=== PATIENT | male | born 1955 | race American Indian/Alaskan Native ===

== ENCOUNTER 2017-10-11 17:52 | Inpatient (IN) | payer OTHER, MEDICAID ==
--- NOTE | 2017-10-11 19:39 | Emergency Department Report ---
ED General Adult HPI - General Chief complaint: Recheck/Abnormal Lab/Rx Stated complaint: ABDNORMAL LABS Time Seen by Provider: 10/11/17 18:37 Source: patient, EMS Mode of arrival: Stretcher Limitations: No Limitations - History of Present Illness Initial comments: The patient presents to emergency department with complaint of abdominal pain. The patient is escorted from the local alf via PD for a further medical evaluation due to abnormal labs at the alf. According medical records that were provided the patient has elevated renal function along with elevated CK. Patient denies any chest pain, headache, nausea or vomiting. -: Gradual Radiation: non-radiation Severity scale (0 -10): 3 Quality: aching Consistency: constant Improves with: none Worsens with: none Associated Symptoms: denies other symptoms - Related Data Allergies Allergy/AdvReac Type Severity Reaction Status Date / Time Penicillins Allergy Unknown Verified 10/11/17 21:22 Sulfa (Sulfonamide Allergy Unknown Verified 10/11/17 21:22 Antibiotics) ED Review of Systems ROS: Stated complaint: ABDNORMAL LABS Other details as noted in HPI Comment: All other systems reviewed and negative Constitutional: denies: chills, fever Eyes: denies: eye pain, eye discharge, vision change ENT: denies: ear pain, throat pain Respiratory: denies: cough, shortness of breath, wheezing Cardiovascular: denies: chest pain, palpitations Endocrine: no symptoms reported Gastrointestinal: denies: abdominal pain, nausea, diarrhea Genitourinary: denies: urgency, dysuria Musculoskeletal: denies: back pain, joint swelling, arthralgia Skin: denies: rash, lesions Neurological: denies: headache, weakness, paresthesias Psychiatric: denies: anxiety, depression Hematological/Lymphatic: denies: easy bleeding, easy bruising ED Past Medical Hx - Social History Smoking Status: Former Smoker Substance Use Type: None ED Physical Exam - General Limitations: No Limitations General appearance: alert, in no apparent distress - Head Head exam: Present: atraumatic, normocephalic - Eye Eye exam: Present: normal appearance, PERRL, EOMI - ENT ENT exam: Present: mucous membranes moist - Neck Neck exam: Present: normal inspection - Respiratory Respiratory exam: Present: normal lung sounds bilaterally. Absent: respiratory distress - Cardiovascular Cardiovascular Exam: Present: regular rate, normal rhythm. Absent: systolic murmur, diastolic murmur, rubs, gallop - GI/Abdominal GI/Abdominal exam: Present: soft, normal bowel sounds - Rectal Rectal exam: Present: deferred - Extremities Exam Extremities exam: Present: normal inspection - Back Exam Back exam: Present: normal inspection - Neurological Exam Neurological exam: Present: alert, oriented X3, CN II-XII intact. Absent: motor sensory deficit - Psychiatric Psychiatric exam: Present: normal affect, normal mood - Skin Skin exam: Present: warm, dry, intact, normal color. Absent: rash ED Course Vital Signs 10/11/17 10/11/17 10/11/17 18:31 19:16 19:19 Temperature 97.8 F 98 F Pulse Rate 108 H 75 Respiratory 16 16 15 Rate Blood Pressure 110/70 Blood Pressure 110/70 [Left] O2 Sat by Pulse 100 98 Oximetry 10/11/17 19:30 Temperature Pulse Rate 112 H Respiratory 33 H Rate Blood Pressure 117/75 Blood Pressure [Left] O2 Sat by Pulse 96 Oximetry ED Medical Decision Making - Lab Data Result diagrams: 10/11/17 19:38 10/11/17 19:38 - Medical Decision Making Discussed results with patient the patient was started on IV fluids 150 mL per hour Critical Care Time: Yes Critical care time in (mins) excluding proc time.: 35 Critical care attestation.: If time is entered above; I have spent that time in minutes in the direct care of this critically ill patient, excluding procedure time. ED Disposition Clinical Impression: Acute renal failure Disposition: OP ADMIT IP TO THIS HOSP Is pt being admited?: Yes Does the pt Need Aspirin: No Condition: Fair Instructions: Impaired Kidney Function (ED) Referrals: PRIMARY CARE, [Primary Care Provider] - 3-5 Days Time of Disposition: 21:55
[2017-10-11 20:19] LABS: Hematocrit 29.6 % (35.5-45.6); Hemoglobin 10.2 gm/dl (11.8-15.2); Mean Corpuscular HGB Conc 34 % (32-34); Mean Corpuscular Hemoglobin 32 pg (28-32); Mean Corpuscular Volume 93 fl (84-94); Red Blood Count 3.18 M/mm3 (3.65-5.03); Red Cell Distribution Width 14.5 % (13.2-15.2)
[2017-10-11 20:30] LABS: Calcium 8.4 mg/dL (8.4-10.2)
[2017-10-11 20:35] LABS: Bilirubin,Urine NEG (Negative); Blood,Urine MOD (Negative); Color,Urine Yellow (Yellow); Mucus,Urine FEW /HPF; Protein,Urine <15 mg/dL mg/dL (Negative); Urobilinogen,Urine < 2.0 mg/dL (<2.0)
--- NOTE | 2017-10-11 20:45 | Cat Scan Report ---
FINAL REPORT PROCEDURE: CT abdomen and pelvis without contrast. TECHNIQUE: Computerized axial tomography of the abdomen and pelvis was performed without intravenous contrast. This study is performed without intravascular contrast material and its sensitivity for abdominal and pelvic pathology, including neoplasms, inflammation, abscess, free fluid, thrombosis, arterial dissection and infarction, is reduced compared with a contrast enhanced study. HISTORY: Abdominal pain. COMPARISON: No prior studies are available for comparison. FINDINGS: The lung bases are clear. There are no pleural effusions. The heart size is normal. The liver, pancreas and spleen are grossly normal. The gallbladder is present. There is no biliary dilatation. The adrenal glands are not enlarged. Both kidneys appear normal in size and configuration. There may be a small right renal cyst. This is incompletely evaluated without intravenous contrast however. The abdominal aorta has a normal caliber. There is no retroperitoneal adenopathy. The unopacified gastrointestinal tract is unremarkable. The appendix is not identified. The bladder, seminal vesicles and prostate are unremarkable. There are small bilateral inguinal canal hernias containing fat. The regional skeleton appears intact. There is severe disc space narrowing at L5-S1. IMPRESSION: Possible small right renal cysts. Small bilateral inguinal canal hernias containing fat. No evidence of acute disease in the abdomen or pelvis.
[2017-10-11 21:09] LABS: Band Neutrophils # (Manual) 2.3 K/mm3; Basophils % (Manual) 0 % (0.0-1.8); Eosinophils % (Manual) 0 % (0.0-4.3); Total Cells Counted 100
[2017-10-11 21:10] LABS: Hypochromasia 1+; Macrocytosis 1+; Poikilocytosis Few; Target Cells Few
[2017-10-11 21:11] LABS: Ovalocytes Few; Platelet Estimate Appears Decreased
[2017-10-11 21:15] LABS: Platelet Count 88 K/mm3 (140-440)
[2017-10-11] MEDS: NACL 0.9% 1000 ML 1,000 ML IV SCH (21:48)
[2017-10-11] MEDS ORDERED: NORCO 10/325 ONE (23:28)
[2017-10-11] MEDS ORDERED: NORCO 10/325 PO ONE (23:32)
--- NOTE | 2017-10-12 00:04 | History and Physical Report ---
History of Present Illness Date of examination: 10/11/17 Date of admission: 10/11/2017 Chief complaint: Chief complaint: Abdominal pain for 1 day duration Abnormal labs from [facility] consistent with decreased kidney function History of present illness: :History of Present Illness: 61-year-old [facility] inmate with no significant past medical history sent from the [facility] for abdominal pain of one-day duration. The patient was also found to have abnormal labs indicating decreased kidney function with increased creatinine. Patient did not have any nausea , vomiting or diarrhea. No fever or chills. No shortness of breath. No recent travel. Abdominal pain is generalized about 4 on a scale of 1-10. Crampy sensation. No GI bleed. No melanotic stools. Patient admits to poor oral intake of fluids. 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 Family history Htn Social History Smoking Status: Former Smoker Substance Use Type: None Review of Systems ROS: Stated complaint: ABDNORMAL LABS Other details as noted in HPI Comment: All other systems reviewed and negative Constitutional: denies: chills, fever Eyes: denies: eye pain, eye discharge, vision change ENT: denies: ear pain, throat pain Respiratory: denies: cough, shortness of breath, wheezing Cardiovascular: denies: chest pain, palpitations Endocrine: no symptoms reported Gastrointestinal: denies: abdominal pain, nausea, diarrhea Genitourinary: denies: urgency, dysuria Musculoskeletal: denies: back pain, joint swelling, arthralgia Skin: denies: rash, lesions Neurological: denies: headache, weakness, paresthesias Psychiatric: denies: anxiety, depression Hematological/Lymphatic: denies: easy bleeding, easy bruising Medications and Allergies Allergies Allergy/AdvReac Type Severity Reaction Status Date / Time Penicillins Allergy Unknown Verified 10/11/17 21:22 Sulfa (Sulfonamide Allergy Unknown Verified 10/11/17 21:22 Antibiotics) Active Meds: Active Medications Sodium Chloride (Nacl 0.9% 1000 Ml) 1,000 mls @ 150 mls/hr IV DIRECT SHAKA Last Admin: 10/11/17 21:48 Dose: 150 mls/hr Exam - Physical Exam Narrative exam: Lying in bed comfortably - Constitutional Vitals: Temp Pulse Resp BP Pulse Ox 98 F 121 H 18 119/70 100 10/11/17 19:16 10/11/17 23:16 10/11/17 23:33 10/11/17 23:16 10/11/17 23:16 General appearance: Present: no acute distress, well-nourished - EENT Eyes: Present: PERRL ENT: hearing intact, clear oral mucosa - Neck Neck: Present: supple, normal ROM - Respiratory Respiratory effort: normal Respiratory: bilateral: CTA - Cardiovascular Heart rate: 80 Rhythm: regular Heart Sounds: Present: S1 & S2. Absent: rub, click - Extremities Extremities: no ischemia, pulses intact, pulses symmetrical, No edema Peripheral Pulses: within normal limits - Abdominal General gastrointestinal: Present: soft, non-tender, non-distended, normal bowel sounds Male genitourinary: Present: normal - Rectal Rectal Exam: deferred - Integumentary Integumentary: Present: clear, warm, dry - Musculoskeletal Musculoskeletal: gait normal, strength equal bilaterally - Psychiatric Psychiatric: appropriate mood/affect, intact judgment & insight - Neurologic Neurologic: CNII-XII intact, moves all extremities - Allied Health Allied health notes reviewed: nursing, case management Results - Labs CBC & Chem 7: 10/11/17 19:38 10/11/17 19:38 Labs: Laboratory Last Values WBC 6.8 K/mm3 (4.5-11.0) 10/11/17 19:38 RBC 3.18 M/mm3 (3.65-5.03) L 10/11/17 19:38 Hgb 10.2 gm/dl (11.8-15.2) L 10/11/17 19:38 Hct 29.6 % (35.5-45.6) L 10/11/17 19:38 MCV 93 fl (84-94) 10/11/17 19:38 MCH 32 pg (28-32) 10/11/17 19:38 MCHC 34 % (32-34) 10/11/17 19:38 RDW 14.5 % (13.2-15.2) 10/11/17 19:38 Plt Count 88 K/mm3 (140-440) L 10/11/17 19:38 Add Manual Diff Complete 10/11/17 19:38 Total Counted 100 10/11/17 19:38 Seg Neuts % (Manual) 57.0 % (40.0-70.0) 10/11/17 19:38 Band Neutrophils % 34.0 % 10/11/17 19:38 Lymphocytes % (Manual) 3.0 % (13.4-35.0) L 10/11/17 19:38 Reactive Lymphs % (Man) 0 % 10/11/17 19:38 Monocytes % (Manual) 6.0 % (0.0-7.3) 10/11/17 19:38 Eosinophils % (Manual) 0 % (0.0-4.3) 10/11/17 19:38 Basophils % (Manual) 0 % (0.0-1.8) 10/11/17 19:38 Metamyelocytes % 0 % 10/11/17 19:38 Myelocytes % 0 % 10/11/17 19:38 Promyelocytes % 0 % 10/11/17 19:38 Blast Cells % 0 % 10/11/17 19:38 Nucleated RBC % Not Reportable 10/11/17 19:38 Seg Neutrophils # Man 3.9 K/mm3 (1.8-7.7) 10/11/17 19:38 Band Neutrophils # 2.3 K/mm3 10/11/17 19:38 Lymphocytes # (Manual) 0.2 K/mm3 (1.2-5.4) L 10/11/17 19:38 Abs React Lymphs (Man) 0.0 K/mm3 10/11/17 19:38 Monocytes # (Manual) 0.4 K/mm3 (0.0-0.8) 10/11/17 19:38 Eosinophils # (Manual) 0.0 K/mm3 (0.0-0.4) 10/11/17 19:38 Basophils # (Manual) 0.0 K/mm3 (0.0-0.1) 10/11/17 19:38 Metamyelocytes # 0.0 K/mm3 10/11/17 19:38 Myelocytes # 0.0 K/mm3 10/11/17 19:38 Promyelocytes # 0.0 K/mm3 10/11/17 19:38 Blast Cells # 0.0 K/mm3 10/11/17 19:38 WBC Morphology Not Reportable 10/11/17 19:38 Hypersegmented Neuts Not Reportable 10/11/17 19:38 Hyposegmented Neuts Not Reportable 10/11/17 19:38 Hypogranular Neuts Not Reportable 10/11/17 19:38 Smudge Cells Not Reportable 10/11/17 19:38 Toxic Granulation Not Reportable 10/11/17 19:38 Toxic Vacuolation Not Reportable 10/11/17 19:38 Dohle Bodies Not Reportable 10/11/17 19:38 Pelger-Huet Anomaly Not Reportable 10/11/17 19:38 Cem Rods Not Reportable 10/11/17 19:38 Platelet Estimate Appears decreased 10/11/17 19:38 Clumped Platelets Not Reportable 10/11/17 19:38 Plt Clumps, EDTA Not Reportable 10/11/17 19:38 Large Platelets Not Reportable 10/11/17 19:38 Giant Platelets Not Reportable 10/11/17 19:38 Platelet Satelliting Not Reportable 10/11/17 19:38 Plt Morphology Comment Not Reportable 10/11/17 19:38 RBC Morphology Not Reportable 10/11/17 19:38 Dimorphic RBCs Not Reportable 10/11/17 19:38 Polychromasia Not Reportable 10/11/17 19:38 Hypochromasia 1+ 10/11/17 19:38 Poikilocytosis Few 10/11/17 19:38 Anisocytosis Not Reportable 10/11/17 19:38 Microcytosis Not Reportable 10/11/17 19:38 Macrocytosis 1+ 10/11/17 19:38 Spherocytes Not Reportable 10/11/17 19:38 Pappenheimer Bodies Not Reportable 10/11/17 19:38 Sickle Cells Not Reportable 10/11/17 19:38 Target Cells Few 10/11/17 19:38 Tear Drop Cells Not Reportable 10/11/17 19:38 Ovalocytes Few 10/11/17 19:38 Helmet Cells Not Reportable 10/11/17 19:38 [place] Bodies Not Reportable 10/11/17 19:38 [place] Rings Not Reportable 10/11/17 19:38 [place] Cells Not Reportable 10/11/17 19:38 Bite Cells Not Reportable 10/11/17 19:38 Crenated Cell Not Reportable 10/11/17 19:38 Elliptocytes Not Reportable 10/11/17 19:38 Acanthocytes (Spur) Not Reportable 10/11/17 19:38 Rouleaux Not Reportable 10/11/17 19:38 Hemoglobin C Crystals Not Reportable 10/11/17 19:38 Schistocytes Not Reportable 10/11/17 19:38 Malaria parasites Not Reportable 10/11/17 19:38 Juan Bodies Not Reportable 10/11/17 19:38 Hem Pathologist Commnt No 10/11/17 19:38 Sodium 129 mmol/L (137-145) L 10/11/17 19:38 Potassium 3.3 mmol/L (3.6-5.0) L 10/11/17 19:38 Chloride 91.4 mmol/L (98-107) L 10/11/17 19:38 Carbon Dioxide 18 mmol/L (22-30) L 10/11/17 19:38 Anion Gap 23 mmol/L 10/11/17 19:38 BUN 93 mg/dL (9-20) H 10/11/17 19:38 Creatinine 3.5 mg/dL (0.8-1.5) H 10/11/17 19:38 Estimated GFR 22 ml/min 10/11/17 19:38 BUN/Creatinine Ratio 27 % 10/11/17 19:38 Glucose 127 mg/dL (75-100) H 10/11/17 19:38 Calcium 8.4 mg/dL (8.4-10.2) 10/11/17 19:38 Phosphorus 4.00 mg/dL (2.5-4.5) 10/11/17 19:38 Magnesium 2.30 mg/dL (1.7-2.3) 10/11/17 19:38 Total Bilirubin 2.30 mg/dL (0.1-1.2) H 10/11/17 19:38 AST 206 units/L (5-40) H 10/11/17 19:38 ALT 84 units/L (7-56) H 10/11/17 19:38 Alkaline Phosphatase 77 units/L (35-129) 10/11/17 19:38 Total Creatine Kinase 1283 units/L (55-170) H 10/11/17 19:38 Total Protein 6.6 g/dL (6.3-8.2) 10/11/17 19:38 Albumin 3.0 g/dL (3.9-5) L 10/11/17 19:38 Albumin/Globulin Ratio 0.8 % 10/11/17 19:38 Urine Color Yellow (Yellow) 10/11/17 Unknown Urine Turbidity Clear (Clear) 10/11/17 Unknown Urine pH 5.0 (5.0-7.0) 10/11/17 Unknown Ur Specific [place] 1.012 (1.003-1.030) 10/11/17 Unknown Urine Protein <15 mg/dl mg/dL (Negative) 10/11/17 Unknown Urine Glucose (UA) Neg mg/dL (Negative) 10/11/17 Unknown Urine Ketones Neg mg/dL (Negative) 10/11/17 Unknown Urine Blood Mod (Negative) 10/11/17 Unknown Urine Nitrite Neg (Negative) 10/11/17 Unknown Urine Bilirubin Neg (Negative) 10/11/17 Unknown Urine Urobilinogen < 2.0 mg/dL (<2.0) 10/11/17 Unknown Ur Leukocyte Esterase Neg (Negative) 10/11/17 Unknown Urine WBC (Auto) 10.0 /HPF (0.0-6.0) H 10/11/17 Unknown Urine RBC (Auto) 15.0 /HPF (0.0-6.0) 10/11/17 Unknown U Epithel Cells (Auto) 1.0 /HPF (0-13.0) 10/11/17 Unknown Urine Mucus Few /HPF 10/11/17 Unknown - Imaging and Cardiology EKG: report reviewed CT scan - abdomen: report reviewed (small renal cysts no acute findings.) Assessment and Plan Advance Directives: Yes (full code) VTE prophylaxis?: Chemical Plan of care discussed with patient/family: Yes - Patient Problems (1) Acute kidney injury Current Visit: Yes Status: Acute Plan to address problem: Probably secondary to poor oral intake. Patient did not have any nausea vomiting or diarrhea. Patient seems to be depressed because of his being in [facility]. 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 Hemolysis LDH ordered (5) Anemia Current Visit: Yes Status: Chronic Qualifiers: Anemia type: unspecified type Qualified Code(s): D64.9 - Anemia, unspecified Plan to address problem: Probably nutritional Iron folic acid and B12 levels ordered (6) DVT prophylaxis Current Visit: Yes Status: Acute Plan to address problem: Lovenox 30 mg subcutaneous daily GI prophylaxis ordered
[2017-10-12] MEDS ORDERED: SODIUM CHLORIDE FLUSH SYRINGE 10 ML IV PRN (00:06)
[2017-10-12] MEDS ORDERED: ZOFRAN IV PRN (00:06)
[2017-10-12] MEDS: NACL 0.9% 1000 ML 1,000 ML IV SCH ×4 (01:22→20:09)
[2017-10-12 07:01] LABS: Hematocrit 28.2 % (35.5-45.6); Hemoglobin 9.9 gm/dl (11.8-15.2); Mean Corpuscular HGB Conc 35 % (32-34); Mean Corpuscular Hemoglobin 33 pg (28-32); Mean Corpuscular Volume 93 fl (84-94); Red Blood Count 3.04 M/mm3 (3.65-5.03); Red Cell Distribution Width 14.5 % (13.2-15.2)
[2017-10-12 07:06] LABS: Platelet Count 92 K/mm3 (140-440)
[2017-10-12 07:16] LABS: Albumin 2.7 g/dL (3.9-5); Calcium 8.5 mg/dL (8.4-10.2)
[2017-10-12 07:25] LABS: Hepatitis A Antibody IgM Non-Reactive (NonReactive); Hepatitis B Core IgM Non-Reactive (NonReactive); Hepatitis B Surface Antigen Non-Reactive (Negative); Hepatitis C Virus Antibody Reactive (NonReactive)
--- NOTE | 2017-10-12 08:20 | Consultation ---
History of Present Illness - Reason for Consult Consult date: 10/12/17 acute renal failure, hyponatremia, metabolic acidosis - History of Present Illness The patient is a 61 YO male with no significant medical problem who is current incarcerated was sent from the shelter for one day h/o abd pain. Patient is a poor historian. Outside labs showed elevated creatinine. Patient denies any N , V, D, dizziness, fever, chills, leg swelling, dysuria or hematuria. Nephrology was consulted for creatinine of 3.5 and abnormal lytes. Medications and Allergies Allergies Allergy/AdvReac Type Severity Reaction Status Date / Time Penicillins Allergy Unknown Verified 10/11/17 21:22 Sulfa (Sulfonamide Allergy Unknown Verified 10/11/17 21:22 Antibiotics) Active Meds: Active Medications Acetaminophen (Tylenol) 650 mg PO Q4H PRN PRN Reason: Pain MILD(1-3)/Fever >100.5/TUCKER Enoxaparin Sodium (Lovenox) 30 mg SUB-Q QDAY SHAKA Sodium Chloride (Nacl 0.9% 1000 Ml) 1,000 mls @ 150 mls/hr IV DIRECT SHAKA Last Admin: 10/12/17 08:16 Dose: 150 mls/hr Sodium Chloride (Nacl 0.9% 1000 Ml) 1,000 mls @ 125 mls/hr IV DIRECT SHAKA Last Admin: 10/12/17 01:22 Dose: 125 mls/hr Morphine Sulfate (Morphine) 2 mg IV Q4H PRN PRN Reason: Pain, Moderate (4-6) Ondansetron HCl (Zofran) 4 mg IV Q8H PRN PRN Reason: Nausea And Vomiting Oxycodone/Acetaminophen (Percocet 5/325) 1 tab PO Q6H PRN PRN Reason: Pain, Moderate (4-6) Sodium Chloride (Sodium Chloride Flush Syringe 10 Ml) 10 ml IV BID SHAKA Sodium Chloride (Sodium Chloride Flush Syringe 10 Ml) 10 ml IV PRN PRN PRN Reason: LINE FLUSH Review of Systems Constitutional: other (decrease PO intake), no weight loss, no weight gain, no fever, no chills Ears, nose, mouth and throat: epistaxis Cardiovascular: no chest pain, no orthopnea, no edema, no lightheadedness, no shortness of breath, no high blood pressure, no leg edema Respiratory: no cough, no shortness of breath Gastrointestinal: no abdominal pain, no nausea, no vomiting, no diarrhea Genitourinary Male: no dysuria, no hematuria Rectal: no bleeding Integumentary: no rash, no wounds, no jaundice Exam - Vital Signs Vital signs: Vital Signs Temp Pulse Resp BP Pulse Ox 97.8 F 108 H 16 110/70 100 10/11/17 18:31 10/11/17 18:31 10/11/17 18:31 10/11/17 18:31 10/11/17 18:31 - General Appearance General appearance: well-developed, well-nourished, appears stated age, other ( no distress) EENT: ATNC, PERRL, mucous membranes dry, hearing intact, vision intact Neck: Present: neck supple, trachea midline Respiratory: Clear to Ascultation Heart: regular, S1S2, no murmurs Gastrointestinal: Present: normoactive bowel sounds. Absent: tenderness Integumentary: no rash, warm and dry Neurologic: no focal deficit, no asterixis Musculoskeletal: Present: other (no edema) Results - Lab Results 10/12/17 06:00 10/13/17 08:05 Most recent lab results Calcium 8.5 mg/dL (8.4-10.2) 10/12/17 06:00 Phosphorus 4.00 mg/dL (2.5-4.5) 10/11/17 19:38 Magnesium 2.30 mg/dL (1.7-2.3) 10/11/17 19:38 - Image Kidney/bladder ultrasound: other Assessment and Plan 1. Acute kidney injury: Vasomotor / hemodynamic DARRICK in the setting of volume depletion. Renal function is improving. Continue IV fluids. Imaging, no hydro. 2. Electrolytes: Monitor. 3. Mild rhabdomyolysis. Continue IV fluids. 4. Hepatitis C with elevated liver enzymes.
[2017-10-12] MEDS: LOVENOX SUB-Q SCH (09:41)
[2017-10-12] MEDS: SODIUM CHLORIDE FLUSH SYRINGE 10 ML IV SCH (09:44)
[2017-10-12 09:45] LABS: % Iron Saturation 34.35 %
[2017-10-12 11:28] LABS: Anisocytosis 1+; Basophils % (Manual) 0 % (0.0-1.8); Eosinophils % (Manual) 0 % (0.0-4.3); Total Cells Counted 100
[2017-10-12 11:29] LABS: Platelet Estimate Consistent w Auto
--- NOTE | 2017-10-12 12:33 | Progress Note ---
Assessment and Plan / Acute kidney injury Probably secondary to poor oral intake. Patient did not have any nausea vomiting or diarrhea. Patient seems to be depressed because of his being in shelter. IV fluids for now Nephrology consulted Acute tubular necrosis is a high possibility /acute encephalopathy - likely from renal failure - will monitor renal function, will obtain CT head / Hypokalemia Supplemented /Hyponatremia SIADH to be ruled out IV fluids were now Serum osmolarity and urine osmolality ordered / Transaminitis Acute hepatitis profile negative Patient has no history of alcohol intake He is in the shelter for last 2 months Total bilirubin is also slightly high at 2.30 /Anemia Probably nutritional Iron folic acid and B12 levels ordered /DVT prophylaxis Lovenox 30 mg subcutaneous daily GI prophylaxis ordered Brief History: The patient is a 61 YO male with no significant medical problem who is current incarcerated was sent from the shelter for one day h/o abd pain and Outside labs showing elevated creatinine. Hospitalist Physical exam: GENERAL: well-developed and well-nourished male lying on bed appeared to be in no discomfort. HEENT: Normocephalic. Atraumatic. No conjunctival congestion or icterus. Patient has moist mucous membranes. NECK: Supple. Trachea midline. CHEST/LUNGS: Clear to auscultated bilaterally, breathing nonlabored. No wheezes crackles or rhonchi. HEART/CARDIOVASCULAR: Regular in rate and rhythm. S1 and S2 positive. ABDOMEN: Abdomen is soft, nontender. Patient has normal bowel sounds. SKIN: There is no rash. Warm and dry. NEURO: No focal motor deficit. It appears somewhat confused, oriented to self only MUSCULOSKELETAL: No joint effusion or tenderness EXTRIMITY: No edema, no cyanosis or clubbing. PSYCH: Cooperative. Subjective Date of service: 10/12/17 Interval history: Patient seen and examined. Medical records and medication list reviewed. No acute event overnight noted by the RN. + Patient denies any chest pain or difficulty breathing. Objective - Constitutional Vitals: Vital Signs - 12hr 10/12/17 10/12/17 10/12/17 00:33 00:50 01:23 Temperature 98.4 F Pulse Rate 111 H 105 H Pulse Rate [ From Monitor] Respiratory 18 27 H 20 Rate Blood Pressure 110/69 108/60 O2 Sat by Pulse 96 93 Oximetry 10/12/17 10/12/17 10/12/17 02:09 02:10 02:30 Temperature Pulse Rate Pulse Rate [ 108 H From Monitor] Respiratory 18 Rate Blood Pressure 110/69 110/69 O2 Sat by Pulse 86 87 98 Oximetry 10/12/17 10/12/17 05:19 07:28 Temperature 98.8 F 100.2 F H Pulse Rate 115 H 119 H Pulse Rate [ From Monitor] Respiratory 18 20 Rate Blood Pressure 116/73 117/75 O2 Sat by Pulse 98 97 Oximetry - Labs CBC & Chem 7: 10/12/17 06:00 10/13/17 08:05 Labs: Abnormal lab results 10/11/17 10/11/17 10/11/17 Range/Units 19:38 19:38 Unknown RBC 3.18 L (3.65-5.03) M/mm3 Hgb 10.2 L (11.8-15.2) gm/dl Hct 29.6 L (35.5-45.6) % MCH (28-32) pg MCHC (32-34) % Plt Count 88 L (140-440) K/mm3 Seg Neuts % (Manual) (40.0-70.0) % Lymphocytes % (Manual) 3.0 L (13.4-35.0) % Lymphocytes # (Manual) 0.2 L (1.2-5.4) K/mm3 Sodium 129 L (137-145) mmol/L Potassium 3.3 L (3.6-5.0) mmol/L Chloride 91.4 L (98-107) mmol/L Carbon Dioxide 18 L (22-30) mmol/L BUN 93 H (9-20) mg/dL Creatinine 3.5 H (0.8-1.5) mg/dL Glucose 127 H (75-100) mg/dL Iron (49-181) ug/dL TIBC (250-450) mcg/dL Transferrin (180-329) mg/dl Total Bilirubin 2.30 H (0.1-1.2) mg/dL AST 206 H (5-40) units/L ALT 84 H (7-56) units/L Total Creatine Kinase 1283 H (55-170) units/L Albumin 3.0 L (3.9-5) g/dL Urine WBC (Auto) 10.0 H (0.0-6.0) /HPF Hepatitis C Antibody (NonReactive) 10/12/17 10/12/17 10/12/17 Range/Units 06:00 06:00 06:00 RBC 3.04 L (3.65-5.03) M/mm3 Hgb 9.9 L (11.8-15.2) gm/dl Hct 28.2 L (35.5-45.6) % MCH 33 H (28-32) pg MCHC 35 H (32-34) % Plt Count 92 L (140-440) K/mm3 Seg Neuts % (Manual) 88.0 H (40.0-70.0) % Lymphocytes % (Manual) 5.0 L (13.4-35.0) % Lymphocytes # (Manual) 0.3 L (1.2-5.4) K/mm3 Sodium 132 L (137-145) mmol/L Potassium (3.6-5.0) mmol/L Chloride 95.3 L (98-107) mmol/L Carbon Dioxide 18 L (22-30) mmol/L BUN 94 H (9-20) mg/dL Creatinine 3.1 H (0.8-1.5) mg/dL Glucose 112 H (75-100) mg/dL Iron 45 L (49-181) ug/dL TIBC 131 L (250-450) mcg/dL Transferrin 102 L (180-329) mg/dl Total Bilirubin 2.30 H (0.1-1.2) mg/dL AST 180 H (5-40) units/L ALT 73 H (7-56) units/L Total Creatine Kinase (55-170) units/L Albumin 2.7 L (3.9-5) g/dL Urine WBC (Auto) (0.0-6.0) /HPF Hepatitis C Antibody (NonReactive) 10/12/17 Range/Units 06:00 RBC (3.65-5.03) M/mm3 Hgb (11.8-15.2) gm/dl Hct (35.5-45.6) % MCH (28-32) pg MCHC (32-34) % Plt Count (140-440) K/mm3 Seg Neuts % (Manual) (40.0-70.0) % Lymphocytes % (Manual) (13.4-35.0) % Lymphocytes # (Manual) (1.2-5.4) K/mm3 Sodium (137-145) mmol/L Potassium (3.6-5.0) mmol/L Chloride (98-107) mmol/L Carbon Dioxide (22-30) mmol/L BUN (9-20) mg/dL Creatinine (0.8-1.5) mg/dL Glucose (75-100) mg/dL Iron (49-181) ug/dL TIBC (250-450) mcg/dL Transferrin (180-329) mg/dl Total Bilirubin (0.1-1.2) mg/dL AST (5-40) units/L ALT (7-56) units/L Total Creatine Kinase (55-170) units/L Albumin (3.9-5) g/dL Urine WBC (Auto) (0.0-6.0) /HPF Hepatitis C Antibody Reactive A (NonReactive)
[2017-10-12 13:27] LABS: Creatinine,Urine 80.2 mg/dL (0.1-20.0)
[2017-10-12] MEDS: TYLENOL PO PRN (20:05)
[2017-10-13] MEDS: NACL 0.9% 1000 ML 1,000 ML IV SCH ×2 (05:58→17:05)
[2017-10-13] MEDS: PERCOCET 5/325 PO PRN (06:00)
[2017-10-13] MEDS: SODIUM CHLORIDE FLUSH SYRINGE 10 ML IV SCH ×3 (06:02→23:21)
[2017-10-13] MEDS: TYLENOL PO PRN ×2 (06:09→17:07)
--- NOTE | 2017-10-13 07:59 | Progress Note ---
Assessment and Plan 1. Acute kidney injury: Vasomotor / hemodynamic DARRICK in the setting of volume depletion. Renal function continue to improve. Continue IV fluids. 2. Electrolytes: Replete K. Monitor. 3. Mild rhabdomyolysis. Continue IV fluids. 4. Hepatitis C with elevated liver enzymes. Subjective Date of service: 10/13/17 Interval history: Patient is feeling better today. Objective - Vital Signs Vital signs: Vital Signs - 12hr 10/13/17 10/13/17 00:32 05:24 Temperature 99.5 F 102.0 F H Pulse Rate 105 H 124 H Respiratory 22 22 Rate Blood Pressure 101/68 100/58 O2 Sat by Pulse 98 93 Oximetry - General Appearance General appearance: well-developed, well-nourished, appears stated age, other ( no distress) EENT: ATNC, PERRL, mucous membranes moist, hearing intact Neck: supple Respiratory: Present: Clear to Ascultation Cardiology: regular, S1S2, no murmurs Gastrointestinal: normoactive bowel sounds, no tenderness Integumentary: no rash, warm and dry Neurologic: no focal deficit, no asterixis Musculoskeletal: other (no edema) Psychiatric: cooperative - Lab 10/12/17 06:00 10/13/17 08:05 Most recent lab results Calcium 8.5 mg/dL (8.4-10.2) 10/12/17 06:00 Phosphorus 4.00 mg/dL (2.5-4.5) 10/11/17 19:38 Magnesium 2.30 mg/dL (1.7-2.3) 10/11/17 19:38 Urine Creatinine 80.2 mg/dL (0.1-20.0) H 10/12/17 13:00 Urine Sodium 10 mmol/L 10/12/17 13:00
[2017-10-13 08:54] LABS: Calcium 8.1 mg/dL (8.4-10.2)
[2017-10-13] MEDS ORDERED: NACL 0.9% 500 ML 500 ML IV ONE (09:29)
[2017-10-13] MEDS ORDERED: VANCOMYCIN PHARMACY TO DOSE IV SCH (10:00)
[2017-10-13] MEDS ORDERED: VANCOMYCIN/NS 1 GM/250 ML 1 GM/250 ML BAG IV SCH (10:00)
[2017-10-13] MEDS ORDERED: K-DUR PO ONE (10:00)
[2017-10-13] MEDS: LOVENOX SUB-Q SCH (10:09)
[2017-10-13] MEDS ORDERED: VANCOMYCIN 1,500 MG in NACL 0.9% 500 ML 500 ML IV ONE (10:15)
--- NOTE | 2017-10-13 12:53 | Progress Note ---
Assessment and Plan / Acute kidney injury Probably secondary to poor oral intake. Patient did not have any nausea vomiting or diarrhea. Patient seems to be depressed because of his being in residential. IV fluids for now Nephrology consulted Acute tubular necrosis is a high possibility /acute encephalopathy with delirium - likely from renal failure, disoriented off and on - will monitor renal function, negative CT head result / SIRS - Initiated sepsis protocol, source unknown - cont abx, follow blood cx / Hypokalemia Supplemented /Hyponatremia improving with iv fluid / Transaminitis Acute hepatitis profile positive for hepatitis C Patient has no history of alcohol intake He is in the residential for last 2 months Total bilirubin was also slightly high at 2.30 on admission /Anemia Probably nutritional Iron folic acid and B12 levels ordered /DVT prophylaxis Lovenox 30 mg subcutaneous daily GI prophylaxis ordered Brief History: The patient is a 61 YO male with no significant medical problem who is current incarcerated was sent from the residential for one day h/o abd pain and Outside labs showing elevated creatinine. Hospitalist Physical exam: GENERAL: well-developed and well-nourished male lying on bed appeared to be in no discomfort. HEENT: Normocephalic. Atraumatic. No conjunctival congestion or icterus. Patient has moist mucous membranes. NECK: Supple. Trachea midline. CHEST/LUNGS: Clear to auscultated bilaterally, breathing nonlabored. No wheezes crackles or rhonchi. HEART/CARDIOVASCULAR: Regular in rate and rhythm. S1 and S2 positive. ABDOMEN: Abdomen is soft, nontender. Patient has normal bowel sounds. SKIN: There is no rash. Warm and dry. NEURO: No focal motor deficit. It appears somewhat confused, oriented to self only MUSCULOSKELETAL: No joint effusion or tenderness EXTRIMITY: No edema, no cyanosis or clubbing. PSYCH: Cooperative. Subjective Date of service: 10/13/17 Interval history: Patient seen and examined. Medical records and medication list reviewed. No acute event overnight noted by the RN. spiking temp, initiated abx, ordered blood cx Patient denies any chest pain. Objective - Constitutional Vitals: Vital Signs - 12hr 10/13/17 10/13/17 05:24 08:00 Temperature 102.0 F H 98.7 F Pulse Rate 124 H 118 H Respiratory 22 20 Rate Blood Pressure 100/58 86/53 O2 Sat by Pulse 93 94 Oximetry - Labs CBC & Chem 7: 10/12/17 06:00 10/14/17 07:14 Labs: Abnormal lab results 10/12/17 10/13/17 Range/Units 13:00 08:05 Sodium 135 L (137-145) mmol/L Carbon Dioxide 18 L (22-30) mmol/L BUN 91 H (9-20) mg/dL Creatinine 2.3 H (0.8-1.5) mg/dL Glucose 122 H (75-100) mg/dL Calcium 8.1 L (8.4-10.2) mg/dL Total Creatine Kinase 1702 H (55-170) units/L Urine Creatinine 80.2 H (0.1-20.0) mg/dL
--- NOTE | 2017-10-13 15:40 | Cat Scan Report ---
FINAL REPORT PROCEDURE: CT HEAD/BRAIN WO CON TECHNIQUE: Computerized tomography of the head was performed without contrast material. HISTORY: confusion COMPARISON: No prior studies are available for comparison. FINDINGS: Brain: Brain density appears normal. No evidence of intracranial hemorrhage. No parenchymal hemorrhage, mass lesions or mass effect are seen. No abnormal extraxial fluid collects or masses are seen. Nonspecific mineralization the basal ganglia are visualized. Ventricles: Ventricles are normal size and are midline. Bone Windows: No evidence of skull fracture. Paranasal sinuses: Clear Mastoid air cells: Clear IMPRESSION: Negative exam.
[2017-10-14] MEDS: NACL 0.9% 1000 ML 1,000 ML IV SCH ×3 (01:08→20:16)
[2017-10-14] MEDS: TYLENOL PO PRN ×2 (05:48→22:49)
[2017-10-14 08:14] LABS: Calcium 8.1 mg/dL (8.4-10.2)
[2017-10-14] MEDS: LOVENOX SUB-Q SCH (10:16)
[2017-10-14] MEDS: SODIUM CHLORIDE FLUSH SYRINGE 10 ML IV SCH ×2 (10:17→22:55)
[2017-10-14] MEDS: VANCOMYCIN 1,250 MG in NACL 0.9% 250ML 250 ML IV SCH (10:19)
--- NOTE | 2017-10-14 15:10 | Progress Note ---
Assessment and Plan / Acute kidney injury Probably secondary to poor oral intake and sepsis IV fluids for now, Cr improving Nephrology consulted Acute tubular necrosis is a high possibility /acute encephalopathy with delirium - likely from renal failure, disoriented off and on - will monitor renal function, negative CT head result - will order MRI. If MRI normal consider doing psych consult / Sepsis with bacteremia - Initiated sepsis protocol, source of bacteremia unknown - cont abx, follow final blood cx report - will add zosyn as spiking temp, ID consult, obtain 2d echo / Hypokalemia Supplemented /Hyponatremia improving with iv fluid / Transaminitis Acute hepatitis profile positive for hepatitis C Patient has no history of alcohol intake He is in the custodial for last 2 months cont to monitor /Anemia Probably anemia of CD, monitor h/h /DVT prophylaxis Lovenox 30 mg subcutaneous daily GI prophylaxis ordered Brief History: The patient is a 61 YO male with no significant medical problem who is current incarcerated was sent from the custodial for one day h/o abd pain and Outside labs showing elevated creatinine. Hospitalist Physical exam: GENERAL: well-developed and well-nourished male lying on bed appeared to be in no discomfort. HEENT: Normocephalic. Atraumatic. No conjunctival congestion or icterus. Patient has moist mucous membranes. NECK: Supple. Trachea midline. CHEST/LUNGS: Clear to auscultated bilaterally, breathing nonlabored. No wheezes crackles or rhonchi. HEART/CARDIOVASCULAR: Regular in rate and rhythm. S1 and S2 positive. ABDOMEN: Abdomen is soft, nontender. Patient has normal bowel sounds. SKIN: There is no rash. Warm and dry. NEURO: No focal motor deficit. It appears somewhat confused, oriented to self only MUSCULOSKELETAL: No joint effusion or tenderness EXTRIMITY: No edema, no cyanosis or clubbing. PSYCH: Cooperative. Subjective Date of service: 10/14/17 Interval history: Patient seen and examined. Medical records and medication list reviewed. No acute event overnight noted by the RN. CONT spiking temp, Patient denies any chest pain. Remained confused Objective - Constitutional Vitals: Vital Signs - 12hr 10/14/17 10/14/17 10/14/17 05:37 07:29 11:59 Temperature 101.3 F H 97.8 F 97.7 F Pulse Rate 58 L 113 H Respiratory 20 24 24 Rate Blood Pressure 99/55 102/64 88/51 O2 Sat by Pulse 95 95 Oximetry - Labs CBC & Chem 7: 10/12/17 06:00 10/14/17 07:14 Labs: Abnormal lab results 10/14/17 Range/Units 07:14 Sodium 136 L (137-145) mmol/L Carbon Dioxide 18 L (22-30) mmol/L BUN 91 H (9-20) mg/dL Creatinine 2.1 H (0.8-1.5) mg/dL Glucose 109 H (75-100) mg/dL Calcium 8.1 L (8.4-10.2) mg/dL Total Creatine Kinase 1518 H (55-170) units/L
[2017-10-14] MEDS: PERCOCET 5/325 PO PRN (18:09)
--- NOTE | 2017-10-14 22:48 | Progress Note ---
Assessment and Plan 1. Acute kidney injury: Vasomotor / hemodynamic DARRICK in the setting of volume depletion. Renal function continue to improve. Continue IV fluids. 2. Electrolytes: Monitor. 3. Mild rhabdomyolysis. Continue IV fluids. 4. Bacteremia. 5. Hepatitis C with elevated liver enzymes. Subjective Date of service: 10/14/17 Interval history: Patient is feeling better today. Objective - Vital Signs Vital signs: Vital Signs - 12hr 10/14/17 10/14/17 10/14/17 11:59 16:25 17:00 Temperature 97.7 F 97.3 F L Pulse Rate 113 H 128 H Respiratory 24 24 Rate Blood Pressure 88/51 96/52 O2 Sat by Pulse 95 85 94 Oximetry 10/14/17 19:56 Temperature 100.5 F H Pulse Rate 132 H Respiratory 22 Rate Blood Pressure 101/56 O2 Sat by Pulse 95 Oximetry - General Appearance General appearance: well-developed, well-nourished, appears stated age, other ( no distress) EENT: ATNC, PERRL, hearing intact, vision intact Neck: supple Respiratory: Present: Clear to Ascultation Cardiology: regular, S1S2, no murmurs Gastrointestinal: normoactive bowel sounds Integumentary: no rash, warm and dry Neurologic: no focal deficit, no asterixis Musculoskeletal: other (no edema) Psychiatric: cooperative - Lab 10/12/17 06:00 10/14/17 07:14 Most recent lab results Calcium 8.1 mg/dL (8.4-10.2) L 10/14/17 07:14 Phosphorus 4.00 mg/dL (2.5-4.5) 10/11/17 19:38 Magnesium 2.30 mg/dL (1.7-2.3) 10/11/17 19:38 Urine Creatinine 80.2 mg/dL (0.1-20.0) H 10/12/17 13:00 Urine Sodium 10 mmol/L 10/12/17 13:00
[2017-10-14] MEDS: ZOSYN/NS 3.375GM/50ML 3.375 GM/50 ML BAG IV SCH (22:50)
[2017-10-15] MEDS: ZOSYN/NS 3.375GM/50ML 3.375 GM/50 ML BAG IV SCH ×2 (06:05→14:39)
[2017-10-15 06:54] LABS: Basophils % (Auto) 0.3 % (0.0-1.8); Eosinophils % (Auto) 0.2 % (0.0-4.3); Hematocrit 22.5 % (35.5-45.6); Hemoglobin 7.8 gm/dl (11.8-15.2); Lymphocytes # (Auto) 0.5 K/mm3 (1.2-5.4); Mean Corpuscular HGB Conc 35 % (32-34); Mean Corpuscular Hemoglobin 32 pg (28-32); Mean Corpuscular Volume 93 fl (84-94); Monocytes # (Auto) 0.4 K/mm3 (0.0-0.8); Monocytes % (Auto) 5.4 % (0.0-7.3); Platelet Count 128 K/mm3 (140-440); Red Blood Count 2.43 M/mm3 (3.65-5.03); Red Cell Distribution Width 14.9 % (13.2-15.2)
[2017-10-15 07:17] LABS: Calcium 8.2 mg/dL (8.4-10.2)
[2017-10-15] MEDS: LOVENOX SUB-Q SCH (09:15)
[2017-10-15] MEDS: TYLENOL PO PRN ×2 (09:16→18:34)
[2017-10-15] MEDS: VANCOMYCIN 1,250 MG in NACL 0.9% 250ML 250 ML IV SCH (09:16)
--- NOTE | 2017-10-15 09:17 | Progress Note ---
Assessment and Plan 1. Acute kidney injury: Vasomotor / hemodynamic DARRICK in the setting of volume depletion. Renal function continue to improve. Continue IV fluids. 2. Electrolytes: Metabolic acidosis. Monitor. 3. Mild rhabdomyolysis. Continue IV fluids. 4. MRSA septicemia: Followed by ID. 5. Hepatitis C with elevated liver enzymes. Subjective Date of service: 10/15/17 Interval history: Patient is feeling ok. Objective - Vital Signs Vital signs: Vital Signs - 12hr 10/15/17 10/15/17 10/15/17 00:22 04:25 07:41 Temperature 97.9 F 101.4 F H 97.4 F L Pulse Rate 119 H 66 121 H Pulse Rate [ From Monitor] Respiratory 24 24 22 Rate Blood Pressure 89/53 102/64 89/57 Blood Pressure [Left] O2 Sat by Pulse 92 67 L 96 Oximetry 10/15/17 10/15/17 08:16 08:46 Temperature Pulse Rate Pulse Rate [ 127 H From Monitor] Respiratory 18 Rate Blood Pressure Blood Pressure 102/60 [Left] O2 Sat by Pulse Oximetry - General Appearance General appearance: well-developed, well-nourished, appears stated age, other ( no distress) EENT: ATNC, PERRL, mucous membranes moist, hearing intact, vision intact Neck: supple Respiratory: Present: Clear to Ascultation Cardiology: regular, S1S2, no murmurs Gastrointestinal: normoactive bowel sounds, no tenderness Integumentary: no rash, warm and dry Neurologic: no focal deficit, no asterixis Musculoskeletal: other (no edema) - Lab 10/15/17 06:17 10/15/17 06:17 Most recent lab results Calcium 8.2 mg/dL (8.4-10.2) L 10/15/17 06:17 Phosphorus 3.20 mg/dL (2.5-4.5) 10/15/17 06:17 Magnesium 2.20 mg/dL (1.7-2.3) 10/15/17 06:17 Urine Creatinine 80.2 mg/dL (0.1-20.0) H 10/12/17 13:00 Urine Sodium 10 mmol/L 10/12/17 13:00
--- NOTE | 2017-10-15 11:13 | Consultation ---
History of Present Illness - Reason for Consult Consult date: 10/15/17 MRSA septicemia Requesting physician: SAMIR ZEPEDA - History of Present Illness 61 y/o inmate from [facility] without medical history; admitted n due to abdominal pain of one-day duration. Abdominal pain is generalized about 4 on a scale of 1-10. Crampy sensation He is also c/o bilateral leg weakness. The patient was also found to have abnormal labs indicating decreased kidney function with increased creatinine. Patient did not have any nausea , vomiting or diarrhea. No fever or chills. No shortness of breath. No recent travel. Denies previous Staph infection. Reports subjective fever. In the ED, temp 97.8, HR 108, R 16, O2 sat 100%, BP 110/70. WBC 6.8. Hg 10.2. Plat 88. Bands 34%. Sodium 129. Creat 3.5. Bili 2.3. AST 206. ALT 206. CK 1283. UA neg. HCV AB positive. CT abd small right renal cyst, small meeta inguinal hernia. CT head neg. CXR neg. Microbiology: Blood cultures: 10/13 MRSA 2 of 4 bottles 10/14 Staph 3 of 4 bottles Urine cultures: Respiratory cultures: Wound cultures: Stool cultures: Other: Current Antimicrobials: Zosyn Vancomycin Previous Antimicrobials: Past History Past Surgical History: No surgical history Social history: no significant social history Family history: no significant family history Medications and Allergies Allergies Allergy/AdvReac Type Severity Reaction Status Date / Time Penicillins Allergy Unknown Verified 10/11/17 21:22 Sulfa (Sulfonamide Allergy Unknown Verified 10/11/17 21:22 Antibiotics) Active Meds: Active Medications Acetaminophen (Tylenol) 650 mg PO Q4H PRN PRN Reason: Pain MILD(1-3)/Fever >100.5/TUCKER Last Admin: 10/15/17 09:16 Dose: 650 mg Enoxaparin Sodium (Lovenox) 40 mg SUB-Q QDAY@1000 SHAKA Last Admin: 10/15/17 09:15 Dose: 40 mg Vancomycin HCl 1,250 mg/ (Sodium Chloride) 262.5 mls @ 166.667 mls/hr IV Q24H SHAKA Last Admin: 10/15/17 09:16 Dose: 166.667 mls/hr Sodium Chloride (Nacl 0.9% 1000 Ml) 1,000 mls @ 125 mls/hr IV DIRECT SHAKA Last Admin: 10/14/17 20:16 Dose: 125 mls/hr Piperacillin Sod/Tazobactam Sod (Zosyn/Ns 3.375gm/50ml) 3.375 gm in 50 mls @ 100 mls/hr IV Q8HR SHAKA; Protocol Last Admin: 10/15/17 06:05 Dose: 100 mls/hr Morphine Sulfate (Morphine) 2 mg IV Q4H PRN PRN Reason: Pain, Moderate (4-6) Ondansetron HCl (Zofran) 4 mg IV Q8H PRN PRN Reason: Nausea And Vomiting Oxycodone/Acetaminophen (Percocet 5/325) 1 tab PO Q6H PRN PRN Reason: Pain, Moderate (4-6) Last Admin: 10/14/17 18:09 Dose: 1 tab Sodium Chloride (Sodium Chloride Flush Syringe 10 Ml) 10 ml IV BID SHAKA Last Admin: 10/14/17 22:55 Dose: 10 ml Sodium Chloride (Sodium Chloride Flush Syringe 10 Ml) 10 ml IV PRN PRN PRN Reason: LINE FLUSH Vancomycin HCl (Vancomycin Pharmacy To Dose) 1 each IV PKCONSULT SHAKA Review of Systems All systems: negative (as per HPI) Physical Examination - Physical Exam Narrative exam: General appearance: Alert in NAD, anxious Eyes: anicteric sclerae, moist conjunctivae; no lid-lag; PERRLA HENT: Atraumatic; oropharynx clear with moist mucous membranes and no mucosal ulcerations/no oral thrush; normal hard and soft palate. Normal external ears. Neck: Trachea midline; supple, no thyromegaly or lymphadenopathy Lungs: CTA, with normal respiratory effort and no intercostal retractions CV: RRR Abdomen: Soft, non-tender; no masses or hepatosplenomegaly Extremities: No peripheral edema or extremity lymphadenopathy Skin: old nodular scar rash on arms/legs Psych: Appropriate affect, alert and oriented to person, place and time. Neuro: alert and oriented x 3. Moving all extermities Lines: No CVL / PICC - Constitutional Vitals: Vital Signs Temp Pulse Resp BP Pulse Ox 97.4 F L 127 H 18 102/60 96 10/15/17 07:41 10/15/17 08:16 10/15/17 08:16 10/15/17 08:46 10/15/17 07:41 Temperature -Last 24 Hours Temperature 97.4 F Temperature 101.4 F Temperature 97.9 F Temperature 100.5 F Temperature 97.3 F Temperature 97.7 F Results - Labs CBC & Chem 7: 10/15/17 06:17 10/15/17 06:17 Labs: Abnormal lab results 10/15/17 10/15/17 Range/Units 06:17 06:17 RBC 2.43 L (3.65-5.03) M/mm3 Hgb 7.8 L (11.8-15.2) gm/dl Hct 22.5 L (35.5-45.6) % MCHC 35 H (32-34) % Plt Count 128 L (140-440) K/mm3 Lymph % (Auto) 7.0 L (13.4-35.0) % Lymph # 0.5 L (1.2-5.4) K/mm3 Seg Neutrophils % 87.1 H (40.0-70.0) % Chloride 108.3 H (98-107) mmol/L Carbon Dioxide 17 L (22-30) mmol/L BUN 86 H (9-20) mg/dL Creatinine 1.9 H (0.8-1.5) mg/dL Glucose 103 H (75-100) mg/dL Calcium 8.2 L (8.4-10.2) mg/dL Assessment and Plan Assessment: 1) Severe sepsis: Present on admission, manifested by fever, tachycardia, bandemia, increased lactate. Etiology most likely MRSA septicemia. 2) MRSA septicemia: unclear source ? skin rash; should r/o endocarditis, vertebral osteomyelitis, epidural abscess -blood cx 10/13 MRSA 2 of 4 bottles -blood cx 10/14 Staph 3 of 4 bottles 3) DARRICK 4) Thrombocytopenia: from sepsis/HCV 5) HCV serology positive 6) Elevated LFTs: from sepsis and HCV 7) Rhabdomyolysis: from sepsis 8) Lower back pain and leg weakness Plan: -repeat blood cultures in 24h -TTE pending -obtain INDRA -obtain lumbar and thoracic MRI w/o contrast -continue vancomycin for now - may change to dapto if blood cx still positive -stop zosyn -check HCV viral load, HIV -check liver US Thank you for your consultation, will follow up with you. Jordana Viramontes MD Infectious Diseases Specialist [facility], [place] [facility] M [phone] O [phone]
--- NOTE | 2017-10-15 11:54 | XRay Report ---
AP CHEST: HISTORY: Shortness of breath AP view of the chest demonstrates a normal mediastinal and cardiac contour with clear lungs and normal bony and soft tissue structures. IMPRESSION: No acute cardiopulmonary process is identified.
[2017-10-15] MEDS: SODIUM CHLORIDE FLUSH SYRINGE 10 ML IV SCH ×2 (14:07→22:19)
[2017-10-15] MEDS: NACL 0.9% 1000 ML 1,000 ML IV SCH (14:07)
--- NOTE | 2017-10-15 17:12 | Progress Note ---
Assessment and Plan Assessment and plan: / Acute kidney injury on IVF improving, likely ATN /acute encephalopathy with delirium - likely from renal failure, disoriented off and on -He may have early onset dementia, unable to clarify his baseline, will ask CM to request his detention med records - will monitor renal function, negative CT head result - will order MRI. 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 History Interval history: The patient has been confused at times, delirious, waxing and waning mental status Continues to have fever No cough, no sputum production Per nursing staff he complains of pain when he moves him and turning on his side and put him on bedpan No vomiting Hospitalist Physical - Physical exam Narrative exam: General.: Appears well, no distress, nontoxic HEENT: Moist mucous membranes, extraocular muscles intact, no lymphadenopathy Neck: supple Cardiac: S1-S2 heard Lungs: clear to auscultation bilaterally Abdomen: soft , nontender, nondistended, bowel sounds positive Extremities: no edema clubbing or cyanosis Skin: old nodular scar rash on arms/legs Neurologic: no gross focal deficits Psych: appropriate behavior, appropriate mood, corporative, judgment intact - Constitutional Vitals: Temp Pulse Resp BP Pulse Ox 97.9 F 98 H 22 102/57 99 10/15/17 16:06 10/15/17 16:06 10/15/17 16:06 10/15/17 16:06 10/15/17 16:06 General appearance: Present: no acute distress, well-nourished Results - Labs CBC & Chem 7: 10/16/17 12:01 10/21/17 08:26 Labs: Laboratory Last Values WBC 7.4 K/mm3 (4.5-11.0) 10/15/17 06:17 RBC 2.43 M/mm3 (3.65-5.03) L 10/15/17 06:17 Hgb 7.8 gm/dl (11.8-15.2) L 10/15/17 06:17 Hct 22.5 % (35.5-45.6) L 10/15/17 06:17 MCV 93 fl (84-94) 10/15/17 06:17 MCH 32 pg (28-32) 10/15/17 06:17 MCHC 35 % (32-34) H 10/15/17 06:17 RDW 14.9 % (13.2-15.2) 10/15/17 06:17 Plt Count 128 K/mm3 (140-440) L 10/15/17 06:17 Lymph % (Auto) 7.0 % (13.4-35.0) L 10/15/17 06:17 [place] % (Auto) 5.4 % (0.0-7.3) 10/15/17 06:17 Eos % (Auto) 0.2 % (0.0-4.3) 10/15/17 06:17 Baso % (Auto) 0.3 % (0.0-1.8) 10/15/17 06:17 Lymph # 0.5 K/mm3 (1.2-5.4) L 10/15/17 06:17 [place] # 0.4 K/mm3 (0.0-0.8) 10/15/17 06:17 Eos # 0.0 K/mm3 (0.0-0.4) 10/15/17 06:17 Baso # 0.0 K/mm3 (0.0-0.1) 10/15/17 06:17 Add Manual Diff Complete 10/12/17 06:00 Total Counted 100 10/12/17 06:00 Seg Neutrophils % 87.1 % (40.0-70.0) H 10/15/17 06:17 Seg Neuts % (Manual) 88.0 % (40.0-70.0) H 10/12/17 06:00 Band Neutrophils % 0 % 10/12/17 06:00 Lymphocytes % (Manual) 5.0 % (13.4-35.0) L 10/12/17 06:00 Reactive Lymphs % (Man) 1.0 % 10/12/17 06:00 Monocytes % (Manual) 5.0 % (0.0-7.3) 10/12/17 06:00 Eosinophils % (Manual) 0 % (0.0-4.3) 10/12/17 06:00 Basophils % (Manual) 0 % (0.0-1.8) 10/12/17 06:00 Metamyelocytes % 1.0 % 10/12/17 06:00 Myelocytes % 0 % 10/12/17 06:00 Promyelocytes % 0 % 10/12/17 06:00 Blast Cells % 0 % 10/12/17 06:00 Nucleated RBC % Not Reportable 10/12/17 06:00 Seg Neutrophils # 6.4 K/mm3 (1.8-7.7) 10/15/17 06:17 Seg Neutrophils # Man 5.0 K/mm3 (1.8-7.7) 10/12/17 06:00 Band Neutrophils # 0.0 K/mm3 10/12/17 06:00 Lymphocytes # (Manual) 0.3 K/mm3 (1.2-5.4) L 10/12/17 06:00 Abs React Lymphs (Man) 0.1 K/mm3 10/12/17 06:00 Monocytes # (Manual) 0.3 K/mm3 (0.0-0.8) 10/12/17 06:00 Eosinophils # (Manual) 0.0 K/mm3 (0.0-0.4) 10/12/17 06:00 Basophils # (Manual) 0.0 K/mm3 (0.0-0.1) 10/12/17 06:00 Metamyelocytes # 0.1 K/mm3 10/12/17 06:00 Myelocytes # 0.0 K/mm3 10/12/17 06:00 Promyelocytes # 0.0 K/mm3 10/12/17 06:00 Blast Cells # 0.0 K/mm3 10/12/17 06:00 WBC Morphology Not Reportable 10/12/17 06:00 Hypersegmented Neuts Not Reportable 10/12/17 06:00 Hyposegmented Neuts Not Reportable 10/12/17 06:00 Hypogranular Neuts Not Reportable 10/12/17 06:00 Smudge Cells Not Reportable 10/12/17 06:00 Toxic Granulation Not Reportable 10/12/17 06:00 Toxic Vacuolation Not Reportable 10/12/17 06:00 Dohle Bodies Not Reportable 10/12/17 06:00 Pelger-Huet Anomaly Not Reportable 10/12/17 06:00 Cem Rods Not Reportable 10/12/17 06:00 Platelet Estimate Consistent w auto 10/12/17 06:00 Clumped Platelets Not Reportable 10/12/17 06:00 Plt Clumps, EDTA Not Reportable 10/12/17 06:00 Large Platelets Not Reportable 10/12/17 06:00 Giant Platelets Not Reportable 10/12/17 06:00 Platelet Satelliting Not Reportable 10/12/17 06:00 Plt Morphology Comment Not Reportable 10/12/17 06:00 RBC Morphology Not Reportable 10/12/17 06:00 Dimorphic RBCs Not Reportable 10/12/17 06:00 Polychromasia Not Reportable 10/12/17 06:00 Hypochromasia Not Reportable 10/12/17 06:00 Poikilocytosis Not Reportable 10/12/17 06:00 Anisocytosis 1+ 10/12/17 06:00 Microcytosis Not Reportable 10/12/17 06:00 Macrocytosis Not Reportable 10/12/17 06:00 Spherocytes Not Reportable 10/12/17 06:00 Pappenheimer Bodies Not Reportable 10/12/17 06:00 Sickle Cells Not Reportable 10/12/17 06:00 Target Cells Not Reportable 10/12/17 06:00 Tear Drop Cells Not Reportable 10/12/17 06:00 Ovalocytes Not Reportable 10/12/17 06:00 Helmet Cells Not Reportable 10/12/17 06:00 [place] Bodies Not Reportable 10/12/17 06:00 [place] Rings Not Reportable 10/12/17 06:00 [place] Cells Not Reportable 10/12/17 06:00 Bite Cells Not Reportable 10/12/17 06:00 Crenated Cell Not Reportable 10/12/17 06:00 Elliptocytes Not Reportable 10/12/17 06:00 Acanthocytes (Spur) Not Reportable 10/12/17 06:00 Rouleaux Not Reportable 10/12/17 06:00 Hemoglobin C Crystals Not Reportable 10/12/17 06:00 Schistocytes Not Reportable 10/12/17 06:00 Malaria parasites Not Reportable 10/12/17 06:00 Juan Bodies Not Reportable 10/12/17 06:00 Hem Pathologist Commnt No 10/12/17 06:00 Sodium 139 mmol/L (137-145) 10/15/17 06:17 Potassium 4.1 mmol/L (3.6-5.0) 10/15/17 06:17 Chloride 108.3 mmol/L (98-107) H 10/15/17 06:17 Carbon Dioxide 17 mmol/L (22-30) L 10/15/17 06:17 Anion Gap 18 mmol/L 10/15/17 06:17 BUN 86 mg/dL (9-20) H 10/15/17 06:17 Creatinine 1.9 mg/dL (0.8-1.5) H 10/15/17 06:17 Estimated GFR 44 ml/min 10/15/17 06:17 BUN/Creatinine Ratio 45 % 10/15/17 06:17 Glucose 103 mg/dL (75-100) H 10/15/17 06:17 Osmolality 305 Mosm/kg 10/12/17 06:00 Lactic Acid 1.60 mmol/L (0.7-2.0) 10/13/17 10:36 Calcium 8.2 mg/dL (8.4-10.2) L 10/15/17 06:17 Phosphorus 3.20 mg/dL (2.5-4.5) 10/15/17 06:17 Magnesium 2.20 mg/dL (1.7-2.3) 10/15/17 06:17 Iron 45 ug/dL (49-181) L 10/12/17 06:00 TIBC 131 mcg/dL (250-450) L 10/12/17 06:00 % Saturation 34.35 % 10/12/17 06:00 Transferrin 102 mg/dl (180-329) L 10/12/17 06:00 Total Bilirubin 2.30 mg/dL (0.1-1.2) H 10/12/17 06:00 AST 180 units/L (5-40) H 10/12/17 06:00 ALT 73 units/L (7-56) H 10/12/17 06:00 Alkaline Phosphatase 72 units/L (35-129) 10/12/17 06:00 Total Creatine Kinase 1518 units/L (55-170) H 10/14/17 07:14 Total Protein 6.3 g/dL (6.3-8.2) 10/12/17 06:00 Albumin 2.7 g/dL (3.9-5) L 10/12/17 06:00 Albumin/Globulin Ratio 0.8 % 10/12/17 06:00 Urine Color Yellow (Yellow) 10/11/17 Unknown Urine Turbidity Clear (Clear) 10/11/17 Unknown Urine pH 5.0 (5.0-7.0) 10/11/17 Unknown Ur Specific [place] 1.012 (1.003-1.030) 10/11/17 Unknown Urine Protein <15 mg/dl mg/dL (Negative) 10/11/17 Unknown Urine Glucose (UA) Neg mg/dL (Negative) 10/11/17 Unknown Urine Ketones Neg mg/dL (Negative) 10/11/17 Unknown Urine Blood Mod (Negative) 10/11/17 Unknown Urine Nitrite Neg (Negative) 10/11/17 Unknown Urine Bilirubin Neg (Negative) 10/11/17 Unknown Urine Urobilinogen < 2.0 mg/dL (<2.0) 10/11/17 Unknown Ur Leukocyte Esterase Neg (Negative) 10/11/17 Unknown Urine WBC (Auto) 10.0 /HPF (0.0-6.0) H 10/11/17 Unknown Urine RBC (Auto) 15.0 /HPF (0.0-6.0) 10/11/17 Unknown U Epithel Cells (Auto) 1.0 /HPF (0-13.0) 10/11/17 Unknown Urine Mucus Few /HPF 10/11/17 Unknown Urine Osmolality 425 Mosm/kg 10/12/17 13:00 Urine Creatinine 80.2 mg/dL (0.1-20.0) H 10/12/17 13:00 Urine Sodium 10 mmol/L 10/12/17 13:00 Hepatitis A IgM Ab Non-reactive (NonReactive) 10/12/17 06:00 Hep Bs Antigen Non-reactive (Negative) 10/12/17 06:00 Hep B Core IgM Ab Non-reactive (NonReactive) 10/12/17 06:00 Hepatitis C Antibody Reactive (NonReactive) A 10/12/17 06:00
[2017-10-15] MEDS ORDERED: XOPENEX IH ONE (18:29)
[2017-10-15] MEDS ORDERED: LASIX 80 MG in NACL 0.9% 50 ML IV STA (18:40)
[2017-10-15] MEDS ORDERED: LASIX ONE (18:42)
[2017-10-15] MEDS ORDERED: LASIX IV ONE (19:00)
--- NOTE | 2017-10-15 20:55 | XRay Report ---
FINAL REPORT EXAM: XR CHEST 1V AP HISTORY: r/o hf TECHNIQUE: AP portable view of the chest PRIORS: None. FINDINGS: Lines, tubes, and devices: N/A Lungs and pleura: Trachea is normal in position. There is a vague ill-defined rounded area of density in the left apex overlying the anterior 1st rib. This measures approximately 3.5 cm. This could represent expansion of the 1st rib, however, underlying pulmonary nodule is not excluded. An apical lordotic view and a lateral view are recommended. There is no evidence for lungs are clear of infiltrate, pleural effusion, vascular congestion, or pneumothorax. Cardiomediastinal silhouette: Cardiac and mediastinal silhouettes are unremarkable. Other: Bony structures are intact. IMPRESSION: Vague ill-defined rounded density in the left apex overlying the anterior left 1st rib. Apical lordotic view and lateral view recommended.
[2017-10-15] MEDS: PERCOCET 5/325 PO PRN (23:40)
--- NOTE | 2017-10-16 07:14 | Progress Note ---
Assessment and Plan 1. Acute kidney injury: Vasomotor / hemodynamic DARRICK in the setting of volume depletion. Renal function continue to improve. Continue IV fluids. 2. Electrolytes: Metabolic acidosis. Monitor. 3. Mild rhabdomyolysis. Continue IV fluids. 4. MRSA septicemia: Followed by ID. 5. Hepatitis C with elevated liver enzymes. Subjective Date of service: 10/16/17 Interval history: Patient was seen and examined at the bedside. Objective - Vital Signs Vital signs: Vital Signs - 12hr 10/15/17 10/15/17 10/15/17 19:55 19:57 20:08 Temperature Pulse Rate 144 H Respiratory 33 H Rate Blood Pressure O2 Sat by Pulse 96 97 Oximetry 10/15/17 10/15/17 20:40 21:28 Temperature 98.3 F Pulse Rate 121 H Respiratory 20 Rate Blood Pressure 103/68 O2 Sat by Pulse 99 100 Oximetry - General Appearance General appearance: well-developed, well-nourished, appears stated age, other ( stuporous) EENT: ATNC, PERRL Neck: supple Respiratory: Present: Clear to Ascultation Cardiology: regular, S1S2, no murmurs Gastrointestinal: normoactive bowel sounds, no tenderness Integumentary: no rash, warm and dry Musculoskeletal: other (no edema) - Lab 10/16/17 12:01 10/16/17 12:01 Most recent lab results Calcium 8.2 mg/dL (8.4-10.2) L 10/15/17 06:17 Phosphorus 3.20 mg/dL (2.5-4.5) 10/15/17 06:17 Magnesium 2.20 mg/dL (1.7-2.3) 10/15/17 06:17 Urine Creatinine 80.2 mg/dL (0.1-20.0) H 10/12/17 13:00 Urine Sodium 10 mmol/L 10/12/17 13:00
--- NOTE | 2017-10-16 08:50 | Progress Note ---
Assessment and Plan Assessment and plan: / Acute kidney injury on IVF improving, likely ATN /acute encephalopathy with delirium - likely from renal failure, disoriented off and on -He may have early onset dementia, unable to clarify his baseline, will ask CM to request his shelter med records - will monitor renal function, negative CT head result - will order MRI. If MRI normal consider doing psych consult / Sepsis with bacteremia, MRSA, gram pos on abx, ID consulted / Hypokalemia Supplemented /Hyponatremia improving with iv fluid / Transaminitis Acute hepatitis profile positive for hepatitis C Patient has no history of alcohol intake He is in the shelter for last 2 months cont to monitor /Anemia Probably anemia of CD, monitor h/h /DVT prophylaxis Lovenox 30 mg subcutaneous daily GI prophylaxis ordered Brief History: The patient is a 61 YO male with no significant medical problem who is current incarcerated was sent from the shelter for one day h/o abd pain and Outside labs showing elevated creatinine. History Interval history: The patient has been confused at times, delirious, waxing and waning mental status Continues to have fever No cough, no sputum production Per nursing staff he complains of pain when he moves him and turning on his side and put him on bedpan No vomiting Hospitalist Physical - Physical exam Narrative exam: General.: Appears well, no distress, nontoxic HEENT: Moist mucous membranes, extraocular muscles intact, no lymphadenopathy Neck: supple Cardiac: S1-S2 heard Lungs: clear to auscultation bilaterally Abdomen: soft , nontender, nondistended, bowel sounds positive Extremities: no edema clubbing or cyanosis Skin: old nodular scar rash on arms/legs Neurologic: no gross focal deficits Psych: appropriate behavior, appropriate mood, corporative, judgment intact - Constitutional Vitals: Temp Pulse Resp BP Pulse Ox 98.3 F 121 H 20 103/68 100 10/15/17 21:28 10/15/17 21:28 10/15/17 21:28 10/15/17 21:28 10/15/17 21:28 General appearance: Present: no acute distress, well-nourished Results - Labs CBC & Chem 7: 10/16/17 12:01 10/21/17 08:26 Labs: Laboratory Last Values WBC 7.4 K/mm3 (4.5-11.0) 10/15/17 06:17 RBC 2.43 M/mm3 (3.65-5.03) L 10/15/17 06:17 Hgb 7.8 gm/dl (11.8-15.2) L 10/15/17 06:17 Hct 22.5 % (35.5-45.6) L 10/15/17 06:17 MCV 93 fl (84-94) 10/15/17 06:17 MCH 32 pg (28-32) 10/15/17 06:17 MCHC 35 % (32-34) H 10/15/17 06:17 RDW 14.9 % (13.2-15.2) 10/15/17 06:17 Plt Count 128 K/mm3 (140-440) L 10/15/17 06:17 Lymph % (Auto) 7.0 % (13.4-35.0) L 10/15/17 06:17 [place] % (Auto) 5.4 % (0.0-7.3) 10/15/17 06:17 Eos % (Auto) 0.2 % (0.0-4.3) 10/15/17 06:17 Baso % (Auto) 0.3 % (0.0-1.8) 10/15/17 06:17 Lymph # 0.5 K/mm3 (1.2-5.4) L 10/15/17 06:17 [place] # 0.4 K/mm3 (0.0-0.8) 10/15/17 06:17 Eos # 0.0 K/mm3 (0.0-0.4) 10/15/17 06:17 Baso # 0.0 K/mm3 (0.0-0.1) 10/15/17 06:17 Add Manual Diff Complete 10/12/17 06:00 Total Counted 100 10/12/17 06:00 Seg Neutrophils % 87.1 % (40.0-70.0) H 10/15/17 06:17 Seg Neuts % (Manual) 88.0 % (40.0-70.0) H 10/12/17 06:00 Band Neutrophils % 0 % 10/12/17 06:00 Lymphocytes % (Manual) 5.0 % (13.4-35.0) L 10/12/17 06:00 Reactive Lymphs % (Man) 1.0 % 10/12/17 06:00 Monocytes % (Manual) 5.0 % (0.0-7.3) 10/12/17 06:00 Eosinophils % (Manual) 0 % (0.0-4.3) 10/12/17 06:00 Basophils % (Manual) 0 % (0.0-1.8) 10/12/17 06:00 Metamyelocytes % 1.0 % 10/12/17 06:00 Myelocytes % 0 % 10/12/17 06:00 Promyelocytes % 0 % 10/12/17 06:00 Blast Cells % 0 % 10/12/17 06:00 Nucleated RBC % Not Reportable 10/12/17 06:00 Seg Neutrophils # 6.4 K/mm3 (1.8-7.7) 10/15/17 06:17 Seg Neutrophils # Man 5.0 K/mm3 (1.8-7.7) 10/12/17 06:00 Band Neutrophils # 0.0 K/mm3 10/12/17 06:00 Lymphocytes # (Manual) 0.3 K/mm3 (1.2-5.4) L 10/12/17 06:00 Abs React Lymphs (Man) 0.1 K/mm3 10/12/17 06:00 Monocytes # (Manual) 0.3 K/mm3 (0.0-0.8) 10/12/17 06:00 Eosinophils # (Manual) 0.0 K/mm3 (0.0-0.4) 10/12/17 06:00 Basophils # (Manual) 0.0 K/mm3 (0.0-0.1) 10/12/17 06:00 Metamyelocytes # 0.1 K/mm3 10/12/17 06:00 Myelocytes # 0.0 K/mm3 10/12/17 06:00 Promyelocytes # 0.0 K/mm3 10/12/17 06:00 Blast Cells # 0.0 K/mm3 10/12/17 06:00 WBC Morphology Not Reportable 10/12/17 06:00 Hypersegmented Neuts Not Reportable 10/12/17 06:00 Hyposegmented Neuts Not Reportable 10/12/17 06:00 Hypogranular Neuts Not Reportable 10/12/17 06:00 Smudge Cells Not Reportable 10/12/17 06:00 Toxic Granulation Not Reportable 10/12/17 06:00 Toxic Vacuolation Not Reportable 10/12/17 06:00 Dohle Bodies Not Reportable 10/12/17 06:00 [place]-Huet Anomaly Not Reportable 10/12/17 06:00 Cem Rods Not Reportable 10/12/17 06:00 Platelet Estimate Consistent w auto 10/12/17 06:00 Clumped Platelets Not Reportable 10/12/17 06:00 Plt Clumps, EDTA Not Reportable 10/12/17 06:00 Large Platelets Not Reportable 10/12/17 06:00 Giant Platelets Not Reportable 10/12/17 06:00 Platelet Satelliting Not Reportable 10/12/17 06:00 Plt Morphology Comment Not Reportable 10/12/17 06:00 RBC Morphology Not Reportable 10/12/17 06:00 Dimorphic RBCs Not Reportable 10/12/17 06:00 Polychromasia Not Reportable 10/12/17 06:00 Hypochromasia Not Reportable 10/12/17 06:00 Poikilocytosis Not Reportable 10/12/17 06:00 Anisocytosis 1+ 10/12/17 06:00 Microcytosis Not Reportable 10/12/17 06:00 Macrocytosis Not Reportable 10/12/17 06:00 Spherocytes Not Reportable 10/12/17 06:00 Pappenheimer Bodies Not Reportable 10/12/17 06:00 Sickle Cells Not Reportable 10/12/17 06:00 Target Cells Not Reportable 10/12/17 06:00 Tear Drop Cells Not Reportable 10/12/17 06:00 Ovalocytes Not Reportable 10/12/17 06:00 Helmet Cells Not Reportable 10/12/17 06:00 [place] Bodies Not Reportable 10/12/17 06:00 [place] Rings Not Reportable 10/12/17 06:00 [place] Cells Not Reportable 10/12/17 06:00 Bite Cells Not Reportable 10/12/17 06:00 Crenated Cell Not Reportable 10/12/17 06:00 Elliptocytes Not Reportable 10/12/17 06:00 Acanthocytes (Spur) Not Reportable 10/12/17 06:00 Rouleaux Not Reportable 10/12/17 06:00 Hemoglobin C Crystals Not Reportable 10/12/17 06:00 Schistocytes Not Reportable 10/12/17 06:00 Malaria parasites Not Reportable 10/12/17 06:00 Juan Bodies Not Reportable 10/12/17 06:00 Hem Pathologist Commnt No 10/12/17 06:00 Sodium 139 mmol/L (137-145) 10/15/17 06:17 Potassium 4.1 mmol/L (3.6-5.0) 10/15/17 06:17 Chloride 108.3 mmol/L (98-107) H 10/15/17 06:17 Carbon Dioxide 17 mmol/L (22-30) L 10/15/17 06:17 Anion Gap 18 mmol/L 10/15/17 06:17 BUN 86 mg/dL (9-20) H 10/15/17 06:17 Creatinine 1.9 mg/dL (0.8-1.5) H 10/15/17 06:17 Estimated GFR 44 ml/min 10/15/17 06:17 BUN/Creatinine Ratio 45 % 10/15/17 06:17 Glucose 103 mg/dL (75-100) H 10/15/17 06:17 Osmolality 305 Mosm/kg 10/12/17 06:00 Lactic Acid 1.60 mmol/L (0.7-2.0) 10/13/17 10:36 Calcium 8.2 mg/dL (8.4-10.2) L 10/15/17 06:17 Phosphorus 3.20 mg/dL (2.5-4.5) 10/15/17 06:17 Magnesium 2.20 mg/dL (1.7-2.3) 10/15/17 06:17 Iron 45 ug/dL (49-181) L 10/12/17 06:00 TIBC 131 mcg/dL (250-450) L 10/12/17 06:00 % Saturation 34.35 % 10/12/17 06:00 Transferrin 102 mg/dl (180-329) L 10/12/17 06:00 Total Bilirubin 2.30 mg/dL (0.1-1.2) H 10/12/17 06:00 AST 180 units/L (5-40) H 10/12/17 06:00 ALT 73 units/L (7-56) H 10/12/17 06:00 Alkaline Phosphatase 72 units/L (35-129) 10/12/17 06:00 Total Creatine Kinase 1518 units/L (55-170) H 10/14/17 07:14 C-Reactive Protein 26.70 mg/dL (0.00-1.30) H 10/15/17 20:53 Total Protein 6.3 g/dL (6.3-8.2) 10/12/17 06:00 Albumin 2.7 g/dL (3.9-5) L 10/12/17 06:00 Albumin/Globulin Ratio 0.8 % 10/12/17 06:00 Urine Color Yellow (Yellow) 10/11/17 Unknown Urine Turbidity Clear (Clear) 10/11/17 Unknown Urine pH 5.0 (5.0-7.0) 10/11/17 Unknown Ur Specific [place] 1.012 (1.003-1.030) 10/11/17 Unknown Urine Protein <15 mg/dl mg/dL (Negative) 10/11/17 Unknown Urine Glucose (UA) Neg mg/dL (Negative) 10/11/17 Unknown Urine Ketones Neg mg/dL (Negative) 10/11/17 Unknown Urine Blood Mod (Negative) 10/11/17 Unknown Urine Nitrite Neg (Negative) 10/11/17 Unknown Urine Bilirubin Neg (Negative) 10/11/17 Unknown Urine Urobilinogen < 2.0 mg/dL (<2.0) 10/11/17 Unknown Ur Leukocyte Esterase Neg (Negative) 10/11/17 Unknown Urine WBC (Auto) 10.0 /HPF (0.0-6.0) H 10/11/17 Unknown Urine RBC (Auto) 15.0 /HPF (0.0-6.0) 10/11/17 Unknown U Epithel Cells (Auto) 1.0 /HPF (0-13.0) 10/11/17 Unknown Urine Mucus Few /HPF 10/11/17 Unknown Urine Osmolality 425 Mosm/kg 10/12/17 13:00 Urine Creatinine 80.2 mg/dL (0.1-20.0) H 10/12/17 13:00 Urine Sodium 10 mmol/L 10/12/17 13:00 Hepatitis A IgM Ab Non-reactive (NonReactive) 10/12/17 06:00 Hep Bs Antigen Non-reactive (Negative) 10/12/17 06:00 Hep B Core IgM Ab Non-reactive (NonReactive) 10/12/17 06:00 Hepatitis C Antibody Reactive (NonReactive) A 10/12/17 06:00
[2017-10-16] MEDS ORDERED: ATIVAN IV ONE (09:00)
[2017-10-16] MEDS: LOVENOX SUB-Q SCH (11:22)
[2017-10-16] MEDS: VANCOMYCIN 1,250 MG in NACL 0.9% 250ML 250 ML IV SCH (11:34)
[2017-10-16] MEDS: SODIUM CHLORIDE FLUSH SYRINGE 10 ML IV SCH ×2 (11:43→23:17)
[2017-10-16 13:06] LABS: Hematocrit 20.8 % (35.5-45.6); Hemoglobin 7.3 gm/dl (11.8-15.2); Mean Corpuscular HGB Conc 35 % (32-34); Mean Corpuscular Hemoglobin 33 pg (28-32); Mean Corpuscular Volume 93 fl (84-94); Platelet Count 129 K/mm3 (140-440); Red Blood Count 2.23 M/mm3 (3.65-5.03); Red Cell Distribution Width 14.7 % (13.2-15.2)
[2017-10-16 13:25] LABS: Albumin 1.9 g/dL (3.9-5); Calcium 8.1 mg/dL (8.4-10.2)
[2017-10-16] MEDS: PERCOCET 5/325 PO PRN ×2 (16:27→23:16)
--- NOTE | 2017-10-16 18:10 | Progress Note ---
Assessment and Plan Assessment: 1) Severe sepsis: still high fever despite vancomycin. Etiology most likely MRSA septicemia. 2) MRSA septicemia: unclear source ? skin rash; should r/o endocarditis, vertebral osteomyelitis, epidural abscess -blood cx 10/13 MRSA 2 of 4 bottles -blood cx 10/14 Staph 3 of 4 bottles -TTE no obvious vegetations 3) DARRICK 4) Thrombocytopenia: from sepsis/HCV 5) HCV serology positive 6) Elevated LFTs: from sepsis and HCV 7) Rhabdomyolysis: from sepsis 8) Lower back pain and leg weakness Plan: -repeat blood cultures today -stop vanco (failing) -start daptomycin -obtain INDRA r/o endocarditis -obtain lumbar and thoracic MRI w/o contrast - failed sedation - will attempt in 48h -check HCV viral load, HIV -check liver US - pending I am rounding on 10/18 Thank you for your consultation, will follow up with you. Jordana Viramontes MD Infectious Diseases Specialist [facility] ([facility] M [phone] O [phone] Subjective Date of service: 10/16/17 Principal diagnosis: MRSA bacteremia Interval history: Remains altered, now sleepy after sedation for MRI. Still fever 102.2 Microbiology: Blood cultures: 10/13 MRSA 2 of 4 bottles 10/14 Staph 3 of 4 bottles Urine cultures: Respiratory cultures: Current Antimicrobials: Vancomycin 10/14 Previous Antimicrobials: Zosyn Objective - Exam Narrative Exam: General appearance: Alert in NAD, anxious Eyes: anicteric sclerae, moist conjunctivae; no lid-lag; PERRLA HENT: Atraumatic; oropharynx clear with moist mucous membranes and no mucosal ulcerations/no oral thrush; normal hard and soft palate. Normal external ears. Neck: Trachea midline; supple, no thyromegaly or lymphadenopathy Lungs: CTA, with normal respiratory effort and no intercostal retractions CV: RRR Abdomen: Soft, non-tender; no masses or hepatosplenomegaly Extremities: No peripheral edema or extremity lymphadenopathy Skin: old nodular scar rash on arms/legs Psych: Appropriate affect, alert and oriented to person, place and time. Neuro: alert and oriented x 3. Moving all extermities Lines: No CVL / PICC - Constitutional Vitals: Vital Signs Temp Pulse Resp BP Pulse Ox 102.2 F H 126 H 20 110/64 93 10/16/17 16:58 10/16/17 16:58 10/16/17 16:58 10/16/17 16:58 10/16/17 16:58 Temperature -Last 24 Hours Temperature 102.2 F Temperature 100.5 F Temperature 97.1 F Temperature 97.9 F Temperature 98.3 F Temperature 102.6 F - Labs CBC & Chem 7: 10/16/17 12:01 10/16/17 12:01 Labs: Abnormal lab results 10/15/17 10/16/17 10/16/17 Range/Units 20:53 12:01 12:01 RBC 2.23 L (3.65-5.03) M/mm3 Hgb 7.3 L (11.8-15.2) gm/dl Hct 20.8 L (35.5-45.6) % MCH 33 H (28-32) pg MCHC 35 H (32-34) % Plt Count 129 L (140-440) K/mm3 Chloride (98-107) mmol/L Carbon Dioxide (22-30) mmol/L BUN (9-20) mg/dL Creatinine (0.8-1.5) mg/dL Glucose (75-100) mg/dL Calcium (8.4-10.2) mg/dL AST (5-40) units/L C-Reactive Protein 26.70 H (0.00-1.30) mg/dL Total Protein (6.3-8.2) g/dL Albumin (3.9-5) g/dL Vancomycin Trough 25.3 H (5.0-20.0) ug/mL 10/16/17 Range/Units 12:01 RBC (3.65-5.03) M/mm3 Hgb (11.8-15.2) gm/dl Hct (35.5-45.6) % MCH (28-32) pg MCHC (32-34) % Plt Count (140-440) K/mm3 Chloride 110.3 H (98-107) mmol/L Carbon Dioxide 17 L (22-30) mmol/L BUN 77 H (9-20) mg/dL Creatinine 1.7 H (0.8-1.5) mg/dL Glucose 105 H (75-100) mg/dL Calcium 8.1 L (8.4-10.2) mg/dL AST 134 H (5-40) units/L C-Reactive Protein (0.00-1.30) mg/dL Total Protein 5.3 L (6.3-8.2) g/dL Albumin 1.9 L (3.9-5) g/dL Vancomycin Trough (5.0-20.0) ug/mL
--- NOTE | 2017-10-17 07:24 | Ultrasound Report ---
ULTRASOUND ABDOMEN COMPLETE: TECHNIQUE: Transabdominal ultrasound with color Doppler interrogation. HISTORY: Evaluate liver for cirrhosis or mass. Kidney cyst/mass. COMPARISON: CT abdomen pelvis without contrast dated 10/01/17. FINDINGS: LIVER: The liver is normal size, contour and echotexture. No findings to suggest cirrhosis. No liver lesion. BILIARY SYSTEM: Within normal limits. PANCREAS: Normal. SPLEEN: Normal. KIDNEYS: Both kidneys are normal size, contour and position. Renal echotexture is slightly increased consistent with nonspecific renal parenchymal disease. No renal cyst, mass or nephrolithiasis is identified on ultrasound. No hydronephrosis. AORTA/IVC: Normal. ASCITES: None. IMPRESSION: Unremarkable exam.
[2017-10-17 08:03] LABS: Calcium 8.4 mg/dL (8.4-10.2)
--- NOTE | 2017-10-17 09:09 | Progress Note ---
Assessment and Plan 1. Acute kidney injury: Vasomotor / hemodynamic DARRICK in the setting of volume depletion. Renal function continue to improve. Continue IV fluids. 2. Electrolytes: Hypernatremia, change IV fluids to 1/2 NS. Metabolic acidosis, improving. Monitor. 3. Mild rhabdomyolysis. Continue IV fluids. 4. MRSA septicemia: Followed by ID. 5. Hepatitis C with elevated liver enzymes. Subjective Date of service: 10/17/17 Principal diagnosis: MRSA bacteremia Interval history: Patient was seen and examined at the bedside. Objective - Vital Signs Vital signs: Vital Signs - 12hr 10/16/17 10/17/17 10/17/17 23:12 03:53 08:05 Temperature 97.5 F L 99.4 F 97.6 F Pulse Rate 122 H 110 H Respiratory 16 16 Rate Blood Pressure 102/65 113/65 O2 Sat by Pulse 100 100 Oximetry 10/17/17 08:09 Temperature Pulse Rate 119 H Respiratory 19 Rate Blood Pressure 109/69 O2 Sat by Pulse 99 Oximetry - General Appearance General appearance: well-developed, appears stated age, other (no distress) EENT: ATNC, PERRL Neck: supple Respiratory: Present: Clear to Ascultation Cardiology: regular, S1S2, no murmurs Gastrointestinal: normoactive bowel sounds, no tenderness Integumentary: no rash Neurologic: other (stuporous) Musculoskeletal: other (trace pedal edema, left leg cuffed to the bed) - Lab 10/16/17 12:01 10/17/17 07:19 Most recent lab results Calcium 8.4 mg/dL (8.4-10.2) 10/17/17 07:19 Phosphorus 3.20 mg/dL (2.5-4.5) 10/15/17 06:17 Magnesium 2.20 mg/dL (1.7-2.3) 10/15/17 06:17 Urine Creatinine 80.2 mg/dL (0.1-20.0) H 10/12/17 13:00 Urine Sodium 10 mmol/L 10/12/17 13:00
[2017-10-17] MEDS: PERCOCET 5/325 PO PRN ×2 (09:53→23:06)
[2017-10-17] MEDS: LOVENOX SUB-Q SCH (09:54)
[2017-10-17] MEDS: SODIUM CHLORIDE FLUSH SYRINGE 10 ML IV SCH ×2 (09:56→22:50)
[2017-10-17] MEDS ORDERED: NACL 0.45% 1000 ML 1,000 ML IV SCH (10:00)
[2017-10-17] MEDS: VANCOMYCIN 1,250 MG in NACL 0.9% 250ML 250 ML IV SCH (10:50)
[2017-10-17] MEDS: D5W 1,000 ML IV SCH (13:14)
[2017-10-17] MEDS: CUBICIN 500 MG in NACL 0.9% 100 ML IV SCH (13:16)
--- NOTE | 2017-10-17 16:16 | Progress Note ---
Assessment and Plan Assessment and plan: / Acute kidney injury on IVF improving, likely ATN /acute encephalopathy with delirium - likely from renal failure, disoriented off and on -He may have early onset dementia, unable to clarify his baseline, will ask CM to request his [place] [facility] med records - will monitor renal function, negative CT head result - will order MRI. 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 History Interval history: The patient has been confused at times, delirious, waxing and waning mental status Continues to have fever No cough, no sputum production Per nursing staff he complains of pain when he moves him and turning on his side and put him on bedpan No vomiting Hospitalist Physical - Physical exam Narrative exam: General.: Appears well, no distress, nontoxic HEENT: Moist mucous membranes, extraocular muscles intact, no lymphadenopathy Neck: supple Cardiac: S1-S2 heard Lungs: clear to auscultation bilaterally Abdomen: soft , nontender, nondistended, bowel sounds positive Extremities: no edema clubbing or cyanosis Skin: old nodular scar rash on arms/legs Neurologic: no gross focal deficits Psych: appropriate behavior, appropriate mood, corporative, judgment intact - Constitutional Vitals: Temp Pulse Resp BP Pulse Ox 99.8 F H 116 H 19 98/59 99 10/17/17 11:58 10/17/17 11:58 10/17/17 11:58 10/17/17 11:58 10/17/17 11:58 General appearance: Present: no acute distress, well-nourished Results - Labs CBC & Chem 7: 10/16/17 12:01 10/21/17 08:26 Labs: Laboratory Last Values WBC 6.3 K/mm3 (4.5-11.0) 10/16/17 12:01 RBC 2.23 M/mm3 (3.65-5.03) L 10/16/17 12:01 Hgb 7.3 gm/dl (11.8-15.2) L 10/16/17 12:01 Hct 20.8 % (35.5-45.6) L 10/16/17 12:01 MCV 93 fl (84-94) 10/16/17 12:01 MCH 33 pg (28-32) H 10/16/17 12:01 MCHC 35 % (32-34) H 10/16/17 12:01 RDW 14.7 % (13.2-15.2) 10/16/17 12:01 Plt Count 129 K/mm3 (140-440) L 10/16/17 12:01 Lymph % (Auto) 7.0 % (13.4-35.0) L 10/15/17 06:17 [place] % (Auto) 5.4 % (0.0-7.3) 10/15/17 06:17 Eos % (Auto) 0.2 % (0.0-4.3) 10/15/17 06:17 Baso % (Auto) 0.3 % (0.0-1.8) 10/15/17 06:17 Lymph # 0.5 K/mm3 (1.2-5.4) L 10/15/17 06:17 [place] # 0.4 K/mm3 (0.0-0.8) 10/15/17 06:17 Eos # 0.0 K/mm3 (0.0-0.4) 10/15/17 06:17 Baso # 0.0 K/mm3 (0.0-0.1) 10/15/17 06:17 Add Manual Diff Complete 10/12/17 06:00 Total Counted 100 10/12/17 06:00 Seg Neutrophils % 87.1 % (40.0-70.0) H 10/15/17 06:17 Seg Neuts % (Manual) 88.0 % (40.0-70.0) H 10/12/17 06:00 Band Neutrophils % 0 % 10/12/17 06:00 Lymphocytes % (Manual) 5.0 % (13.4-35.0) L 10/12/17 06:00 Reactive Lymphs % (Man) 1.0 % 10/12/17 06:00 Monocytes % (Manual) 5.0 % (0.0-7.3) 10/12/17 06:00 Eosinophils % (Manual) 0 % (0.0-4.3) 10/12/17 06:00 Basophils % (Manual) 0 % (0.0-1.8) 10/12/17 06:00 Metamyelocytes % 1.0 % 10/12/17 06:00 Myelocytes % 0 % 10/12/17 06:00 Promyelocytes % 0 % 10/12/17 06:00 Blast Cells % 0 % 10/12/17 06:00 Nucleated RBC % Not Reportable 10/12/17 06:00 Seg Neutrophils # 6.4 K/mm3 (1.8-7.7) 10/15/17 06:17 Seg Neutrophils # Man 5.0 K/mm3 (1.8-7.7) 10/12/17 06:00 Band Neutrophils # 0.0 K/mm3 10/12/17 06:00 Lymphocytes # (Manual) 0.3 K/mm3 (1.2-5.4) L 10/12/17 06:00 Abs React Lymphs (Man) 0.1 K/mm3 10/12/17 06:00 Monocytes # (Manual) 0.3 K/mm3 (0.0-0.8) 10/12/17 06:00 Eosinophils # (Manual) 0.0 K/mm3 (0.0-0.4) 10/12/17 06:00 Basophils # (Manual) 0.0 K/mm3 (0.0-0.1) 10/12/17 06:00 Metamyelocytes # 0.1 K/mm3 10/12/17 06:00 Myelocytes # 0.0 K/mm3 10/12/17 06:00 Promyelocytes # 0.0 K/mm3 10/12/17 06:00 Blast Cells # 0.0 K/mm3 10/12/17 06:00 WBC Morphology Not Reportable 10/12/17 06:00 Hypersegmented Neuts Not Reportable 10/12/17 06:00 Hyposegmented Neuts Not Reportable 10/12/17 06:00 Hypogranular Neuts Not Reportable 10/12/17 06:00 Smudge Cells Not Reportable 10/12/17 06:00 Toxic Granulation Not Reportable 10/12/17 06:00 Toxic Vacuolation Not Reportable 10/12/17 06:00 Dohle Bodies Not Reportable 10/12/17 06:00 Pelger-Huet Anomaly Not Reportable 10/12/17 06:00 Cem Rods Not Reportable 10/12/17 06:00 Platelet Estimate Consistent w auto 10/12/17 06:00 Clumped Platelets Not Reportable 10/12/17 06:00 Plt Clumps, EDTA Not Reportable 10/12/17 06:00 Large Platelets Not Reportable 10/12/17 06:00 Giant Platelets Not Reportable 10/12/17 06:00 Platelet Satelliting Not Reportable 10/12/17 06:00 Plt Morphology Comment Not Reportable 10/12/17 06:00 RBC Morphology Not Reportable 10/12/17 06:00 Dimorphic RBCs Not Reportable 10/12/17 06:00 Polychromasia Not Reportable 10/12/17 06:00 Hypochromasia Not Reportable 10/12/17 06:00 Poikilocytosis Not Reportable 10/12/17 06:00 Anisocytosis 1+ 10/12/17 06:00 Microcytosis Not Reportable 10/12/17 06:00 Macrocytosis Not Reportable 10/12/17 06:00 Spherocytes Not Reportable 10/12/17 06:00 Pappenheimer Bodies Not Reportable 10/12/17 06:00 Sickle Cells Not Reportable 10/12/17 06:00 Target Cells Not Reportable 10/12/17 06:00 Tear Drop Cells Not Reportable 10/12/17 06:00 Ovalocytes Not Reportable 10/12/17 06:00 Helmet Cells Not Reportable 10/12/17 06:00 [place] Bodies Not Reportable 10/12/17 06:00 [place] Rings Not Reportable 10/12/17 06:00 Shaw Cells Not Reportable 10/12/17 06:00 Bite Cells Not Reportable 10/12/17 06:00 Crenated Cell Not Reportable 10/12/17 06:00 Elliptocytes Not Reportable 10/12/17 06:00 Acanthocytes (Spur) Not Reportable 10/12/17 06:00 Rouleaux Not Reportable 10/12/17 06:00 Hemoglobin C Crystals Not Reportable 10/12/17 06:00 Schistocytes Not Reportable 10/12/17 06:00 Malaria parasites Not Reportable 10/12/17 06:00 Juan Bodies Not Reportable 10/12/17 06:00 Hem Pathologist Commnt No 10/12/17 06:00 Sodium 149 mmol/L (137-145) H 10/17/17 07:19 Potassium 4.2 mmol/L (3.6-5.0) 10/17/17 07:19 Chloride 116.4 mmol/L (98-107) H 10/17/17 07:19 Carbon Dioxide 20 mmol/L (22-30) L 10/17/17 07:19 Anion Gap 17 mmol/L 10/17/17 07:19 BUN 67 mg/dL (9-20) H 10/17/17 07:19 Creatinine 1.5 mg/dL (0.8-1.5) 10/17/17 07:19 Estimated GFR 57 ml/min 10/17/17 07:19 BUN/Creatinine Ratio 45 % 10/17/17 07:19 Glucose 111 mg/dL (75-100) H 10/17/17 07:19 POC Glucose 108 (70-105) H 10/15/17 18:49 Osmolality 305 Mosm/kg 10/12/17 06:00 Lactic Acid 1.60 mmol/L (0.7-2.0) 10/13/17 10:36 Calcium 8.4 mg/dL (8.4-10.2) 10/17/17 07:19 Phosphorus 3.20 mg/dL (2.5-4.5) 10/15/17 06:17 Magnesium 2.20 mg/dL (1.7-2.3) 10/15/17 06:17 Iron 45 ug/dL (49-181) L 10/12/17 06:00 TIBC 131 mcg/dL (250-450) L 10/12/17 06:00 % Saturation 34.35 % 10/12/17 06:00 Transferrin 102 mg/dl (180-329) L 10/12/17 06:00 Total Bilirubin 1.10 mg/dL (0.1-1.2) 10/16/17 12:01 AST 134 units/L (5-40) H 10/16/17 12:01 ALT 52 units/L (7-56) 10/16/17 12:01 Alkaline Phosphatase 69 units/L (35-129) 10/16/17 12:01 Total Creatine Kinase 194 units/L (55-170) H 10/17/17 07:19 C-Reactive Protein 26.70 mg/dL (0.00-1.30) H 10/15/17 20:53 Total Protein 5.3 g/dL (6.3-8.2) L 10/16/17 12:01 Albumin 1.9 g/dL (3.9-5) L 10/16/17 12:01 Albumin/Globulin Ratio 0.6 % 10/16/17 12:01 Urine Color Yellow (Yellow) 10/11/17 Unknown Urine Turbidity Clear (Clear) 10/11/17 Unknown Urine pH 5.0 (5.0-7.0) 10/11/17 Unknown Ur Specific [place] 1.012 (1.003-1.030) 10/11/17 Unknown Urine Protein <15 mg/dl mg/dL (Negative) 10/11/17 Unknown Urine Glucose (UA) Neg mg/dL (Negative) 10/11/17 Unknown Urine Ketones Neg mg/dL (Negative) 10/11/17 Unknown Urine Blood Mod (Negative) 10/11/17 Unknown Urine Nitrite Neg (Negative) 10/11/17 Unknown Urine Bilirubin Neg (Negative) 10/11/17 Unknown Urine Urobilinogen < 2.0 mg/dL (<2.0) 10/11/17 Unknown Ur Leukocyte Esterase Neg (Negative) 10/11/17 Unknown Urine WBC (Auto) 10.0 /HPF (0.0-6.0) H 10/11/17 Unknown Urine RBC (Auto) 15.0 /HPF (0.0-6.0) 10/11/17 Unknown U Epithel Cells (Auto) 1.0 /HPF (0-13.0) 10/11/17 Unknown Urine Mucus Few /HPF 10/11/17 Unknown Urine Osmolality 425 Mosm/kg 10/12/17 13:00 Urine Creatinine 80.2 mg/dL (0.1-20.0) H 10/12/17 13:00 Urine Sodium 10 mmol/L 10/12/17 13:00 Vancomycin Trough 25.3 ug/mL (5.0-20.0) H 10/16/17 12:01 Hepatitis A IgM Ab Non-reactive (NonReactive) 10/12/17 06:00 Hep Bs Antigen Non-reactive (Negative) 10/12/17 06:00 Hep B Core IgM Ab Non-reactive (NonReactive) 10/12/17 06:00 Hepatitis C Antibody Reactive (NonReactive) A 10/12/17 06:00 HIV 1&2 Antibody Rapid Non react (Non React) 10/16/17 19:27 HIV P24 Antigen Non react (Non React) 10/16/17 19:27
--- NOTE | 2017-10-18 08:42 | Progress Note ---
Assessment and Plan 1. Acute kidney injury: Vasomotor / hemodynamic DARRICK in the setting of volume depletion. Renal function is better. Likely CKD stage 3. Continue IV fluids. 2. Electrolytes: Hypernatremia, improving. Metabolic acidosis, improving. Monitor. 3. Mild rhabdomyolysis. Continue IV fluids. 4. MRSA septicemia: Followed by ID. 5. Hepatitis C with elevated liver enzymes. Subjective Date of service: 10/18/17 Principal diagnosis: MRSA bacteremia Interval history: Patient was seen and examined at the bedside. Objective - Vital Signs Vital signs: Vital Signs - 12hr 10/18/17 05:00 Temperature 98.1 F Pulse Rate 117 H Respiratory 16 Rate Blood Pressure 101/66 O2 Sat by Pulse 99 Oximetry - General Appearance General appearance: well-developed, appears stated age, other (no distress) EENT: ATNC, PERRL Neck: supple Respiratory: Present: Clear to Ascultation Cardiology: regular, S1S2, no murmurs Gastrointestinal: normoactive bowel sounds, no tenderness Integumentary: no rash Neurologic: other (stuporous, non-verbal, not following any command) Musculoskeletal: other (no edema) - Lab 10/16/17 12:01 10/18/17 05:05 Most recent lab results Calcium 8.0 mg/dL (8.4-10.2) L 10/18/17 05:05 Phosphorus 3.00 mg/dL (2.5-4.5) 10/18/17 05:05 Magnesium 2.20 mg/dL (1.7-2.3) 10/15/17 06:17 Urine Creatinine 80.2 mg/dL (0.1-20.0) H 10/12/17 13:00 Urine Sodium 10 mmol/L 10/12/17 13:00
[2017-10-18] MEDS: LOVENOX SUB-Q SCH (10:13)
[2017-10-18] MEDS: TYLENOL PO PRN (10:15)
[2017-10-18] MEDS: SODIUM CHLORIDE FLUSH SYRINGE 10 ML IV SCH ×2 (10:17→23:30)
--- NOTE | 2017-10-18 12:00 | Progress Note ---
Assessment and Plan Assessment: 1) Severe sepsis: still high fever despite daptomycin. Etiology most likely MRSA septicemia. 2) MRSA septicemia: unclear source ? skin rash; should r/o endocarditis, vertebral osteomyelitis, epidural abscess -blood cx 10/13 MRSA 4 of 4 bottles -blood cx 10/14 Staph 4 of 4 bottles -TTE no obvious vegetations 3) DARRICK - resolved 4) Thrombocytopenia: from sepsis/HCV- better 5) HCV serology positive 6) Elevated LFTs: from sepsis and HCV 7) Rhabdomyolysis: from sepsis 8) Lower back pain and leg weakness Plan: -repeat blood cultures today -continue daptomycin -obtain INDRA r/o endocarditis -obtain CT chest, abd, pelis with contrast to r/o MRSA nidus - psoas/spleen abscess, vertebral osteomyelitis, epidural abscess, lung abscess -could not obtain lumbar and thoracic MRI w/o contrast - failed sedation -f/u HCV viral load, HIV I am rounding tomorrow Thank you for your consultation, will follow up with you. Jordana Viramontes MD Infectious Diseases Specialist [facility], [facility] M [phone] O [phone] Subjective Date of service: 10/18/17 Principal diagnosis: MRSA bacteremia Interval history: Feels better, still fever 102.3 Microbiology: Blood cultures: 10/13 MRSA 4 of 4 bottles 10/14 Staph 4 of 4 bottles Urine cultures: Respiratory cultures: Current Antimicrobials: Dapto 10/17 Previous Antimicrobials: Zosyn Vancomycin 10/14 Objective - Exam Narrative Exam: General appearance: Alert in NAD, Eyes: anicteric sclerae, moist conjunctivae; no lid-lag; PERRLA HENT: Atraumatic; oropharynx clear with moist mucous membranes and no mucosal ulcerations/no oral thrush; normal hard and soft palate. Normal external ears. Neck: Trachea midline; supple, no thyromegaly or lymphadenopathy Lungs: CTA, with normal respiratory effort and no intercostal retractions CV: RRR Abdomen: Soft, non-tender; no masses or hepatosplenomegaly Extremities: No peripheral edema or extremity lymphadenopathy Skin: old nodular scar rash on arms/legs Psych: Appropriate affect, alert and oriented to person, place and time. Neuro: alert and oriented x 3. Moving all extermities Lines: No CVL / PICC - Constitutional Vitals: Vital Signs Temp Pulse Resp BP Pulse Ox 102.3 F H 121 H 19 105/62 99 10/18/17 08:28 10/18/17 08:28 10/18/17 08:28 10/18/17 08:28 10/18/17 08:28 Temperature -Last 24 Hours Temperature 102.3 F Temperature 98.1 F Temperature 99.8 F - Labs CBC & Chem 7: 10/16/17 12:01 10/18/17 05:05 Labs: Abnormal lab results 10/18/17 Range/Units 05:05 Chloride 112.1 H (98-107) mmol/L Carbon Dioxide 19 L (22-30) mmol/L BUN 48 H (9-20) mg/dL Glucose 120 H (75-100) mg/dL Calcium 8.0 L (8.4-10.2) mg/dL
[2017-10-18] MEDS ORDERED: HALDOL IM ONE (13:00)
[2017-10-18] MEDS: CUBICIN 500 MG in NACL 0.9% 100 ML IV SCH (14:21)
--- NOTE | 2017-10-18 15:01 | Progress Note ---
Assessment and Plan Assessment and plan: CT C/A/P 1. No acute intra-abdominal pathology. 2. Small bilateral pleural effusions with associated atelectasis. 3. Fluid collections involving the right gluteus musculature and the left iliopsoas and obturator muscles. Findings may represent abscesses or seromas. Clinical correlation is recommended. 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 History Interval history: The patient has been confused at times, delirious, waxing and waning mental status Continues to have fever No cough, no sputum production Per nursing staff he complains of pain when he moves him and turning on his side and put him on bedpan No vomiting Hospitalist Physical - Physical exam Narrative exam: General.: Appears well, no distress, nontoxic HEENT: Moist mucous membranes, extraocular muscles intact, no lymphadenopathy Neck: supple Cardiac: S1-S2 heard Lungs: clear to auscultation bilaterally Abdomen: soft , nontender, nondistended, bowel sounds positive Extremities: no edema clubbing or cyanosis Skin: old nodular scar rash on arms/legs Neurologic: no gross focal deficits Psych: appropriate behavior, appropriate mood, corporative, judgment intact - Constitutional Vitals: Temp Pulse Resp BP Pulse Ox 101.2 F H 117 H 19 104/64 100 10/18/17 11:14 10/18/17 11:15 10/18/17 11:14 10/18/17 11:14 10/18/17 11:15 General appearance: Present: no acute distress, well-nourished Results - Labs CBC & Chem 7: 10/16/17 12:01 10/21/17 08:26 Labs: Laboratory Last Values WBC 6.3 K/mm3 (4.5-11.0) 10/16/17 12:01 RBC 2.23 M/mm3 (3.65-5.03) L 10/16/17 12:01 Hgb 7.3 gm/dl (11.8-15.2) L 10/16/17 12:01 Hct 20.8 % (35.5-45.6) L 10/16/17 12:01 MCV 93 fl (84-94) 10/16/17 12:01 MCH 33 pg (28-32) H 10/16/17 12:01 MCHC 35 % (32-34) H 10/16/17 12:01 RDW 14.7 % (13.2-15.2) 10/16/17 12:01 Plt Count 129 K/mm3 (140-440) L 10/16/17 12:01 Lymph % (Auto) 7.0 % (13.4-35.0) L 10/15/17 06:17 [place] % (Auto) 5.4 % (0.0-7.3) 10/15/17 06:17 Eos % (Auto) 0.2 % (0.0-4.3) 10/15/17 06:17 Baso % (Auto) 0.3 % (0.0-1.8) 10/15/17 06:17 Lymph # 0.5 K/mm3 (1.2-5.4) L 10/15/17 06:17 [place] # 0.4 K/mm3 (0.0-0.8) 10/15/17 06:17 Eos # 0.0 K/mm3 (0.0-0.4) 10/15/17 06:17 Baso # 0.0 K/mm3 (0.0-0.1) 10/15/17 06:17 Add Manual Diff Complete 10/12/17 06:00 Total Counted 100 10/12/17 06:00 Seg Neutrophils % 87.1 % (40.0-70.0) H 10/15/17 06:17 Seg Neuts % (Manual) 88.0 % (40.0-70.0) H 10/12/17 06:00 Band Neutrophils % 0 % 10/12/17 06:00 Lymphocytes % (Manual) 5.0 % (13.4-35.0) L 10/12/17 06:00 Reactive Lymphs % (Man) 1.0 % 10/12/17 06:00 Monocytes % (Manual) 5.0 % (0.0-7.3) 10/12/17 06:00 Eosinophils % (Manual) 0 % (0.0-4.3) 10/12/17 06:00 Basophils % (Manual) 0 % (0.0-1.8) 10/12/17 06:00 Metamyelocytes % 1.0 % 10/12/17 06:00 Myelocytes % 0 % 10/12/17 06:00 Promyelocytes % 0 % 10/12/17 06:00 Blast Cells % 0 % 10/12/17 06:00 Nucleated RBC % Not Reportable 10/12/17 06:00 Seg Neutrophils # 6.4 K/mm3 (1.8-7.7) 10/15/17 06:17 Seg Neutrophils # Man 5.0 K/mm3 (1.8-7.7) 10/12/17 06:00 Band Neutrophils # 0.0 K/mm3 10/12/17 06:00 Lymphocytes # (Manual) 0.3 K/mm3 (1.2-5.4) L 10/12/17 06:00 Abs React Lymphs (Man) 0.1 K/mm3 10/12/17 06:00 Monocytes # (Manual) 0.3 K/mm3 (0.0-0.8) 10/12/17 06:00 Eosinophils # (Manual) 0.0 K/mm3 (0.0-0.4) 10/12/17 06:00 Basophils # (Manual) 0.0 K/mm3 (0.0-0.1) 10/12/17 06:00 Metamyelocytes # 0.1 K/mm3 10/12/17 06:00 Myelocytes # 0.0 K/mm3 10/12/17 06:00 Promyelocytes # 0.0 K/mm3 10/12/17 06:00 Blast Cells # 0.0 K/mm3 10/12/17 06:00 WBC Morphology Not Reportable 10/12/17 06:00 Hypersegmented Neuts Not Reportable 10/12/17 06:00 Hyposegmented Neuts Not Reportable 10/12/17 06:00 Hypogranular Neuts Not Reportable 10/12/17 06:00 Smudge Cells Not Reportable 10/12/17 06:00 Toxic Granulation Not Reportable 10/12/17 06:00 Toxic Vacuolation Not Reportable 10/12/17 06:00 Dohle Bodies Not Reportable 10/12/17 06:00 Pelger-Huet Anomaly Not Reportable 10/12/17 06:00 Cem Rods Not Reportable 10/12/17 06:00 Platelet Estimate Consistent w auto 10/12/17 06:00 Clumped Platelets Not Reportable 10/12/17 06:00 Plt Clumps, EDTA Not Reportable 10/12/17 06:00 Large Platelets Not Reportable 10/12/17 06:00 Giant Platelets Not Reportable 10/12/17 06:00 Platelet Satelliting Not Reportable 10/12/17 06:00 Plt Morphology Comment Not Reportable 10/12/17 06:00 RBC Morphology Not Reportable 10/12/17 06:00 Dimorphic RBCs Not Reportable 10/12/17 06:00 Polychromasia Not Reportable 10/12/17 06:00 Hypochromasia Not Reportable 10/12/17 06:00 Poikilocytosis Not Reportable 10/12/17 06:00 Anisocytosis 1+ 10/12/17 06:00 Microcytosis Not Reportable 10/12/17 06:00 Macrocytosis Not Reportable 10/12/17 06:00 Spherocytes Not Reportable 10/12/17 06:00 Pappenheimer Bodies Not Reportable 10/12/17 06:00 Sickle Cells Not Reportable 10/12/17 06:00 Target Cells Not Reportable 10/12/17 06:00 Tear Drop Cells Not Reportable 10/12/17 06:00 Ovalocytes Not Reportable 10/12/17 06:00 Helmet Cells Not Reportable 10/12/17 06:00 [place] Bodies Not Reportable 10/12/17 06:00 [place] Rings Not Reportable 10/12/17 06:00 Shaw Cells Not Reportable 10/12/17 06:00 Bite Cells Not Reportable 10/12/17 06:00 Crenated Cell Not Reportable 10/12/17 06:00 Elliptocytes Not Reportable 10/12/17 06:00 Acanthocytes (Spur) Not Reportable 10/12/17 06:00 Rouleaux Not Reportable 10/12/17 06:00 Hemoglobin C Crystals Not Reportable 10/12/17 06:00 Schistocytes Not Reportable 10/12/17 06:00 Malaria parasites Not Reportable 10/12/17 06:00 Juan Bodies Not Reportable 10/12/17 06:00 Hem Pathologist Commnt No 10/12/17 06:00 Sodium 145 mmol/L (137-145) 10/18/17 05:05 Potassium 4.2 mmol/L (3.6-5.0) 10/18/17 05:05 Chloride 112.1 mmol/L (98-107) H 10/18/17 05:05 Carbon Dioxide 19 mmol/L (22-30) L 10/18/17 05:05 Anion Gap 18 mmol/L 10/18/17 05:05 BUN 48 mg/dL (9-20) H 10/18/17 05:05 Creatinine 1.5 mg/dL (0.8-1.5) 10/18/17 05:05 Estimated GFR 57 ml/min 10/18/17 05:05 BUN/Creatinine Ratio 32 % 10/18/17 05:05 Glucose 120 mg/dL (75-100) H 10/18/17 05:05 POC Glucose 108 (70-105) H 10/15/17 18:49 Osmolality 305 Mosm/kg 10/12/17 06:00 Lactic Acid 1.60 mmol/L (0.7-2.0) 10/13/17 10:36 Calcium 8.0 mg/dL (8.4-10.2) L 10/18/17 05:05 Phosphorus 3.00 mg/dL (2.5-4.5) 10/18/17 05:05 Magnesium 2.20 mg/dL (1.7-2.3) 10/15/17 06:17 Iron 45 ug/dL (49-181) L 10/12/17 06:00 TIBC 131 mcg/dL (250-450) L 10/12/17 06:00 % Saturation 34.35 % 10/12/17 06:00 Transferrin 102 mg/dl (180-329) L 10/12/17 06:00 Total Bilirubin 1.10 mg/dL (0.1-1.2) 10/16/17 12:01 AST 134 units/L (5-40) H 10/16/17 12:01 ALT 52 units/L (7-56) 10/16/17 12:01 Alkaline Phosphatase 69 units/L (35-129) 10/16/17 12:01 Total Creatine Kinase 194 units/L (55-170) H 10/17/17 07:19 C-Reactive Protein 26.70 mg/dL (0.00-1.30) H 10/15/17 20:53 Total Protein 5.3 g/dL (6.3-8.2) L 10/16/17 12:01 Albumin 1.9 g/dL (3.9-5) L 10/16/17 12:01 Albumin/Globulin Ratio 0.6 % 10/16/17 12:01 Urine Color Yellow (Yellow) 10/11/17 Unknown Urine Turbidity Clear (Clear) 10/11/17 Unknown Urine pH 5.0 (5.0-7.0) 10/11/17 Unknown Ur Specific [place] 1.012 (1.003-1.030) 10/11/17 Unknown Urine Protein <15 mg/dl mg/dL (Negative) 10/11/17 Unknown Urine Glucose (UA) Neg mg/dL (Negative) 10/11/17 Unknown Urine Ketones Neg mg/dL (Negative) 10/11/17 Unknown Urine Blood Mod (Negative) 10/11/17 Unknown Urine Nitrite Neg (Negative) 10/11/17 Unknown Urine Bilirubin Neg (Negative) 10/11/17 Unknown Urine Urobilinogen < 2.0 mg/dL (<2.0) 10/11/17 Unknown Ur Leukocyte Esterase Neg (Negative) 10/11/17 Unknown Urine WBC (Auto) 10.0 /HPF (0.0-6.0) H 10/11/17 Unknown Urine RBC (Auto) 15.0 /HPF (0.0-6.0) 10/11/17 Unknown U Epithel Cells (Auto) 1.0 /HPF (0-13.0) 10/11/17 Unknown Urine Mucus Few /HPF 10/11/17 Unknown Urine Osmolality 425 Mosm/kg 10/12/17 13:00 Urine Creatinine 80.2 mg/dL (0.1-20.0) H 10/12/17 13:00 Urine Sodium 10 mmol/L 10/12/17 13:00 Vancomycin Trough 25.3 ug/mL (5.0-20.0) H 10/16/17 12:01 Hepatitis A IgM Ab Non-reactive (NonReactive) 10/12/17 06:00 Hep Bs Antigen Non-reactive (Negative) 10/12/17 06:00 Hep B Core IgM Ab Non-reactive (NonReactive) 10/12/17 06:00 Hepatitis C Antibody Reactive (NonReactive) A 10/12/17 06:00 HIV 1&2 Antibody Rapid Non react (Non React) 10/16/17 19:27 HIV P24 Antigen Non react (Non React) 10/16/17 19:27
--- NOTE | 2017-10-18 16:41 | Cat Scan Report ---
FINAL REPORT EXAM: CT ABDOMEN PELVIS W CON HISTORY: Severe MRSA septicemia unclear source COMPARISON: CT of the abdomen and pelvis performed on 10/11/2017 TECHNIQUE: Multiple contiguous axial images were obtained from the lung bases to the pubic symphysis after administration of IV contrast. Reformatted sagittal and coronal images were available for review. FINDINGS: Lung bases: Small bilateral pleural effusions with associated atelectasis. Visualized heart and mediastinum: Normal. Liver: Normal. Spleen: Normal. Pancreas: Normal. Gallbladder and Biliary Tree: No calcified gallstones. No biliary ductal dilatation. Adrenal glands: Normal. Kidneys: 1.7 centimeter simple appearing cyst in the interpolar region of the right kidney. 1.4 centimeters simple appearing cyst in the interpolar region of the left kidney. No hydronephrosis. Bladder: Mild bladder wall thickening. Pelvic organs: Normal prostate gland and seminal vesicles. Bowel: No focal wall thickening. No evidence of obstruction. Large amount of stool within the colon. Peritoneum: No significant mesenteric adenopathy. No free air or free fluid. Vasculature: Abdominal aorta is normal in caliber without evidence of aneurysm. Scattered atherosclerotic calcifications. Normal appearance of the portal venous system and the inferior vena cava. Bones and soft tissues: No suspicious osseous lesions. No acute fracture or dislocation. Small bilateral fat containing inguinal hernias. There is an irregular fluid collection involving the right gluteus musculature, that is somewhat difficult to measure but is approximately 7.5 x 2.5 centimeters (transverse by AP dimensions (series 4, image 73)). There is also an irregular fluid collection involving the left iliopsoas muscle near its insertion at the lesser trochanter, and extending into the obturator muscles. This fluid collection measures approximately 6 centimeters in greatest AP dimension and 3.5 centimeters in greatest transverse dimension (series 4, image 101). IMPRESSION: 1. No acute intra-abdominal pathology. 2. Small bilateral pleural effusions with associated atelectasis. 3. Fluid collections involving the right gluteus musculature and the left iliopsoas and obturator muscles. Findings may represent abscesses or seromas. Clinical correlation is recommended.
--- NOTE | 2017-10-18 17:22 | Cat Scan Report ---
FINAL REPORT EXAM: CT CHEST ABDOMEN PELVIS w CON HISTORY: Severe MRSA septicemia unclear source TECHNIQUE: CT of Chest, Abdomen, and Pelvis with IV contrast. Coronal sagittal reconstructed imaging provided. PRIORS: None currently available. FINDINGS: CHEST: Pleural based soft tissue density in the right upper lobe series 2:49 measures 17.8 x 17.2 mm. 6.4 and 5.1 mm solid nodules right upper lobe series 2:51. Smooth interseptal thickening with ground-glass opacities in both lungs. Focal patchy consolidation in the left upper lobe series 2: 35-41. Soft tissue lesion with central cavity in the pleura left upper lung series 2:48 measures 7.7 mm. Nearby pulmonary nodule measuring 3.5 mm also on image 48. Patchy infiltrate in the left lower lung on series 2:52. Small bilateral pleural effusions are partially loculated. Notable area of loculation in the left upper lobe on series 2:27 measuring 3.5 mm. Effusions are heterogeneously dense and may represent inflammatory exudate or empyema. The adjacent areas of subsegmental atelectasis noted. Main pulmonary arteries are unremarkable. No aortic aneurysm. No dissection. Major branch arteries are unremarkable. Moderate cardiomegaly. No pericardial effusion. Coronary artery disease. Mildly prominent subcentimeter mediastinal and bilateral hilar lymph nodes are nonspecific. Possibly reactive. Similar findings in both axillary regions. Images of the esophagus are unremarkable. Images of the thyroid gland are unremarkable. Mild soft tissue anasarca noted. ABDOMEN: Liver, distended stomach, spleen, pancreas, and adrenals are unremarkable. Kidneys: Cortical enhancement noted. Ill-defined appearance to the cortex and medullary regions identified. No perinephric stranding. No hydronephrosis. Gallbladder is contracted. There is no abdominal aortic aneurysm. No dissection. Mild atherosclerotic disease noted. IVC is unremarkable. There is no periaortic or retroperitoneal adenopathy or mass. [id number] stool. Moderate stool in the rectum and right colon no wall thickening or inflammatory changes. Terminal ileum is unremarkable. Appendix is normal. The appendix is not identified. There are no pericecal inflammatory changes. Small bowel loops are unremarkable. No obstructive pattern. Mild mesenteric stranding identified. Trace fluid noted within the colic gutters. No free air identified. No pneumatosis. [id number] swelling and stranding noted within the soft tissues. PELVIS: Bladder is unremarkable. There is no pelvic mass or adenopathy. Inguinal regions are unremarkable. Areas of decreased attenuation within the musculature around the right and left hips may represent areas of intramuscular edema or inflammation. A distinct rim enhancement not identified. Similar area of decreased attenuation noted within the right gluteal muscles. Bones: No suspicious osseous lesions on this limited examination of the skeleton. Metastatic disease better evaluated with bone scan. Degenerative changes are in the spine. Chronic fracture deformity and nonunion of the right greater trochanteric region identified. Severe osteoarthritis in both hips. IMPRESSION: Diffuse mild to moderate anasarca. Areas of low attenuation the musculature around both hips and in the right gluteal muscles may represent inflammation and infectious myositis. There is concern for developing intramuscular abscesses versus edema. Loculated bilateral pleural effusions which appear slightly complex. There is concern for possible empyema. Cardiomegaly and smooth interseptal thickening with interspersed areas of ground-glass opacity suggests pulmonary vascular congestion with edema. Scattered ill-defined solid opacities in both lungs may represent pulmonary nodules but there is suspicion that these may represent septic emboli. Pleural based lesion in the left upper lobe may be developing a cavitation. Reactive lymph nodes in the axilla, hilum, and mediastinum. Indistinct cortical medullary enhancement of the kidneys may be related to developing renal failure. Please correlate clinically. Constipation. Probable bilateral renal cysts.
[2017-10-18] MEDS: XOPENEX IH PRN (21:29)
[2017-10-18] MEDS: MORPHINE IV PRN (23:30)
[2017-10-19] MEDS: D5W 1,000 ML IV SCH ×3 (01:09→20:21)
[2017-10-19] MEDS: PERCOCET 5/325 PO PRN (03:35)
--- NOTE | 2017-10-19 07:10 | Progress Note ---
Assessment and Plan 1. Acute kidney injury: Vasomotor / hemodynamic DARRICK in the setting of volume depletion. Renal function is better. Continue IV fluids. 2. Electrolytes: Hypernatremia, improving. Metabolic acidosis, improving. Monitor. 3. Mild rhabdomyolysis. Improved. 4. MRSA septicemia: Followed by ID. 5. Hepatitis C with elevated liver enzymes. Subjective Date of service: 10/19/17 Principal diagnosis: MRSA bacteremia Interval history: Patient was seen and examined at the bedside. Objective - Vital Signs Vital signs: Vital Signs - 12hr 10/18/17 10/18/17 10/18/17 21:15 21:30 21:37 Temperature Pulse Rate Pulse Rate [ 120 H 121 H Anterior Bilateral Throughout] Respiratory Rate Respiratory 20 22 Rate [Anterior Bilateral Throughout] Blood Pressure O2 Sat by Pulse 100 Oximetry 10/18/17 10/18/17 10/19/17 23:09 23:30 00:00 Temperature 99.5 F Pulse Rate 121 H Pulse Rate [ Anterior Bilateral Throughout] Respiratory 22 20 20 Rate Respiratory Rate [Anterior Bilateral Throughout] Blood Pressure 107/66 O2 Sat by Pulse 100 Oximetry 10/19/17 10/19/17 03:35 04:00 Temperature Pulse Rate Pulse Rate [ Anterior Bilateral Throughout] Respiratory 14 24 Rate Respiratory Rate [Anterior Bilateral Throughout] Blood Pressure O2 Sat by Pulse 100 Oximetry - General Appearance General appearance: well-developed, appears stated age, other (no distress) EENT: ATNC, PERRL, hearing intact Neck: supple Respiratory: Present: Clear to Ascultation Cardiology: regular, S1S2, no murmurs Gastrointestinal: normoactive bowel sounds, no tenderness, obese Integumentary: no rash Neurologic: confused, disoriented, other (not following any command) Musculoskeletal: other (trace pedal edema noted) - Lab 10/16/17 12:01 10/19/17 07:11 Most recent lab results Calcium 8.0 mg/dL (8.4-10.2) L 10/18/17 05:05 Phosphorus 3.00 mg/dL (2.5-4.5) 10/18/17 05:05 Magnesium 2.20 mg/dL (1.7-2.3) 10/15/17 06:17 Urine Creatinine 80.2 mg/dL (0.1-20.0) H 10/12/17 13:00 Urine Sodium 10 mmol/L 10/12/17 13:00
[2017-10-19 08:19] LABS: Alanine Aminotransferase 73 units/L (7-56); Albumin 1.8 g/dL (3.9-5); BUN/Creatinine Ratio 29; Blood Urea Nitrogen 32 mg/dL (9-20); Calcium 7.7 mg/dL (8.4-10.2); Hemolysis Index 8
[2017-10-19] MEDS: LOVENOX SUB-Q SCH (10:02)
[2017-10-19] MEDS: MORPHINE IV PRN (10:03)
[2017-10-19] MEDS: SODIUM CHLORIDE FLUSH SYRINGE 10 ML IV SCH ×2 (10:03→21:55)
[2017-10-19] MEDS: CUBICIN 500 MG in NACL 0.9% 100 ML IV SCH (10:07)
--- NOTE | 2017-10-19 12:53 | Progress Note ---
Assessment and Plan Assessment and plan: CT C/A/P 1. No acute intra-abdominal pathology. 2. Small bilateral pleural effusions with associated atelectasis. 3. Fluid collections involving the right gluteus musculature and the left iliopsoas and obturator muscles. Findings may represent abscesses or seromas. Clinical correlation is recommended. / Acute kidney injury on IVF improving, likely ATN /acute encephalopathy with delirium likely due to sepsis, improving / Sepsis with bacteremia, MRSA, gram pos on abx, ID consulted, IR to drain abscesses, for INDRA Appears to be staph aureas / Hypokalemia Supplemented /Hyponatremia improving with iv fluid / Transaminitis Acute hepatitis profile positive for hepatitis C Patient has no history of alcohol intake He is in the long-term for last 2 months cont to monitor /Anemia Probably anemia of CD, monitor h/h /DVT prophylaxis Lovenox 30 mg subcutaneous daily GI prophylaxis ordered Brief History: The patient is a 61 YO male with no significant medical problem who is current incarcerated was sent from the long-term for one day h/o abd pain and Outside labs showing elevated creatinine. History Interval history: The patient has been confused at times, delirious, waxing and waning mental status Continues to have fever No cough, no sputum production Per nursing staff he complains of pain when he moves him and turning on his side and put him on bedpan No vomiting Hospitalist Physical - Physical exam Narrative exam: General.: Appears well, no distress, nontoxic HEENT: Moist mucous membranes, extraocular muscles intact, no lymphadenopathy Neck: supple Cardiac: S1-S2 heard Lungs: clear to auscultation bilaterally Abdomen: soft , nontender, nondistended, bowel sounds positive Extremities: no edema clubbing or cyanosis Skin: old nodular scar rash on arms/legs Neurologic: no gross focal deficits Psych: appropriate behavior, appropriate mood, corporative, judgment intact - Constitutional Vitals: Temp Pulse Resp BP Pulse Ox 98.9 F 105 H 22 104/70 99 10/19/17 07:55 10/19/17 07:55 10/19/17 07:55 10/19/17 07:55 10/19/17 09:56 General appearance: Present: no acute distress, well-nourished Results - Labs CBC & Chem 7: 10/16/17 12:01 10/21/17 08:26 Labs: Laboratory Last Values WBC 6.3 K/mm3 (4.5-11.0) 10/16/17 12:01 RBC 2.23 M/mm3 (3.65-5.03) L 10/16/17 12:01 Hgb 7.3 gm/dl (11.8-15.2) L 10/16/17 12:01 Hct 20.8 % (35.5-45.6) L 10/16/17 12:01 MCV 93 fl (84-94) 10/16/17 12:01 MCH 33 pg (28-32) H 10/16/17 12:01 MCHC 35 % (32-34) H 10/16/17 12:01 RDW 14.7 % (13.2-15.2) 10/16/17 12:01 Plt Count 129 K/mm3 (140-440) L 10/16/17 12:01 Lymph % (Auto) 7.0 % (13.4-35.0) L 10/15/17 06:17 [place] % (Auto) 5.4 % (0.0-7.3) 10/15/17 06:17 Eos % (Auto) 0.2 % (0.0-4.3) 10/15/17 06:17 Baso % (Auto) 0.3 % (0.0-1.8) 10/15/17 06:17 Lymph # 0.5 K/mm3 (1.2-5.4) L 10/15/17 06:17 [place] # 0.4 K/mm3 (0.0-0.8) 10/15/17 06:17 Eos # 0.0 K/mm3 (0.0-0.4) 10/15/17 06:17 Baso # 0.0 K/mm3 (0.0-0.1) 10/15/17 06:17 Add Manual Diff Complete 10/12/17 06:00 Total Counted 100 10/12/17 06:00 Seg Neutrophils % 87.1 % (40.0-70.0) H 10/15/17 06:17 Seg Neuts % (Manual) 88.0 % (40.0-70.0) H 10/12/17 06:00 Band Neutrophils % 0 % 10/12/17 06:00 Lymphocytes % (Manual) 5.0 % (13.4-35.0) L 10/12/17 06:00 Reactive Lymphs % (Man) 1.0 % 10/12/17 06:00 Monocytes % (Manual) 5.0 % (0.0-7.3) 10/12/17 06:00 Eosinophils % (Manual) 0 % (0.0-4.3) 10/12/17 06:00 Basophils % (Manual) 0 % (0.0-1.8) 10/12/17 06:00 Metamyelocytes % 1.0 % 10/12/17 06:00 Myelocytes % 0 % 10/12/17 06:00 Promyelocytes % 0 % 10/12/17 06:00 Blast Cells % 0 % 10/12/17 06:00 Nucleated RBC % Not Reportable 10/12/17 06:00 Seg Neutrophils # 6.4 K/mm3 (1.8-7.7) 10/15/17 06:17 Seg Neutrophils # Man 5.0 K/mm3 (1.8-7.7) 10/12/17 06:00 Band Neutrophils # 0.0 K/mm3 10/12/17 06:00 Lymphocytes # (Manual) 0.3 K/mm3 (1.2-5.4) L 10/12/17 06:00 Abs React Lymphs (Man) 0.1 K/mm3 10/12/17 06:00 Monocytes # (Manual) 0.3 K/mm3 (0.0-0.8) 10/12/17 06:00 Eosinophils # (Manual) 0.0 K/mm3 (0.0-0.4) 10/12/17 06:00 Basophils # (Manual) 0.0 K/mm3 (0.0-0.1) 10/12/17 06:00 Metamyelocytes # 0.1 K/mm3 10/12/17 06:00 Myelocytes # 0.0 K/mm3 10/12/17 06:00 Promyelocytes # 0.0 K/mm3 10/12/17 06:00 Blast Cells # 0.0 K/mm3 10/12/17 06:00 WBC Morphology Not Reportable 10/12/17 06:00 Hypersegmented Neuts Not Reportable 10/12/17 06:00 Hyposegmented Neuts Not Reportable 10/12/17 06:00 Hypogranular Neuts Not Reportable 10/12/17 06:00 Smudge Cells Not Reportable 10/12/17 06:00 Toxic Granulation Not Reportable 10/12/17 06:00 Toxic Vacuolation Not Reportable 10/12/17 06:00 Dohle Bodies Not Reportable 10/12/17 06:00 Pelger-Huet Anomaly Not Reportable 10/12/17 06:00 Cem Rods Not Reportable 10/12/17 06:00 Platelet Estimate Consistent w auto 10/12/17 06:00 Clumped Platelets Not Reportable 10/12/17 06:00 Plt Clumps, EDTA Not Reportable 10/12/17 06:00 Large Platelets Not Reportable 10/12/17 06:00 Giant Platelets Not Reportable 10/12/17 06:00 Platelet Satelliting Not Reportable 10/12/17 06:00 Plt Morphology Comment Not Reportable 10/12/17 06:00 RBC Morphology Not Reportable 10/12/17 06:00 Dimorphic RBCs Not Reportable 10/12/17 06:00 Polychromasia Not Reportable 10/12/17 06:00 Hypochromasia Not Reportable 10/12/17 06:00 Poikilocytosis Not Reportable 10/12/17 06:00 Anisocytosis 1+ 10/12/17 06:00 Microcytosis Not Reportable 10/12/17 06:00 Macrocytosis Not Reportable 10/12/17 06:00 Spherocytes Not Reportable 10/12/17 06:00 Pappenheimer Bodies Not Reportable 10/12/17 06:00 Sickle Cells Not Reportable 10/12/17 06:00 Target Cells Not Reportable 10/12/17 06:00 Tear Drop Cells Not Reportable 10/12/17 06:00 Ovalocytes Not Reportable 10/12/17 06:00 Helmet Cells Not Reportable 10/12/17 06:00 [place] Bodies Not Reportable 10/12/17 06:00 [place] Rings Not Reportable 10/12/17 06:00 [place] Cells Not Reportable 10/12/17 06:00 Bite Cells Not Reportable 10/12/17 06:00 Crenated Cell Not Reportable 10/12/17 06:00 Elliptocytes Not Reportable 10/12/17 06:00 Acanthocytes (Spur) Not Reportable 10/12/17 06:00 Rouleaux Not Reportable 10/12/17 06:00 Hemoglobin C Crystals Not Reportable 10/12/17 06:00 Schistocytes Not Reportable 10/12/17 06:00 Malaria parasites Not Reportable 10/12/17 06:00 Juan Bodies Not Reportable 10/12/17 06:00 Hem Pathologist Commnt No 10/12/17 06:00 Sodium 140 mmol/L (137-145) 10/19/17 07:11 Potassium 4.1 mmol/L (3.6-5.0) 10/19/17 07:11 Chloride 106.2 mmol/L (98-107) 10/19/17 07:11 Carbon Dioxide 20 mmol/L (22-30) L 10/19/17 07:11 Anion Gap 18 mmol/L 10/19/17 07:11 BUN 32 mg/dL (9-20) H 10/19/17 07:11 Creatinine 1.1 mg/dL (0.8-1.5) 10/19/17 07:11 Estimated GFR > 60 ml/min 10/19/17 07:11 BUN/Creatinine Ratio 29 % 10/19/17 07:11 Glucose 118 mg/dL (75-100) H 10/19/17 07:11 POC Glucose 108 (70-105) H 10/15/17 18:49 Osmolality 305 Mosm/kg 10/12/17 06:00 Lactic Acid 1.60 mmol/L (0.7-2.0) 10/13/17 10:36 Calcium 7.7 mg/dL (8.4-10.2) L 10/19/17 07:11 Phosphorus 3.00 mg/dL (2.5-4.5) 10/18/17 05:05 Magnesium 2.20 mg/dL (1.7-2.3) 10/15/17 06:17 Iron 45 ug/dL (49-181) L 10/12/17 06:00 TIBC 131 mcg/dL (250-450) L 10/12/17 06:00 % Saturation 34.35 % 10/12/17 06:00 Transferrin 102 mg/dl (180-329) L 10/12/17 06:00 Total Bilirubin 1.00 mg/dL (0.1-1.2) 10/19/17 07:11 AST 129 units/L (5-40) H 10/19/17 07:11 ALT 73 units/L (7-56) H 10/19/17 07:11 Alkaline Phosphatase 128 units/L (35-129) 10/19/17 07:11 Total Creatine Kinase 154 units/L (55-170) 10/19/17 07:11 C-Reactive Protein 26.70 mg/dL (0.00-1.30) H 10/15/17 20:53 Total Protein 5.6 g/dL (6.3-8.2) L 10/19/17 07:11 Albumin 1.8 g/dL (3.9-5) L 10/19/17 07:11 Albumin/Globulin Ratio 0.5 % 10/19/17 07:11 Urine Color Yellow (Yellow) 10/11/17 Unknown Urine Turbidity Clear (Clear) 10/11/17 Unknown Urine pH 5.0 (5.0-7.0) 10/11/17 Unknown Ur Specific [place] 1.012 (1.003-1.030) 10/11/17 Unknown Urine Protein <15 mg/dl mg/dL (Negative) 10/11/17 Unknown Urine Glucose (UA) Neg mg/dL (Negative) 10/11/17 Unknown Urine Ketones Neg mg/dL (Negative) 10/11/17 Unknown Urine Blood Mod (Negative) 10/11/17 Unknown Urine Nitrite Neg (Negative) 10/11/17 Unknown Urine Bilirubin Neg (Negative) 10/11/17 Unknown Urine Urobilinogen < 2.0 mg/dL (<2.0) 10/11/17 Unknown Ur Leukocyte Esterase Neg (Negative) 10/11/17 Unknown Urine WBC (Auto) 10.0 /HPF (0.0-6.0) H 10/11/17 Unknown Urine RBC (Auto) 15.0 /HPF (0.0-6.0) 10/11/17 Unknown U Epithel Cells (Auto) 1.0 /HPF (0-13.0) 10/11/17 Unknown Urine Mucus Few /HPF 10/11/17 Unknown Urine Osmolality 425 Mosm/kg 10/12/17 13:00 Urine Creatinine 80.2 mg/dL (0.1-20.0) H 10/12/17 13:00 Urine Sodium 10 mmol/L 10/12/17 13:00 Vancomycin Trough 25.3 ug/mL (5.0-20.0) H 10/16/17 12:01 Hepatitis A IgM Ab Non-reactive (NonReactive) 10/12/17 06:00 Hep Bs Antigen Non-reactive (Negative) 10/12/17 06:00 Hep B Core IgM Ab Non-reactive (NonReactive) 10/12/17 06:00 Hepatitis C Antibody Reactive (NonReactive) A 10/12/17 06:00 HIV 1&2 Antibody Rapid Non react (Non React) 10/16/17 19:27 HIV P24 Antigen Non react (Non React) 10/16/17 19:27
--- NOTE | 2017-10-19 18:16 | Progress Note ---
Assessment and Plan Assessment: 1) Severe sepsis: fever trending down. Etiology most likely MRSA septicemia. 2) MRSA ? MSSA ?septicemia: unclear source ? skin rash; should r/o endocarditis , vertebral osteomyelitis, epidural abscess -blood cx 10/13 MRSA? MSSA ? 4 of 4 bottles -blood cx 10/14 Staph 4 of 4 bottles -TTE no obvious vegetations -CT showed right gluteal collection vs myositis 7.5x2.5.cm, left ilepsoas abscess 6x3.5 cm, loculated bilateral small pleural effusions with ill defined solid opacities ? nodules vs. ?emboli with reactive axillary, hilar and mediastinal LNs. 3) DARRICK - resolved 4) Thrombocytopenia: from sepsis/HCV- better 5) HCV serology positive 6) Elevated LFTs: from sepsis and HCV 7) Rhabdomyolysis: from sepsis 8) Lower back pain and leg weakness Plan: -IR consult to consider drainage right gluteal collection vs myositis 7.5x2.5.cm , left ilepsoas abscess 6x3.5 cm -Pulmonary consult to comment on loculated bilateral small pleural effusions with ill defined solid opacities ? nodules vs. ?emboli with reactive axillary, hilar and mediastinal LNs seen on CT -repeat blood cultures today - ordered place -ask micro lab for clarification of isolate ?MRSA vs MSSA or both -continue daptomycin -obtain INDRA r/o endocarditis - pending -f/u HCV viral load, HIV Discussed with Dr Glaser Thank you for your consultation, will follow up with you. Jordana Viramontes MD Infectious Diseases Specialist [facility] ([facility] M [phone] O [phone] Subjective Date of service: 10/19/17 Principal diagnosis: MRSA bacteremia Interval history: Feels ok still fever 99.9 but trending down, c/o left thigh pain and right hip pain Microbiology: Blood cultures: 10/13 MRSA ? 4 of 4 bottles (now reported as MSSA) 10/14 Staph 4 of 4 bottles Urine cultures: Respiratory cultures: Current Antimicrobials: Dapto 10/17 Previous Antimicrobials: Zosyn Vancomycin 10/14 Objective - Exam Narrative Exam: General appearance: Alert in NAD, Eyes: anicteric sclerae, moist conjunctivae; no lid-lag; PERRLA HENT: Atraumatic; oropharynx clear Neck: Trachea midline; supple, no thyromegaly or lymphadenopathy Lungs: CTA, with normal respiratory effort and no intercostal retractions CV: RRR Abdomen: Soft, non-tender; no masses or hepatosplenomegaly Extremities: right hip/gluteal tenderness and edema, left thigh tenderness Skin: old nodular scar rash on arms/legs Psych: Appropriate affect, alert and oriented to person, place and time. Neuro: alert and oriented x 3. Moving all extermities Lines: No CVL / PICC - Constitutional Vitals: Vital Signs Temp Pulse Resp BP Pulse Ox 99.9 F H 116 H 22 129/79 99 10/19/17 11:44 10/19/17 11:44 10/19/17 11:44 10/19/17 11:44 10/19/17 11:44 Temperature -Last 24 Hours Temperature 99.9 F Temperature 98.9 F Temperature 98.0 F Temperature 99.5 F - Labs CBC & Chem 7: 10/16/17 12:01 10/19/17 07:11 Labs: Abnormal lab results 10/19/17 Range/Units 07:11 Carbon Dioxide 20 L (22-30) mmol/L BUN 32 H (9-20) mg/dL Glucose 118 H (75-100) mg/dL Calcium 7.7 L (8.4-10.2) mg/dL AST 129 H (5-40) units/L ALT 73 H (7-56) units/L Total Protein 5.6 L (6.3-8.2) g/dL Albumin 1.8 L (3.9-5) g/dL
[2017-10-19] MEDS: TYLENOL PO PRN (20:51)
[2017-10-20] MEDS: XOPENEX IH PRN (05:06)
[2017-10-20] MEDS: PERCOCET 5/325 PO PRN ×2 (06:37→21:38)
--- NOTE | 2017-10-20 07:52 | Progress Note ---
Assessment and Plan Assessment and plan: CT C/A/P 1. No acute intra-abdominal pathology. 2. Small bilateral pleural effusions with associated atelectasis. 3. Fluid collections involving the right gluteus musculature and the left iliopsoas and obturator muscles. Findings may represent abscesses or seromas. Clinical correlation is recommended. 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 History Interval history: The patient has been confused at times, delirious, waxing and waning mental status Continues to have fever No cough, no sputum production Per nursing staff he complains of pain when he moves him and turning on his side and put him on bedpan No vomiting Hospitalist Physical - Physical exam Narrative exam: General.: Appears well, no distress, nontoxic HEENT: Moist mucous membranes, extraocular muscles intact, no lymphadenopathy Neck: supple Cardiac: S1-S2 heard Lungs: clear to auscultation bilaterally Abdomen: soft , nontender, nondistended, bowel sounds positive Extremities: no edema clubbing or cyanosis Skin: old nodular scar rash on arms/legs Neurologic: no gross focal deficits Psych: appropriate behavior, appropriate mood, corporative, judgment intact - Constitutional Vitals: Temp Pulse Resp BP Pulse Ox 98.9 F 115 H 24 122/83 100 10/20/17 03:16 10/20/17 05:13 10/20/17 05:13 10/20/17 03:16 10/20/17 03:16 General appearance: Present: no acute distress, well-nourished Results - Labs CBC & Chem 7: 10/16/17 12:01 10/21/17 08:26 Labs: Laboratory Last Values WBC 6.3 K/mm3 (4.5-11.0) 10/16/17 12:01 RBC 2.23 M/mm3 (3.65-5.03) L 10/16/17 12:01 Hgb 7.3 gm/dl (11.8-15.2) L 10/16/17 12:01 Hct 20.8 % (35.5-45.6) L 10/16/17 12:01 MCV 93 fl (84-94) 10/16/17 12:01 MCH 33 pg (28-32) H 10/16/17 12:01 MCHC 35 % (32-34) H 10/16/17 12:01 RDW 14.7 % (13.2-15.2) 10/16/17 12:01 Plt Count 129 K/mm3 (140-440) L 10/16/17 12:01 Lymph % (Auto) 7.0 % (13.4-35.0) L 10/15/17 06:17 [place] % (Auto) 5.4 % (0.0-7.3) 10/15/17 06:17 Eos % (Auto) 0.2 % (0.0-4.3) 10/15/17 06:17 Baso % (Auto) 0.3 % (0.0-1.8) 10/15/17 06:17 Lymph # 0.5 K/mm3 (1.2-5.4) L 10/15/17 06:17 [place] # 0.4 K/mm3 (0.0-0.8) 10/15/17 06:17 Eos # 0.0 K/mm3 (0.0-0.4) 10/15/17 06:17 Baso # 0.0 K/mm3 (0.0-0.1) 10/15/17 06:17 Add Manual Diff Complete 10/12/17 06:00 Total Counted 100 10/12/17 06:00 Seg Neutrophils % 87.1 % (40.0-70.0) H 10/15/17 06:17 Seg Neuts % (Manual) 88.0 % (40.0-70.0) H 10/12/17 06:00 Band Neutrophils % 0 % 10/12/17 06:00 Lymphocytes % (Manual) 5.0 % (13.4-35.0) L 10/12/17 06:00 Reactive Lymphs % (Man) 1.0 % 10/12/17 06:00 Monocytes % (Manual) 5.0 % (0.0-7.3) 10/12/17 06:00 Eosinophils % (Manual) 0 % (0.0-4.3) 10/12/17 06:00 Basophils % (Manual) 0 % (0.0-1.8) 10/12/17 06:00 Metamyelocytes % 1.0 % 10/12/17 06:00 Myelocytes % 0 % 10/12/17 06:00 Promyelocytes % 0 % 10/12/17 06:00 Blast Cells % 0 % 10/12/17 06:00 Nucleated RBC % Not Reportable 10/12/17 06:00 Seg Neutrophils # 6.4 K/mm3 (1.8-7.7) 10/15/17 06:17 Seg Neutrophils # Man 5.0 K/mm3 (1.8-7.7) 10/12/17 06:00 Band Neutrophils # 0.0 K/mm3 10/12/17 06:00 Lymphocytes # (Manual) 0.3 K/mm3 (1.2-5.4) L 10/12/17 06:00 Abs React Lymphs (Man) 0.1 K/mm3 10/12/17 06:00 Monocytes # (Manual) 0.3 K/mm3 (0.0-0.8) 10/12/17 06:00 Eosinophils # (Manual) 0.0 K/mm3 (0.0-0.4) 10/12/17 06:00 Basophils # (Manual) 0.0 K/mm3 (0.0-0.1) 10/12/17 06:00 Metamyelocytes # 0.1 K/mm3 10/12/17 06:00 Myelocytes # 0.0 K/mm3 10/12/17 06:00 Promyelocytes # 0.0 K/mm3 10/12/17 06:00 Blast Cells # 0.0 K/mm3 10/12/17 06:00 WBC Morphology Not Reportable 10/12/17 06:00 Hypersegmented Neuts Not Reportable 10/12/17 06:00 Hyposegmented Neuts Not Reportable 10/12/17 06:00 Hypogranular Neuts Not Reportable 10/12/17 06:00 Smudge Cells Not Reportable 10/12/17 06:00 Toxic Granulation Not Reportable 10/12/17 06:00 Toxic Vacuolation Not Reportable 10/12/17 06:00 Dohle Bodies Not Reportable 10/12/17 06:00 Pelger-Huet Anomaly Not Reportable 10/12/17 06:00 Cem Rods Not Reportable 10/12/17 06:00 Platelet Estimate Consistent w auto 10/12/17 06:00 Clumped Platelets Not Reportable 10/12/17 06:00 Plt Clumps, EDTA Not Reportable 10/12/17 06:00 Large Platelets Not Reportable 10/12/17 06:00 Giant Platelets Not Reportable 10/12/17 06:00 Platelet Satelliting Not Reportable 10/12/17 06:00 Plt Morphology Comment Not Reportable 10/12/17 06:00 RBC Morphology Not Reportable 10/12/17 06:00 Dimorphic RBCs Not Reportable 10/12/17 06:00 Polychromasia Not Reportable 10/12/17 06:00 Hypochromasia Not Reportable 10/12/17 06:00 Poikilocytosis Not Reportable 10/12/17 06:00 Anisocytosis 1+ 10/12/17 06:00 Microcytosis Not Reportable 10/12/17 06:00 Macrocytosis Not Reportable 10/12/17 06:00 Spherocytes Not Reportable 10/12/17 06:00 Pappenheimer Bodies Not Reportable 10/12/17 06:00 Sickle Cells Not Reportable 10/12/17 06:00 Target Cells Not Reportable 10/12/17 06:00 Tear Drop Cells Not Reportable 10/12/17 06:00 Ovalocytes Not Reportable 10/12/17 06:00 Helmet Cells Not Reportable 10/12/17 06:00 [place] Bodies Not Reportable 10/12/17 06:00 [place] Rings Not Reportable 10/12/17 06:00 [place] Cells Not Reportable 10/12/17 06:00 Bite Cells Not Reportable 10/12/17 06:00 Crenated Cell Not Reportable 10/12/17 06:00 Elliptocytes Not Reportable 10/12/17 06:00 Acanthocytes (Spur) Not Reportable 10/12/17 06:00 Rouleaux Not Reportable 10/12/17 06:00 Hemoglobin C Crystals Not Reportable 10/12/17 06:00 Schistocytes Not Reportable 10/12/17 06:00 Malaria parasites Not Reportable 10/12/17 06:00 Juan Bodies Not Reportable 10/12/17 06:00 Hem Pathologist Commnt No 10/12/17 06:00 Sodium 140 mmol/L (137-145) 10/19/17 07:11 Potassium 4.1 mmol/L (3.6-5.0) 10/19/17 07:11 Chloride 106.2 mmol/L (98-107) 10/19/17 07:11 Carbon Dioxide 20 mmol/L (22-30) L 10/19/17 07:11 Anion Gap 18 mmol/L 10/19/17 07:11 BUN 32 mg/dL (9-20) H 10/19/17 07:11 Creatinine 1.1 mg/dL (0.8-1.5) 10/19/17 07:11 Estimated GFR > 60 ml/min 10/19/17 07:11 BUN/Creatinine Ratio 29 % 10/19/17 07:11 Glucose 118 mg/dL (75-100) H 10/19/17 07:11 POC Glucose 108 (70-105) H 10/15/17 18:49 Osmolality 305 Mosm/kg 10/12/17 06:00 Lactic Acid 1.60 mmol/L (0.7-2.0) 10/13/17 10:36 Calcium 7.7 mg/dL (8.4-10.2) L 10/19/17 07:11 Phosphorus 3.00 mg/dL (2.5-4.5) 10/18/17 05:05 Magnesium 2.20 mg/dL (1.7-2.3) 10/15/17 06:17 Iron 45 ug/dL (49-181) L 10/12/17 06:00 TIBC 131 mcg/dL (250-450) L 10/12/17 06:00 % Saturation 34.35 % 10/12/17 06:00 Transferrin 102 mg/dl (180-329) L 10/12/17 06:00 Total Bilirubin 1.00 mg/dL (0.1-1.2) 10/19/17 07:11 AST 129 units/L (5-40) H 10/19/17 07:11 ALT 73 units/L (7-56) H 10/19/17 07:11 Alkaline Phosphatase 128 units/L (35-129) 10/19/17 07:11 Total Creatine Kinase 154 units/L (55-170) 10/19/17 07:11 C-Reactive Protein 26.70 mg/dL (0.00-1.30) H 10/15/17 20:53 Total Protein 5.6 g/dL (6.3-8.2) L 10/19/17 07:11 Albumin 1.8 g/dL (3.9-5) L 10/19/17 07:11 Albumin/Globulin Ratio 0.5 % 10/19/17 07:11 Urine Color Yellow (Yellow) 10/11/17 Unknown Urine Turbidity Clear (Clear) 10/11/17 Unknown Urine pH 5.0 (5.0-7.0) 10/11/17 Unknown Ur Specific [place] 1.012 (1.003-1.030) 10/11/17 Unknown Urine Protein <15 mg/dl mg/dL (Negative) 10/11/17 Unknown Urine Glucose (UA) Neg mg/dL (Negative) 10/11/17 Unknown Urine Ketones Neg mg/dL (Negative) 10/11/17 Unknown Urine Blood Mod (Negative) 10/11/17 Unknown Urine Nitrite Neg (Negative) 10/11/17 Unknown Urine Bilirubin Neg (Negative) 10/11/17 Unknown Urine Urobilinogen < 2.0 mg/dL (<2.0) 10/11/17 Unknown Ur Leukocyte Esterase Neg (Negative) 10/11/17 Unknown Urine WBC (Auto) 10.0 /HPF (0.0-6.0) H 10/11/17 Unknown Urine RBC (Auto) 15.0 /HPF (0.0-6.0) 10/11/17 Unknown U Epithel Cells (Auto) 1.0 /HPF (0-13.0) 10/11/17 Unknown Urine Mucus Few /HPF 10/11/17 Unknown Urine Osmolality 425 Mosm/kg 10/12/17 13:00 Urine Creatinine 80.2 mg/dL (0.1-20.0) H 10/12/17 13:00 Urine Sodium 10 mmol/L 10/12/17 13:00 Vancomycin Trough 25.3 ug/mL (5.0-20.0) H 10/16/17 12:01 Hepatitis A IgM Ab Non-reactive (NonReactive) 10/12/17 06:00 Hep Bs Antigen Non-reactive (Negative) 10/12/17 06:00 Hep B Core IgM Ab Non-reactive (NonReactive) 10/12/17 06:00 Hepatitis C Antibody Reactive (NonReactive) A 10/12/17 06:00 HIV 1&2 Antibody Rapid Non react (Non React) 10/16/17 19:27 HIV P24 Antigen Non react (Non React) 10/16/17 19:27
[2017-10-20] MEDS ORDERED: HALDOL IM ONE (08:00)
--- NOTE | 2017-10-20 08:20 | Progress Note ---
Assessment and Plan 1. Acute kidney injury: Vasomotor / hemodynamic DARRICK in the setting of volume depletion. Renal function is better. 2. Electrolytes: Hypernatremia, improved. Metabolic acidosis, improving. Monitor. 3. Mild rhabdomyolysis. Improved. 4. MRSA septicemia: Followed by ID. 5. Hepatitis C with elevated liver enzymes. Subjective Date of service: 10/20/17 Principal diagnosis: MRSA bacteremia Interval history: Patient was seen and examined at the bedside. Objective - Vital Signs Vital signs: Vital Signs - 12hr 10/19/17 10/19/17 10/19/17 21:40 22:00 23:34 Temperature 99.2 F Pulse Rate 109 H Pulse Rate [ Anterior Bilateral Throughout] Pulse Rate [ 111 H From Monitor] Respiratory 32 H 36 H Rate Respiratory Rate [Anterior Bilateral Throughout] Blood Pressure 97/64 O2 Sat by Pulse 98 100 97 Oximetry 10/20/17 10/20/17 10/20/17 03:16 05:02 05:13 Temperature 98.9 F Pulse Rate 111 H Pulse Rate [ 110 H 115 H Anterior Bilateral Throughout] Pulse Rate [ From Monitor] Respiratory 32 H Rate Respiratory 32 H 24 Rate [Anterior Bilateral Throughout] Blood Pressure 122/83 O2 Sat by Pulse 100 Oximetry - General Appearance General appearance: well-developed, appears stated age, other (no distress) EENT: ATNC, PERRL Neck: supple Respiratory: Present: Clear to Ascultation Cardiology: regular, S1S2, no murmurs Gastrointestinal: normoactive bowel sounds, no tenderness Integumentary: no rash Neurologic: no focal deficit, no asterixis Musculoskeletal: other (trace pedal edema) - Lab 10/16/17 12:01 10/20/17 07:50 Most recent lab results Calcium 7.7 mg/dL (8.4-10.2) L 10/19/17 07:11 Phosphorus 3.00 mg/dL (2.5-4.5) 10/18/17 05:05 Magnesium 2.20 mg/dL (1.7-2.3) 10/15/17 06:17 Urine Creatinine 80.2 mg/dL (0.1-20.0) H 10/12/17 13:00 Urine Sodium 10 mmol/L 10/12/17 13:00
[2017-10-20 08:36] LABS: BUN/Creatinine Ratio 29; Blood Urea Nitrogen 26 mg/dL (9-20); Hemolysis Index 41
[2017-10-20] MEDS: CUBICIN 500 MG in NACL 0.9% 100 ML IV SCH (12:07)
[2017-10-20] MEDS: LOVENOX SUB-Q SCH (12:07)
[2017-10-20] MEDS: SODIUM CHLORIDE FLUSH SYRINGE 10 ML IV SCH ×2 (12:08→21:23)
[2017-10-20] MEDS: D5W 1,000 ML IV SCH (12:09)
[2017-10-20] MEDS: MORPHINE IV PRN (13:19)
[2017-10-21] MEDS: XOPENEX IH PRN (01:03)
[2017-10-21] MEDS ORDERED: VERSED IV ONE ×2 (08:49→13:47)
[2017-10-21] MEDS ORDERED: SUBLIMAZE IV ONE (08:49)
[2017-10-21] MEDS: MORPHINE IV PRN (09:10)
[2017-10-21 09:12] LABS: BUN/Creatinine Ratio 29; Blood Urea Nitrogen 23 mg/dL (9-20); Calcium 8.2 mg/dL (8.4-10.2); Hemolysis Index 4
--- NOTE | 2017-10-21 11:02 | Progress Note ---
Assessment and Plan 1. Acute kidney injury: Vasomotor / hemodynamic DARRICK in the setting of volume depletion. Renal function has improved and stable. 2. Electrolytes: Hypernatremia, improved. Metabolic acidosis, improved. 3. Mild rhabdomyolysis. Improved. 4. MRSA septicemia: Followed by ID. 5. Hepatitis C with elevated liver enzymes. Will sign off. Subjective Date of service: 10/21/17 Principal diagnosis: MRSA bacteremia Interval history: Patient was seen and examined at the bedside. Objective - Vital Signs Vital signs: Vital Signs - 12hr 10/20/17 10/21/17 10/21/17 23:32 01:03 01:13 Temperature 100.4 F H Pulse Rate 125 H Pulse Rate [ 104 H 106 H Anterior Bilateral Throughout] Respiratory 36 H Rate Respiratory 18 18 Rate [Anterior Bilateral Throughout] Blood Pressure 105/59 O2 Sat by Pulse 95 Oximetry 10/21/17 10/21/17 03:06 08:29 Temperature 98.3 F 99.4 F Pulse Rate 111 H 111 H Pulse Rate [ Anterior Bilateral Throughout] Respiratory 24 20 Rate Respiratory Rate [Anterior Bilateral Throughout] Blood Pressure 111/65 118/68 O2 Sat by Pulse 98 98 Oximetry - General Appearance General appearance: well-developed, appears stated age, other (no distress) EENT: ATNC, PERRL Neck: supple Respiratory: Present: Clear to Ascultation Cardiology: regular, S1S2, no murmurs Gastrointestinal: normoactive bowel sounds, no tenderness Integumentary: no rash, warm and dry Neurologic: no focal deficit, no asterixis Musculoskeletal: other (no edema) Psychiatric: cooperative - Lab 10/16/17 12:01 10/21/17 08:26 Most recent lab results Calcium 8.2 mg/dL (8.4-10.2) L 10/21/17 08:26 Phosphorus 3.00 mg/dL (2.5-4.5) 10/18/17 05:05 Magnesium 2.20 mg/dL (1.7-2.3) 10/15/17 06:17 Urine Creatinine 80.2 mg/dL (0.1-20.0) H 10/12/17 13:00 Urine Sodium 10 mmol/L 10/12/17 13:00
[2017-10-21] MEDS: LOVENOX SUB-Q SCH (11:47)
[2017-10-21] MEDS: CUBICIN 500 MG in NACL 0.9% 100 ML IV SCH (12:34)
[2017-10-21] MEDS: SODIUM CHLORIDE FLUSH SYRINGE 10 ML IV SCH ×2 (12:34→22:21)
[2017-10-21] MEDS: D5W 1,000 ML IV SCH (12:36)
--- NOTE | 2017-10-21 13:11 | Progress Note ---
Assessment and Plan Assessment and plan: CT C/A/P 1. No acute intra-abdominal pathology. 2. Small bilateral pleural effusions with associated atelectasis. 3. Fluid collections involving the right gluteus musculature and the left iliopsoas and obturator muscles. Findings may represent abscesses or seromas. Clinical correlation is recommended. 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 History Interval history: The patient has been confused at times, delirious, waxing and waning mental status Continues to have fever No cough, no sputum production Per nursing staff he complains of pain when he moves him and turning on his side and put him on bedpan No vomiting Hospitalist Physical - Physical exam Narrative exam: General.: Appears well, no distress, nontoxic HEENT: Moist mucous membranes, extraocular muscles intact, no lymphadenopathy Neck: supple Cardiac: S1-S2 heard Lungs: clear to auscultation bilaterally Abdomen: soft , nontender, nondistended, bowel sounds positive Extremities: no edema clubbing or cyanosis Skin: old nodular scar rash on arms/legs Neurologic: no gross focal deficits Psych: appropriate behavior, appropriate mood, corporative, judgment intact - Constitutional Vitals: Temp Pulse Resp BP Pulse Ox 99.4 F 111 H 20 118/68 98 10/21/17 08:29 10/21/17 08:29 10/21/17 08:29 10/21/17 08:29 10/21/17 08:29 General appearance: Present: no acute distress, well-nourished Results - Labs CBC & Chem 7: 10/16/17 12:01 10/21/17 08:26 Labs: Laboratory Last Values WBC 6.3 K/mm3 (4.5-11.0) 10/16/17 12:01 RBC 2.23 M/mm3 (3.65-5.03) L 10/16/17 12:01 Hgb 7.3 gm/dl (11.8-15.2) L 10/16/17 12:01 Hct 20.8 % (35.5-45.6) L 10/16/17 12:01 MCV 93 fl (84-94) 10/16/17 12:01 MCH 33 pg (28-32) H 10/16/17 12:01 MCHC 35 % (32-34) H 10/16/17 12:01 RDW 14.7 % (13.2-15.2) 10/16/17 12:01 Plt Count 129 K/mm3 (140-440) L 10/16/17 12:01 Lymph % (Auto) 7.0 % (13.4-35.0) L 10/15/17 06:17 [place] % (Auto) 5.4 % (0.0-7.3) 10/15/17 06:17 Eos % (Auto) 0.2 % (0.0-4.3) 10/15/17 06:17 Baso % (Auto) 0.3 % (0.0-1.8) 10/15/17 06:17 Lymph # 0.5 K/mm3 (1.2-5.4) L 10/15/17 06:17 [place] # 0.4 K/mm3 (0.0-0.8) 10/15/17 06:17 Eos # 0.0 K/mm3 (0.0-0.4) 10/15/17 06:17 Baso # 0.0 K/mm3 (0.0-0.1) 10/15/17 06:17 Add Manual Diff Complete 10/12/17 06:00 Total Counted 100 10/12/17 06:00 Seg Neutrophils % 87.1 % (40.0-70.0) H 10/15/17 06:17 Seg Neuts % (Manual) 88.0 % (40.0-70.0) H 10/12/17 06:00 Band Neutrophils % 0 % 10/12/17 06:00 Lymphocytes % (Manual) 5.0 % (13.4-35.0) L 10/12/17 06:00 Reactive Lymphs % (Man) 1.0 % 10/12/17 06:00 Monocytes % (Manual) 5.0 % (0.0-7.3) 10/12/17 06:00 Eosinophils % (Manual) 0 % (0.0-4.3) 10/12/17 06:00 Basophils % (Manual) 0 % (0.0-1.8) 10/12/17 06:00 Metamyelocytes % 1.0 % 10/12/17 06:00 Myelocytes % 0 % 10/12/17 06:00 Promyelocytes % 0 % 10/12/17 06:00 Blast Cells % 0 % 10/12/17 06:00 Nucleated RBC % Not Reportable 10/12/17 06:00 Seg Neutrophils # 6.4 K/mm3 (1.8-7.7) 10/15/17 06:17 Seg Neutrophils # Man 5.0 K/mm3 (1.8-7.7) 10/12/17 06:00 Band Neutrophils # 0.0 K/mm3 10/12/17 06:00 Lymphocytes # (Manual) 0.3 K/mm3 (1.2-5.4) L 10/12/17 06:00 Abs React Lymphs (Man) 0.1 K/mm3 10/12/17 06:00 Monocytes # (Manual) 0.3 K/mm3 (0.0-0.8) 10/12/17 06:00 Eosinophils # (Manual) 0.0 K/mm3 (0.0-0.4) 10/12/17 06:00 Basophils # (Manual) 0.0 K/mm3 (0.0-0.1) 10/12/17 06:00 Metamyelocytes # 0.1 K/mm3 10/12/17 06:00 Myelocytes # 0.0 K/mm3 10/12/17 06:00 Promyelocytes # 0.0 K/mm3 10/12/17 06:00 Blast Cells # 0.0 K/mm3 10/12/17 06:00 WBC Morphology Not Reportable 10/12/17 06:00 Hypersegmented Neuts Not Reportable 10/12/17 06:00 Hyposegmented Neuts Not Reportable 10/12/17 06:00 Hypogranular Neuts Not Reportable 10/12/17 06:00 Smudge Cells Not Reportable 10/12/17 06:00 Toxic Granulation Not Reportable 10/12/17 06:00 Toxic Vacuolation Not Reportable 10/12/17 06:00 Dohle Bodies Not Reportable 10/12/17 06:00 Pelger-Huet Anomaly Not Reportable 10/12/17 06:00 Cem Rods Not Reportable 10/12/17 06:00 Platelet Estimate Consistent w auto 10/12/17 06:00 Clumped Platelets Not Reportable 10/12/17 06:00 Plt Clumps, EDTA Not Reportable 10/12/17 06:00 Large Platelets Not Reportable 10/12/17 06:00 Giant Platelets Not Reportable 10/12/17 06:00 Platelet Satelliting Not Reportable 10/12/17 06:00 Plt Morphology Comment Not Reportable 10/12/17 06:00 RBC Morphology Not Reportable 10/12/17 06:00 Dimorphic RBCs Not Reportable 10/12/17 06:00 Polychromasia Not Reportable 10/12/17 06:00 Hypochromasia Not Reportable 10/12/17 06:00 Poikilocytosis Not Reportable 10/12/17 06:00 Anisocytosis 1+ 10/12/17 06:00 Microcytosis Not Reportable 10/12/17 06:00 Macrocytosis Not Reportable 10/12/17 06:00 Spherocytes Not Reportable 10/12/17 06:00 Pappenheimer Bodies Not Reportable 10/12/17 06:00 Sickle Cells Not Reportable 10/12/17 06:00 Target Cells Not Reportable 10/12/17 06:00 Tear Drop Cells Not Reportable 10/12/17 06:00 Ovalocytes Not Reportable 10/12/17 06:00 Helmet Cells Not Reportable 10/12/17 06:00 [place] Bodies Not Reportable 10/12/17 06:00 [place] Rings Not Reportable 10/12/17 06:00 [place] Cells Not Reportable 10/12/17 06:00 Bite Cells Not Reportable 10/12/17 06:00 Crenated Cell Not Reportable 10/12/17 06:00 Elliptocytes Not Reportable 10/12/17 06:00 Acanthocytes (Spur) Not Reportable 10/12/17 06:00 Rouleaux Not Reportable 10/12/17 06:00 Hemoglobin C Crystals Not Reportable 10/12/17 06:00 Schistocytes Not Reportable 10/12/17 06:00 Malaria parasites Not Reportable 10/12/17 06:00 Juan Bodies Not Reportable 10/12/17 06:00 Hem Pathologist Commnt No 10/12/17 06:00 Sodium 137 mmol/L (137-145) 10/21/17 08:26 Potassium 4.4 mmol/L (3.6-5.0) 10/21/17 08:26 Chloride 102.8 mmol/L (98-107) 10/21/17 08:26 Carbon Dioxide 22 mmol/L (22-30) 10/21/17 08:26 Anion Gap 17 mmol/L 10/21/17 08:26 BUN 23 mg/dL (9-20) H 10/21/17 08:26 Creatinine 0.8 mg/dL (0.8-1.5) 10/21/17 08:26 Estimated GFR > 60 ml/min 10/21/17 08:26 BUN/Creatinine Ratio 29 % 10/21/17 08:26 Glucose 96 mg/dL (75-100) 10/21/17 08:26 POC Glucose 108 (70-105) H 10/15/17 18:49 Osmolality 305 Mosm/kg 10/12/17 06:00 Lactic Acid 1.60 mmol/L (0.7-2.0) 10/13/17 10:36 Calcium 8.2 mg/dL (8.4-10.2) L 10/21/17 08:26 Phosphorus 3.00 mg/dL (2.5-4.5) 10/18/17 05:05 Magnesium 2.20 mg/dL (1.7-2.3) 10/15/17 06:17 Iron 45 ug/dL (49-181) L 10/12/17 06:00 TIBC 131 mcg/dL (250-450) L 10/12/17 06:00 % Saturation 34.35 % 10/12/17 06:00 Transferrin 102 mg/dl (180-329) L 10/12/17 06:00 Total Bilirubin 1.00 mg/dL (0.1-1.2) 10/19/17 07:11 AST 129 units/L (5-40) H 10/19/17 07:11 ALT 73 units/L (7-56) H 10/19/17 07:11 Alkaline Phosphatase 128 units/L (35-129) 10/19/17 07:11 Total Creatine Kinase 154 units/L (55-170) 10/19/17 07:11 C-Reactive Protein 26.70 mg/dL (0.00-1.30) H 10/15/17 20:53 Total Protein 5.6 g/dL (6.3-8.2) L 10/19/17 07:11 Albumin 1.8 g/dL (3.9-5) L 10/19/17 07:11 Albumin/Globulin Ratio 0.5 % 10/19/17 07:11 Urine Color Yellow (Yellow) 10/11/17 Unknown Urine Turbidity Clear (Clear) 10/11/17 Unknown Urine pH 5.0 (5.0-7.0) 10/11/17 Unknown Ur Specific [place] 1.012 (1.003-1.030) 10/11/17 Unknown Urine Protein <15 mg/dl mg/dL (Negative) 10/11/17 Unknown Urine Glucose (UA) Neg mg/dL (Negative) 10/11/17 Unknown Urine Ketones Neg mg/dL (Negative) 10/11/17 Unknown Urine Blood Mod (Negative) 10/11/17 Unknown Urine Nitrite Neg (Negative) 10/11/17 Unknown Urine Bilirubin Neg (Negative) 10/11/17 Unknown Urine Urobilinogen < 2.0 mg/dL (<2.0) 10/11/17 Unknown Ur Leukocyte Esterase Neg (Negative) 10/11/17 Unknown Urine WBC (Auto) 10.0 /HPF (0.0-6.0) H 10/11/17 Unknown Urine RBC (Auto) 15.0 /HPF (0.0-6.0) 10/11/17 Unknown U Epithel Cells (Auto) 1.0 /HPF (0-13.0) 10/11/17 Unknown Urine Mucus Few /HPF 10/11/17 Unknown Urine Osmolality 425 Mosm/kg 10/12/17 13:00 Urine Creatinine 80.2 mg/dL (0.1-20.0) H 10/12/17 13:00 Urine Sodium 10 mmol/L 10/12/17 13:00 Vancomycin Trough 25.3 ug/mL (5.0-20.0) H 10/16/17 12:01 Hepatitis A IgM Ab Non-reactive (NonReactive) 10/12/17 06:00 Hep Bs Antigen Non-reactive (Negative) 10/12/17 06:00 Hep B Core IgM Ab Non-reactive (NonReactive) 10/12/17 06:00 Hepatitis C Antibody Reactive (NonReactive) A 10/12/17 06:00 HIV 1&2 Antibody Rapid Non react (Non React) 10/16/17 19:27 HIV P24 Antigen Non react (Non React) 10/16/17 19:27
[2017-10-21] MEDS ORDERED: SUBLIMAZE ONE (13:48)
--- NOTE | 2017-10-21 17:05 | Cat Scan Report ---
Exam: CT-guided aspiration of fluid collection in the right hip Clinical indication: Fluid collection in the right hip extending into the musculature Date: 10/21/2017 Procedure: Of an explanation of the benefits alternatives; written informed consent was obtained. Patient was brought to the CT suite and placed in supine position on the gantry. Initial plastics sheet finishing press operator images of the abdomen were performed an appropriate access site was chosen along the lateral aspect of the patient's right hip. The patient's skin overlying the access site was prepped and draped in the usual sterile fashion. 1% lidocaine was used for anesthesia. Using intermittent CT guidance, a 10 cm 18-gauge trocar needle was advanced into the fluid collection. A total of 40 mL's of serous hemo-purulent fluid was aspirated. Post aspiration images demonstrated only trace residual fluid collection. The needle was removed and hemostasis achieved at the skin surface using manual compression. A sterile dressing was applied. The samples were sent for laboratory analysis. The patient tolerated the procedure well. There were no immediate post procedure complications. Conscious sedation was performed under the guidance radiologic nursing. Continuous cardiopulmonary monitoring was utilized. IMPRESSION: 1) CT guided aspiration of fluid collection that extends from the right hip and gluteal musculature with a total of 40 mL's of fluid aspirated. Samples were sent for laboratory analysis.
--- NOTE | 2017-10-21 18:48 | Progress Note ---
Assessment and Plan Assessment: 1) Severe sepsis: fever trending down but stil 100.2. Etiology most likely MRSA septicemia. 2) MRSA ? MSSA ?septicemia: unclear source ? skin rash; should r/o endocarditis , vertebral osteomyelitis, epidural abscess -blood cx 10/13 MRSA? MSSA ? 4 of 4 bottles -blood cx 10/14 Staph 4 of 4 bottles -TTE no obvious vegetations -CT showed right gluteal collection vs myositis 7.5x2.5.cm, left ilepsoas abscess 6x3.5 cm, loculated bilateral small pleural effusions with ill defined solid opacities ? nodules vs. ?emboli with reactive axillary, hilar and mediastinal LNs. -S/P right hip aspiration yieling 40cc fluid on 10/21 3) DARRICK - resolved 4) Thrombocytopenia: from sepsis/HCV- better 5) HCV serology positive 6) Elevated LFTs: from sepsis and HCV 7) Rhabdomyolysis: from sepsis 8) Lower back pain and leg weakness Plan: -f/u aspiration cultures -Pulmonary consult to comment on loculated bilateral small pleural effusions with ill defined solid opacities ? nodules vs. ?emboli with reactive axillary, hilar and mediastinal LNs seen on CT - pending -obtain INDRA r/o endocarditis - pending -repeat blood cultures today - ordered place -ask micro lab for clarification of isolate ?MRSA vs MSSA or both -continue daptomycin -f/u HCV viral load, HIV Thank you for your consultation, will follow up with you. Jordana Viramontes MD Infectious Diseases Specialist [facility] M [phone] O [phone] Subjective Date of service: 10/21/17 Principal diagnosis: MRSA bacteremia Interval history: Still fever 100.2 c/o left thigh pain and right hip pain Microbiology: Blood cultures: 10/13 MRSA ? 4 of 4 bottles (now reported as MSSA) 10/14 Staph 4 of 4 bottles 10/19 Staph 2 of 4 Urine cultures: Respiratory cultures: Current Antimicrobials: Dapto 10/17 Previous Antimicrobials: Zosyn Vancomycin 10/14 Objective - Exam Narrative Exam: General appearance: Alert in NAD, Eyes: anicteric sclerae, moist conjunctivae; no lid-lag; PERRLA HENT: Atraumatic; oropharynx clear Neck: Trachea midline; supple, no thyromegaly or lymphadenopathy Lungs: CTA, with normal respiratory effort and no intercostal retractions CV: RRR Abdomen: Soft, non-tender; no masses or hepatosplenomegaly Extremities: right hip/gluteal tenderness and edema, left thigh tenderness Skin: old nodular scar rash on arms/legs Psych: Appropriate affect, alert and oriented to person, place and time. Neuro: alert and oriented x 3. Moving all extermities Lines: No CVL / PICC - Constitutional Vitals: Vital Signs Temp Pulse Resp BP Pulse Ox 100.2 F H 112 H 20 119/76 97 10/21/17 17:32 10/21/17 17:32 10/21/17 17:32 10/21/17 17:32 10/21/17 17:32 Temperature -Last 24 Hours Temperature 100.2 F Temperature 98.0 F Temperature 97.8 F Temperature 98.1 F Temperature 99.4 F Temperature 98.3 F Temperature 100.4 F Temperature 98.9 F - Labs CBC & Chem 7: 10/16/17 12:01 10/21/17 08:26 Labs: Abnormal lab results 10/21/17 Range/Units 08:26 BUN 23 H (9-20) mg/dL Calcium 8.2 L (8.4-10.2) mg/dL
[2017-10-21] MEDS: TYLENOL PO PRN (19:11)
--- NOTE | 2017-10-22 08:35 | Progress Note ---
Assessment and Plan Assessment and plan: CT C/A/P 1. No acute intra-abdominal pathology. 2. Small bilateral pleural effusions with associated atelectasis. 3. Fluid collections involving the right gluteus musculature and the left iliopsoas and obturator muscles. Findings may represent abscesses or seromas. Clinical correlation is recommended. / Acute kidney injury on IVF improving, likely ATN /acute encephalopathy with delirium likely due to sepsis, improving / Sepsis with bacteremia, MSSA, gram pos on abx, ID consulted, IR to drain abscesses, for INDRA error with micro lab, nor MRSA but MSSA / Hypokalemia Supplemented /Hyponatremia improving with iv fluid / Transaminitis Acute hepatitis profile positive for hepatitis C Patient has no history of alcohol intake He is in the intermediate for last 2 months cont to monitor /Anemia Probably anemia of CD, monitor h/h /DVT prophylaxis Lovenox 30 mg subcutaneous daily GI prophylaxis ordered Brief History: The patient is a 61 YO male with no significant medical problem who is current incarcerated was sent from the intermediate for one day h/o abd pain and Outside labs showing elevated creatinine. History Interval history: The patient has been confused at times, delirious, waxing and waning mental status Continues to have fever No cough, no sputum production Per nursing staff he complains of pain when he moves him and turning on his side and put him on bedpan No vomiting Hospitalist Physical - Physical exam Narrative exam: General.: Appears well, no distress, nontoxic HEENT: Moist mucous membranes, extraocular muscles intact, no lymphadenopathy Neck: supple Cardiac: S1-S2 heard Lungs: clear to auscultation bilaterally Abdomen: soft , nontender, nondistended, bowel sounds positive Extremities: no edema clubbing or cyanosis Skin: old nodular scar rash on arms/legs Neurologic: no gross focal deficits Psych: appropriate behavior, appropriate mood, corporative, judgment intact - Constitutional Vitals: Temp Pulse Resp BP Pulse Ox 99.4 F 116 H 36 H 122/77 100 10/22/17 03:26 10/22/17 03:26 10/22/17 03:26 10/22/17 03:26 10/22/17 03:26 General appearance: Present: no acute distress, well-nourished Results - Labs CBC & Chem 7: 10/16/17 12:01 06/25/18 08:26 Labs: Laboratory Last Values WBC 6.3 K/mm3 (4.5-11.0) 10/16/17 12:01 RBC 2.23 M/mm3 (3.65-5.03) L 10/16/17 12:01 Hgb 7.3 gm/dl (11.8-15.2) L 10/16/17 12:01 Hct 20.8 % (35.5-45.6) L 10/16/17 12:01 MCV 93 fl (84-94) 10/16/17 12:01 MCH 33 pg (28-32) H 10/16/17 12:01 MCHC 35 % (32-34) H 10/16/17 12:01 RDW 14.7 % (13.2-15.2) 10/16/17 12:01 Plt Count 129 K/mm3 (140-440) L 10/16/17 12:01 Lymph % (Auto) 7.0 % (13.4-35.0) L 10/15/17 06:17 Mason % (Auto) 5.4 % (0.0-7.3) 10/15/17 06:17 Eos % (Auto) 0.2 % (0.0-4.3) 10/15/17 06:17 Baso % (Auto) 0.3 % (0.0-1.8) 10/15/17 06:17 Lymph # 0.5 K/mm3 (1.2-5.4) L 10/15/17 06:17 Mason # 0.4 K/mm3 (0.0-0.8) 10/15/17 06:17 Eos # 0.0 K/mm3 (0.0-0.4) 10/15/17 06:17 Baso # 0.0 K/mm3 (0.0-0.1) 10/15/17 06:17 Add Manual Diff Complete 10/12/17 06:00 Total Counted 100 10/12/17 06:00 Seg Neutrophils % 87.1 % (40.0-70.0) H 10/15/17 06:17 Seg Neuts % (Manual) 88.0 % (40.0-70.0) H 10/12/17 06:00 Band Neutrophils % 0 % 10/12/17 06:00 Lymphocytes % (Manual) 5.0 % (13.4-35.0) L 10/12/17 06:00 Reactive Lymphs % (Man) 1.0 % 10/12/17 06:00 Monocytes % (Manual) 5.0 % (0.0-7.3) 10/12/17 06:00 Eosinophils % (Manual) 0 % (0.0-4.3) 10/12/17 06:00 Basophils % (Manual) 0 % (0.0-1.8) 10/12/17 06:00 Metamyelocytes % 1.0 % 10/12/17 06:00 Myelocytes % 0 % 10/12/17 06:00 Promyelocytes % 0 % 10/12/17 06:00 Blast Cells % 0 % 10/12/17 06:00 Nucleated RBC % Not Reportable 10/12/17 06:00 Seg Neutrophils # 6.4 K/mm3 (1.8-7.7) 10/15/17 06:17 Seg Neutrophils # Man 5.0 K/mm3 (1.8-7.7) 10/12/17 06:00 Band Neutrophils # 0.0 K/mm3 10/12/17 06:00 Lymphocytes # (Manual) 0.3 K/mm3 (1.2-5.4) L 10/12/17 06:00 Abs React Lymphs (Man) 0.1 K/mm3 10/12/17 06:00 Monocytes # (Manual) 0.3 K/mm3 (0.0-0.8) 10/12/17 06:00 Eosinophils # (Manual) 0.0 K/mm3 (0.0-0.4) 10/12/17 06:00 Basophils # (Manual) 0.0 K/mm3 (0.0-0.1) 10/12/17 06:00 Metamyelocytes # 0.1 K/mm3 10/12/17 06:00 Myelocytes # 0.0 K/mm3 10/12/17 06:00 Promyelocytes # 0.0 K/mm3 10/12/17 06:00 Blast Cells # 0.0 K/mm3 10/12/17 06:00 WBC Morphology Not Reportable 10/12/17 06:00 Hypersegmented Neuts Not Reportable 10/12/17 06:00 Hyposegmented Neuts Not Reportable 10/12/17 06:00 Hypogranular Neuts Not Reportable 10/12/17 06:00 Smudge Cells Not Reportable 10/12/17 06:00 Toxic Granulation Not Reportable 10/12/17 06:00 Toxic Vacuolation Not Reportable 10/12/17 06:00 Dohle Bodies Not Reportable 10/12/17 06:00 Pelger-Huet Anomaly Not Reportable 10/12/17 06:00 Cem Rods Not Reportable 10/12/17 06:00 Platelet Estimate Consistent w auto 10/12/17 06:00 Clumped Platelets Not Reportable 10/12/17 06:00 Plt Clumps, EDTA Not Reportable 10/12/17 06:00 Large Platelets Not Reportable 10/12/17 06:00 Giant Platelets Not Reportable 10/12/17 06:00 Platelet Satelliting Not Reportable 10/12/17 06:00 Plt Morphology Comment Not Reportable 10/12/17 06:00 RBC Morphology Not Reportable 10/12/17 06:00 Dimorphic RBCs Not Reportable 10/12/17 06:00 Polychromasia Not Reportable 10/12/17 06:00 Hypochromasia Not Reportable 10/12/17 06:00 Poikilocytosis Not Reportable 10/12/17 06:00 Anisocytosis 1+ 10/12/17 06:00 Microcytosis Not Reportable 10/12/17 06:00 Macrocytosis Not Reportable 10/12/17 06:00 Spherocytes Not Reportable 10/12/17 06:00 Pappenheimer Bodies Not Reportable 10/12/17 06:00 Sickle Cells Not Reportable 10/12/17 06:00 Target Cells Not Reportable 10/12/17 06:00 Tear Drop Cells Not Reportable 10/12/17 06:00 Ovalocytes Not Reportable 10/12/17 06:00 Helmet Cells Not Reportable 10/12/17 06:00 [place] Bodies Not Reportable 10/12/17 06:00 [place] Rings Not Reportable 10/12/17 06:00 [place] Cells Not Reportable 10/12/17 06:00 Bite Cells Not Reportable 10/12/17 06:00 Crenated Cell Not Reportable 10/12/17 06:00 Elliptocytes Not Reportable 10/12/17 06:00 Acanthocytes (Spur) Not Reportable 10/12/17 06:00 Rouleaux Not Reportable 10/12/17 06:00 Hemoglobin C Crystals Not Reportable 10/12/17 06:00 Schistocytes Not Reportable 10/12/17 06:00 Malaria parasites Not Reportable 10/12/17 06:00 Juan Bodies Not Reportable 10/12/17 06:00 Hem Pathologist Commnt No 10/12/17 06:00 Sodium 137 mmol/L (137-145) 10/21/17 08:26 Potassium 4.4 mmol/L (3.6-5.0) 10/21/17 08:26 Chloride 102.8 mmol/L (98-107) 10/21/17 08:26 Carbon Dioxide 22 mmol/L (22-30) 10/21/17 08:26 Anion Gap 17 mmol/L 10/21/17 08:26 BUN 23 mg/dL (9-20) H 10/21/17 08:26 Creatinine 0.8 mg/dL (0.8-1.5) 10/21/17 08:26 Estimated GFR > 60 ml/min 10/21/17 08:26 BUN/Creatinine Ratio 29 % 10/21/17 08:26 Glucose 96 mg/dL (75-100) 10/21/17 08:26 POC Glucose 108 (70-105) H 10/15/17 18:49 Osmolality 305 Mosm/kg 10/12/17 06:00 Lactic Acid 1.60 mmol/L (0.7-2.0) 10/13/17 10:36 Calcium 8.2 mg/dL (8.4-10.2) L 10/21/17 08:26 Phosphorus 3.00 mg/dL (2.5-4.5) 10/18/17 05:05 Magnesium 2.20 mg/dL (1.7-2.3) 10/15/17 06:17 Iron 45 ug/dL (49-181) L 10/12/17 06:00 TIBC 131 mcg/dL (250-450) L 10/12/17 06:00 % Saturation 34.35 % 10/12/17 06:00 Transferrin 102 mg/dl (180-329) L 10/12/17 06:00 Total Bilirubin 1.00 mg/dL (0.1-1.2) 10/19/17 07:11 AST 129 units/L (5-40) H 10/19/17 07:11 ALT 73 units/L (7-56) H 10/19/17 07:11 Alkaline Phosphatase 128 units/L (35-129) 10/19/17 07:11 Total Creatine Kinase 154 units/L (55-170) 10/19/17 07:11 C-Reactive Protein 26.70 mg/dL (0.00-1.30) H 10/15/17 20:53 Total Protein 5.6 g/dL (6.3-8.2) L 10/19/17 07:11 Albumin 1.8 g/dL (3.9-5) L 10/19/17 07:11 Albumin/Globulin Ratio 0.5 % 10/19/17 07:11 Urine Color Yellow (Yellow) 10/11/17 Unknown Urine Turbidity Clear (Clear) 10/11/17 Unknown Urine pH 5.0 (5.0-7.0) 10/11/17 Unknown Ur Specific [place] 1.012 (1.003-1.030) 10/11/17 Unknown Urine Protein <15 mg/dl mg/dL (Negative) 10/11/17 Unknown Urine Glucose (UA) Neg mg/dL (Negative) 10/11/17 Unknown Urine Ketones Neg mg/dL (Negative) 10/11/17 Unknown Urine Blood Mod (Negative) 10/11/17 Unknown Urine Nitrite Neg (Negative) 10/11/17 Unknown Urine Bilirubin Neg (Negative) 10/11/17 Unknown Urine Urobilinogen < 2.0 mg/dL (<2.0) 10/11/17 Unknown Ur Leukocyte Esterase Neg (Negative) 10/11/17 Unknown Urine WBC (Auto) 10.0 /HPF (0.0-6.0) H 10/11/17 Unknown Urine RBC (Auto) 15.0 /HPF (0.0-6.0) 10/11/17 Unknown U Epithel Cells (Auto) 1.0 /HPF (0-13.0) 10/11/17 Unknown Urine Mucus Few /HPF 10/11/17 Unknown Urine Osmolality 425 Mosm/kg 10/12/17 13:00 Urine Creatinine 80.2 mg/dL (0.1-20.0) H 10/12/17 13:00 Urine Sodium 10 mmol/L 10/12/17 13:00 Vancomycin Trough 25.3 ug/mL (5.0-20.0) H 10/16/17 12:01 Hepatitis A IgM Ab Non-reactive (NonReactive) 10/12/17 06:00 Hep Bs Antigen Non-reactive (Negative) 10/12/17 06:00 Hep B Core IgM Ab Non-reactive (NonReactive) 10/12/17 06:00 Hepatitis C Antibody Reactive (NonReactive) A 10/12/17 06:00 HIV 1&2 Antibody Rapid Non react (Non React) 10/16/17 19:27 HIV P24 Antigen Non react (Non React) 10/16/17 19:27
[2017-10-22] MEDS: SODIUM CHLORIDE FLUSH SYRINGE 10 ML IV SCH ×2 (10:15→21:11)
[2017-10-22] MEDS: LOVENOX SUB-Q SCH (11:31)
[2017-10-22] MEDS: CUBICIN 500 MG in NACL 0.9% 100 ML IV SCH (11:36)
--- NOTE | 2017-10-22 14:49 | Progress Note ---
Assessment and Plan Assessment: 1) Severe sepsis: fever trending down. Etiology most likely MSSA septicemia. 2) MSSA septicemia: unclear source ? skin rash; should r/o endocarditis, vertebral osteomyelitis, epidural abscess -blood cx 10/13 MSSA 4 of 4 bottles -blood cx 10/14 Staph 4 of 4 bottles -TTE no obvious vegetations -CT showed right gluteal collection vs myositis 7.5x2.5.cm, left ilepsoas abscess 6x3.5 cm, loculated bilateral small pleural effusions with ill defined solid opacities ? nodules vs. ?emboli with reactive axillary, hilar and mediastinal LNs. -S/P right hip aspiration yieling 40cc fluid on 10/21 3) DARRICK - resolved 4) Thrombocytopenia: from sepsis/HCV- better 5) HCV serology positive 6) Elevated LFTs: from sepsis and HCV 7) Rhabdomyolysis: from sepsis 8) Lower back pain and leg weakness 9) Pen allergy Plan: -f/u aspiration cultures -WBC tagged scan to r/o epidural abscess/vertebral osteomyelitis -Pulmonary consult to comment on loculated bilateral small pleural effusions with ill defined solid opacities ? nodules vs. ?emboli with reactive axillary, hilar and mediastinal LNs seen on CT - pending -obtain INDRA r/o endocarditis - pending -f/u repeat blood cultures -continue daptomycin in view of penicillin allergy cannot do ancef, will ask details about reaction -f/u HCV viral load -STOP CONTACT no MRSA isolated Thank you for your consultation, will follow up with you. Jordana Viramontes MD Infectious Diseases Specialist [facility] ([facility] M [phone] O [phone] Subjective Date of service: 10/22/17 Principal diagnosis: MRSA bacteremia Interval history: feels ok no fever Microbiology: Blood cultures: 10/13 MSSA 4 of 4 bottles (initially reported as MRSA by error) 10/14 MSSA 4 of 4 bottles 10/19 Staph 2 of 4 10/21 ngtd Urine cultures: Respiratory cultures: Current Antimicrobials: Dapto 10/17 Previous Antimicrobials: Zosyn Vancomycin 10/14 Objective - Exam Narrative Exam: General appearance: Alert in NAD, Eyes: anicteric sclerae, moist conjunctivae; no lid-lag; PERRLA HENT: Atraumatic; oropharynx clear Neck: Trachea midline; supple, no thyromegaly or lymphadenopathy Lungs: CTA, with normal respiratory effort and no intercostal retractions CV: RRR Abdomen: Soft, non-tender; no masses or hepatosplenomegaly Extremities: right hip/gluteal tenderness and edema, left thigh tenderness Skin: old nodular scar rash on arms/legs Psych: Appropriate affect, alert and oriented to person, place and time. Neuro: alert and oriented x 3. Moving all extermities Lines: No CVL / PICC - Constitutional Vitals: Vital Signs Temp Pulse Resp BP Pulse Ox 98.9 F 111 H 20 117/75 98 10/22/17 08:31 10/22/17 08:31 10/22/17 08:31 10/22/17 08:31 10/22/17 10:00 Temperature -Last 24 Hours Temperature 98.9 F Temperature 99.4 F Temperature 99.4 F Temperature 99.0 F Temperature 100.2 F Temperature 98.0 F - Labs CBC & Chem 7: 10/16/17 12:01 10/21/17 08:26
[2017-10-22] MEDS: PERCOCET 5/325 PO PRN (21:10)
[2017-10-23] MEDS ORDERED: VANCOMYCIN 1,500 MG in NACL 0.9% 500 ML 500 ML IV ONE (02:00)
[2017-10-23] MEDS ORDERED: VANCOMYCIN/NS 1 GM/250 ML 1 GM/250 ML BAG IV SCH (02:00)
[2017-10-23] MEDS ORDERED: VANCOMYCIN PHARMACY TO DOSE IV SCH (02:00)
[2017-10-23] MEDS: D5W 1,000 ML IV SCH ×2 (03:54→17:21)
[2017-10-23] MEDS ORDERED: SUBLIMAZE IV ONE (09:11)
[2017-10-23] MEDS ORDERED: VERSED IV ONE (09:11)
[2017-10-23] MEDS: SODIUM CHLORIDE FLUSH SYRINGE 10 ML IV SCH (10:00)
[2017-10-23] MEDS ORDERED: HURRICAINE ONE 20% TOPICAL SPRAY MM NR (10:00)
--- NOTE | 2017-10-23 10:02 | Progress Note ---
Assessment and Plan Assessment: 1) Severe sepsis: fever trending down. Etiology most likely MSSA septicemia. 2) Persistent MSSA septicemia: unclear source ? skin rash; should r/o endocarditis, vertebral osteomyelitis, epidural abscess -blood cx 10/13 MSSA 4 of 4 bottles -blood cx 10/14 Staph 4 of 4 bottles -blood cx 10/19 Staph 2 of 4 -blood cx 10/21 GPC 1 of 4 -TTE no obvious vegetations -CT showed right gluteal collection vs myositis 7.5x2.5.cm, left ilepsoas abscess 6x3.5 cm, loculated bilateral small pleural effusions with ill defined solid opacities ? nodules vs. ?emboli with reactive axillary, hilar and mediastinal LNs. -S/P right hip aspiration yieling 40cc fluid on 10/21 3) DARRICK - resolved 4) Thrombocytopenia: from sepsis/HCV- better 5) HCV serology positive 6) Elevated LFTs: from sepsis and HCV 7) Rhabdomyolysis: from sepsis 8) Lower back pain and leg weakness 9) Pen allergy - hives Plan: -f/u aspiration cultures -repeat blood cx today -WBC tagged scan to r/o epidural abscess/vertebral osteomyelitis - pending -Pulmonary consult - pending -obtain INDRA r/o endocarditis - pending -continue daptomycin in view of penicillin allergy cannot do ancef, will ask details about reaction -f/u HCV viral load -STOP CONTACT no MRSA isolated I am rounding on 10/25 Thank you for your consultation, will follow up with you. Jordana Viramontes MD Infectious Diseases Specialist [facility] M [phone] O [phone] Subjective Date of service: 10/23/17 Principal diagnosis: MRSA bacteremia Interval history: feels ok still c/o meeta hip R>L pain. Tmax 100.9 Microbiology: Blood cultures: 10/13 MSSA 4 of 4 bottles (initially reported as MRSA by error) 10/14 MSSA 4 of 4 bottles 10/19 Staph 2 of 4 10/21 GPC 1 of 4 Right hip cx: Gram stain no organism seen Urine cultures: Respiratory cultures: Current Antimicrobials: Dapto 10/17 Previous Antimicrobials: Zosyn Vancomycin 10/14 Objective - Exam Narrative Exam: General appearance: Alert in NAD, Eyes: anicteric sclerae, moist conjunctivae; no lid-lag; PERRLA HENT: Atraumatic; oropharynx clear Neck: Trachea midline; supple, no thyromegaly or lymphadenopathy Lungs: CTA, with normal respiratory effort and no intercostal retractions CV: RRR Abdomen: Soft, non-tender; no masses or hepatosplenomegaly Extremities: right hip/gluteal tenderness and edema, left thigh tenderness Skin: old nodular scar rash on arms/legs Psych: Appropriate affect, alert and oriented to person, place and time. Neuro: alert and oriented x 3. Moving all extermities Lines: No CVL / PICC - Constitutional Vitals: Vital Signs Temp Pulse Resp BP Pulse Ox 99.3 F 105 H 22 118/74 100 10/23/17 07:47 10/23/17 07:47 10/23/17 07:47 10/23/17 07:47 10/23/17 08:46 Temperature -Last 24 Hours Temperature 99.3 F Temperature 98.6 F Temperature 98.9 F Temperature 100.1 F Temperature 100.0 F - Labs CBC & Chem 7: 10/16/17 12:01 10/21/17 08:26
--- NOTE | 2017-10-23 12:10 | Consultation ---
History of Present Illness Consult date: 10/23/17 Consult reason: other (bacteremia) History of present illness: Cardiology consulted for INDRA in the setting of persistent bacteremia. Past History Past Surgical History: No surgical history Social history: no significant social history Family history: no significant family history Medications and Allergies Allergies Allergy/AdvReac Type Severity Reaction Status Date / Time Penicillins Allergy Unknown Verified 10/11/17 21:22 Sulfa (Sulfonamide Allergy Unknown Verified 10/11/17 21:22 Antibiotics) Home Medications Medication Instructions Recorded Confirmed Last Taken Type Lipitor 20 mg PO DAILY 10/15/17 10/15/17 10/11/17 08:00 History Mobic 15 mg PO DAILY 10/15/17 10/15/17 10/11/17 08:00 History Active Meds: Active Medications Acetaminophen (Tylenol) 650 mg PO Q4H PRN PRN Reason: Pain MILD(1-3)/Fever >100.5/TUCKER Last Admin: 10/21/17 19:11 Dose: 650 mg Benzocaine (Hurricaine One 20% Topical [place]) 3 spray MM PREOP NR Stop: 10/24/17 09:59 Last Admin: 10/23/17 10:52 Dose: 3 spray Enoxaparin Sodium (Lovenox) 40 mg SUB-Q QDAY@1000 SHAKA Last Admin: 10/22/17 11:31 Dose: 40 mg Daptomycin 500 mg/ Sodium (Chloride) 100 mls @ 200 mls/hr IV Q24HR SHAKA Last Admin: 10/22/17 11:36 Dose: 200 mls/hr Dextrose (D5w) 1,000 mls @ 125 mls/hr IV DIRECT SHAKA Last Admin: 10/23/17 03:54 Dose: 125 mls/hr Levalbuterol HCl (Xopenex) 0.63 mg IH Q8HRT PRN PRN Reason: Shortness Of Breath Last Admin: 10/21/17 01:03 Dose: 0.63 mg Morphine Sulfate (Morphine) 2 mg IV Q4H PRN PRN Reason: Pain, Moderate (4-6) Last Admin: 10/21/17 09:10 Dose: 2 mg Ondansetron HCl (Zofran) 4 mg IV Q8H PRN PRN Reason: Nausea And Vomiting Oxycodone/Acetaminophen (Percocet 5/325) 1 tab PO Q6H PRN PRN Reason: Pain, Moderate (4-6) Last Admin: 10/22/17 21:10 Dose: 1 tab Sodium Chloride (Sodium Chloride Flush Syringe 10 Ml) 10 ml IV BID SHAKA Last Admin: 10/22/17 21:11 Dose: 10 ml Sodium Chloride (Sodium Chloride Flush Syringe 10 Ml) 10 ml IV PRN PRN PRN Reason: LINE FLUSH Last Admin: 10/23/17 03:55 Dose: 10 ml Review of Systems All systems: negative Physical Examination Vital Signs Temp Pulse Resp BP Pulse Ox 97.8 F 108 H 16 110/70 100 10/11/17 18:31 10/11/17 18:31 10/11/17 18:31 10/11/17 18:31 10/11/17 18:31 General appearance: no acute distress HEENT: Positive: PERRL Neck: Positive: neck supple Cardiac: Positive: Reg Rate and Rhythm Lungs: Positive: Normal Exam Abdomen: Positive: Soft Results 10/16/17 12:01 10/21/17 08:26 - EKG Interpretation EKG: sinus rhythm Assessment and Plan MSSA bacteremia INDRA today is pertinent for normal LVEF; there is a mobile echogenic density in the main pulmonary artery suspicious for either a clot in transit or vegetation. CT showed right gluteal collection vs myositis 7.5x2.5.cm, left ilepsoas abscess 6x3.5 cm, loculated bilateral small pleural effusions with ill defined solid opacities ? nodules vs. ?emboli with reactive axillary, hilar and mediastinal LNs. -S/P right hip aspiration yieling 40cc fluid on 10/21 Thrombocytopenia from sepsis/HCV Anemia thought to be secondary to chronic disease Plan: Start IV heparin for possible clot in transit noted in the main pulmonary artery on INDRA Continue antibiotic therapy per ID recommendation Order LE venous doppler
--- NOTE | 2017-10-23 12:53 | Progress Note ---
Assessment and Plan Assessment and plan: CT C/A/P 1. No acute intra-abdominal pathology. 2. Small bilateral pleural effusions with associated atelectasis. 3. Fluid collections involving the right gluteus musculature and the left iliopsoas and obturator muscles. Findings may represent abscesses or seromas. Clinical correlation is recommended. 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 History Interval history: The patient has been confused at times, delirious, waxing and waning mental status Continues to have fever No cough, no sputum production Per nursing staff he complains of pain when he moves him and turning on his side and put him on bedpan No vomiting Hospitalist Physical - Physical exam Narrative exam: General.: Appears well, no distress, nontoxic HEENT: Moist mucous membranes, extraocular muscles intact, no lymphadenopathy Neck: supple Cardiac: S1-S2 heard Lungs: clear to auscultation bilaterally Abdomen: soft , nontender, nondistended, bowel sounds positive Extremities: no edema clubbing or cyanosis Skin: old nodular scar rash on arms/legs Neurologic: no gross focal deficits Psych: appropriate behavior, appropriate mood, corporative, judgment intact - Constitutional Vitals: Temp Pulse Resp BP Pulse Ox 98.5 F 98 H 19 115/73 100 10/23/17 10:52 10/23/17 11:48 10/23/17 11:48 10/23/17 11:48 10/23/17 11:48 General appearance: Present: no acute distress Results - Labs CBC & Chem 7: 10/23/17 13:01 10/21/17 08:26 Labs: Laboratory Last Values WBC 6.3 K/mm3 (4.5-11.0) 10/16/17 12:01 RBC 2.23 M/mm3 (3.65-5.03) L 10/16/17 12:01 Hgb 7.3 gm/dl (11.8-15.2) L 10/16/17 12:01 Hct 20.8 % (35.5-45.6) L 10/16/17 12:01 MCV 93 fl (84-94) 10/16/17 12:01 MCH 33 pg (28-32) H 10/16/17 12:01 MCHC 35 % (32-34) H 10/16/17 12:01 RDW 14.7 % (13.2-15.2) 10/16/17 12:01 Plt Count 129 K/mm3 (140-440) L 10/16/17 12:01 Lymph % (Auto) 7.0 % (13.4-35.0) L 10/15/17 06:17 [place] % (Auto) 5.4 % (0.0-7.3) 10/15/17 06:17 Eos % (Auto) 0.2 % (0.0-4.3) 10/15/17 06:17 Baso % (Auto) 0.3 % (0.0-1.8) 10/15/17 06:17 Lymph # 0.5 K/mm3 (1.2-5.4) L 10/15/17 06:17 [place] # 0.4 K/mm3 (0.0-0.8) 10/15/17 06:17 Eos # 0.0 K/mm3 (0.0-0.4) 10/15/17 06:17 Baso # 0.0 K/mm3 (0.0-0.1) 10/15/17 06:17 Add Manual Diff Complete 10/12/17 06:00 Total Counted 100 10/12/17 06:00 Seg Neutrophils % 87.1 % (40.0-70.0) H 10/15/17 06:17 Seg Neuts % (Manual) 88.0 % (40.0-70.0) H 10/12/17 06:00 Band Neutrophils % 0 % 10/12/17 06:00 Lymphocytes % (Manual) 5.0 % (13.4-35.0) L 10/12/17 06:00 Reactive Lymphs % (Man) 1.0 % 10/12/17 06:00 Monocytes % (Manual) 5.0 % (0.0-7.3) 10/12/17 06:00 Eosinophils % (Manual) 0 % (0.0-4.3) 10/12/17 06:00 Basophils % (Manual) 0 % (0.0-1.8) 10/12/17 06:00 Metamyelocytes % 1.0 % 10/12/17 06:00 Myelocytes % 0 % 10/12/17 06:00 Promyelocytes % 0 % 10/12/17 06:00 Blast Cells % 0 % 10/12/17 06:00 Nucleated RBC % Not Reportable 10/12/17 06:00 Seg Neutrophils # 6.4 K/mm3 (1.8-7.7) 10/15/17 06:17 Seg Neutrophils # Man 5.0 K/mm3 (1.8-7.7) 10/12/17 06:00 Band Neutrophils # 0.0 K/mm3 10/12/17 06:00 Lymphocytes # (Manual) 0.3 K/mm3 (1.2-5.4) L 10/12/17 06:00 Abs React Lymphs (Man) 0.1 K/mm3 10/12/17 06:00 Monocytes # (Manual) 0.3 K/mm3 (0.0-0.8) 10/12/17 06:00 Eosinophils # (Manual) 0.0 K/mm3 (0.0-0.4) 10/12/17 06:00 Basophils # (Manual) 0.0 K/mm3 (0.0-0.1) 10/12/17 06:00 Metamyelocytes # 0.1 K/mm3 10/12/17 06:00 Myelocytes # 0.0 K/mm3 10/12/17 06:00 Promyelocytes # 0.0 K/mm3 10/12/17 06:00 Blast Cells # 0.0 K/mm3 10/12/17 06:00 WBC Morphology Not Reportable 10/12/17 06:00 Hypersegmented Neuts Not Reportable 10/12/17 06:00 Hyposegmented Neuts Not Reportable 10/12/17 06:00 Hypogranular Neuts Not Reportable 10/12/17 06:00 Smudge Cells Not Reportable 10/12/17 06:00 Toxic Granulation Not Reportable 10/12/17 06:00 Toxic Vacuolation Not Reportable 10/12/17 06:00 Dohle Bodies Not Reportable 10/12/17 06:00 Pelger-Huet Anomaly Not Reportable 10/12/17 06:00 Cem Rods Not Reportable 10/12/17 06:00 Platelet Estimate Consistent w auto 10/12/17 06:00 Clumped Platelets Not Reportable 10/12/17 06:00 Plt Clumps, EDTA Not Reportable 10/12/17 06:00 Large Platelets Not Reportable 10/12/17 06:00 Giant Platelets Not Reportable 10/12/17 06:00 Platelet Satelliting Not Reportable 10/12/17 06:00 Plt Morphology Comment Not Reportable 10/12/17 06:00 RBC Morphology Not Reportable 10/12/17 06:00 Dimorphic RBCs Not Reportable 10/12/17 06:00 Polychromasia Not Reportable 10/12/17 06:00 Hypochromasia Not Reportable 10/12/17 06:00 Poikilocytosis Not Reportable 10/12/17 06:00 Anisocytosis 1+ 10/12/17 06:00 Microcytosis Not Reportable 10/12/17 06:00 Macrocytosis Not Reportable 10/12/17 06:00 Spherocytes Not Reportable 10/12/17 06:00 Pappenheimer Bodies Not Reportable 10/12/17 06:00 Sickle Cells Not Reportable 10/12/17 06:00 Target Cells Not Reportable 10/12/17 06:00 Tear Drop Cells Not Reportable 10/12/17 06:00 Ovalocytes Not Reportable 10/12/17 06:00 Helmet Cells Not Reportable 10/12/17 06:00 [place] Bodies Not Reportable 10/12/17 06:00 [place] Rings Not Reportable 10/12/17 06:00 [place] Cells Not Reportable 10/12/17 06:00 Bite Cells Not Reportable 10/12/17 06:00 Crenated Cell Not Reportable 10/12/17 06:00 Elliptocytes Not Reportable 10/12/17 06:00 Acanthocytes (Spur) Not Reportable 10/12/17 06:00 Rouleaux Not Reportable 10/12/17 06:00 Hemoglobin C Crystals Not Reportable 10/12/17 06:00 Schistocytes Not Reportable 10/12/17 06:00 Malaria parasites Not Reportable 10/12/17 06:00 [place] Bodies Not Reportable 10/12/17 06:00 Hem Pathologist Commnt No 10/12/17 06:00 Sodium 137 mmol/L (137-145) 10/21/17 08:26 Potassium 4.4 mmol/L (3.6-5.0) 10/21/17 08:26 Chloride 102.8 mmol/L (98-107) 10/21/17 08:26 Carbon Dioxide 22 mmol/L (22-30) 10/21/17 08:26 Anion Gap 17 mmol/L 10/21/17 08:26 BUN 23 mg/dL (9-20) H 10/21/17 08:26 Creatinine 0.8 mg/dL (0.8-1.5) 10/21/17 08:26 Estimated GFR > 60 ml/min 10/21/17 08:26 BUN/Creatinine Ratio 29 % 10/21/17 08:26 Glucose 96 mg/dL (75-100) 10/21/17 08:26 POC Glucose 108 (70-105) H 10/15/17 18:49 Osmolality 305 Mosm/kg 10/12/17 06:00 Lactic Acid 1.60 mmol/L (0.7-2.0) 10/13/17 10:36 Calcium 8.2 mg/dL (8.4-10.2) L 10/21/17 08:26 Phosphorus 3.00 mg/dL (2.5-4.5) 10/18/17 05:05 Magnesium 2.20 mg/dL (1.7-2.3) 10/15/17 06:17 Iron 45 ug/dL (49-181) L 10/12/17 06:00 TIBC 131 mcg/dL (250-450) L 10/12/17 06:00 % Saturation 34.35 % 10/12/17 06:00 Transferrin 102 mg/dl (180-329) L 10/12/17 06:00 Total Bilirubin 1.00 mg/dL (0.1-1.2) 10/19/17 07:11 AST 129 units/L (5-40) H 10/19/17 07:11 ALT 73 units/L (7-56) H 10/19/17 07:11 Alkaline Phosphatase 128 units/L (35-129) 10/19/17 07:11 Total Creatine Kinase 154 units/L (55-170) 10/19/17 07:11 C-Reactive Protein 26.70 mg/dL (0.00-1.30) H 10/15/17 20:53 Total Protein 5.6 g/dL (6.3-8.2) L 10/19/17 07:11 Albumin 1.8 g/dL (3.9-5) L 10/19/17 07:11 Albumin/Globulin Ratio 0.5 % 10/19/17 07:11 Urine Color Yellow (Yellow) 10/11/17 Unknown Urine Turbidity Clear (Clear) 10/11/17 Unknown Urine pH 5.0 (5.0-7.0) 10/11/17 Unknown Ur Specific [place] 1.012 (1.003-1.030) 10/11/17 Unknown Urine Protein <15 mg/dl mg/dL (Negative) 10/11/17 Unknown Urine Glucose (UA) Neg mg/dL (Negative) 10/11/17 Unknown Urine Ketones Neg mg/dL (Negative) 10/11/17 Unknown Urine Blood Mod (Negative) 10/11/17 Unknown Urine Nitrite Neg (Negative) 10/11/17 Unknown Urine Bilirubin Neg (Negative) 10/11/17 Unknown Urine Urobilinogen < 2.0 mg/dL (<2.0) 10/11/17 Unknown Ur Leukocyte Esterase Neg (Negative) 10/11/17 Unknown Urine WBC (Auto) 10.0 /HPF (0.0-6.0) H 10/11/17 Unknown Urine RBC (Auto) 15.0 /HPF (0.0-6.0) 10/11/17 Unknown U Epithel Cells (Auto) 1.0 /HPF (0-13.0) 10/11/17 Unknown Urine Mucus Few /HPF 10/11/17 Unknown Urine Osmolality 425 Mosm/kg 10/12/17 13:00 Urine Creatinine 80.2 mg/dL (0.1-20.0) H 10/12/17 13:00 Urine Sodium 10 mmol/L 10/12/17 13:00 Vancomycin Trough 25.3 ug/mL (5.0-20.0) H 10/16/17 12:01 Hepatitis A IgM Ab Non-reactive (NonReactive) 10/12/17 06:00 Hep Bs Antigen Non-reactive (Negative) 10/12/17 06:00 Hep B Core IgM Ab Non-reactive (NonReactive) 10/12/17 06:00 Hepatitis C Antibody Reactive (NonReactive) A 10/12/17 06:00 HIV 1&2 Antibody Rapid Non react (Non React) 10/16/17 19:27 HIV P24 Antigen Non react (Non React) 10/16/17 19:27
[2017-10-23 13:33] LABS: Hemoglobin 5.5 gm/dl (11.8-15.2)
[2017-10-23 13:34] LABS: Hematocrit 15.8 % (35.5-45.6)
[2017-10-23] MEDS ORDERED: NACL 0.9% 500 ML 500 ML IV SCH (13:39)
[2017-10-23 13:41] LABS: INR 1.16 (0.87-1.13)
[2017-10-23 13:42] LABS: Partial Thromboplastin Time 36.9 Sec. (24.2-36.6)
[2017-10-23] MEDS ORDERED: NACL 0.9% 1000 ML 1,000 ML ONE (15:45)
[2017-10-23] MEDS ORDERED: VANCOMYCIN 1,250 MG in NACL 0.9% 250ML 250 ML IV SCH (16:00)
[2017-10-23] MEDS: CUBICIN 500 MG in NACL 0.9% 100 ML IV SCH (17:07)
[2017-10-23 18:32] LABS: Mean Corpuscular HGB Conc 34 % (32-34); Mean Corpuscular Hemoglobin 32 pg (28-32); Mean Corpuscular Volume 92 fl (84-94); Platelet Count 487 K/mm3 (140-440); Red Blood Count 1.88 M/mm3 (3.65-5.03); Red Cell Distribution Width 14.7 % (13.2-15.2)
[2017-10-23 18:38] LABS: Hematocrit 17.3 % (35.5-45.6); Hemoglobin 5.9 gm/dl (11.8-15.2)
[2017-10-23 18:48] LABS: BUN/Creatinine Ratio 17; Blood Urea Nitrogen 12 mg/dL (9-20); Calcium 8.5 mg/dL (8.4-10.2); Hemolysis Index 1
[2017-10-23] MEDS: HEPARIN/ 0.45% NACL-25,000 UNIT/500 ML 25,000 UNIT/500 ML BAG IV SCH (18:50)
[2017-10-24] MEDS ORDERED: NACL 0.9% 500 ML 500 ML IV SCH (00:30)
--- NOTE | 2017-10-24 10:54 | Event Note ---
Date: 10/24/17 Dr. Medina scheduled the patient for another drainage of the left intramuscular collections today. The patient's H&H is low, he is being transfused blood, and he is tachycardic. Due to anemia on a heparin drip, procedure will be cancelled. Can reassess for intramuscular collection drainage over the next few days.
[2017-10-24] MEDS: CUBICIN 500 MG in NACL 0.9% 100 ML IV SCH (11:51)
[2017-10-24] MEDS: SODIUM CHLORIDE FLUSH SYRINGE 10 ML IV SCH ×3 (11:51→22:12)
[2017-10-24] MEDS: HEPARIN/ 0.45% NACL-25,000 UNIT/500 ML 25,000 UNIT/500 ML BAG IV SCH (11:52)
[2017-10-24 12:55] LABS: Basophils # (Auto) 0.1 K/mm3 (0.0-0.1); Basophils % (Auto) 0.7 % (0.0-1.8); Eosinophils % (Auto) 0.3 % (0.0-4.3); Hematocrit 22.1 % (35.5-45.6); Hemoglobin 7.6 gm/dl (11.8-15.2); Lymphocytes % (Auto) 9.8 % (13.4-35.0); Mean Corpuscular HGB Conc 34 % (32-34); Mean Corpuscular Hemoglobin 32 pg (28-32); Mean Corpuscular Volume 92 fl (84-94); Monocytes # (Auto) 1.5 K/mm3 (0.0-0.8); Monocytes % (Auto) 14.5 % (0.0-7.3); Platelet Count 406 K/mm3 (140-440); Red Blood Count 2.41 M/mm3 (3.65-5.03); Red Cell Distribution Width 14.5 % (13.2-15.2)
[2017-10-24 13:13] LABS: BUN/Creatinine Ratio 16; Blood Urea Nitrogen 11 mg/dL (9-20); Calcium 8.6 mg/dL (8.4-10.2); Hemolysis Index 2
[2017-10-24 13:25] LABS: INR 1.16 (0.87-1.13)
[2017-10-24 13:26] LABS: Partial Thromboplastin Time 43.4 Sec. (24.2-36.6)
--- NOTE | 2017-10-24 14:11 | Progress Note ---
Assessment and Plan MSSA bacteremia INDRA pertinent for normal LVEF; there is a mobile echogenic density in the main pulmonary artery suspicious for either a clot in transit or vegetation. Thrombocytopenia Severe Anemia Subjective Date of service: 10/24/17 Principal diagnosis: MRSA bacteremia Interval history: No cardiac complaints. Received blood transfusion for severe anemia. Objective Vital Signs Temp Pulse Resp BP Pulse Ox 10/24/17 11:39 99.0 F 106 H 20 134/84 98 10/24/17 08:44 99.4 F 109 H 20 133/80 10/24/17 07:20 98.6 F 112 H 18 140/80 100 10/24/17 06:50 98.8 F 109 H 18 125/80 100 10/24/17 06:20 98.8 F 108 H 18 128/76 97 10/24/17 06:05 999.0 F H 109 H 18 134/74 99 10/24/17 04:17 99 10/24/17 04:01 98.9 F 109 H 18 120/84 100 10/24/17 03:59 98.6 F 115 H 20 135/84 100 10/24/17 03:58 98.6 F 116 H 18 134/83 99 10/24/17 03:28 98.4 F 117 H 20 133/84 100 10/24/17 02:58 98.9 F 113 H 18 126/82 100 10/24/17 02:28 99.8 F H 116 H 18 127/80 100 10/24/17 01:58 98.9 F 112 H 18 122/72 100 10/24/17 01:28 98.9 F 113 H 18 126/74 100 10/24/17 01:13 98.7 F 116 H 20 122/78 100 10/24/17 00:33 99.0 F 115 H 18 111/73 100 10/23/17 20:10 99.7 F H 113 H 22 114/80 99 10/23/17 16:30 100.2 F H 92 H 24 124/78 98 10/23/17 16:23 98.7 F 105 H 22 121/79 100 - Physical Examination General: No Apparent Distress HEENT: Positive: PERRL Cardiac: Positive: Tachycardia - Labs and Meds Coagulation 10/24/17 Range/Units 12:03 PT 15.4 H (12.2-14.9) Sec. INR 1.16 H (0.87-1.13) APTT 43.4 H (24.2-36.6) Sec. CBC 18 10/24/17 Range/Units 17:56 12:03 WBC 10.1 10.1 (4.5-11.0) K/mm3 RBC 1.88 L 2.41 L (3.65-5.03) M/mm3 Hgb 5.9 L* 7.6 L (11.8-15.2) gm/dl Hct 17.3 L* 22.1 L (35.5-45.6) % Plt Count 487 H 406 (140-440) K/mm3 Lymph # 1.0 L (1.2-5.4) K/mm3 [place] # 1.5 H (0.0-0.8) K/mm3 Eos # 0.0 (0.0-0.4) K/mm3 Baso # 0.1 (0.0-0.1) K/mm3 Comprehensive Metabolic Panel 10/23/17 10/24/17 Range/Units 17:56 12:03 Sodium 134 L 135 L (137-145) mmol/L Potassium 4.2 3.9 (3.6-5.0) mmol/L Chloride 102.1 100.0 (98-107) mmol/L Carbon Dioxide 22 21 L (22-30) mmol/L BUN 12 11 (9-20) mg/dL Creatinine 0.7 L 0.7 L (0.8-1.5) mg/dL Glucose 105 H 101 H (75-100) mg/dL Calcium 8.5 8.6 (8.4-10.2) mg/dL
[2017-10-24] MEDS: D5W 1,000 ML IV SCH (14:26)
--- NOTE | 2017-10-24 14:41 | XRay Report ---
BILATERAL KNEES, 2 VIEWS History: Pain and swelling, fever. Findings: Normal bone mineralization. Mild osteoarthritic changes are identified in both knees, left greater than right. No evidence for fracture or bone lesion. A large joint effusion in the left knee extension the suprapatellar bursa. No right knee effusion. Impression: Mild osteoarthritis. Large left knee effusion.
--- NOTE | 2017-10-24 15:46 | Progress Note ---
Assessment and Plan Assessment and plan: CT C/A/P 1. No acute intra-abdominal pathology. 2. Small bilateral pleural effusions with associated atelectasis. 3. Fluid collections involving the right gluteus musculature and the left iliopsoas and obturator muscles. Findings may represent abscesses or seromas. Clinical correlation is recommended. VL venous duplex; no evidence of DVT INDRA' INDRA pertinent for normal LVEF; there is a mobile echogenic density in the main pulmonary artery suspicious for either a clot in transit or vegetation. 10/21, CT-guided aspiration of fluid collection that extends from right hip and gluteal musculature with a total of 40 mL of fluid aspirated and sent to the lab NM WBC scan 10/23; Abnormal radiotracer accumulation in both gluteal regions and left knee. Severe anemia and thrombocytopenia likely due to prolonged sepsis; transfuse 2 units prbc, no evidence of GIB / Acute kidney injury on IVF improving, likely ATN /acute encephalopathy with delirium likely due to sepsis, improving / Sepsis with persistent bacteremia, MSSA, gram pos on abx, ID input appreciated error with micro lab, not MRSA but MSSA -for IR drainage of abscesses after Hg is improved -evidence of Endocarditis; unable to anticoagulate due to severe anemia(may be large vegetation vs mobile thrombus) / Hypokalemia Supplemented /Hyponatremia improving with iv fluid / Transaminitis Acute hepatitis profile positive for hepatitis C Patient has no history of alcohol intake He is in the nursing home since april 2017 cont to monitor /DVT prophylaxis Lovenox 30 mg subcutaneous daily GI prophylaxis ordered Brief History: The patient is a 61 YO male with no significant medical problem who is current incarcerated was sent from the nursing home for one day h/o abd pain and Outside labs showing elevated creatinine. History Interval history: The patient has been confused at times, delirious, waxing and waning mental status Continues to have fever No cough, no sputum production Per nursing staff he complains of pain when he moves him and turning on his side and put him on bedpan No vomiting Hospitalist Physical - Physical exam Narrative exam: General.: Appears well, no distress, nontoxic HEENT: Moist mucous membranes, extraocular muscles intact, no lymphadenopathy Neck: supple Cardiac: S1-S2 heard Lungs: clear to auscultation bilaterally Abdomen: soft , nontender, nondistended, bowel sounds positive Extremities: no edema clubbing or cyanosis Skin: old nodular scar rash on arms/legs Neurologic: no gross focal deficits Psych: appropriate behavior, appropriate mood, corporative, judgment intact - Constitutional Vitals: Temp Pulse Resp BP Pulse Ox 99.0 F 106 H 20 134/84 98 10/24/17 11:39 10/24/17 11:39 10/24/17 11:39 10/24/17 11:39 10/24/17 11:39 General appearance: Present: no acute distress Results - Labs CBC & Chem 7: 10/28/17 07:13 10/28/17 07:13 Labs: Laboratory Last Values WBC 10.1 K/mm3 (4.5-11.0) 10/24/17 12:03 RBC 2.41 M/mm3 (3.65-5.03) L 10/24/17 12:03 Hgb 7.6 gm/dl (11.8-15.2) L 10/24/17 12:03 Hct 22.1 % (35.5-45.6) L 10/24/17 12:03 MCV 92 fl (84-94) 10/24/17 12:03 MCH 32 pg (28-32) 10/24/17 12:03 MCHC 34 % (32-34) 10/24/17 12:03 RDW 14.5 % (13.2-15.2) 10/24/17 12:03 Plt Count 406 K/mm3 (140-440) 10/24/17 12:03 Lymph % (Auto) 9.8 % (13.4-35.0) L 10/24/17 12:03 [place] % (Auto) 14.5 % (0.0-7.3) H 10/24/17 12:03 Eos % (Auto) 0.3 % (0.0-4.3) 10/24/17 12:03 Baso % (Auto) 0.7 % (0.0-1.8) 10/24/17 12:03 Lymph # 1.0 K/mm3 (1.2-5.4) L 10/24/17 12:03 [place] # 1.5 K/mm3 (0.0-0.8) H 10/24/17 12:03 Eos # 0.0 K/mm3 (0.0-0.4) 10/24/17 12:03 Baso # 0.1 K/mm3 (0.0-0.1) 10/24/17 12:03 Add Manual Diff Complete 10/12/17 06:00 Total Counted 100 10/12/17 06:00 Seg Neutrophils % 74.7 % (40.0-70.0) H 10/24/17 12:03 Seg Neuts % (Manual) 88.0 % (40.0-70.0) H 10/12/17 06:00 Band Neutrophils % 0 % 10/12/17 06:00 Lymphocytes % (Manual) 5.0 % (13.4-35.0) L 10/12/17 06:00 Reactive Lymphs % (Man) 1.0 % 10/12/17 06:00 Monocytes % (Manual) 5.0 % (0.0-7.3) 10/12/17 06:00 Eosinophils % (Manual) 0 % (0.0-4.3) 10/12/17 06:00 Basophils % (Manual) 0 % (0.0-1.8) 10/12/17 06:00 Metamyelocytes % 1.0 % 10/12/17 06:00 Myelocytes % 0 % 10/12/17 06:00 Promyelocytes % 0 % 10/12/17 06:00 Blast Cells % 0 % 10/12/17 06:00 Nucleated RBC % Not Reportable 10/12/17 06:00 Seg Neutrophils # 7.6 K/mm3 (1.8-7.7) 10/24/17 12:03 Seg Neutrophils # Man 5.0 K/mm3 (1.8-7.7) 10/12/17 06:00 Band Neutrophils # 0.0 K/mm3 10/12/17 06:00 Lymphocytes # (Manual) 0.3 K/mm3 (1.2-5.4) L 10/12/17 06:00 Abs React Lymphs (Man) 0.1 K/mm3 10/12/17 06:00 Monocytes # (Manual) 0.3 K/mm3 (0.0-0.8) 10/12/17 06:00 Eosinophils # (Manual) 0.0 K/mm3 (0.0-0.4) 10/12/17 06:00 Basophils # (Manual) 0.0 K/mm3 (0.0-0.1) 10/12/17 06:00 Metamyelocytes # 0.1 K/mm3 10/12/17 06:00 Myelocytes # 0.0 K/mm3 10/12/17 06:00 Promyelocytes # 0.0 K/mm3 10/12/17 06:00 Blast Cells # 0.0 K/mm3 10/12/17 06:00 WBC Morphology Not Reportable 10/12/17 06:00 Hypersegmented Neuts Not Reportable 10/12/17 06:00 Hyposegmented Neuts Not Reportable 10/12/17 06:00 Hypogranular Neuts Not Reportable 10/12/17 06:00 Smudge Cells Not Reportable 10/12/17 06:00 Toxic Granulation Not Reportable 10/12/17 06:00 Toxic Vacuolation Not Reportable 10/12/17 06:00 Dohle Bodies Not Reportable 10/12/17 06:00 Pelger-Huet Anomaly Not Reportable 10/12/17 06:00 Cem Rods Not Reportable 10/12/17 06:00 Platelet Estimate Consistent w auto 10/12/17 06:00 Clumped Platelets Not Reportable 10/12/17 06:00 Plt Clumps, EDTA Not Reportable 10/12/17 06:00 Large Platelets Not Reportable 10/12/17 06:00 Giant Platelets Not Reportable 10/12/17 06:00 Platelet Satelliting Not Reportable 10/12/17 06:00 Plt Morphology Comment Not Reportable 10/12/17 06:00 RBC Morphology Not Reportable 10/12/17 06:00 Dimorphic RBCs Not Reportable 10/12/17 06:00 Polychromasia Not Reportable 10/12/17 06:00 Hypochromasia Not Reportable 10/12/17 06:00 Poikilocytosis Not Reportable 10/12/17 06:00 Anisocytosis 1+ 10/12/17 06:00 Microcytosis Not Reportable 10/12/17 06:00 Macrocytosis Not Reportable 10/12/17 06:00 Spherocytes Not Reportable 10/12/17 06:00 Pappenheimer Bodies Not Reportable 10/12/17 06:00 Sickle Cells Not Reportable 10/12/17 06:00 Target Cells Not Reportable 10/12/17 06:00 Tear Drop Cells Not Reportable 10/12/17 06:00 Ovalocytes Not Reportable 10/12/17 06:00 Helmet Cells Not Reportable 10/12/17 06:00 [place] Bodies Not Reportable 10/12/17 06:00 [place] Rings Not Reportable 10/12/17 06:00 [place] Cells Not Reportable 10/12/17 06:00 Bite Cells Not Reportable 10/12/17 06:00 Crenated Cell Not Reportable 10/12/17 06:00 Elliptocytes Not Reportable 10/12/17 06:00 Acanthocytes (Spur) Not Reportable 10/12/17 06:00 Rouleaux Not Reportable 10/12/17 06:00 Hemoglobin C Crystals Not Reportable 10/12/17 06:00 Schistocytes Not Reportable 10/12/17 06:00 Malaria parasites Not Reportable 10/12/17 06:00 Juan Bodies Not Reportable 10/12/17 06:00 Hem Pathologist Commnt No 10/12/17 06:00 PT 15.4 Sec. (12.2-14.9) H 10/24/17 12:03 INR 1.16 (0.87-1.13) H 10/24/17 12:03 APTT 43.4 Sec. (24.2-36.6) H 10/24/17 12:03 Heparin Anti-Xa Level < 0.10 U.I./ml (0.3-0.7) L 10/24/17 12:03 Sodium 135 mmol/L (137-145) L 10/24/17 12:03 Potassium 3.9 mmol/L (3.6-5.0) 10/24/17 12:03 Chloride 100.0 mmol/L (98-107) 10/24/17 12:03 Carbon Dioxide 21 mmol/L (22-30) L 10/24/17 12:03 Anion Gap 18 mmol/L 10/24/17 12:03 BUN 11 mg/dL (9-20) 10/24/17 12:03 Creatinine 0.7 mg/dL (0.8-1.5) L 10/24/17 12:03 Estimated GFR > 60 ml/min 10/24/17 12:03 BUN/Creatinine Ratio 16 % 10/24/17 12:03 Glucose 101 mg/dL (75-100) H 10/24/17 12:03 POC Glucose 108 (70-105) H 10/15/17 18:49 Osmolality 305 Mosm/kg 10/12/17 06:00 Lactic Acid 1.60 mmol/L (0.7-2.0) 10/13/17 10:36 Calcium 8.6 mg/dL (8.4-10.2) 10/24/17 12:03 Phosphorus 4.10 mg/dL (2.5-4.5) 10/24/17 12:03 Magnesium 1.60 mg/dL (1.7-2.3) L 10/24/17 12:03 Iron 45 ug/dL (49-181) L 10/12/17 06:00 TIBC 131 mcg/dL (250-450) L 10/12/17 06:00 % Saturation 34.35 % 10/12/17 06:00 Transferrin 102 mg/dl (180-329) L 10/12/17 06:00 Total Bilirubin 1.00 mg/dL (0.1-1.2) 10/19/17 07:11 AST 129 units/L (5-40) H 10/19/17 07:11 ALT 73 units/L (7-56) H 10/19/17 07:11 Alkaline Phosphatase 128 units/L (35-129) 10/19/17 07:11 Total Creatine Kinase 154 units/L (55-170) 10/19/17 07:11 C-Reactive Protein 26.70 mg/dL (0.00-1.30) H 10/15/17 20:53 Total Protein 5.6 g/dL (6.3-8.2) L 10/19/17 07:11 Albumin 1.8 g/dL (3.9-5) L 10/19/17 07:11 Albumin/Globulin Ratio 0.5 % 10/19/17 07:11 Urine Color Yellow (Yellow) 10/11/17 Unknown Urine Turbidity Clear (Clear) 10/11/17 Unknown Urine pH 5.0 (5.0-7.0) 10/11/17 Unknown Ur Specific [place] 1.012 (1.003-1.030) 10/11/17 Unknown Urine Protein <15 mg/dl mg/dL (Negative) 10/11/17 Unknown Urine Glucose (UA) Neg mg/dL (Negative) 10/11/17 Unknown Urine Ketones Neg mg/dL (Negative) 10/11/17 Unknown Urine Blood Mod (Negative) 10/11/17 Unknown Urine Nitrite Neg (Negative) 10/11/17 Unknown Urine Bilirubin Neg (Negative) 10/11/17 Unknown Urine Urobilinogen < 2.0 mg/dL (<2.0) 10/11/17 Unknown Ur Leukocyte Esterase Neg (Negative) 10/11/17 Unknown Urine WBC (Auto) 10.0 /HPF (0.0-6.0) H 10/11/17 Unknown Urine RBC (Auto) 15.0 /HPF (0.0-6.0) 10/11/17 Unknown U Epithel Cells (Auto) 1.0 /HPF (0-13.0) 10/11/17 Unknown Urine Mucus Few /HPF 10/11/17 Unknown Urine Osmolality 425 Mosm/kg 10/12/17 13:00 Urine Creatinine 80.2 mg/dL (0.1-20.0) H 10/12/17 13:00 Urine Sodium 10 mmol/L 10/12/17 13:00 Vancomycin Trough 25.3 ug/mL (5.0-20.0) H 10/16/17 12:01 Hepatitis A IgM Ab Non-reactive (NonReactive) 10/12/17 06:00 Hep Bs Antigen Non-reactive (Negative) 10/12/17 06:00 Hep B Core IgM Ab Non-reactive (NonReactive) 10/12/17 06:00 Hepatitis C Antibody Reactive (NonReactive) A 10/12/17 06:00 HIV 1&2 Antibody Rapid Non react (Non React) 10/16/17 19:27 HIV P24 Antigen Non react (Non React) 10/16/17 19:27 Blood Type O POSITIVE 10/23/17 18:00 Antibody Screen Negative 10/23/17 18:00 Crossmatch See Detail 10/23/17 18:00
--- NOTE | 2017-10-24 15:48 | Nuclear Medicine Report ---
NUCLEAR MEDICINE LEUKOCYTE SCAN History: Persistent staph septicemia, fever of unknown origin. Findings: 4 and 24 hour whole-body imaging was performed following injection of 0.538 mCi of indium 111 labeled white blood cells. The images demonstrate abnormal accumulation of the radiotracer in both gluteal regions and left knee. Correlation with recent CT abdomen and pelvis demonstrates multiple soft tissue abscesses at the pelvic region and a large left knee effusion. No other areas of abnormal radiotracer uptake is demonstrated. There is no obvious abnormal uptake overlying the spine to suggest epidural abscess or vertebral osteomyelitis. Impression: Abnormal radiotracer accumulation in both gluteal regions and left knee.
[2017-10-24] MEDS ORDERED: MAGNESIUM SULFATE 2GM/50ML 2 GM/50 ML BAG IV ONE (17:00)
[2017-10-25] MEDS: D5W 1,000 ML IV SCH (01:03)
[2017-10-25] MEDS ORDERED: VERSED IV ONE (08:24)
[2017-10-25] MEDS ORDERED: SUBLIMAZE IV ONE (08:24)
[2017-10-25 08:42] LABS: Hematocrit 20.8 % (35.5-45.6); Hemoglobin 7.1 gm/dl (11.8-15.2); Mean Corpuscular HGB Conc 34 % (32-34); Mean Corpuscular Hemoglobin 32 pg (28-32); Mean Corpuscular Volume 92 fl (84-94); Platelet Count 382 K/mm3 (140-440); Red Blood Count 2.26 M/mm3 (3.65-5.03); Red Cell Distribution Width 14.5 % (13.2-15.2)
[2017-10-25 09:02] LABS: BUN/Creatinine Ratio 16; Blood Urea Nitrogen 11 mg/dL (9-20); Calcium 8.8 mg/dL (8.4-10.2); Hemolysis Index 0
--- NOTE | 2017-10-25 10:06 | Post Operative Note ---
Date of procedure: 10/25/17 Pre-op diagnosis: Left pelvic musculature abscess and left knee effusion Post-op diagnosis: same Procedure: CT guided 5 Fr drain placement in the left obturator, pectineus, and rectus femoris with removal of 40 mL of purulent material US guided left knee drainage with removal of 80 mL of purulent material Anesthesia: local (w/ conscious sedation) Surgeon: JOANNA BURNETT Estimated blood loss: minimal Specimen disposition: to lab Condition: stable Disposition: floor
--- NOTE | 2017-10-25 10:17 | Event Note ---
Date: 10/25/17 Drain removed from left pelvic musculature after procedure.
[2017-10-25 10:53] LABS: Platelet Estimate Consistent w Auto; RBC Morphology Normal; Total Cells Counted 100
--- NOTE | 2017-10-25 11:25 | Progress Note ---
Assessment and Plan MSSA bacteremia INDRA pertinent for normal LVEF; there is a mobile echogenic density in the main pulmonary artery suspicious for either a clot in transit or vegetation. Thrombocytopenia Severe Anemia s/p transfusion of PRBCs patient is considered not a candidate for anticoagulation therapy at this time. IV heparin discontinued. Conservative cardiac management. Subjective Date of service: 10/25/17 Principal diagnosis: MRSA bacteremia Interval history: Patient is resting in bed comfortably. No cardiac events reported. Objective Vital Signs Temp Pulse Pulse Pulse Pulse Resp Resp 10/25/17 10:02 103 H 10/25/17 09:48 103 H 23 10/25/17 09:46 104 H 16 10/25/17 09:42 102 H 23 10/25/17 09:36 103 H 24 10/25/17 09:31 101 H 16 10/25/17 09:27 102 H 15 10/25/17 09:22 102 H 28 H 10/25/17 08:55 101 H 26 H 10/25/17 05:00 10/24/17 22:00 18 L 10/24/17 11:39 99.0 F 106 H 20 Resp Resp BP BP BP Pulse Ox Pulse Ox 10/25/17 10:02 18 130/76 10/25/17 09:48 132/84 99 10/25/17 09:46 146/83 99 10/25/17 09:42 128/81 99 10/25/17 09:36 135/82 98 10/25/17 09:31 131/82 98 10/25/17 09:27 116/77 98 10/25/17 09:22 124/80 97 10/25/17 08:55 117/70 98 10/25/17 05:00 18 10/24/17 22:00 10/24/17 11:39 134/84 98 Pulse Ox 10/25/17 10:02 99 10/25/17 09:48 10/25/17 09:46 10/25/17 09:42 10/25/17 09:36 10/25/17 09:31 10/25/17 09:27 10/25/17 09:22 10/25/17 08:55 10/25/17 05:00 10/24/17 22:00 10/24/17 11:39 - Physical Examination General: No Apparent Distress HEENT: Positive: PERRL Cardiac: Positive: Reg Rate and Rhythm - Labs and Meds Coagulation 10/24/17 Range/Units 12:03 PT 15.4 H (12.2-14.9) Sec. INR 1.16 H (0.87-1.13) APTT 43.4 H (24.2-36.6) Sec. CBC 10/24/17 10/25/17 Range/Units 12:03 07:56 WBC 10.1 10.2 (4.5-11.0) K/mm3 RBC 2.41 L 2.26 L (3.65-5.03) M/mm3 Hgb 7.6 L 7.1 L (11.8-15.2) gm/dl Hct 22.1 L 20.8 L (35.5-45.6) % Plt Count 406 382 (140-440) K/mm3 Lymph # 1.0 L (1.2-5.4) K/mm3 [place] # 1.5 H (0.0-0.8) K/mm3 Eos # 0.0 (0.0-0.4) K/mm3 Baso # 0.1 (0.0-0.1) K/mm3 Comprehensive Metabolic Panel 10/24/17 10/25/17 Range/Units 12:03 07:56 Sodium 135 L 135 L (137-145) mmol/L Potassium 3.9 3.7 (3.6-5.0) mmol/L Chloride 100.0 101.0 (98-107) mmol/L Carbon Dioxide 21 L 22 (22-30) mmol/L BUN 11 11 (9-20) mg/dL Creatinine 0.7 L 0.7 L (0.8-1.5) mg/dL Glucose 101 H 106 H (75-100) mg/dL Calcium 8.6 8.8 (8.4-10.2) mg/dL
[2017-10-25] MEDS: CUBICIN 500 MG in NACL 0.9% 100 ML IV SCH (11:27)
[2017-10-25] MEDS: SODIUM CHLORIDE FLUSH SYRINGE 10 ML IV SCH ×2 (11:36→22:45)
[2017-10-25 11:54] LABS: Total Cells Counted 100 /mm3
--- NOTE | 2017-10-25 12:27 | Progress Note ---
Assessment and Plan Assessment: 1) Severe sepsis: fever trending down. Etiology most likely MSSA septicemia. 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 skin rash -blood cx 10/13 MSSA 4 of 4 bottles -blood cx 10/14 MSSA 4 of 4 bottles -blood cx 10/19 MSSA 2 of 4 -blood cx 10/21 MSSA 1 of 4 -TTE no obvious vegetations -INDRA mobile echogenic density in the main pulmonary artery suspicious for either a clot in transit or vegetation. -CT showed right gluteal collection vs myositis 7.5x2.5.cm, left ilepsoas abscess 6x3.5 cm, loculated bilateral small pleural effusions with ill defined solid opacities ? nodules vs. ?emboli with reactive axillary, hilar and mediastinal LNs. -S/P right hip aspiration yieling 40cc fluid on 10/21 cx +MSSA -WBC scan showed left large knee effusion and multiple soft tissue abscesses pelvic areas -S/P left obturator pectineous and rectus femoris drainage 40 cc purulence -S/P left knee aspiration 80cc purulence 3) DARRICK - resolved 4) Thrombocytopenia: from sepsis/HCV- resolved 5) HCV serology positive 6) Elevated LFTs: from sepsis and HCV 7) Rhabdomyolysis: from sepsis 8) Lower back pain and leg weakness 9) Pen allergy - hives 10) Severe anemia after Heprin gtt Plan: -urgent ortho consult for OR wash out left knee septic arthritis and right hip septic arthritis both with purulence and cx + MSSA -repeat blood cx today -continue daptomycin in view of penicillin allergy cannot do ancef -will require 6-8 weeks IV daptomycin I am rounding on 10/28 Guarded prognosis Discussed with Dr Glaser Thank you for your consultation, will follow up with you. Jordana Viramontes MD Infectious Diseases Specialist [facility] ([facility] M [phone] O [phone] Subjective Date of service: 10/25/17 Principal diagnosis: MRSA bacteremia Interval history: feels ok still c/o meeta hip R>L pain. Tmax 100.9 Microbiology: Blood cultures: 10/13 MSSA 4 of 4 bottles (initially reported as MRSA by error) 10/14 MSSA 4 of 4 bottles 10/19 Staph 2 of 4 10/21 GPC 1 of 4 Right hip cx: Gram stain no organism seen Urine cultures: Respiratory cultures: Current Antimicrobials: Dapto 10/17 Previous Antimicrobials: Zosyn Vancomycin 10/14 Objective - Constitutional Vitals: Vital Signs Temp Pulse Resp BP Pulse Ox 98.5 F 96 H 20 115/74 100 10/25/17 11:09 10/25/17 11:09 10/25/17 11:09 10/25/17 11:08 10/25/17 11:09 Temperature -Last 24 Hours Temperature 98.5 F Temperature 98.5 F Temperature 99.0 F Temperature 97.5 F - Labs CBC & Chem 7: 10/25/17 07:56 10/25/17 07:56 Labs: Abnormal lab results 10/24/17 10/24/17 10/24/17 Range/Units 12:03 12:03 12:03 RBC 2.41 L (3.65-5.03) M/mm3 Hgb 7.6 L (11.8-15.2) gm/dl Hct 22.1 L (35.5-45.6) % Lymph % (Auto) 9.8 L (13.4-35.0) % [place] % (Auto) 14.5 H (0.0-7.3) % Lymph # 1.0 L (1.2-5.4) K/mm3 [place] # 1.5 H (0.0-0.8) K/mm3 Seg Neutrophils % 74.7 H (40.0-70.0) % Seg Neuts % (Manual) (40.0-70.0) % Lymphocytes % (Manual) (13.4-35.0) % Monocytes % (Manual) (0.0-7.3) % Lymphocytes # (Manual) (1.2-5.4) K/mm3 Monocytes # (Manual) (0.0-0.8) K/mm3 PT 15.4 H (12.2-14.9) Sec. INR 1.16 H (0.87-1.13) APTT 43.4 H (24.2-36.6) Sec. Heparin Anti-Xa Level (0.3-0.7) U.I./ml Sodium 135 L (137-145) mmol/L Carbon Dioxide 21 L (22-30) mmol/L Creatinine 0.7 L (0.8-1.5) mg/dL Glucose 101 H (75-100) mg/dL Magnesium 1.60 L (1.7-2.3) mg/dL 10/24/17 10/25/17 10/25/17 Range/Units 12:03 07:56 07:56 RBC 2.26 L (3.65-5.03) M/mm3 Hgb 7.1 L (11.8-15.2) gm/dl Hct 20.8 L (35.5-45.6) % Lymph % (Auto) (13.4-35.0) % [place] % (Auto) (0.0-7.3) % Lymph # (1.2-5.4) K/mm3 [place] # (0.0-0.8) K/mm3 Seg Neutrophils % (40.0-70.0) % Seg Neuts % (Manual) 72.0 H (40.0-70.0) % Lymphocytes % (Manual) 10.0 L (13.4-35.0) % Monocytes % (Manual) 16.0 H (0.0-7.3) % Lymphocytes # (Manual) 1.0 L (1.2-5.4) K/mm3 Monocytes # (Manual) 1.6 H (0.0-0.8) K/mm3 PT (12.2-14.9) Sec. INR (0.87-1.13) APTT (24.2-36.6) Sec. Heparin Anti-Xa Level < 0.10 L (0.3-0.7) U.I./ml Sodium 135 L (137-145) mmol/L Carbon Dioxide (22-30) mmol/L Creatinine 0.7 L (0.8-1.5) mg/dL Glucose 106 H (75-100) mg/dL Magnesium (1.7-2.3) mg/dL
--- NOTE | 2017-10-25 14:54 | Consultation ---
History of Present Illness - HPI Consult date: 10/25/17 Consult reason: other History of present illness: 61 y/o male admitted for abdominal pain 2 wks, over the course of hospital stay developed fever/sepsis currently on IVAB's...interventional radiologist did CT guided aspiration of right rectus femoralis fluid collection [abscess] earlier today along with aspiration left knee...C/S pending... Past History Past Surgical History: No surgical history Social history: no significant social history Family history: no significant family history Medications and Allergies Allergies Allergy/AdvReac Type Severity Reaction Status Date / Time Penicillins Allergy Unknown Verified 10/11/17 21:22 Sulfa (Sulfonamide Allergy Unknown Verified 10/11/17 21:22 Antibiotics) Home Medications Medication Instructions Recorded Confirmed Last Taken Type Lipitor 20 mg PO DAILY 10/15/17 10/15/17 10/11/17 08:00 History Mobic 15 mg PO DAILY 10/15/17 10/15/17 10/11/17 08:00 History Active Meds: Active Medications Acetaminophen (Tylenol) 650 mg PO Q4H PRN PRN Reason: Pain MILD(1-3)/Fever >100.5/TUCKER Last Admin: 10/21/17 19:11 Dose: 650 mg Daptomycin 500 mg/ Sodium (Chloride) 100 mls @ 200 mls/hr IV Q24HR SHAKA Last Admin: 10/25/17 11:27 Dose: 200 mls/hr Dextrose (D5w) 1,000 mls @ 125 mls/hr IV DIRECT SHAKA Last Admin: 10/25/17 01:03 Dose: 125 mls/hr Levalbuterol HCl (Xopenex) 0.63 mg IH Q8HRT PRN PRN Reason: Shortness Of Breath Last Admin: 10/21/17 01:03 Dose: 0.63 mg Morphine Sulfate (Morphine) 2 mg IV Q4H PRN PRN Reason: Pain, Moderate (4-6) Last Admin: 10/21/17 09:10 Dose: 2 mg Ondansetron HCl (Zofran) 4 mg IV Q8H PRN PRN Reason: Nausea And Vomiting Oxycodone/Acetaminophen (Percocet 5/325) 1 tab PO Q6H PRN PRN Reason: Pain, Moderate (4-6) Last Admin: 10/22/17 21:10 Dose: 1 tab Sodium Chloride (Sodium Chloride Flush Syringe 10 Ml) 10 ml IV BID SHAKA Last Admin: 10/25/17 11:36 Dose: 10 ml Sodium Chloride (Sodium Chloride Flush Syringe 10 Ml) 10 ml IV PRN PRN PRN Reason: LINE FLUSH Last Admin: 10/23/17 03:55 Dose: 10 ml Physical Examination - Physical exam Narrative exam: right hip - passive ROM decreased, no redness/erythema note Left knee - mild effusion present post aspiration, no tenderness on passive ROM CT scan - reviewed by me and show obvious fluid collection w/n hip joint, moderate size fluid collection at rectus femoralis muscle... plain xrays left knee read as mild to moderate DJD...
--- NOTE | 2017-10-25 16:42 | Progress Note ---
Assessment and Plan Assessment and plan: CT C/A/P 1. No acute intra-abdominal pathology. 2. Small bilateral pleural effusions with associated atelectasis. 3. Fluid collections involving the right gluteus musculature and the left iliopsoas and obturator muscles. Findings may represent abscesses or seromas. Clinical correlation is recommended. VL venous duplex; no evidence of DVT INDRA' INDRA pertinent for normal LVEF; there is a mobile echogenic density in the main pulmonary artery suspicious for either a clot in transit or vegetation. 10/21, CT-guided aspiration of fluid collection that extends from right hip and gluteal musculature with a total of 40 mL of fluid aspirated and sent to the lab NM WBC scan 10/23; Abnormal radiotracer accumulation in both gluteal regions and left knee. 10/25 CT guided 5 Fr drain placement in the left obturator, pectineus, and rectus femoris with removal of 40 mL of purulent material US guided left knee drainage with removal of 80 mL of purulent material 10/25; ; Pelvic xr; Severe bilateral hip osteoarthritis. Severe anemia and thrombocytopenia likely due to prolonged sepsis; transfuse 2 units prbc, no evidence of GIB / Acute kidney injury on IVF improving, likely ATN /acute encephalopathy with delirium likely due to sepsis, improving / Sepsis with persistent bacteremia, MSSA, gram pos with abscess of R gluteus, left iliopsoas, septic emboli in lungs, Left knee abscess on abx, ID input appreciated error with micro lab, not MRSA but MSSA -Sp IR drainage of abscesses, Ortho eval for joint wash out -evidence of Endocarditis; unable to anticoagulate due to severe anemia(may be large vegetation vs mobile thrombus) -will need iv abx for 6-8 weeks / Hypokalemia Supplemented /Hyponatremia improving with iv fluid / Transaminitis Acute hepatitis profile positive for hepatitis C Patient has no history of alcohol intake He is in the correction since april 2017 cont to monitor /DVT prophylaxis Lovenox 30 mg subcutaneous daily GI prophylaxis ordered Brief History: The patient is a 61 YO male with no significant medical problem who is current incarcerated was sent from the correction for one day h/o abd pain and Outside labs showing elevated creatinine. History Interval history: The patient has been confused at times, delirious, waxing and waning mental status Continues to have fever No cough, no sputum production Per nursing staff he complains of pain when he moves him and turning on his side and put him on bedpan No vomiting Hospitalist Physical - Physical exam Narrative exam: General.: Appears well, no distress, nontoxic HEENT: Moist mucous membranes, extraocular muscles intact, no lymphadenopathy Neck: supple Cardiac: S1-S2 heard Lungs: clear to auscultation bilaterally Abdomen: soft , nontender, nondistended, bowel sounds positive Extremities: no edema clubbing or cyanosis Skin: old nodular scar rash on arms/legs Neurologic: no gross focal deficits Psych: appropriate behavior, appropriate mood, corporative, judgment intact - Constitutional Vitals: Temp Pulse Resp BP Pulse Ox 98.5 F 96 H 20 115/74 100 10/25/17 11:09 10/25/17 11:09 10/25/17 11:09 10/25/17 11:08 10/25/17 11:09 General appearance: Present: no acute distress Results - Labs CBC & Chem 7: 10/28/17 07:13 10/28/17 07:13 Labs: Laboratory Last Values WBC 10.2 K/mm3 (4.5-11.0) 10/25/17 07:56 RBC 2.26 M/mm3 (3.65-5.03) L 10/25/17 07:56 Hgb 7.1 gm/dl (11.8-15.2) L 10/25/17 07:56 Hct 20.8 % (35.5-45.6) L 10/25/17 07:56 MCV 92 fl (84-94) 10/25/17 07:56 MCH 32 pg (28-32) 10/25/17 07:56 MCHC 34 % (32-34) 10/25/17 07:56 RDW 14.5 % (13.2-15.2) 10/25/17 07:56 Plt Count 382 K/mm3 (140-440) 10/25/17 07:56 Lymph % (Auto) 9.8 % (13.4-35.0) L 10/24/17 12:03 [place] % (Auto) Tax Examining Technician 10/25/17 07:56 Eos % (Auto) 0.3 % (0.0-4.3) 10/24/17 12:03 Baso % (Auto) 0.7 % (0.0-1.8) 10/24/17 12:03 Lymph # 1.0 K/mm3 (1.2-5.4) L 10/24/17 12:03 [place] # 1.5 K/mm3 (0.0-0.8) H 10/24/17 12:03 Eos # 0.0 K/mm3 (0.0-0.4) 10/24/17 12:03 Baso # 0.1 K/mm3 (0.0-0.1) 10/24/17 12:03 Add Manual Diff Complete 10/25/17 07:56 Total Counted 100 10/25/17 07:56 Seg Neutrophils % 74.7 % (40.0-70.0) H 10/24/17 12:03 Seg Neuts % (Manual) 72.0 % (40.0-70.0) H 10/25/17 07:56 Band Neutrophils % 0 % 10/25/17 07:56 Lymphocytes % (Manual) 10.0 % (13.4-35.0) L 10/25/17 07:56 Reactive Lymphs % (Man) 0 % 10/25/17 07:56 Monocytes % (Manual) 16.0 % (0.0-7.3) H 10/25/17 07:56 Eosinophils % (Manual) 1.0 % (0.0-4.3) 10/25/17 07:56 Basophils % (Manual) 1.0 % (0.0-1.8) 10/25/17 07:56 Metamyelocytes % 0 % 10/25/17 07:56 Myelocytes % 0 % 10/25/17 07:56 Promyelocytes % 0 % 10/25/17 07:56 Blast Cells % 0 % 10/25/17 07:56 Nucleated RBC % Not Reportable 10/25/17 07:56 Seg Neutrophils # 7.6 K/mm3 (1.8-7.7) 10/24/17 12:03 Seg Neutrophils # Man 7.3 K/mm3 (1.8-7.7) 10/25/17 07:56 Band Neutrophils # 0.0 K/mm3 10/25/17 07:56 Lymphocytes # (Manual) 1.0 K/mm3 (1.2-5.4) L 10/25/17 07:56 Abs React Lymphs (Man) 0.0 K/mm3 10/25/17 07:56 Monocytes # (Manual) 1.6 K/mm3 (0.0-0.8) H 10/25/17 07:56 Eosinophils # (Manual) 0.1 K/mm3 (0.0-0.4) 10/25/17 07:56 Basophils # (Manual) 0.1 K/mm3 (0.0-0.1) 10/25/17 07:56 Metamyelocytes # 0.0 K/mm3 10/25/17 07:56 Myelocytes # 0.0 K/mm3 10/25/17 07:56 Promyelocytes # 0.0 K/mm3 10/25/17 07:56 Blast Cells # 0.0 K/mm3 10/25/17 07:56 WBC Morphology Not Reportable 10/25/17 07:56 Hypersegmented Neuts Not Reportable 10/25/17 07:56 Hyposegmented Neuts Not Reportable 10/25/17 07:56 Hypogranular Neuts Not Reportable 10/25/17 07:56 Smudge Cells Not Reportable 10/25/17 07:56 Toxic Granulation Not Reportable 10/25/17 07:56 Toxic Vacuolation Not Reportable 10/25/17 07:56 Dohle Bodies Not Reportable 10/25/17 07:56 Pelger-Huet Anomaly Not Reportable 10/25/17 07:56 Cem Rods Not Reportable 10/25/17 07:56 Platelet Estimate Consistent w auto 10/25/17 07:56 Clumped Platelets Not Reportable 10/25/17 07:56 Plt Clumps, EDTA Not Reportable 10/25/17 07:56 Large Platelets Not Reportable 10/25/17 07:56 Giant Platelets Not Reportable 10/25/17 07:56 Platelet Satelliting Not Reportable 10/25/17 07:56 Plt Morphology Comment Not Reportable 10/25/17 07:56 RBC Morphology Normal 10/25/17 07:56 Dimorphic RBCs Not Reportable 10/25/17 07:56 Polychromasia Not Reportable 10/25/17 07:56 Hypochromasia Not Reportable 10/25/17 07:56 Poikilocytosis Not Reportable 10/25/17 07:56 Anisocytosis Not Reportable 10/25/17 07:56 Microcytosis Not Reportable 10/25/17 07:56 Macrocytosis Not Reportable 10/25/17 07:56 Spherocytes Not Reportable 10/25/17 07:56 Pappenheimer Bodies Not Reportable 10/25/17 07:56 Sickle Cells Not Reportable 10/25/17 07:56 Target Cells Not Reportable 10/25/17 07:56 Tear Drop Cells Not Reportable 10/25/17 07:56 Ovalocytes Not Reportable 10/25/17 07:56 Helmet Cells Not Reportable 10/25/17 07:56 Gil-Bono Bodies Not Reportable 10/25/17 07:56 [place] Rings Not Reportable 10/25/17 07:56 Shaw Cells Not Reportable 10/25/17 07:56 Bite Cells Not Reportable 10/25/17 07:56 Crenated Cell Not Reportable 10/25/17 07:56 Elliptocytes Not Reportable 10/25/17 07:56 Acanthocytes (Spur) Not Reportable 10/25/17 07:56 Rouleaux Not Reportable 10/25/17 07:56 Hemoglobin C Crystals Not Reportable 10/25/17 07:56 Schistocytes Not Reportable 10/25/17 07:56 Malaria parasites Not Reportable 10/25/17 07:56 Juan Bodies Not Reportable 10/25/17 07:56 Hem Pathologist Commnt No 10/25/17 07:56 PT 15.4 Sec. (12.2-14.9) H 10/24/17 12:03 INR 1.16 (0.87-1.13) H 10/24/17 12:03 APTT 43.4 Sec. (24.2-36.6) H 10/24/17 12:03 Heparin Anti-Xa Level < 0.10 U.I./ml (0.3-0.7) L 10/24/17 12:03 Sodium 135 mmol/L (137-145) L 10/25/17 07:56 Potassium 3.7 mmol/L (3.6-5.0) 10/25/17 07:56 Chloride 101.0 mmol/L (98-107) 10/25/17 07:56 Carbon Dioxide 22 mmol/L (22-30) 10/25/17 07:56 Anion Gap 16 mmol/L 10/25/17 07:56 BUN 11 mg/dL (9-20) 10/25/17 07:56 Creatinine 0.7 mg/dL (0.8-1.5) L 10/25/17 07:56 Estimated GFR > 60 ml/min 10/25/17 07:56 BUN/Creatinine Ratio 16 % 10/25/17 07:56 Glucose 106 mg/dL (75-100) H 10/25/17 07:56 POC Glucose 108 (70-105) H 10/15/17 18:49 Osmolality 305 Mosm/kg 10/12/17 06:00 Lactic Acid 1.60 mmol/L (0.7-2.0) 10/13/17 10:36 Calcium 8.8 mg/dL (8.4-10.2) 10/25/17 07:56 Phosphorus 4.10 mg/dL (2.5-4.5) 10/24/17 12:03 Magnesium 1.60 mg/dL (1.7-2.3) L 10/24/17 12:03 Iron 45 ug/dL (49-181) L 10/12/17 06:00 TIBC 131 mcg/dL (250-450) L 10/12/17 06:00 % Saturation 34.35 % 10/12/17 06:00 Transferrin 102 mg/dl (180-329) L 10/12/17 06:00 Total Bilirubin 1.00 mg/dL (0.1-1.2) 10/19/17 07:11 AST 129 units/L (5-40) H 10/19/17 07:11 ALT 73 units/L (7-56) H 10/19/17 07:11 Alkaline Phosphatase 128 units/L (35-129) 10/19/17 07:11 Total Creatine Kinase 154 units/L (55-170) 10/19/17 07:11 C-Reactive Protein 26.70 mg/dL (0.00-1.30) H 10/15/17 20:53 Total Protein 5.6 g/dL (6.3-8.2) L 10/19/17 07:11 Albumin 1.8 g/dL (3.9-5) L 10/19/17 07:11 Albumin/Globulin Ratio 0.5 % 10/19/17 07:11 Urine Color Yellow (Yellow) 10/11/17 Unknown Urine Turbidity Clear (Clear) 10/11/17 Unknown Urine pH 5.0 (5.0-7.0) 10/11/17 Unknown Ur Specific [place] 1.012 (1.003-1.030) 10/11/17 Unknown Urine Protein <15 mg/dl mg/dL (Negative) 10/11/17 Unknown Urine Glucose (UA) Neg mg/dL (Negative) 10/11/17 Unknown Urine Ketones Neg mg/dL (Negative) 10/11/17 Unknown Urine Blood Mod (Negative) 10/11/17 Unknown Urine Nitrite Neg (Negative) 10/11/17 Unknown Urine Bilirubin Neg (Negative) 10/11/17 Unknown Urine Urobilinogen < 2.0 mg/dL (<2.0) 10/11/17 Unknown Ur Leukocyte Esterase Neg (Negative) 10/11/17 Unknown Urine WBC (Auto) 10.0 /HPF (0.0-6.0) H 10/11/17 Unknown Urine RBC (Auto) 15.0 /HPF (0.0-6.0) 10/11/17 Unknown U Epithel Cells (Auto) 1.0 /HPF (0-13.0) 10/11/17 Unknown Urine Mucus Few /HPF 10/11/17 Unknown Urine Osmolality 425 Mosm/kg 10/12/17 13:00 Urine Creatinine 80.2 mg/dL (0.1-20.0) H 10/12/17 13:00 Urine Sodium 10 mmol/L 10/12/17 13:00 Fluid Type Synovial 10/25/17 09:45 Fluid Color [place] 10/25/17 09:45 Fluid Appearance Turbid 10/25/17 09:45 Fluid WBC 77183 /mm3 10/25/17 09:45 Fluid RBC 3300 /mm3 10/25/17 09:45 Fluid Seg Neutrophils 90.0 % 10/25/17 09:45 Fluid Lymphocytes 4.0 % 10/25/17 09:45 Fluid Reactive Lymphs Not Reportable 10/25/17 09:45 Fluid Monocytes 5.0 % 10/25/17 09:45 Fluid Eosinophils 1.0 % 10/25/17 09:45 Fluid Basophils Not Reportable 10/25/17 09:45 Fluid Comment N 10/25/17 09:45 Vancomycin Trough 25.3 ug/mL (5.0-20.0) H 10/16/17 12:01 Hepatitis A IgM Ab Non-reactive (NonReactive) 10/12/17 06:00 Hep Bs Antigen Non-reactive (Negative) 10/12/17 06:00 Hep B Core IgM Ab Non-reactive (NonReactive) 10/12/17 06:00 Hepatitis C Antibody Reactive (NonReactive) A 10/12/17 06:00 HIV 1&2 Antibody Rapid Non react (Non React) 10/16/17 19:27 HIV P24 Antigen Non react (Non React) 10/16/17 19:27 Blood Type O POSITIVE 10/23/17 18:00 Antibody Screen Negative 10/23/17 18:00 Crossmatch See Detail 10/23/17 18:00
--- NOTE | 2017-10-25 20:11 | XRay Report ---
FINAL REPORT PROCEDURE: Pelvis. TECHNIQUE: AP view. HISTORY: Right hip pain. COMPARISON: No prior studies are available for comparison. FINDINGS: The pelvis appears intact without fracture on this single projection. Portions of the sacrum and left ilium are obscured by contrast material within the gastrointestinal tract. There is severe osteoarthritis involving both hip joints. There are large osteophytes or exostoses near the greater trochanter of the right femur. The soft tissues are unremarkable. IMPRESSION: Severe bilateral hip osteoarthritis.
[2017-10-26] MEDS: D5W 1,000 ML IV SCH (04:26)
[2017-10-26] MEDS: CUBICIN 500 MG in NACL 0.9% 100 ML IV SCH (10:00)
[2017-10-26] MEDS: SODIUM CHLORIDE FLUSH SYRINGE 10 ML IV SCH ×2 (10:25→22:44)
--- NOTE | 2017-10-26 10:26 | Progress Note ---
Assessment and Plan MSSA Sepsis INDRA pertinent for normal LVEF; there is a mobile echogenic density in the main pulmonary artery suspicious PV endocarditis but cannot exclude thrombus. Thrombocytopenia Septic arthritis involving right hip and left knee. Recommendations: Continue current therapy including antibiotics per ID Subjective Date of service: 10/26/17 Principal diagnosis: MRSA bacteremia Interval history: No cardiac complaints Objective Vital Signs Temp Pulse Resp Resp BP Pulse Ox 10/26/17 04:53 99.8 F H 122 H 20 125/73 99 10/26/17 00:15 99.8 F H 126 H 24 112/73 99 10/25/17 20:58 100 10/25/17 20:50 99.8 F H 116 H 18 120/78 100 10/25/17 17:43 99.6 F 104 H 22 115/73 100 10/25/17 17:00 18 10/25/17 11:09 98.5 F 96 H 20 100 10/25/17 11:08 98.5 F 96 H 20 115/74 100 - Physical Examination General: No Apparent Distress HEENT: Positive: PERRL Neck: Positive: neck supple Cardiac: Positive: Reg Rate and Rhythm Lungs: Positive: clear to auscultation Abdomen: Positive: Soft, Active Bowel Sounds
[2017-10-26 11:26] LABS: Basophils # (Auto) 0.1 K/mm3 (0.0-0.1); Basophils % (Auto) 0.7 % (0.0-1.8); Eosinophils # (Auto) 0.1 K/mm3 (0.0-0.4); Eosinophils % (Auto) 0.7 % (0.0-4.3); Hematocrit 20.9 % (35.5-45.6); Hemoglobin 7.1 gm/dl (11.8-15.2); Lymphocytes % (Auto) 8.3 % (13.4-35.0); Mean Corpuscular HGB Conc 34 % (32-34); Mean Corpuscular Hemoglobin 31 pg (28-32); Mean Corpuscular Volume 91 fl (84-94); Monocytes # (Auto) 1.7 K/mm3 (0.0-0.8); Monocytes % (Auto) 14.9 % (0.0-7.3); Platelet Count 342 K/mm3 (140-440); Red Cell Distribution Width 14.4 % (13.2-15.2)
[2017-10-26 11:40] LABS: BUN/Creatinine Ratio 18; Blood Urea Nitrogen 11 mg/dL (9-20); Calcium 8.9 mg/dL (8.4-10.2); Hemolysis Index 4
--- NOTE | 2017-10-26 12:42 | Progress Note ---
Assessment and Plan Assessment and plan: CT C/A/P 1. No acute intra-abdominal pathology. 2. Small bilateral pleural effusions with associated atelectasis. 3. Fluid collections involving the right gluteus musculature and the left iliopsoas and obturator muscles. Findings may represent abscesses or seromas. Clinical correlation is recommended. VL venous duplex; no evidence of DVT INDRA' INDRA pertinent for normal LVEF; there is a mobile echogenic density in the main pulmonary artery suspicious for either a clot in transit or vegetation. 10/21, CT-guided aspiration of fluid collection that extends from right hip and gluteal musculature with a total of 40 mL of fluid aspirated and sent to the lab NM WBC scan 10/23; Abnormal radiotracer accumulation in both gluteal regions and left knee. 10/25 CT guided 5 Fr drain placement in the left obturator, pectineus, and rectus femoris with removal of 40 mL of purulent material US guided left knee drainage with removal of 80 mL of purulent material 10/25; ; Pelvic xr; Severe bilateral hip osteoarthritis. Severe anemia and thrombocytopenia likely due to prolonged sepsis; transfuse 2 units prbc, no evidence of GIB / Acute kidney injury on IVF improving, likely ATN /acute encephalopathy with delirium likely due to sepsis, improving / Sepsis with persistent bacteremia, MSSA, gram pos with abscess of R gluteus, left iliopsoas, septic emboli in lungs, Left knee abscess on abx, ID input appreciated error with micro lab, not MRSA but MSSA -Sp IR drainage of abscesses, Ortho eval for joint wash out -evidence of Endocarditis; unable to anticoagulate due to severe anemia(may be large vegetation vs mobile thrombus) -will need iv abx for 6-8 weeks / Hypokalemia Supplemented /Hyponatremia improving with iv fluid / Transaminitis Acute hepatitis profile positive for hepatitis C Patient has no history of alcohol intake He is in the detention since april 2017 cont to monitor /DVT prophylaxis Lovenox 30 mg subcutaneous daily GI prophylaxis ordered Brief History: The patient is a 61 YO male with no significant medical problem who is current incarcerated was sent from the detention for one day h/o abd pain and Outside labs showing elevated creatinine. History Interval history: The patient has been confused at times, delirious, waxing and waning mental status Continues to have fever No cough, no sputum production Per nursing staff he complains of pain when he moves him and turning on his side and put him on bedpan No vomiting Hospitalist Physical - Physical exam Narrative exam: General.: Appears well, no distress, nontoxic HEENT: Moist mucous membranes, extraocular muscles intact, no lymphadenopathy Neck: supple Cardiac: S1-S2 heard Lungs: clear to auscultation bilaterally Abdomen: soft , nontender, nondistended, bowel sounds positive Extremities: no edema clubbing or cyanosis Skin: old nodular scar rash on arms/legs Neurologic: no gross focal deficits Psych: appropriate behavior, appropriate mood, corporative, judgment intact - Constitutional Vitals: Temp Pulse Resp BP Pulse Ox 98.2 F 110 H 20 101/60 100 10/26/17 11:56 10/26/17 11:56 10/26/17 11:56 10/26/17 11:56 10/26/17 11:56 General appearance: Present: no acute distress Results - Labs CBC & Chem 7: 10/28/17 07:13 10/28/17 07:13 Labs: Laboratory Last Values WBC 11.5 K/mm3 (4.5-11.0) H 10/26/17 11:03 RBC 2.30 M/mm3 (3.65-5.03) L 10/26/17 11:03 Hgb 7.1 gm/dl (11.8-15.2) L 10/26/17 11:03 Hct 20.9 % (35.5-45.6) L 10/26/17 11:03 MCV 91 fl (84-94) 10/26/17 11:03 MCH 31 pg (28-32) 10/26/17 11:03 MCHC 34 % (32-34) 10/26/17 11:03 RDW 14.4 % (13.2-15.2) 10/26/17 11:03 Plt Count 342 K/mm3 (140-440) 10/26/17 11:03 Lymph % (Auto) 8.3 % (13.4-35.0) L 10/26/17 11:03 [place] % (Auto) 14.9 % (0.0-7.3) H 10/26/17 11:03 Eos % (Auto) 0.7 % (0.0-4.3) 10/26/17 11:03 Baso % (Auto) 0.7 % (0.0-1.8) 10/26/17 11:03 Lymph # 1.0 K/mm3 (1.2-5.4) L 10/26/17 11:03 [place] # 1.7 K/mm3 (0.0-0.8) H 10/26/17 11:03 Eos # 0.1 K/mm3 (0.0-0.4) 10/26/17 11:03 Baso # 0.1 K/mm3 (0.0-0.1) 10/26/17 11:03 Add Manual Diff Complete 10/25/17 07:56 Total Counted 100 10/25/17 07:56 Seg Neutrophils % 75.4 % (40.0-70.0) H 10/26/17 11:03 Seg Neuts % (Manual) 72.0 % (40.0-70.0) H 10/25/17 07:56 Band Neutrophils % 0 % 10/25/17 07:56 Lymphocytes % (Manual) 10.0 % (13.4-35.0) L 10/25/17 07:56 Reactive Lymphs % (Man) 0 % 10/25/17 07:56 Monocytes % (Manual) 16.0 % (0.0-7.3) H 10/25/17 07:56 Eosinophils % (Manual) 1.0 % (0.0-4.3) 10/25/17 07:56 Basophils % (Manual) 1.0 % (0.0-1.8) 10/25/17 07:56 Metamyelocytes % 0 % 10/25/17 07:56 Myelocytes % 0 % 10/25/17 07:56 Promyelocytes % 0 % 10/25/17 07:56 Blast Cells % 0 % 10/25/17 07:56 Nucleated RBC % Not Reportable 10/25/17 07:56 Seg Neutrophils # 8.6 K/mm3 (1.8-7.7) H 10/26/17 11:03 Seg Neutrophils # Man 7.3 K/mm3 (1.8-7.7) 10/25/17 07:56 Band Neutrophils # 0.0 K/mm3 10/25/17 07:56 Lymphocytes # (Manual) 1.0 K/mm3 (1.2-5.4) L 10/25/17 07:56 Abs React Lymphs (Man) 0.0 K/mm3 10/25/17 07:56 Monocytes # (Manual) 1.6 K/mm3 (0.0-0.8) H 10/25/17 07:56 Eosinophils # (Manual) 0.1 K/mm3 (0.0-0.4) 10/25/17 07:56 Basophils # (Manual) 0.1 K/mm3 (0.0-0.1) 10/25/17 07:56 Metamyelocytes # 0.0 K/mm3 10/25/17 07:56 Myelocytes # 0.0 K/mm3 10/25/17 07:56 Promyelocytes # 0.0 K/mm3 10/25/17 07:56 Blast Cells # 0.0 K/mm3 10/25/17 07:56 WBC Morphology Not Reportable 10/25/17 07:56 Hypersegmented Neuts Not Reportable 10/25/17 07:56 Hyposegmented Neuts Not Reportable 10/25/17 07:56 Hypogranular Neuts Not Reportable 10/25/17 07:56 Smudge Cells Not Reportable 10/25/17 07:56 Toxic Granulation Not Reportable 10/25/17 07:56 Toxic Vacuolation Not Reportable 10/25/17 07:56 Dohle Bodies Not Reportable 10/25/17 07:56 Pelger-Huet Anomaly Not Reportable 10/25/17 07:56 Cem Rods Not Reportable 10/25/17 07:56 Platelet Estimate Consistent w auto 10/25/17 07:56 Clumped Platelets Not Reportable 10/25/17 07:56 Plt Clumps, EDTA Not Reportable 10/25/17 07:56 Large Platelets Not Reportable 10/25/17 07:56 Giant Platelets Not Reportable 10/25/17 07:56 Platelet Satelliting Not Reportable 10/25/17 07:56 Plt Morphology Comment Not Reportable 10/25/17 07:56 RBC Morphology Normal 10/25/17 07:56 Dimorphic RBCs Not Reportable 10/25/17 07:56 Polychromasia Not Reportable 10/25/17 07:56 Hypochromasia Not Reportable 10/25/17 07:56 Poikilocytosis Not Reportable 10/25/17 07:56 Anisocytosis Not Reportable 10/25/17 07:56 Microcytosis Not Reportable 10/25/17 07:56 Macrocytosis Not Reportable 10/25/17 07:56 Spherocytes Not Reportable 10/25/17 07:56 Pappenheimer Bodies Not Reportable 10/25/17 07:56 Sickle Cells Not Reportable 10/25/17 07:56 Target Cells Not Reportable 10/25/17 07:56 Tear Drop Cells Not Reportable 10/25/17 07:56 Ovalocytes Not Reportable 10/25/17 07:56 Helmet Cells Not Reportable 10/25/17 07:56 Gil-[place]y Eye Bodies Not Reportable 10/25/17 07:56 [place] Rings Not Reportable 10/25/17 07:56 Shaw Cells Not Reportable 10/25/17 07:56 Bite Cells Not Reportable 10/25/17 07:56 Crenated Cell Not Reportable 10/25/17 07:56 Elliptocytes Not Reportable 10/25/17 07:56 Acanthocytes (Spur) Not Reportable 10/25/17 07:56 Rouleaux Not Reportable 10/25/17 07:56 Hemoglobin C Crystals Not Reportable 10/25/17 07:56 Schistocytes Not Reportable 10/25/17 07:56 Malaria parasites Not Reportable 10/25/17 07:56 Juan Bodies Not Reportable 10/25/17 07:56 Hem Pathologist Commnt No 10/25/17 07:56 PT 15.4 Sec. (12.2-14.9) H 10/24/17 12:03 INR 1.16 (0.87-1.13) H 10/24/17 12:03 APTT 43.4 Sec. (24.2-36.6) H 10/24/17 12:03 Heparin Anti-Xa Level < 0.10 U.I./ml (0.3-0.7) L 10/24/17 12:03 Sodium 135 mmol/L (137-145) L 10/26/17 11:03 Potassium 4.0 mmol/L (3.6-5.0) 10/26/17 11:03 Chloride 101.4 mmol/L (98-107) 10/26/17 11:03 Carbon Dioxide 21 mmol/L (22-30) L 10/26/17 11:03 Anion Gap 17 mmol/L 10/26/17 11:03 BUN 11 mg/dL (9-20) 10/26/17 11:03 Creatinine 0.6 mg/dL (0.8-1.5) L 10/26/17 11:03 Estimated GFR > 60 ml/min 10/26/17 11:03 BUN/Creatinine Ratio 18 % 10/26/17 11:03 Glucose 135 mg/dL (75-100) H 10/26/17 11:03 POC Glucose 157 (70-105) H 10/26/17 08:59 Osmolality 305 Mosm/kg 10/12/17 06:00 Lactic Acid 1.60 mmol/L (0.7-2.0) 10/13/17 10:36 Calcium 8.9 mg/dL (8.4-10.2) 10/26/17 11:03 Phosphorus 4.10 mg/dL (2.5-4.5) 10/24/17 12:03 Magnesium 1.60 mg/dL (1.7-2.3) L 10/24/17 12:03 Iron 45 ug/dL (49-181) L 10/12/17 06:00 TIBC 131 mcg/dL (250-450) L 10/12/17 06:00 % Saturation 34.35 % 10/12/17 06:00 Transferrin 102 mg/dl (180-329) L 10/12/17 06:00 Total Bilirubin 1.00 mg/dL (0.1-1.2) 10/19/17 07:11 AST 129 units/L (5-40) H 10/19/17 07:11 ALT 73 units/L (7-56) H 10/19/17 07:11 Alkaline Phosphatase 128 units/L (35-129) 10/19/17 07:11 Total Creatine Kinase 154 units/L (55-170) 10/19/17 07:11 C-Reactive Protein 26.70 mg/dL (0.00-1.30) H 10/15/17 20:53 Total Protein 5.6 g/dL (6.3-8.2) L 10/19/17 07:11 Albumin 1.8 g/dL (3.9-5) L 10/19/17 07:11 Albumin/Globulin Ratio 0.5 % 10/19/17 07:11 Urine Color Yellow (Yellow) 10/11/17 Unknown Urine Turbidity Clear (Clear) 10/11/17 Unknown Urine pH 5.0 (5.0-7.0) 10/11/17 Unknown Ur Specific [place] 1.012 (1.003-1.030) 10/11/17 Unknown Urine Protein <15 mg/dl mg/dL (Negative) 10/11/17 Unknown Urine Glucose (UA) Neg mg/dL (Negative) 10/11/17 Unknown Urine Ketones Neg mg/dL (Negative) 10/11/17 Unknown Urine Blood Mod (Negative) 10/11/17 Unknown Urine Nitrite Neg (Negative) 10/11/17 Unknown Urine Bilirubin Neg (Negative) 10/11/17 Unknown Urine Urobilinogen < 2.0 mg/dL (<2.0) 10/11/17 Unknown Ur Leukocyte Esterase Neg (Negative) 10/11/17 Unknown Urine WBC (Auto) 10.0 /HPF (0.0-6.0) H 10/11/17 Unknown Urine RBC (Auto) 15.0 /HPF (0.0-6.0) 10/11/17 Unknown U Epithel Cells (Auto) 1.0 /HPF (0-13.0) 10/11/17 Unknown Urine Mucus Few /HPF 10/11/17 Unknown Urine Osmolality 425 Mosm/kg 10/12/17 13:00 Urine Creatinine 80.2 mg/dL (0.1-20.0) H 10/12/17 13:00 Urine Sodium 10 mmol/L 10/12/17 13:00 Fluid Type Synovial 10/25/17 09:45 Fluid Color Yamila 10/25/17 09:45 Fluid Appearance Turbid 10/25/17 09:45 Fluid WBC 51073 /mm3 10/25/17 09:45 Fluid RBC 3300 /mm3 10/25/17 09:45 Fluid Seg Neutrophils 90.0 % 10/25/17 09:45 Fluid Lymphocytes 4.0 % 10/25/17 09:45 Fluid Reactive Lymphs Not Reportable 10/25/17 09:45 Fluid Monocytes 5.0 % 10/25/17 09:45 Fluid Eosinophils 1.0 % 10/25/17 09:45 Fluid Basophils Not Reportable 10/25/17 09:45 Fluid Comment N 10/25/17 09:45 Vancomycin Trough 25.3 ug/mL (5.0-20.0) H 10/16/17 12:01 Hepatitis A IgM Ab Non-reactive (NonReactive) 10/12/17 06:00 Hep Bs Antigen Non-reactive (Negative) 10/12/17 06:00 Hep B Core IgM Ab Non-reactive (NonReactive) 10/12/17 06:00 Hepatitis C Antibody Reactive (NonReactive) A 10/12/17 06:00 HIV 1&2 Antibody Rapid Non react (Non React) 10/16/17 19:27 HIV P24 Antigen Non react (Non React) 10/16/17 19:27 Blood Type O POSITIVE 10/23/17 18:00 Antibody Screen Negative 10/23/17 18:00 Crossmatch See Detail 10/23/17 18:00
[2017-10-27] MEDS: D5W 1,000 ML IV SCH (00:58)
[2017-10-27] MEDS: PERCOCET 5/325 PO PRN ×2 (05:09→18:30)
[2017-10-27 06:06] LABS: Hematocrit 21.6 % (35.5-45.6); Hemoglobin 7.6 gm/dl (11.8-15.2); Mean Corpuscular HGB Conc 35 % (32-34); Mean Corpuscular Hemoglobin 32 pg (28-32); Mean Corpuscular Volume 92 fl (84-94); Platelet Count 364 K/mm3 (140-440); Red Blood Count 2.36 M/mm3 (3.65-5.03); Red Cell Distribution Width 14.7 % (13.2-15.2)
[2017-10-27 06:18] LABS: BUN/Creatinine Ratio 18; Blood Urea Nitrogen 11 mg/dL (9-20); Calcium 9.1 mg/dL (8.4-10.2); Hemolysis Index 0
[2017-10-27 06:31] LABS: Basophils # (Auto) 0.1 K/mm3 (0.0-0.1); Basophils % (Auto) 0.9 % (0.0-1.8); Eosinophils # (Auto) 0.1 K/mm3 (0.0-0.4); Eosinophils % (Auto) 1.2 % (0.0-4.3); Lymphocytes # (Auto) 1.5 K/mm3 (1.2-5.4); Lymphocytes % (Auto) 13.2 % (13.4-35.0); Monocytes # (Auto) 1.8 K/mm3 (0.0-0.8); Monocytes % (Auto) 15.9 % (0.0-7.3)
--- NOTE | 2017-10-27 09:57 | Progress Note ---
Assessment and Plan Assessment and plan: CT C/A/P 1. No acute intra-abdominal pathology. 2. Small bilateral pleural effusions with associated atelectasis. 3. Fluid collections involving the right gluteus musculature and the left iliopsoas and obturator muscles. Findings may represent abscesses or seromas. Clinical correlation is recommended. VL venous duplex; no evidence of DVT INDRA' INDRA pertinent for normal LVEF; there is a mobile echogenic density in the main pulmonary artery suspicious for either a clot in transit or vegetation. 10/21, CT-guided aspiration of fluid collection that extends from right hip and gluteal musculature with a total of 40 mL of fluid aspirated and sent to the lab NM WBC scan 10/23; Abnormal radiotracer accumulation in both gluteal regions and left knee. 10/25 CT guided 5 Fr drain placement in the left obturator, pectineus, and rectus femoris with removal of 40 mL of purulent material US guided left knee drainage with removal of 80 mL of purulent material 10/25; ; Pelvic xr; Severe bilateral hip osteoarthritis. Severe anemia and thrombocytopenia likely due to prolonged sepsis; transfuse 2 units prbc, no evidence of GIB / Acute kidney injury on IVF improving, likely ATN /acute encephalopathy with delirium likely due to sepsis, improving / Sepsis with persistent bacteremia, MSSA, gram pos with abscess of R gluteus, left iliopsoas, septic emboli in lungs, Left knee abscess on abx, ID input appreciated error with micro lab, not MRSA but MSSA -Sp IR drainage of abscesses, Ortho eval for joint wash out -evidence of Endocarditis; unable to anticoagulate due to severe anemia(may be large vegetation vs mobile thrombus) -will need iv abx for 6-8 weeks / Hypokalemia Supplemented /Hyponatremia improving with iv fluid / Transaminitis Acute hepatitis profile positive for hepatitis C Patient has no history of alcohol intake He is in the halfway since april 2017 cont to monitor /DVT prophylaxis Lovenox 30 mg subcutaneous daily GI prophylaxis ordered Brief History: The patient is a 61 YO male with no significant medical problem who is current incarcerated was sent from the halfway for one day h/o abd pain and Outside labs showing elevated creatinine. History Interval history: The patient has been confused at times, delirious, waxing and waning mental status Continues to have fever No cough, no sputum production Per nursing staff he complains of pain when he moves him and turning on his side and put him on bedpan No vomiting Hospitalist Physical - Physical exam Narrative exam: General.: Appears well, no distress, nontoxic HEENT: Moist mucous membranes, extraocular muscles intact, no lymphadenopathy Neck: supple Cardiac: S1-S2 heard Lungs: clear to auscultation bilaterally Abdomen: soft , nontender, nondistended, bowel sounds positive Extremities: no edema clubbing or cyanosis Skin: old nodular scar rash on arms/legs Neurologic: no gross focal deficits Psych: appropriate behavior, appropriate mood, corporative, judgment intact Hospitalist Physical - Constitutional Vitals: Temp Pulse Resp BP Pulse Ox 98.5 F 112 H 18 109/74 99 10/26/17 19:38 10/26/17 19:38 10/26/17 19:38 10/26/17 19:38 10/26/17 22:00 General appearance: Present: no acute distress Results - Labs CBC & Chem 7: 11/04/17 06:48 11/04/17 06:48 Labs: Laboratory Last Values WBC 10.8 K/mm3 (4.5-11.0) 10/27/17 05:21 RBC 2.36 M/mm3 (3.65-5.03) L 10/27/17 05:21 Hgb 7.6 gm/dl (11.8-15.2) L 10/27/17 05:21 Hct 21.6 % (35.5-45.6) L 10/27/17 05:21 MCV 92 fl (84-94) 10/27/17 05:21 MCH 32 pg (28-32) 10/27/17 05:21 MCHC 35 % (32-34) H 10/27/17 05:21 RDW 14.7 % (13.2-15.2) 10/27/17 05:21 Plt Count 364 K/mm3 (140-440) 10/27/17 05:21 Lymph % (Auto) 13.2 % (13.4-35.0) L 10/27/17 05:21 [place] % (Auto) 15.9 % (0.0-7.3) H 10/27/17 05:21 Eos % (Auto) 1.2 % (0.0-4.3) 10/27/17 05:21 Baso % (Auto) 0.9 % (0.0-1.8) 10/27/17 05:21 Lymph # 1.5 K/mm3 (1.2-5.4) 10/27/17 05:21 [place] # 1.8 K/mm3 (0.0-0.8) H 10/27/17 05:21 Eos # 0.1 K/mm3 (0.0-0.4) 10/27/17 05:21 Baso # 0.1 K/mm3 (0.0-0.1) 10/27/17 05:21 Add Manual Diff Complete 10/25/17 07:56 Total Counted 100 10/25/17 07:56 Seg Neutrophils % 68.8 % (40.0-70.0) 10/27/17 05:21 Seg Neuts % (Manual) 72.0 % (40.0-70.0) H 10/25/17 07:56 Band Neutrophils % 0 % 10/25/17 07:56 Lymphocytes % (Manual) 10.0 % (13.4-35.0) L 10/25/17 07:56 Reactive Lymphs % (Man) 0 % 10/25/17 07:56 Monocytes % (Manual) 16.0 % (0.0-7.3) H 10/25/17 07:56 Eosinophils % (Manual) 1.0 % (0.0-4.3) 10/25/17 07:56 Basophils % (Manual) 1.0 % (0.0-1.8) 10/25/17 07:56 Metamyelocytes % 0 % 10/25/17 07:56 Myelocytes % 0 % 10/25/17 07:56 Promyelocytes % 0 % 10/25/17 07:56 Blast Cells % 0 % 10/25/17 07:56 Nucleated RBC % Not Reportable 10/25/17 07:56 Seg Neutrophils # 7.8 K/mm3 (1.8-7.7) H 10/27/17 05:21 Seg Neutrophils # Man 7.3 K/mm3 (1.8-7.7) 10/25/17 07:56 Band Neutrophils # 0.0 K/mm3 10/25/17 07:56 Lymphocytes # (Manual) 1.0 K/mm3 (1.2-5.4) L 10/25/17 07:56 Abs React Lymphs (Man) 0.0 K/mm3 10/25/17 07:56 Monocytes # (Manual) 1.6 K/mm3 (0.0-0.8) H 10/25/17 07:56 Eosinophils # (Manual) 0.1 K/mm3 (0.0-0.4) 10/25/17 07:56 Basophils # (Manual) 0.1 K/mm3 (0.0-0.1) 10/25/17 07:56 Metamyelocytes # 0.0 K/mm3 10/25/17 07:56 Myelocytes # 0.0 K/mm3 10/25/17 07:56 Promyelocytes # 0.0 K/mm3 10/25/17 07:56 Blast Cells # 0.0 K/mm3 10/25/17 07:56 WBC Morphology Not Reportable 10/25/17 07:56 Hypersegmented Neuts Not Reportable 10/25/17 07:56 Hyposegmented Neuts Not Reportable 10/25/17 07:56 Hypogranular Neuts Not Reportable 10/25/17 07:56 Smudge Cells Not Reportable 10/25/17 07:56 Toxic Granulation Not Reportable 10/25/17 07:56 Toxic Vacuolation Not Reportable 10/25/17 07:56 Dohle Bodies Not Reportable 10/25/17 07:56 Pelger-Huet Anomaly Not Reportable 10/25/17 07:56 Cem Rods Not Reportable 10/25/17 07:56 Platelet Estimate Consistent w auto 10/25/17 07:56 Clumped Platelets Not Reportable 10/25/17 07:56 Plt Clumps, EDTA Not Reportable 10/25/17 07:56 Large Platelets Not Reportable 10/25/17 07:56 Giant Platelets Not Reportable 10/25/17 07:56 Platelet Satelliting Not Reportable 10/25/17 07:56 Plt Morphology Comment Not Reportable 10/25/17 07:56 RBC Morphology Normal 10/25/17 07:56 Dimorphic RBCs Not Reportable 10/25/17 07:56 Polychromasia Not Reportable 10/25/17 07:56 Hypochromasia Not Reportable 10/25/17 07:56 Poikilocytosis Not Reportable 10/25/17 07:56 Anisocytosis Not Reportable 10/25/17 07:56 Microcytosis Not Reportable 10/25/17 07:56 Macrocytosis Not Reportable 10/25/17 07:56 Spherocytes Not Reportable 10/25/17 07:56 Pappenheimer Bodies Not Reportable 10/25/17 07:56 Sickle Cells Not Reportable 10/25/17 07:56 Target Cells Not Reportable 10/25/17 07:56 Tear Drop Cells Not Reportable 10/25/17 07:56 Ovalocytes Not Reportable 10/25/17 07:56 Helmet Cells Not Reportable 10/25/17 07:56 Gil-[place] Bodies Not Reportable 10/25/17 07:56 [place] Rings Not Reportable 10/25/17 07:56 Shaw Cells Not Reportable 10/25/17 07:56 Bite Cells Not Reportable 10/25/17 07:56 Crenated Cell Not Reportable 10/25/17 07:56 Elliptocytes Not Reportable 10/25/17 07:56 Acanthocytes (Spur) Not Reportable 10/25/17 07:56 Rouleaux Not Reportable 10/25/17 07:56 Hemoglobin C Crystals Not Reportable 10/25/17 07:56 Schistocytes Not Reportable 10/25/17 07:56 Malaria parasites Not Reportable 10/25/17 07:56 Juan Bodies Not Reportable 10/25/17 07:56 Hem Pathologist Commnt No 10/25/17 07:56 PT 15.4 Sec. (12.2-14.9) H 10/24/17 12:03 INR 1.16 (0.87-1.13) H 10/24/17 12:03 APTT 43.4 Sec. (24.2-36.6) H 10/24/17 12:03 Heparin Anti-Xa Level < 0.10 U.I./ml (0.3-0.7) L 10/24/17 12:03 Sodium 132 mmol/L (137-145) L 10/27/17 05:21 Potassium 4.1 mmol/L (3.6-5.0) 10/27/17 05:21 Chloride 97.9 mmol/L (98-107) L 10/27/17 05:21 Carbon Dioxide 23 mmol/L (22-30) 10/27/17 05:21 Anion Gap 15 mmol/L 10/27/17 05:21 BUN 11 mg/dL (9-20) 10/27/17 05:21 Creatinine 0.6 mg/dL (0.8-1.5) L 10/27/17 05:21 Estimated GFR > 60 ml/min 10/27/17 05:21 BUN/Creatinine Ratio 18 % 10/27/17 05:21 Glucose 117 mg/dL (75-100) H 10/27/17 05:21 POC Glucose 157 (70-105) H 10/26/17 08:59 Osmolality 305 Mosm/kg 10/12/17 06:00 Lactic Acid 1.60 mmol/L (0.7-2.0) 10/13/17 10:36 Calcium 9.1 mg/dL (8.4-10.2) 10/27/17 05:21 Phosphorus 4.10 mg/dL (2.5-4.5) 10/24/17 12:03 Magnesium 1.60 mg/dL (1.7-2.3) L 10/24/17 12:03 Iron 45 ug/dL (49-181) L 10/12/17 06:00 TIBC 131 mcg/dL (250-450) L 10/12/17 06:00 % Saturation 34.35 % 10/12/17 06:00 Transferrin 102 mg/dl (180-329) L 10/12/17 06:00 Total Bilirubin 1.00 mg/dL (0.1-1.2) 10/19/17 07:11 AST 129 units/L (5-40) H 10/19/17 07:11 ALT 73 units/L (7-56) H 10/19/17 07:11 Alkaline Phosphatase 128 units/L (35-129) 10/19/17 07:11 Total Creatine Kinase 154 units/L (55-170) 10/19/17 07:11 C-Reactive Protein 26.70 mg/dL (0.00-1.30) H 10/15/17 20:53 Total Protein 5.6 g/dL (6.3-8.2) L 10/19/17 07:11 Albumin 1.8 g/dL (3.9-5) L 10/19/17 07:11 Albumin/Globulin Ratio 0.5 % 10/19/17 07:11 Urine Color Yellow (Yellow) 10/11/17 Unknown Urine Turbidity Clear (Clear) 10/11/17 Unknown Urine pH 5.0 (5.0-7.0) 10/11/17 Unknown Ur Specific [place] 1.012 (1.003-1.030) 10/11/17 Unknown Urine Protein <15 mg/dl mg/dL (Negative) 10/11/17 Unknown Urine Glucose (UA) Neg mg/dL (Negative) 10/11/17 Unknown Urine Ketones Neg mg/dL (Negative) 10/11/17 Unknown Urine Blood Mod (Negative) 10/11/17 Unknown Urine Nitrite Neg (Negative) 10/11/17 Unknown Urine Bilirubin Neg (Negative) 10/11/17 Unknown Urine Urobilinogen < 2.0 mg/dL (<2.0) 10/11/17 Unknown Ur Leukocyte Esterase Neg (Negative) 10/11/17 Unknown Urine WBC (Auto) 10.0 /HPF (0.0-6.0) H 10/11/17 Unknown Urine RBC (Auto) 15.0 /HPF (0.0-6.0) 10/11/17 Unknown U Epithel Cells (Auto) 1.0 /HPF (0-13.0) 10/11/17 Unknown Urine Mucus Few /HPF 10/11/17 Unknown Urine Osmolality 425 Mosm/kg 10/12/17 13:00 Urine Creatinine 80.2 mg/dL (0.1-20.0) H 10/12/17 13:00 Urine Sodium 10 mmol/L 10/12/17 13:00 Fluid Type Synovial 10/25/17 09:45 Fluid Color [place] 10/25/17 09:45 Fluid Appearance Turbid 10/25/17 09:45 Fluid WBC 47010 /mm3 10/25/17 09:45 Fluid RBC 3300 /mm3 10/25/17 09:45 Fluid Seg Neutrophils 90.0 % 10/25/17 09:45 Fluid Lymphocytes 4.0 % 10/25/17 09:45 Fluid Reactive Lymphs Not Reportable 10/25/17 09:45 Fluid Monocytes 5.0 % 10/25/17 09:45 Fluid Eosinophils 1.0 % 10/25/17 09:45 Fluid Basophils Not Reportable 10/25/17 09:45 Fluid Comment N 10/25/17 09:45 Vancomycin Trough 25.3 ug/mL (5.0-20.0) H 10/16/17 12:01 Hepatitis A IgM Ab Non-reactive (NonReactive) 10/12/17 06:00 Hep Bs Antigen Non-reactive (Negative) 10/12/17 06:00 Hep B Core IgM Ab Non-reactive (NonReactive) 10/12/17 06:00 Hepatitis C Antibody Reactive (NonReactive) A 10/12/17 06:00 HIV 1&2 Antibody Rapid Non react (Non React) 10/16/17 19:27 HIV P24 Antigen Non react (Non React) 10/16/17 19:27 Blood Type O POSITIVE 10/23/17 18:00 Antibody Screen Negative 10/23/17 18:00 Crossmatch See Detail 10/23/17 18:00
[2017-10-27] MEDS: CUBICIN 500 MG in NACL 0.9% 100 ML IV SCH (10:00)
[2017-10-27] MEDS: SODIUM CHLORIDE FLUSH SYRINGE 10 ML IV SCH ×2 (10:52→21:43)
--- NOTE | 2017-10-27 12:30 | Cat Scan Report ---
FINAL REPORT EXAM: CT ANGIO CHEST HISTORY: suspected PE, low hg, low plts, tachycardia TECHNIQUE: CTA of the chest was performed after the administration of intravenous contrast. Reconstructions were included in the coronal and sagittal planes. Rotating MIPS were included. PRIORS: CT of the chest, abdomen and pelvis from 10/18/2017. FINDINGS: Pulmonary arteries and thoracic aorta: The study is adequate for diagnostic purposes. No central or segmental pulmonary embolism. The thoracic aorta is normal in caliber. Lungs and airways: Unchanged partially loculated bilateral pleural effusions. The airways are patent. No bronchiectasis. Patchy bilateral nodular opacities are again seen within lungs. Nodules demonstrate decreased surrounding ground-glass opacities. The nodules overall appear decreased in size. For example the nodule in the anterior aspect of the left upper lobe on series 3, image 114 measures 6 millimeters, previously 9 millimeters. A nodule in the anterolateral aspect of the right upper lobe measures 1.7 centimeters, previously 2.2 centimeters on series 3, image 112. The other scattered nodular opacities appear decreased in size are well. No new nodules are seen. Again some of the lesions demonstrate central cavitation. Mediastinum, heart, pericardium: No mediastinal lymphadenopathy. No cardiac chamber enlargement. No pericardial effusion. Thoracic inlet, chest wall, axilla: No chest wall masses. The visualized portions of the thyroid gland demonstrate no focal lesion. No axillary lymphadenopathy. Upper abdomen: Probable simple bilateral renal cysts are seen. Bones: Degenerative changes are seen in the spine. IMPRESSION: 1. No central or segmental pulmonary embolism. 2. Unchanged partially loculated bilateral pleural effusions. 3. Multiple bilateral pulmonary nodules are again seen which appear mildly decreased in size and with decreased surrounding ground-glass opacities. Again, these nodules may represent atypical pneumonia versus septic emboli however a neoplastic process such as metastatic disease is not completely excluded. Recommend close interval follow-up chest CT in 3-6 months to ensure continued decrease in size or resolution.
--- NOTE | 2017-10-27 12:36 | Event Note ---
Date: 10/27/17 Cardiology Service I was unable to see patient today as he has been off the unit both times I attempted to see him. Gian Curran
[2017-10-28] MEDS: PERCOCET 5/325 PO PRN ×4 (03:07→23:25)
[2017-10-28] MEDS: D5W 1,000 ML IV SCH ×2 (03:08→20:56)
[2017-10-28 07:37] LABS: Basophils # (Auto) 0.1 K/mm3 (0.0-0.1); Basophils % (Auto) 0.9 % (0.0-1.8); Eosinophils # (Auto) 0.2 K/mm3 (0.0-0.4); Eosinophils % (Auto) 1.5 % (0.0-4.3); Hematocrit 22.3 % (35.5-45.6); Hemoglobin 7.4 gm/dl (11.8-15.2); Lymphocytes # (Auto) 1.2 K/mm3 (1.2-5.4); Lymphocytes % (Auto) 11.3 % (13.4-35.0); Mean Corpuscular HGB Conc 33 % (32-34); Mean Corpuscular Hemoglobin 30 pg (28-32); Mean Corpuscular Volume 92 fl (84-94); Monocytes # (Auto) 1.6 K/mm3 (0.0-0.8); Monocytes % (Auto) 14.8 % (0.0-7.3); Platelet Count 340 K/mm3 (140-440); Red Blood Count 2.42 M/mm3 (3.65-5.03); Red Cell Distribution Width 14.5 % (13.2-15.2)
[2017-10-28 07:52] LABS: BUN/Creatinine Ratio 16; Blood Urea Nitrogen 11 mg/dL (9-20); Hemolysis Index 0
--- NOTE | 2017-10-28 10:02 | Progress Note ---
Assessment and Plan MSSA bacteremia INDRA pertinent for normal LVEF; there is a mobile echogenic density in the main pulmonary artery suspicious for either a clot in transit or vegetation. Thrombocytopenia Severe Anemia s/p transfusion of PRBCs IV heparin discontinued. Patient is considered not a candidate for anticoagulation therapy at this time. Conservative cardiac management. Subjective Date of service: 10/28/17 Principal diagnosis: MRSA bacteremia Interval history: Patient is resting in bed comfortably. No cardiac events reported. Objective Vital Signs Temp Pulse Resp BP Pulse Ox 10/28/17 09:26 96 10/28/17 06:25 98.9 F 104 H 18 102/63 96 10/27/17 23:13 99.1 F 105 H 18 106/66 99 10/27/17 22:00 98 10/27/17 17:11 99.4 F 107 H 20 125/71 100 10/27/17 12:19 98.4 F 110 H 20 102/71 98 - Physical Examination General: No Apparent Distress HEENT: Positive: PERRL Cardiac: Positive: Reg Rate and Rhythm - Labs and Meds CBC 10/28/17 Range/Units 07:13 WBC 11.0 (4.5-11.0) K/mm3 RBC 2.42 L (3.65-5.03) M/mm3 Hgb 7.4 L (11.8-15.2) gm/dl Hct 22.3 L (35.5-45.6) % Plt Count 340 (140-440) K/mm3 Lymph # 1.2 (1.2-5.4) K/mm3 [place] # 1.6 H (0.0-0.8) K/mm3 Eos # 0.2 (0.0-0.4) K/mm3 Baso # 0.1 (0.0-0.1) K/mm3 Comprehensive Metabolic Panel 10/28/17 Range/Units 07:13 Sodium 135 L (137-145) mmol/L Potassium 4.4 (3.6-5.0) mmol/L Chloride 97.6 L (98-107) mmol/L Carbon Dioxide 25 (22-30) mmol/L BUN 11 (9-20) mg/dL Creatinine 0.7 L (0.8-1.5) mg/dL Glucose 107 H (75-100) mg/dL Calcium 10.0 (8.4-10.2) mg/dL
[2017-10-28] MEDS: CUBICIN 500 MG in NACL 0.9% 100 ML IV SCH (10:15)
--- NOTE | 2017-10-28 10:34 | Progress Note ---
Assessment and Plan Assessment and plan: CT C/A/P 1. No acute intra-abdominal pathology. 2. Small bilateral pleural effusions with associated atelectasis. 3. Fluid collections involving the right gluteus musculature and the left iliopsoas and obturator muscles. Findings may represent abscesses or seromas. Clinical correlation is recommended. VL venous duplex; no evidence of DVT INDRA' INDRA pertinent for normal LVEF; there is a mobile echogenic density in the main pulmonary artery suspicious for either a clot in transit or vegetation. 10/21, CT-guided aspiration of fluid collection that extends from right hip and gluteal musculature with a total of 40 mL of fluid aspirated and sent to the lab NM WBC scan 10/23; Abnormal radiotracer accumulation in both gluteal regions and left knee. 10/25 CT guided 5 Fr drain placement in the left obturator, pectineus, and rectus femoris with removal of 40 mL of purulent material US guided left knee drainage with removal of 80 mL of purulent material 10/25; ; Pelvic xr; Severe bilateral hip osteoarthritis. 10/27; CTA chest; no PE Severe anemia and thrombocytopenia likely due to prolonged sepsis; transfused 2 units prbc, no evidence of GIB improving, transfuse another 2 units prior to ortho procedure / Acute kidney injury on IVF improving, likely ATN /acute metabolic encephalopathy with delirium likely due to sepsis, improving / Sepsis with persistent bacteremia, MSSA, gram pos with abscess of R gluteus, left iliopsoas, septic emboli in lungs, Left knee abscess on abx, ID input appreciated error with micro lab, not MRSA but MSSA -Sp IR drainage of abscesses, Ortho eval for joint wash out -evidence of Endocarditis; unable to anticoagulate due to severe anemia(may be large vegetation vs mobile thrombus) -will need iv abx for 6-8 weeks -Per ID; continue daptomycin in view of penicillin allergy cannot do ancef -upon discharge will do daptomycin 500 mg IV q day total 8 weeks until 12/19/17. Order sent to correctional counselor/case manager / Hypokalemia Supplemented /Hyponatremia improving with iv fluid / Transaminitis Acute hepatitis profile positive for hepatitis C Patient has no history of alcohol intake [facility] in [facility] 2017 cont to monitor Ataxia; debility; continue PT /DVT prophylaxis Lovenox 30 mg subcutaneous daily GI prophylaxis ordered Brief History: The patient is a 61 YO male with no significant medical problem who is current incarcerated was [facility] for one day h/o abd pain and Outside labs showing elevated creatinine. History Interval history: no more episodes of confusion fever has now resolved No cough, no sputum production continues to have left knee pain, bilat hip pain and buttock pain No vomiting Hospitalist Physical - Physical exam Narrative exam: General.: Appears well, no distress, nontoxic HEENT: Moist mucous membranes, extraocular muscles intact, no lymphadenopathy Neck: supple Cardiac: S1-S2 heard Lungs: clear to auscultation bilaterally Abdomen: soft , nontender, nondistended, bowel sounds positive Extremities: no edema clubbing or cyanosis Skin: old nodular scar rash on arms/legs Neurologic: no gross focal deficits Psych: appropriate behavior, appropriate mood, corporative, judgment intact - Constitutional Vitals: Temp Pulse Resp BP Pulse Ox 98.9 F 104 H 18 102/63 96 10/28/17 06:25 10/28/17 06:25 10/28/17 06:25 10/28/17 06:25 10/28/17 09:26 General appearance: Present: no acute distress Results - Labs CBC & Chem 7: 10/28/17 07:13 10/28/17 07:13 Labs: Laboratory Last Values WBC 11.0 K/mm3 (4.5-11.0) 10/28/17 07:13 RBC 2.42 M/mm3 (3.65-5.03) L 10/28/17 07:13 Hgb 7.4 gm/dl (11.8-15.2) L 10/28/17 07:13 Hct 22.3 % (35.5-45.6) L 10/28/17 07:13 MCV 92 fl (84-94) 10/28/17 07:13 MCH 30 pg (28-32) 10/28/17 07:13 MCHC 33 % (32-34) 10/28/17 07:13 RDW 14.5 % (13.2-15.2) 10/28/17 07:13 Plt Count 340 K/mm3 (140-440) 10/28/17 07:13 Lymph % (Auto) 11.3 % (13.4-35.0) L 10/28/17 07:13 [place] % (Auto) 14.8 % (0.0-7.3) H 10/28/17 07:13 Eos % (Auto) 1.5 % (0.0-4.3) 10/28/17 07:13 Baso % (Auto) 0.9 % (0.0-1.8) 10/28/17 07:13 Lymph # 1.2 K/mm3 (1.2-5.4) 10/28/17 07:13 [place] # 1.6 K/mm3 (0.0-0.8) H 10/28/17 07:13 Eos # 0.2 K/mm3 (0.0-0.4) 10/28/17 07:13 Baso # 0.1 K/mm3 (0.0-0.1) 10/28/17 07:13 Add Manual Diff Complete 10/25/17 07:56 Total Counted 100 10/25/17 07:56 Seg Neutrophils % 71.5 % (40.0-70.0) H 10/28/17 07:13 Seg Neuts % (Manual) 72.0 % (40.0-70.0) H 10/25/17 07:56 Band Neutrophils % 0 % 10/25/17 07:56 Lymphocytes % (Manual) 10.0 % (13.4-35.0) L 10/25/17 07:56 Reactive Lymphs % (Man) 0 % 10/25/17 07:56 Monocytes % (Manual) 16.0 % (0.0-7.3) H 10/25/17 07:56 Eosinophils % (Manual) 1.0 % (0.0-4.3) 10/25/17 07:56 Basophils % (Manual) 1.0 % (0.0-1.8) 10/25/17 07:56 Metamyelocytes % 0 % 10/25/17 07:56 Myelocytes % 0 % 10/25/17 07:56 Promyelocytes % 0 % 10/25/17 07:56 Blast Cells % 0 % 10/25/17 07:56 Nucleated RBC % Not Reportable 10/25/17 07:56 Seg Neutrophils # 7.9 K/mm3 (1.8-7.7) H 10/28/17 07:13 Seg Neutrophils # Man 7.3 K/mm3 (1.8-7.7) 10/25/17 07:56 Band Neutrophils # 0.0 K/mm3 10/25/17 07:56 Lymphocytes # (Manual) 1.0 K/mm3 (1.2-5.4) L 10/25/17 07:56 Abs React Lymphs (Man) 0.0 K/mm3 10/25/17 07:56 Monocytes # (Manual) 1.6 K/mm3 (0.0-0.8) H 10/25/17 07:56 Eosinophils # (Manual) 0.1 K/mm3 (0.0-0.4) 10/25/17 07:56 Basophils # (Manual) 0.1 K/mm3 (0.0-0.1) 10/25/17 07:56 Metamyelocytes # 0.0 K/mm3 10/25/17 07:56 Myelocytes # 0.0 K/mm3 10/25/17 07:56 Promyelocytes # 0.0 K/mm3 10/25/17 07:56 Blast Cells # 0.0 K/mm3 10/25/17 07:56 WBC Morphology Not Reportable 10/25/17 07:56 Hypersegmented Neuts Not Reportable 10/25/17 07:56 Hyposegmented Neuts Not Reportable 10/25/17 07:56 Hypogranular Neuts Not Reportable 10/25/17 07:56 Smudge Cells Not Reportable 10/25/17 07:56 Toxic Granulation Not Reportable 10/25/17 07:56 Toxic Vacuolation Not Reportable 10/25/17 07:56 Dohle Bodies Not Reportable 10/25/17 07:56 Pelger-Huet Anomaly Not Reportable 10/25/17 07:56 Cem Rods Not Reportable 10/25/17 07:56 Platelet Estimate Consistent w auto 10/25/17 07:56 Clumped Platelets Not Reportable 10/25/17 07:56 Plt Clumps, EDTA Not Reportable 10/25/17 07:56 Large Platelets Not Reportable 10/25/17 07:56 Giant Platelets Not Reportable 10/25/17 07:56 Platelet Satelliting Not Reportable 10/25/17 07:56 Plt Morphology Comment Not Reportable 10/25/17 07:56 RBC Morphology Normal 10/25/17 07:56 Dimorphic RBCs Not Reportable 10/25/17 07:56 Polychromasia Not Reportable 10/25/17 07:56 Hypochromasia Not Reportable 10/25/17 07:56 Poikilocytosis Not Reportable 10/25/17 07:56 Anisocytosis Not Reportable 10/25/17 07:56 Microcytosis Not Reportable 10/25/17 07:56 Macrocytosis Not Reportable 10/25/17 07:56 Spherocytes Not Reportable 10/25/17 07:56 Pappenheimer Bodies Not Reportable 10/25/17 07:56 Sickle Cells Not Reportable 10/25/17 07:56 Target Cells Not Reportable 10/25/17 07:56 Tear Drop Cells Not Reportable 10/25/17 07:56 Ovalocytes Not Reportable 10/25/17 07:56 Helmet Cells Not Reportable 10/25/17 07:56 [place] Bodies Not Reportable 10/25/17 07:56 Bruin Rings Not Reportable 10/25/17 07:56 [place] Cells Not Reportable 10/25/17 07:56 Bite Cells Not Reportable 10/25/17 07:56 Crenated Cell Not Reportable 10/25/17 07:56 Elliptocytes Not Reportable 10/25/17 07:56 Acanthocytes (Spur) Not Reportable 10/25/17 07:56 Rouleaux Not Reportable 10/25/17 07:56 Hemoglobin C Crystals Not Reportable 10/25/17 07:56 Schistocytes Not Reportable 10/25/17 07:56 Malaria parasites Not Reportable 10/25/17 07:56 Juan Bodies Not Reportable 10/25/17 07:56 Hem Pathologist Commnt No 10/25/17 07:56 PT 15.4 Sec. (12.2-14.9) H 10/24/17 12:03 INR 1.16 (0.87-1.13) H 10/24/17 12:03 APTT 43.4 Sec. (24.2-36.6) H 10/24/17 12:03 Heparin Anti-Xa Level < 0.10 U.I./ml (0.3-0.7) L 10/24/17 12:03 Sodium 135 mmol/L (137-145) L 10/28/17 07:13 Potassium 4.4 mmol/L (3.6-5.0) 10/28/17 07:13 Chloride 97.6 mmol/L (98-107) L 10/28/17 07:13 Carbon Dioxide 25 mmol/L (22-30) 10/28/17 07:13 Anion Gap 17 mmol/L 10/28/17 07:13 BUN 11 mg/dL (9-20) 10/28/17 07:13 Creatinine 0.7 mg/dL (0.8-1.5) L 10/28/17 07:13 Estimated GFR > 60 ml/min 10/28/17 07:13 BUN/Creatinine Ratio 16 % 10/28/17 07:13 Glucose 107 mg/dL (75-100) H 10/28/17 07:13 POC Glucose 157 (70-105) H 10/26/17 08:59 Osmolality 305 Mosm/kg 10/12/17 06:00 Lactic Acid 1.60 mmol/L (0.7-2.0) 10/13/17 10:36 Calcium 10.0 mg/dL (8.4-10.2) 10/28/17 07:13 Phosphorus 4.10 mg/dL (2.5-4.5) 10/24/17 12:03 Magnesium 1.60 mg/dL (1.7-2.3) L 10/24/17 12:03 Iron 45 ug/dL (49-181) L 10/12/17 06:00 TIBC 131 mcg/dL (250-450) L 10/12/17 06:00 % Saturation 34.35 % 10/12/17 06:00 Transferrin 102 mg/dl (180-329) L 10/12/17 06:00 Total Bilirubin 1.00 mg/dL (0.1-1.2) 10/19/17 07:11 AST 129 units/L (5-40) H 10/19/17 07:11 ALT 73 units/L (7-56) H 10/19/17 07:11 Alkaline Phosphatase 128 units/L (35-129) 10/19/17 07:11 Total Creatine Kinase 385 units/L (55-170) H 10/28/17 07:13 C-Reactive Protein 26.70 mg/dL (0.00-1.30) H 10/15/17 20:53 Total Protein 5.6 g/dL (6.3-8.2) L 10/19/17 07:11 Albumin 1.8 g/dL (3.9-5) L 10/19/17 07:11 Albumin/Globulin Ratio 0.5 % 10/19/17 07:11 Urine Color Yellow (Yellow) 10/11/17 Unknown Urine Turbidity Clear (Clear) 10/11/17 Unknown Urine pH 5.0 (5.0-7.0) 10/11/17 Unknown Ur Specific [place] 1.012 (1.003-1.030) 10/11/17 Unknown Urine Protein <15 mg/dl mg/dL (Negative) 10/11/17 Unknown Urine Glucose (UA) Neg mg/dL (Negative) 10/11/17 Unknown Urine Ketones Neg mg/dL (Negative) 10/11/17 Unknown Urine Blood Mod (Negative) 10/11/17 Unknown Urine Nitrite Neg (Negative) 10/11/17 Unknown Urine Bilirubin Neg (Negative) 10/11/17 Unknown Urine Urobilinogen < 2.0 mg/dL (<2.0) 10/11/17 Unknown Ur Leukocyte Esterase Neg (Negative) 10/11/17 Unknown Urine WBC (Auto) 10.0 /HPF (0.0-6.0) H 10/11/17 Unknown Urine RBC (Auto) 15.0 /HPF (0.0-6.0) 10/11/17 Unknown U Epithel Cells (Auto) 1.0 /HPF (0-13.0) 10/11/17 Unknown Urine Mucus Few /HPF 10/11/17 Unknown Urine Osmolality 425 Mosm/kg 10/12/17 13:00 Urine Creatinine 80.2 mg/dL (0.1-20.0) H 10/12/17 13:00 Urine Sodium 10 mmol/L 10/12/17 13:00 Fluid Type Synovial 10/25/17 09:45 Fluid Color [place] 10/25/17 09:45 Fluid Appearance Turbid 10/25/17 09:45 Fluid WBC 59615 /mm3 10/25/17 09:45 Fluid RBC 3300 /mm3 10/25/17 09:45 Fluid Seg Neutrophils 90.0 % 10/25/17 09:45 Fluid Lymphocytes 4.0 % 10/25/17 09:45 Fluid Reactive Lymphs Not Reportable 10/25/17 09:45 Fluid Monocytes 5.0 % 10/25/17 09:45 Fluid Eosinophils 1.0 % 10/25/17 09:45 Fluid Basophils Not Reportable 10/25/17 09:45 Fluid Comment N 10/25/17 09:45 Vancomycin Trough 25.3 ug/mL (5.0-20.0) H 10/16/17 12:01 Hepatitis A IgM Ab Non-reactive (NonReactive) 10/12/17 06:00 Hep Bs Antigen Non-reactive (Negative) 10/12/17 06:00 Hep B Core IgM Ab Non-reactive (NonReactive) 10/12/17 06:00 Hepatitis C Antibody Reactive (NonReactive) A 10/12/17 06:00 HIV 1&2 Antibody Rapid Non react (Non React) 10/16/17 19:27 HIV P24 Antigen Non react (Non React) 10/16/17 19:27 Blood Type O POSITIVE 10/23/17 18:00 Antibody Screen Negative 10/23/17 18:00 Crossmatch See Detail 10/23/17 18:00
--- NOTE | 2017-10-28 14:11 | Progress Note ---
Assessment and Plan Assessment - septic joint anemia Plan - Irrigation and debridement left knee and right thigh/hip joint will require transfusion prior to surgery for low bld count.... Subjective Date of service: 10/28/17 Principal diagnosis: MRSA bacteremia Interval history: Discussed treatment options with the patient, advised to undergo I & D left knee and possibly right thigh tomorrow... Objective Vital signs: Vital Signs - 12hr 10/28/17 10/28/17 10/28/17 06:25 09:26 11:30 Temperature 98.9 F 99.7 F H Pulse Rate 104 H 112 H Respiratory 18 20 Rate Blood Pressure 102/63 108/69 O2 Sat by Pulse 96 96 96 Oximetry - Labs CBC & BMP: 10/28/17 07:13 10/28/17 07:13 Labs: Abnormal lab results 10/28/17 10/28/17 Range/Units 07:13 07:13 RBC 2.42 L (3.65-5.03) M/mm3 Hgb 7.4 L (11.8-15.2) gm/dl Hct 22.3 L (35.5-45.6) % Lymph % (Auto) 11.3 L (13.4-35.0) % [place] % (Auto) 14.8 H (0.0-7.3) % [place] # 1.6 H (0.0-0.8) K/mm3 Seg Neutrophils % 71.5 H (40.0-70.0) % Seg Neutrophils # 7.9 H (1.8-7.7) K/mm3 Sodium 135 L (137-145) mmol/L Chloride 97.6 L (98-107) mmol/L Creatinine 0.7 L (0.8-1.5) mg/dL Glucose 107 H (75-100) mg/dL Total Creatine Kinase 385 H (55-170) units/L
[2017-10-28] MEDS: SODIUM CHLORIDE FLUSH SYRINGE 10 ML IV SCH ×2 (14:23→22:00)
--- NOTE | 2017-10-28 15:35 | Progress Note ---
Assessment and Plan Assessment: 1) Severe sepsis: resolved. Etiology most likely MSSA septicemia. 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 skin rash -blood cx 10/13 MSSA 4 of 4 bottles -blood cx 10/14 MSSA 4 of 4 bottles -blood cx 10/19 MSSA 2 of 4 -blood cx 10/21 MSSA 1 of 4 -blood cx 10/25 negative -TTE no obvious vegetations -INDRA mobile echogenic density in the main pulmonary artery suspicious for either a clot in transit or vegetation. -CT showed right gluteal collection vs myositis 7.5x2.5.cm, left ilepsoas abscess 6x3.5 cm, loculated bilateral small pleural effusions with ill defined solid opacities ? nodules vs. ?emboli with reactive axillary, hilar and mediastinal LNs. -S/P right hip aspiration yieling 40cc fluid on 10/21 cx +MSSA -WBC scan showed left large knee effusion and multiple soft tissue abscesses pelvic areas -S/P left obturator pectineous and rectus femoris drainage 40 cc purulence -S/P left knee aspiration 80cc purulence 3) DARRICK - resolved 4) Thrombocytopenia: from sepsis/HCV- resolved 5) HCV serology positive 6) Elevated LFTs: from sepsis and HCV 7) Rhabdomyolysis: from sepsis 8) Lower back pain and leg weakness 9) Pen allergy - hives 10) Severe anemia after Heprin gtt Plan: -appreciate Dr Herrera's input-to the OR tomorrow for joints wash out after anemia is corrected -f/u repeat blood cx -continue daptomycin in view of penicillin allergy cannot do ancef -upon discharge will do daptomycin 500 mg IV q day total 8 weeks until 12/19/17. Order sent to case assistant Discussed with Dr Herrera Thank you for your consultation, will follow up with you. Jordana Viramontes MD Infectious Diseases Specialist [facility] ([facility] M [phone] O [phone] Subjective Date of service: 10/28/17 Principal diagnosis: MRSA bacteremia Interval history: feels better, more alert, talking, tmax 99 Microbiology: Blood cultures: 10/13 MSSA 4 of 4 bottles (initially reported as MRSA by error) 10/14 MSSA 4 of 4 bottles 10/19 MSSA 2 of 4 10/21 MSSA 1 of 4 10/25 negative Right hip cx: Gram stain no organism seen Urine cultures: Respiratory cultures: Current Antimicrobials: Dapto 10/17 Previous Antimicrobials: Zosyn Vancomycin 10/14 Objective - Exam Narrative Exam: General appearance: Alert in NAD, Eyes: anicteric sclerae, moist conjunctivae; no lid-lag; PERRLA HENT: Atraumatic; oropharynx clear Neck: Trachea midline; supple, no thyromegaly or lymphadenopathy Lungs: CTA, with normal respiratory effort and no intercostal retractions CV: RRR Abdomen: Soft, non-tender; no masses or hepatosplenomegaly Extremities: right hip/gluteal tenderness and edema, left thigh tenderness, left knee tenderness Skin: old nodular scar rash on arms/legs Psych: Appropriate affect, alert and oriented to person, place and time. Neuro: alert and oriented x 3. Moving all extermities Lines: No CVL / PICC - Constitutional Vitals: Vital Signs Temp Pulse Resp BP Pulse Ox 99.7 F H 112 H 20 108/69 96 10/28/17 11:30 10/28/17 11:30 10/28/17 11:30 10/28/17 11:30 10/28/17 11:30 Temperature -Last 24 Hours Temperature 99.7 F Temperature 98.9 F Temperature 99.1 F Temperature 99.4 F - Labs CBC & Chem 7: 10/28/17 07:13 10/28/17 07:13 Labs: Abnormal lab results 10/28/17 10/28/17 Range/Units 07:13 07:13 RBC 2.42 L (3.65-5.03) M/mm3 Hgb 7.4 L (11.8-15.2) gm/dl Hct 22.3 L (35.5-45.6) % Lymph % (Auto) 11.3 L (13.4-35.0) % [place] % (Auto) 14.8 H (0.0-7.3) % [place] # 1.6 H (0.0-0.8) K/mm3 Seg Neutrophils % 71.5 H (40.0-70.0) % Seg Neutrophils # 7.9 H (1.8-7.7) K/mm3 Sodium 135 L (137-145) mmol/L Chloride 97.6 L (98-107) mmol/L Creatinine 0.7 L (0.8-1.5) mg/dL Glucose 107 H (75-100) mg/dL Total Creatine Kinase 385 H (55-170) units/L
[2017-10-28] MEDS ORDERED: NACL 0.9% 500 ML 500 ML IV NR (16:37)
[2017-10-29] MEDS: TYLENOL PO PRN (00:37)
[2017-10-29] MEDS ORDERED: NACL 0.9% 500 ML 500 ML ONE (04:27)
[2017-10-29 09:14] LABS: Basophils # (Auto) 0.1 K/mm3 (0.0-0.1); Basophils % (Auto) 1.2 % (0.0-1.8); Eosinophils # (Auto) 0.1 K/mm3 (0.0-0.4); Eosinophils % (Auto) 0.5 % (0.0-4.3); Hematocrit 28.2 % (35.5-45.6); Hemoglobin 9.4 gm/dl (11.8-15.2); Lymphocytes % (Auto) 8.2 % (13.4-35.0); Mean Corpuscular HGB Conc 34 % (32-34); Mean Corpuscular Hemoglobin 31 pg (28-32); Mean Corpuscular Volume 91 fl (84-94); Monocytes # (Auto) 1.8 K/mm3 (0.0-0.8); Monocytes % (Auto) 14.5 % (0.0-7.3); Platelet Count 327 K/mm3 (140-440); Red Cell Distribution Width 15.9 % (13.2-15.2)
--- NOTE | 2017-10-29 09:26 | Progress Note ---
Assessment and Plan MSSA septicemia INDRA pertinent for normal LVEF; there is a mobile echogenic density in the main pulmonary artery suspicious for either a clot in transit or vegetation. Septic joint Thrombocytopenia Severe Anemia s/p transfusion of PRBCs IV heparin discontinued. Patient is considered not a candidate for anticoagulation therapy at this time. Conservative cardiac management. Subjective Date of service: 10/29/17 Principal diagnosis: MRSA bacteremia Interval history: Patient is resting in bed comfortably. He has no complaints. Awaits planned irrigation and debridement left knee and right thigh/hip joint. Objective Vital Signs Temp Pulse Resp BP BP Pulse Ox 10/29/17 07:22 98.9 F 104 H 18 109/72 96 10/29/17 06:52 98.7 F 106 H 18 113/71 97 10/29/17 06:22 98.9 F 103 H 18 102/70 95 10/29/17 05:52 99.3 F 101 H 18 108/75 99 10/29/17 05:22 99.2 F 106 H 18 102/67 100 10/29/17 04:52 99.0 F 104 H 18 104/71 98 10/29/17 04:44 98.0 F 104 H 18 106/70 98 10/29/17 04:43 99.2 F 101 H 18 111/69 97 10/29/17 04:37 99.2 F 100 H 18 111/69 92 10/29/17 04:31 99.3 F 103 H 18 104/66 96 10/29/17 04:12 98.7 F 106 H 18 104/70 95 10/29/17 03:28 99.5 F 104 H 18 106/70 97 10/29/17 02:32 99.7 F H 106 H 18 105/72 96 10/29/17 01:42 100.1 F H 111 H 18 106/66 97 10/29/17 00:02 100.8 F H 120 H 18 112/68 95 10/28/17 23:17 99.4 F 123 H 18 115/80 97 10/28/17 22:58 99.0 F 126 H 18 120/80 98 10/28/17 22:19 98.8 F 122 H 18 114/82 98 10/28/17 21:55 99.6 F 121 H 18 119/84 98 10/28/17 21:37 98.3 F 117 H 18 108/77 98 10/28/17 21:29 115 H 97 10/28/17 21:26 99.7 F H 119 H 18 104/69 98 10/28/17 21:22 99.7 F H 117 H 18 107/73 98 10/28/17 21:19 99.1 F 117 H 18 104/73 98 10/28/17 21:06 117 H 99 10/28/17 20:53 99.7 F H 118 H 18 116/72 100 10/28/17 20:05 98.1 F 118 H 18 102/68 98 10/28/17 18:23 98.7 F 121 H 20 99/62 97 10/28/17 11:30 99.7 F H 112 H 20 108/69 96 10/28/17 09:26 96 - Physical Examination General: No Apparent Distress HEENT: Positive: PERRL Cardiac: Positive: Tachycardia - Labs and Meds CBC 10/29/17 Range/Units 08:28 WBC 12.2 H (4.5-11.0) K/mm3 RBC 3.10 L (3.65-5.03) M/mm3 Hgb 9.4 L (11.8-15.2) gm/dl Hct 28.2 L (35.5-45.6) % Plt Count 327 (140-440) K/mm3 Lymph # 1.0 L (1.2-5.4) K/mm3 [place] # 1.8 H (0.0-0.8) K/mm3 Eos # 0.1 (0.0-0.4) K/mm3 Baso # 0.1 (0.0-0.1) K/mm3
[2017-10-29 09:32] LABS: BUN/Creatinine Ratio 16; Blood Urea Nitrogen 11 mg/dL (9-20); Calcium 10.6 mg/dL (8.4-10.2); Hemolysis Index 3
--- NOTE | 2017-10-29 10:03 | Vascular Lab Report ---
LOWER EXTREMITY VENOUS DUPLEX: REASON FOR EXAM: Deep venous thrombosis. COMMENTS ON THE RIGHT: All veins visualized are freely compressible without evidence of internal echogenicity. Flow is spontaneous and phasic throughout. COMMENTS ON THE LEFT: All veins visualized are freely compressible without evidence of internal echogenicity. Flow is spontaneous and phasic throughout. IMPRESSION: No evidence of acute or chronic deep venous thrombosis in either lower extremity.
--- NOTE | 2017-10-29 10:29 | Progress Note ---
Assessment and Plan Assessment: 1) Severe sepsis: resolved. Etiology most likely MSSA septicemia. 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 skin boils -blood cx 10/13 MSSA 4 of 4 bottles -blood cx 10/14 MSSA 4 of 4 bottles -blood cx 10/19 MSSA 2 of 4 -blood cx 10/21 MSSA 1 of 4 -blood cx 10/25 negative -TTE no obvious vegetations -INDRA mobile echogenic density in the main pulmonary artery suspicious for either a clot in transit or vegetation. -CT showed right gluteal collection vs myositis 7.5x2.5.cm, left ilepsoas abscess 6x3.5 cm, loculated bilateral small pleural effusions with ill defined solid opacities ? nodules vs. ?emboli with reactive axillary, hilar and mediastinal LNs. -S/P right hip aspiration yieling 40cc fluid on 10/21 cx +MSSA -WBC scan showed left large knee effusion and multiple soft tissue abscesses pelvic areas -S/P left obturator pectineous and rectus femoris drainage 40 cc purulence -S/P left knee aspiration 80cc purulence 3) DARRICK - resolved 4) Thrombocytopenia: from sepsis/HCV- resolved 5) HCV serology positive 6) Elevated LFTs: from sepsis and HCV 7) Rhabdomyolysis: from sepsis 8) Lower back pain and leg weakness 9) Pen allergy - hives 10) Severe anemia after Heparin gtt Plan: -to the OR tomorrow for joints wash out -f/u repeat blood cx -continue daptomycin in view of penicillin allergy cannot do ancef -upon discharge will do daptomycin 500 mg IV q day total 8 weeks until 12/19/17. Order sent to case folder Discussed with pt Thank you for your consultation, will follow up with you. Jordana Viramontes MD Infectious Diseases Specialist [facility] M [phone] O [phone] Subjective Date of service: 10/29/17 Principal diagnosis: MRSA bacteremia Interval history: feels better, more alert, talking, tmax 99.2, c/o left knee pain Microbiology: Blood cultures: 10/13 MSSA 4 of 4 bottles (initially reported as MRSA by error) 10/14 MSSA 4 of 4 bottles 10/19 MSSA 2 of 4 10/21 MSSA 1 of 4 6/29 negative Right hip cx: 10/21 MSSA Left knee cx : 10/25 MSSA Urine cultures: Respiratory cultures: Current Antimicrobials: Dapto 10/17 Previous Antimicrobials: Zosyn Vancomycin 10/14 Objective - Exam Narrative Exam: General appearance: Alert in NAD, Eyes: anicteric sclerae, moist conjunctivae; no lid-lag; PERRLA HENT: Atraumatic; oropharynx clear Neck: Trachea midline; supple, no thyromegaly or lymphadenopathy Lungs: CTA, with normal respiratory effort and no intercostal retractions CV: RRR Abdomen: Soft, non-tender; no masses or hepatosplenomegaly Extremities: right hip/gluteal tenderness and edema, left thigh tenderness, left knee tenderness Skin: old nodular scar rash on arms/legs Psych: Appropriate affect, alert and oriented to person, place and time. Neuro: alert and oriented x 3. Moving all extermities Lines: No CVL / PICC - Constitutional Vitals: Vital Signs Temp Pulse Resp BP Pulse Ox 98.9 F 104 H 18 109/72 96 10/29/17 07:22 10/29/17 07:22 10/29/17 07:22 10/29/17 07:22 10/29/17 07:22 Temperature -Last 24 Hours Temperature 98.9 F Temperature 98.7 F Temperature 98.9 F Temperature 99.3 F Temperature 99.2 F Temperature 99.0 F Temperature 98.0 F Temperature 98.0 F Temperature 99.2 F Temperature 99.2 F Temperature 99.3 F Temperature 98.7 F Temperature 99.5 F Temperature 99.7 F Temperature 100.1 F Temperature 100.8 F Temperature 99.4 F Temperature 99.0 F Temperature 98.8 F Temperature 99.6 F Temperature 98.3 F Temperature 99.7 F Temperature 99.7 F Temperature 99.1 F Temperature 99.7 F Temperature 98.1 F Temperature 98.7 F Temperature 99.7 F - Labs CBC & Chem 7: 10/29/17 08:28 10/29/17 08:28 Labs: Abnormal lab results 10/28/17 10/29/17 10/29/17 Range/Units 19:03 08:28 08:28 WBC 12.2 H (4.5-11.0) K/mm3 RBC 3.10 L (3.65-5.03) M/mm3 Hgb 9.4 L (11.8-15.2) gm/dl Hct 28.2 L (35.5-45.6) % RDW 15.9 H (13.2-15.2) % Lymph % (Auto) 8.2 L (13.4-35.0) % [place] % (Auto) 14.5 H (0.0-7.3) % Lymph # 1.0 L (1.2-5.4) K/mm3 [place] # 1.8 H (0.0-0.8) K/mm3 Seg Neutrophils % 75.6 H (40.0-70.0) % Seg Neutrophils # 9.3 H (1.8-7.7) K/mm3 Sodium 134 L (137-145) mmol/L Chloride 97.2 L (98-107) mmol/L Creatinine 0.7 L (0.8-1.5) mg/dL Glucose 109 H (75-100) mg/dL Calcium 10.6 H (8.4-10.2) mg/dL Crossmatch See Detail
[2017-10-29] MEDS: CUBICIN 500 MG in NACL 0.9% 100 ML IV SCH (10:40)
[2017-10-29] MEDS: SODIUM CHLORIDE FLUSH SYRINGE 10 ML IV SCH (10:41)
[2017-10-29] MEDS: MORPHINE IV PRN (14:29)
[2017-10-29] MEDS: D5W 1,000 ML IV SCH (14:49)
--- NOTE | 2017-10-29 18:29 | Progress Note ---
Assessment and Plan Assessment and plan: CT C/A/P 1. No acute intra-abdominal pathology. 2. Small bilateral pleural effusions with associated atelectasis. 3. Fluid collections involving the right gluteus musculature and the left iliopsoas and obturator muscles. Findings may represent abscesses or seromas. Clinical correlation is recommended. VL venous duplex; no evidence of DVT INDRA' INDRA pertinent for normal LVEF; there is a mobile echogenic density in the main pulmonary artery suspicious for either a clot in transit or vegetation. 10/21, CT-guided aspiration of fluid collection that extends from right hip and gluteal musculature with a total of 40 mL of fluid aspirated and sent to the lab NM WBC scan 10/23; Abnormal radiotracer accumulation in both gluteal regions and left knee. 10/25 CT guided 5 Fr drain placement in the left obturator, pectineus, and rectus femoris with removal of 40 mL of purulent material US guided left knee drainage with removal of 80 mL of purulent material 10/25; ; Pelvic xr; Severe bilateral hip osteoarthritis. 10/27; CTA chest; no PE Severe anemia and thrombocytopenia likely due to prolonged sepsis; transfused 4 units prbc, no evidence of GIB improving / Acute kidney injury on IVF improving, likely ATN /acute metabolic encephalopathy with delirium likely due to sepsis, improving / Sepsis with persistent bacteremia, MSSA, gram pos with abscess of R gluteus, left iliopsoas, septic emboli in lungs, Left knee abscess on abx, ID input appreciated error with micro lab, not MRSA but MSSA -Sp IR drainage of abscesses, Ortho eval for joint wash out -evidence of Endocarditis; unable to anticoagulate due to severe anemia(may be large vegetation vs mobile thrombus) -will need iv abx for 6-8 weeks -Per ID; continue daptomycin in view of penicillin allergy cannot do ancef -upon discharge will do daptomycin 500 mg IV q day total 8 weeks until 12/19/17. Order sent to family independence case manager / Hypokalemia Supplemented /Hyponatremia improving with iv fluid / Transaminitis Acute hepatitis profile positive for hepatitis C Patient has no history of alcohol intake He is in the long-term since april 2017 cont to monitor Ataxia; debility; continue PT /DVT prophylaxis Lovenox 30 mg subcutaneous daily GI prophylaxis ordered Brief History: The patient is a 61 YO male with no significant medical problem who is current incarcerated was sent from the long-term for one day h/o abd pain and Outside labs showing elevated creatinine. History Interval history: no more episodes of confusion fever has now resolved No cough, no sputum production continues to have left knee pain, bilat hip pain and buttock pain No vomiting Hospitalist Physical - Physical exam Narrative exam: General.: Appears well, no distress, nontoxic HEENT: Moist mucous membranes, extraocular muscles intact, no lymphadenopathy Neck: supple Cardiac: S1-S2 heard Lungs: clear to auscultation bilaterally Abdomen: soft , nontender, nondistended, bowel sounds positive Extremities: no edema clubbing or cyanosis Skin: old nodular scar rash on arms/legs Neurologic: no gross focal deficits Psych: appropriate behavior, appropriate mood, corporative, judgment intact - Constitutional Vitals: Temp Pulse Resp BP Pulse Ox 99.7 F H 105 H 22 110/76 97 10/29/17 16:46 10/29/17 16:46 10/29/17 16:46 10/29/17 16:46 10/29/17 16:46 General appearance: Present: no acute distress Results - Labs CBC & Chem 7: 10/29/17 08:28 10/29/17 08:28 Labs: Laboratory Last Values WBC 12.2 K/mm3 (4.5-11.0) H 10/29/17 08:28 RBC 3.10 M/mm3 (3.65-5.03) L 10/29/17 08:28 Hgb 9.4 gm/dl (11.8-15.2) L 10/29/17 08:28 Hct 28.2 % (35.5-45.6) L 10/29/17 08:28 MCV 91 fl (84-94) 10/29/17 08:28 MCH 31 pg (28-32) 10/29/17 08:28 MCHC 34 % (32-34) 10/29/17 08:28 RDW 15.9 % (13.2-15.2) H 10/29/17 08:28 Plt Count 327 K/mm3 (140-440) 10/29/17 08:28 Lymph % (Auto) 8.2 % (13.4-35.0) L 10/29/17 08:28 [place] % (Auto) 14.5 % (0.0-7.3) H 10/29/17 08:28 Eos % (Auto) 0.5 % (0.0-4.3) 10/29/17 08:28 Baso % (Auto) 1.2 % (0.0-1.8) 10/29/17 08:28 Lymph # 1.0 K/mm3 (1.2-5.4) L 10/29/17 08:28 [place] # 1.8 K/mm3 (0.0-0.8) H 10/29/17 08:28 Eos # 0.1 K/mm3 (0.0-0.4) 10/29/17 08:28 Baso # 0.1 K/mm3 (0.0-0.1) 10/29/17 08:28 Add Manual Diff Complete 10/25/17 07:56 Total Counted 100 10/25/17 07:56 Seg Neutrophils % 75.6 % (40.0-70.0) H 10/29/17 08:28 Seg Neuts % (Manual) 72.0 % (40.0-70.0) H 10/25/17 07:56 Band Neutrophils % 0 % 10/25/17 07:56 Lymphocytes % (Manual) 10.0 % (13.4-35.0) L 10/25/17 07:56 Reactive Lymphs % (Man) 0 % 10/25/17 07:56 Monocytes % (Manual) 16.0 % (0.0-7.3) H 10/25/17 07:56 Eosinophils % (Manual) 1.0 % (0.0-4.3) 10/25/17 07:56 Basophils % (Manual) 1.0 % (0.0-1.8) 10/25/17 07:56 Metamyelocytes % 0 % 10/25/17 07:56 Myelocytes % 0 % 10/25/17 07:56 Promyelocytes % 0 % 10/25/17 07:56 Blast Cells % 0 % 10/25/17 07:56 Nucleated RBC % Not Reportable 10/25/17 07:56 Seg Neutrophils # 9.3 K/mm3 (1.8-7.7) H 10/29/17 08:28 Seg Neutrophils # Man 7.3 K/mm3 (1.8-7.7) 10/25/17 07:56 Band Neutrophils # 0.0 K/mm3 10/25/17 07:56 Lymphocytes # (Manual) 1.0 K/mm3 (1.2-5.4) L 10/25/17 07:56 Abs React Lymphs (Man) 0.0 K/mm3 10/25/17 07:56 Monocytes # (Manual) 1.6 K/mm3 (0.0-0.8) H 10/25/17 07:56 Eosinophils # (Manual) 0.1 K/mm3 (0.0-0.4) 10/25/17 07:56 Basophils # (Manual) 0.1 K/mm3 (0.0-0.1) 10/25/17 07:56 Metamyelocytes # 0.0 K/mm3 10/25/17 07:56 Myelocytes # 0.0 K/mm3 10/25/17 07:56 Promyelocytes # 0.0 K/mm3 10/25/17 07:56 Blast Cells # 0.0 K/mm3 10/25/17 07:56 WBC Morphology Not Reportable 10/25/17 07:56 Hypersegmented Neuts Not Reportable 10/25/17 07:56 Hyposegmented Neuts Not Reportable 10/25/17 07:56 Hypogranular Neuts Not Reportable 10/25/17 07:56 Smudge Cells Not Reportable 10/25/17 07:56 Toxic Granulation Not Reportable 10/25/17 07:56 Toxic Vacuolation Not Reportable 10/25/17 07:56 Dohle Bodies Not Reportable 10/25/17 07:56 Pelger-Huet Anomaly Not Reportable 10/25/17 07:56 Cem Rods Not Reportable 10/25/17 07:56 Platelet Estimate Consistent w auto 10/25/17 07:56 Clumped Platelets Not Reportable 10/25/17 07:56 Plt Clumps, EDTA Not Reportable 10/25/17 07:56 Large Platelets Not Reportable 10/25/17 07:56 Giant Platelets Not Reportable 10/25/17 07:56 Platelet Satelliting Not Reportable 10/25/17 07:56 Plt Morphology Comment Not Reportable 10/25/17 07:56 RBC Morphology Normal 10/25/17 07:56 Dimorphic RBCs Not Reportable 10/25/17 07:56 Polychromasia Not Reportable 10/25/17 07:56 Hypochromasia Not Reportable 10/25/17 07:56 Poikilocytosis Not Reportable 10/25/17 07:56 Anisocytosis Not Reportable 10/25/17 07:56 Microcytosis Not Reportable 10/25/17 07:56 Macrocytosis Not Reportable 10/25/17 07:56 Spherocytes Not Reportable 10/25/17 07:56 Pappenheimer Bodies Not Reportable 10/25/17 07:56 Sickle Cells Not Reportable 10/25/17 07:56 Target Cells Not Reportable 10/25/17 07:56 Tear Drop Cells Not Reportable 10/25/17 07:56 Ovalocytes Not Reportable 10/25/17 07:56 Helmet Cells Not Reportable 10/25/17 07:56 [place] Bodies Not Reportable 10/25/17 07:56 [place] Rings Not Reportable 10/25/17 07:56 [place] Cells Not Reportable 10/25/17 07:56 Bite Cells Not Reportable 10/25/17 07:56 Crenated Cell Not Reportable 10/25/17 07:56 Elliptocytes Not Reportable 10/25/17 07:56 Acanthocytes (Spur) Not Reportable 10/25/17 07:56 Rouleaux Not Reportable 10/25/17 07:56 Hemoglobin C Crystals Not Reportable 10/25/17 07:56 Schistocytes Not Reportable 10/25/17 07:56 Malaria parasites Not Reportable 10/25/17 07:56 Juan Bodies Not Reportable 10/25/17 07:56 Hem Pathologist Commnt No 10/25/17 07:56 PT 15.4 Sec. (12.2-14.9) H 10/24/17 12:03 INR 1.16 (0.87-1.13) H 10/24/17 12:03 APTT 43.4 Sec. (24.2-36.6) H 10/24/17 12:03 Heparin Anti-Xa Level < 0.10 U.I./ml (0.3-0.7) L 10/24/17 12:03 Sodium 134 mmol/L (137-145) L 10/29/17 08:28 Potassium 4.4 mmol/L (3.6-5.0) 10/29/17 08:28 Chloride 97.2 mmol/L (98-107) L 10/29/17 08:28 Carbon Dioxide 25 mmol/L (22-30) 10/29/17 08:28 Anion Gap 16 mmol/L 10/29/17 08:28 BUN 11 mg/dL (9-20) 10/29/17 08:28 Creatinine 0.7 mg/dL (0.8-1.5) L 10/29/17 08:28 Estimated GFR > 60 ml/min 10/29/17 08:28 BUN/Creatinine Ratio 16 % 10/29/17 08:28 Glucose 109 mg/dL (75-100) H 10/29/17 08:28 POC Glucose 157 (70-105) H 10/26/17 08:59 Osmolality 305 Mosm/kg 10/12/17 06:00 Lactic Acid 1.60 mmol/L (0.7-2.0) 10/13/17 10:36 Calcium 10.6 mg/dL (8.4-10.2) H 10/29/17 08:28 Phosphorus 4.10 mg/dL (2.5-4.5) 10/24/17 12:03 Magnesium 1.60 mg/dL (1.7-2.3) L 10/24/17 12:03 Iron 45 ug/dL (49-181) L 10/12/17 06:00 TIBC 131 mcg/dL (250-450) L 10/12/17 06:00 % Saturation 34.35 % 10/12/17 06:00 Transferrin 102 mg/dl (180-329) L 10/12/17 06:00 Total Bilirubin 1.00 mg/dL (0.1-1.2) 10/19/17 07:11 AST 129 units/L (5-40) H 10/19/17 07:11 ALT 73 units/L (7-56) H 10/19/17 07:11 Alkaline Phosphatase 128 units/L (35-129) 10/19/17 07:11 Total Creatine Kinase 385 units/L (55-170) H 10/28/17 07:13 C-Reactive Protein 26.70 mg/dL (0.00-1.30) H 10/15/17 20:53 Total Protein 5.6 g/dL (6.3-8.2) L 10/19/17 07:11 Albumin 1.8 g/dL (3.9-5) L 10/19/17 07:11 Albumin/Globulin Ratio 0.5 % 10/19/17 07:11 Urine Color Yellow (Yellow) 10/11/17 Unknown Urine Turbidity Clear (Clear) 10/11/17 Unknown Urine pH 5.0 (5.0-7.0) 10/11/17 Unknown Ur Specific [place] 1.012 (1.003-1.030) 10/11/17 Unknown Urine Protein <15 mg/dl mg/dL (Negative) 10/11/17 Unknown Urine Glucose (UA) Neg mg/dL (Negative) 10/11/17 Unknown Urine Ketones Neg mg/dL (Negative) 10/11/17 Unknown Urine Blood Mod (Negative) 10/11/17 Unknown Urine Nitrite Neg (Negative) 10/11/17 Unknown Urine Bilirubin Neg (Negative) 10/11/17 Unknown Urine Urobilinogen < 2.0 mg/dL (<2.0) 10/11/17 Unknown Ur Leukocyte Esterase Neg (Negative) 10/11/17 Unknown Urine WBC (Auto) 10.0 /HPF (0.0-6.0) H 10/11/17 Unknown Urine RBC (Auto) 15.0 /HPF (0.0-6.0) 10/11/17 Unknown U Epithel Cells (Auto) 1.0 /HPF (0-13.0) 10/11/17 Unknown Urine Mucus Few /HPF 10/11/17 Unknown Urine Osmolality 425 Mosm/kg 10/12/17 13:00 Urine Creatinine 80.2 mg/dL (0.1-20.0) H 10/12/17 13:00 Urine Sodium 10 mmol/L 10/12/17 13:00 Fluid Type Synovial 10/25/17 09:45 Fluid Color [place] 10/25/17 09:45 Fluid Appearance Turbid 10/25/17 09:45 Fluid WBC 10932 /mm3 10/25/17 09:45 Fluid RBC 3300 /mm3 10/25/17 09:45 Fluid Seg Neutrophils 90.0 % 10/25/17 09:45 Fluid Lymphocytes 4.0 % 10/25/17 09:45 Fluid Reactive Lymphs Not Reportable 10/25/17 09:45 Fluid Monocytes 5.0 % 10/25/17 09:45 Fluid Eosinophils 1.0 % 10/25/17 09:45 Fluid Basophils Not Reportable 10/25/17 09:45 Fluid Comment N 10/25/17 09:45 Vancomycin Trough 25.3 ug/mL (5.0-20.0) H 10/16/17 12:01 Hepatitis A IgM Ab Non-reactive (NonReactive) 10/12/17 06:00 Hep Bs Antigen Non-reactive (Negative) 10/12/17 06:00 Hep B Core IgM Ab Non-reactive (NonReactive) 10/12/17 06:00 Hepatitis C Antibody Reactive (NonReactive) A 10/12/17 06:00 HIV 1&2 Antibody Rapid Non react (Non React) 10/16/17 19:27 HIV P24 Antigen Non react (Non React) 10/16/17 19:27 Blood Type O POSITIVE 10/28/17 19:03 Antibody Screen Negative 10/28/17 19:03 Crossmatch See Detail 10/28/17 19:03
[2017-10-29] MEDS ORDERED: XYLOCAINE MPF 2% ONE (20:52)
[2017-10-29] MEDS ORDERED: DIPRIVAN 10 MG/ML IV ONE (20:52)
[2017-10-29] MEDS ORDERED: DILAUDID ONE (20:52)
--- NOTE | 2017-10-29 20:53 | Anesthesia Day of Surgery ---
Anesthesia Day of Surgery - Day of Surgery Patient Examined: Yes Patient H&P Reviewed: Yes Patient is NPO: Yes
--- NOTE | 2017-10-29 20:53 | Anesthesia Consultation ---
Anesthesia Consult and Med Hx Date of service: 10/29/17 - Airway Anesthetic Teeth Evaluation: Poor (multiple missing teeth) ROM Head & Neck: Adequate Mental/Hyoid Distance: Adequate Mallampati Class: Class II Intubation Access Assessment: Probably Good - Pre-Operative Health Status ASA Pre-Surgery Classification: ASA3 Proposed Anesthetic Plan: General - Pulmonary Hx Smoking: Yes (smoked for 30 years, quit 6 months ago) Hx Asthma: No COPD: No Hx Pneumonia: No - Endocrine Hx Renal Disease: Yes (s/p acute kidney injury) Hx End Stage Renal Disease: No Hx Cirrhosis: No Hx Liver Disease: Yes (Hepatitis C) - Additional Comments Anesthesia Medical History Comments: s/p severe sepsis, resolved. Left knee effusion
[2017-10-29] MEDS ORDERED: NACL 0.9% 1000 ML 1,000 ML ONE (21:03)
[2017-10-29] MEDS ORDERED: DILAUDID IV PRN (21:05)
--- NOTE | 2017-10-29 22:12 | Procedure Note ---
Date of procedure: 10/29/17 Pre-op diagnosis: septic arthritis left knee Post-op diagnosis: same Procedure: Incision and drainage left knee Procedure The patient was brought to the OR placed on table in supine position following induction with Mac anesthesia the patient's left lower extremity was examined patient was noted to have a flexion deformity at the left hip with limited internal rotation there was no palpable mass or fluctuance over the anterior hip as well as no redness or erythema, next the left knee was examined. The patient was noted to have 1-2+ effusion again no overlying redness or erythema noted following examination the patient's left lower extremity was then prepped and draped in the usual sterile manner. A stab wound was made along the left lateral patella pouch this is taken down with the return of thick purulent material noted was detected along with serosanguineous fluid a second stab wound was made along the medial parapatellar region this was followed by copious irrigation with normal saline solution approximately 2 liter of fluid was irrigated thru the entire knee joint until no remaining purulent material was aspirated at this point the knee or stab wounds were closed using 3-0 nylon routine physical dressings were applied. Cultures were taken at the beginning of the procedure and was sent to pathology. There were no complications he was sent to postanesthesia recovery in stable condition Anesthesia: GETA Surgeon: KANDICE MCGOWAN Estimated blood loss: minimal Pathology: list (fluid was sent to pathology for culture sensitivity) Specimen disposition: to lab Condition: stable Disposition: PACU
[2017-10-30] MEDS: SODIUM CHLORIDE FLUSH SYRINGE 10 ML IV SCH ×3 (05:01→21:58)
[2017-10-30 07:33] LABS: Hematocrit 27.8 % (35.5-45.6); Hemoglobin 9.2 gm/dl (11.8-15.2); Mean Corpuscular Volume 91 fl (84-94); Red Blood Count 3.06 M/mm3 (3.65-5.03)
[2017-10-30 07:34] LABS: Eosinophils % (Auto) 0.3 % (0.0-4.3); Lymphocytes % (Auto) 7.4 % (13.4-35.0); Mean Corpuscular HGB Conc 33 % (32-34); Mean Corpuscular Hemoglobin 30 pg (28-32); Mean Platelet Volume 6.9 fl (6-12); Monocytes # (Auto) 1.8 K/mm3 (0.0-0.8); Monocytes % (Auto) 12.7 % (0.0-7.3); Platelet Count 335 K/mm3 (140-440); Red Cell Distribution Width 15.3 % (13.2-15.2)
[2017-10-30 07:43] LABS: BUN/Creatinine Ratio 19; Blood Urea Nitrogen 13 mg/dL (9-20); Calcium 10.8 mg/dL (8.4-10.2); Hemolysis Index 56
--- NOTE | 2017-10-30 10:16 | Progress Note ---
Assessment and Plan Assessment: 1) Severe sepsis: resolved. Etiology most likely MSSA septicemia. 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 skin boils -blood cx 10/13 MSSA 4 of 4 bottles -blood cx 10/14 MSSA 4 of 4 bottles -blood cx 10/19 MSSA 2 of 4 -blood cx 10/21 MSSA 1 of 4 -blood cx 10/25 negative -TTE no obvious vegetations -INDRA mobile echogenic density in the main pulmonary artery suspicious for either a clot in transit or vegetation. -CT showed right gluteal collection vs myositis 7.5x2.5.cm, left ilepsoas abscess 6x3.5 cm, loculated bilateral small pleural effusions with ill defined solid opacities ? nodules vs. ?emboli with reactive axillary, hilar and mediastinal LNs. -S/P right hip aspiration yieling 40cc fluid on 10/21 cx +MSSA -WBC scan showed left large knee effusion and multiple soft tissue abscesses pelvic areas -S/P left obturator pectineous and rectus femoris drainage 40 cc purulence -S/P left knee aspiration 80cc purulence 3) DARRICK - resolved 4) Thrombocytopenia: from sepsis/HCV- resolved 5) HCV serology positive 6) Elevated LFTs: from sepsis and HCV 7) Rhabdomyolysis: from sepsis 8) Lower back pain and leg weakness 9) Pen allergy - hives 10) Severe anemia after Heparin gtt 11) Left knee septic arthritis s/p OR wash out 10/29 Plan: -f/u OR knee cx -continue daptomycin in view of penicillin allergy cannot do ancef -upon discharge will do daptomycin 500 mg IV q day total 8 weeks until 12/19/17. Order sent to bottle caser I am signing off Thank you for your consultation, will follow up with you. Jordana Viramontes MD Infectious Diseases Specialist [facility] M [phone] O [phone] Subjective Date of service: 10/30/17 Principal diagnosis: MRSA bacteremia Interval history: feels better, went to the OR yesterday for knee washout, no fever Microbiology: Blood cultures: 10/13 MSSA 4 of 4 bottles (initially reported as MRSA by error) 10/14 MSSA 4 of 4 bottles 10/19 MSSA 2 of 4 10/21 MSSA 1 of 4 10/25 negative Right hip cx: 10/21 MSSA Left knee cx : 10/25 MSSA Urine cultures: Respiratory cultures: Current Antimicrobials: Dapto 10/17 Previous Antimicrobials: Zosyn Vancomycin 10/14 Objective - Exam Narrative Exam: General appearance: Alert in NAD, Eyes: anicteric sclerae, moist conjunctivae; no lid-lag; PERRLA HENT: Atraumatic; oropharynx clear Neck: Trachea midline; supple, no thyromegaly or lymphadenopathy Lungs: CTA, with normal respiratory effort and no intercostal retractions CV: RRR Abdomen: Soft, non-tender; no masses or hepatosplenomegaly Extremities: right hip/gluteal tenderness and edema, left thigh tenderness, left knee w surgical dressings Skin: old nodular scar rash on arms/legs Psych: Appropriate affect, alert and oriented to person, place and time. Neuro: alert and oriented x 3. Moving all extermities Lines: No CVL / PICC - Constitutional Vitals: Vital Signs Temp Pulse Resp BP Pulse Ox 98.0 F 110 H 16 101/67 95 10/30/17 05:56 10/30/17 05:56 10/30/17 05:56 10/30/17 05:56 10/30/17 05:56 Temperature -Last 24 Hours Temperature 98.0 F Temperature 99.4 F Temperature 98.5 F Temperature 98.0 F Temperature 99.7 F Temperature 99.5 F - Labs CBC & Chem 7: 10/30/17 06:57 10/30/17 06:57 Labs: Abnormal lab results 10/30/17 10/30/17 Range/Units 06:57 06:57 WBC 14.0 H (4.5-11.0) K/mm3 RBC 3.06 L (3.65-5.03) M/mm3 Hgb 9.2 L (11.8-15.2) gm/dl Hct 27.8 L (35.5-45.6) % RDW 15.3 H (13.2-15.2) % Lymph % (Auto) 7.4 L (13.4-35.0) % [place] % (Auto) 12.7 H (0.0-7.3) % Lymph # 1.0 L (1.2-5.4) K/mm3 [place] # 1.8 H (0.0-0.8) K/mm3 Seg Neutrophils % 78.6 H (40.0-70.0) % Seg Neutrophils # 11.0 H (1.8-7.7) K/mm3 Sodium 134 L (137-145) mmol/L Creatinine 0.7 L (0.8-1.5) mg/dL Glucose 105 H (75-100) mg/dL Calcium 10.8 H (8.4-10.2) mg/dL
--- NOTE | 2017-10-30 10:36 | Progress Note ---
Assessment and Plan - Patient Problems (1) Endocarditis Current Visit: Yes Status: Acute Plan to address problem: Continue intravenous antibiotic therapy for right heart endocarditis. Subjective Date of service: 10/30/17 Principal diagnosis: MRSA bacteremia Interval history: No cardiac complaints, patient is comfortable in no acute distress. Objective Vital Signs Temp Pulse Resp BP Pulse Ox 10/30/17 05:56 98.0 F 110 H 16 101/67 95 10/29/17 23:27 99.4 F 124 H 16 123/78 99 10/29/17 23:00 98.5 F 129 H 18 117/85 100 10/29/17 22:45 127 H 16 114/72 99 10/29/17 22:30 126 H 13 123/86 98 10/29/17 22:15 125 H 19 117/72 98 10/29/17 22:10 121 H 15 116/72 96 10/29/17 22:05 124 H 19 120/80 96 10/29/17 22:00 98.0 F 125 H 17 137/83 95 10/29/17 16:46 99.7 F H 105 H 22 110/76 97 10/29/17 11:29 99.5 F 107 H 24 112/74 95 - Physical Examination General: No Apparent Distress HEENT: Positive: PERRL Neck: Positive: neck supple Cardiac: Positive: Reg Rate and Rhythm Lungs: Positive: Decreased Breath Sounds Neuro: Positive: Grossly Intact Abdomen: Positive: Soft, Active Bowel Sounds Skin: Positive: Clear Extremities: Absent: edema - Labs and Meds CBC 10/30/17 Range/Units 06:57 WBC 14.0 H (4.5-11.0) K/mm3 RBC 3.06 L (3.65-5.03) M/mm3 Hgb 9.2 L (11.8-15.2) gm/dl Hct 27.8 L (35.5-45.6) % Plt Count 335 (140-440) K/mm3 Lymph # 1.0 L (1.2-5.4) K/mm3 [place] # 1.8 H (0.0-0.8) K/mm3 Eos # 0.0 (0.0-0.4) K/mm3 Baso # 0.0 (0.0-0.1) K/mm3 Comprehensive Metabolic Panel 10/30/17 Range/Units 06:57 Sodium 134 L (137-145) mmol/L Potassium 4.9 (3.6-5.0) mmol/L Chloride 98.2 (98-107) mmol/L Carbon Dioxide 22 (22-30) mmol/L BUN 13 (9-20) mg/dL Creatinine 0.7 L (0.8-1.5) mg/dL Glucose 105 H (75-100) mg/dL Calcium 10.8 H (8.4-10.2) mg/dL - Imaging and Cardiology EKG: report reviewed
[2017-10-30] MEDS: CUBICIN 500 MG in NACL 0.9% 100 ML IV SCH (11:13)
--- NOTE | 2017-10-30 16:35 | Progress Note ---
Assessment and Plan Assessment and plan: CT C/A/P 1. No acute intra-abdominal pathology. 2. Small bilateral pleural effusions with associated atelectasis. 3. Fluid collections involving the right gluteus musculature and the left iliopsoas and obturator muscles. Findings may represent abscesses or seromas. Clinical correlation is recommended. VL venous duplex; no evidence of DVT INDRA' INDRA pertinent for normal LVEF; there is a mobile echogenic density in the main pulmonary artery suspicious for either a clot in transit or vegetation. 10/21, CT-guided aspiration of fluid collection that extends from right hip and gluteal musculature with a total of 40 mL of fluid aspirated and sent to the lab NM WBC scan 10/23; Abnormal radiotracer accumulation in both gluteal regions and left knee. 10/25 CT guided 5 Fr drain placement in the left obturator, pectineus, and rectus femoris with removal of 40 mL of purulent material US guided left knee drainage with removal of 80 mL of purulent material 10/25; ; Pelvic xr; Severe bilateral hip osteoarthritis. 10/27; CTA chest; no PE Severe anemia and thrombocytopenia likely due to prolonged sepsis; transfused 4 units prbc, no evidence of GIB improving / Acute kidney injury on IVF improving, likely ATN /acute metabolic encephalopathy with delirium likely due to sepsis, improving / Sepsis with persistent bacteremia, MSSA, gram pos with abscess of R gluteus, left iliopsoas, septic emboli in lungs, Left knee abscess on abx, ID input appreciated error with micro lab, not MRSA but MSSA -Sp IR drainage of abscesses, 10/29 Incision and drainage left knee was done -evidence of Endocarditis; unable to anticoagulate due to severe anemia(may be large vegetation vs mobile thrombus) -will need iv abx for 6-8 weeks -Per ID; continue daptomycin in view of penicillin allergy cannot do ancef -upon discharge will do daptomycin 500 mg IV q day total 8 weeks until 12/19/17. Order sent to [facility] / Hypokalemia Supplemented /Hyponatremia improving with iv fluid / Transaminitis Acute hepatitis profile positive for hepatitis C Patient has no history of alcohol intake He is in the snf since april 2017 cont to monitor Ataxia; debility; continue PT /DVT prophylaxis Lovenox 30 mg subcutaneous daily GI prophylaxis ordered Brief History: The patient is a 61 YO male with no significant medical problem who is current incarcerated was sent from the snf for one day h/o abd pain and Outside labs showing elevated creatinine. History Interval history: no more episodes of confusion fever has now resolved No cough, no sputum production continues to have left knee pain, bilat hip pain and buttock pain No vomiting Hospitalist Physical - Physical exam Narrative exam: General.: Appears well, no distress, nontoxic HEENT: Moist mucous membranes, extraocular muscles intact, no lymphadenopathy Neck: supple Cardiac: S1-S2 heard Lungs: clear to auscultation bilaterally Abdomen: soft , nontender, nondistended, bowel sounds positive Extremities: no edema clubbing or cyanosis Skin: old nodular scar rash on arms/legs Neurologic: no gross focal deficits Psych: appropriate behavior, appropriate mood, corporative, judgment intact - Constitutional Vitals: Temp Pulse Resp BP Pulse Ox 98.1 F 106 H 20 99/64 97 10/30/17 11:49 10/30/17 11:49 10/30/17 11:49 10/30/17 11:49 10/30/17 11:49 General appearance: Present: no acute distress Results - Labs CBC & Chem 7: 10/30/17 06:57 10/30/17 06:57 Labs: Laboratory Last Values WBC 14.0 K/mm3 (4.5-11.0) H 10/30/17 06:57 RBC 3.06 M/mm3 (3.65-5.03) L 10/30/17 06:57 Hgb 9.2 gm/dl (11.8-15.2) L 10/30/17 06:57 Hct 27.8 % (35.5-45.6) L 10/30/17 06:57 MCV 91 fl (84-94) 10/30/17 06:57 MCH 30 pg (28-32) 10/30/17 06:57 MCHC 33 % (32-34) 10/30/17 06:57 RDW 15.3 % (13.2-15.2) H 10/30/17 06:57 Plt Count 335 K/mm3 (140-440) 10/30/17 06:57 Lymph % (Auto) 7.4 % (13.4-35.0) L 10/30/17 06:57 [place] % (Auto) 12.7 % (0.0-7.3) H 10/30/17 06:57 Eos % (Auto) 0.3 % (0.0-4.3) 10/30/17 06:57 Baso % (Auto) 1.0 % (0.0-1.8) 10/30/17 06:57 Lymph # 1.0 K/mm3 (1.2-5.4) L 10/30/17 06:57 [place] # 1.8 K/mm3 (0.0-0.8) H 10/30/17 06:57 Eos # 0.0 K/mm3 (0.0-0.4) 10/30/17 06:57 Baso # 0.0 K/mm3 (0.0-0.1) 10/30/17 06:57 Add Manual Diff Complete 10/25/17 07:56 Total Counted 100 10/25/17 07:56 Seg Neutrophils % 78.6 % (40.0-70.0) H 10/30/17 06:57 Seg Neuts % (Manual) 72.0 % (40.0-70.0) H 10/25/17 07:56 Band Neutrophils % 0 % 10/25/17 07:56 Lymphocytes % (Manual) 10.0 % (13.4-35.0) L 10/25/17 07:56 Reactive Lymphs % (Man) 0 % 10/25/17 07:56 Monocytes % (Manual) 16.0 % (0.0-7.3) H 10/25/17 07:56 Eosinophils % (Manual) 1.0 % (0.0-4.3) 10/25/17 07:56 Basophils % (Manual) 1.0 % (0.0-1.8) 10/25/17 07:56 Metamyelocytes % 0 % 10/25/17 07:56 Myelocytes % 0 % 10/25/17 07:56 Promyelocytes % 0 % 10/25/17 07:56 Blast Cells % 0 % 10/25/17 07:56 Nucleated RBC % Not Reportable 10/25/17 07:56 Seg Neutrophils # 11.0 K/mm3 (1.8-7.7) H 10/30/17 06:57 Seg Neutrophils # Man 7.3 K/mm3 (1.8-7.7) 10/25/17 07:56 Band Neutrophils # 0.0 K/mm3 10/25/17 07:56 Lymphocytes # (Manual) 1.0 K/mm3 (1.2-5.4) L 10/25/17 07:56 Abs React Lymphs (Man) 0.0 K/mm3 10/25/17 07:56 Monocytes # (Manual) 1.6 K/mm3 (0.0-0.8) H 10/25/17 07:56 Eosinophils # (Manual) 0.1 K/mm3 (0.0-0.4) 10/25/17 07:56 Basophils # (Manual) 0.1 K/mm3 (0.0-0.1) 10/25/17 07:56 Metamyelocytes # 0.0 K/mm3 10/25/17 07:56 Myelocytes # 0.0 K/mm3 10/25/17 07:56 Promyelocytes # 0.0 K/mm3 10/25/17 07:56 Blast Cells # 0.0 K/mm3 10/25/17 07:56 WBC Morphology Not Reportable 10/25/17 07:56 Hypersegmented Neuts Not Reportable 10/25/17 07:56 Hyposegmented Neuts Not Reportable 10/25/17 07:56 Hypogranular Neuts Not Reportable 10/25/17 07:56 Smudge Cells Not Reportable 10/25/17 07:56 Toxic Granulation Not Reportable 10/25/17 07:56 Toxic Vacuolation Not Reportable 10/25/17 07:56 Dohle Bodies Not Reportable 10/25/17 07:56 Pelger-Huet Anomaly Not Reportable 10/25/17 07:56 Cem Rods Not Reportable 10/25/17 07:56 Platelet Estimate Consistent w auto 10/25/17 07:56 Clumped Platelets Not Reportable 10/25/17 07:56 Plt Clumps, EDTA Not Reportable 10/25/17 07:56 Large Platelets Not Reportable 10/25/17 07:56 Giant Platelets Not Reportable 10/25/17 07:56 Platelet Satelliting Not Reportable 10/25/17 07:56 Plt Morphology Comment Not Reportable 10/25/17 07:56 RBC Morphology Normal 10/25/17 07:56 Dimorphic RBCs Not Reportable 10/25/17 07:56 Polychromasia Not Reportable 10/25/17 07:56 Hypochromasia Not Reportable 10/25/17 07:56 Poikilocytosis Not Reportable 10/25/17 07:56 Anisocytosis Not Reportable 10/25/17 07:56 Microcytosis Not Reportable 10/25/17 07:56 Macrocytosis Not Reportable 10/25/17 07:56 Spherocytes Not Reportable 10/25/17 07:56 Pappenheimer Bodies Not Reportable 10/25/17 07:56 Sickle Cells Not Reportable 10/25/17 07:56 Target Cells Not Reportable 10/25/17 07:56 Tear Drop Cells Not Reportable 10/25/17 07:56 Ovalocytes Not Reportable 10/25/17 07:56 Helmet Cells Not Reportable 10/25/17 07:56 [place] Bodies Not Reportable 10/25/17 07:56 [place] Rings Not Reportable 10/25/17 07:56 Shaw Cells Not Reportable 10/25/17 07:56 Bite Cells Not Reportable 10/25/17 07:56 Crenated Cell Not Reportable 10/25/17 07:56 Elliptocytes Not Reportable 10/25/17 07:56 Acanthocytes (Spur) Not Reportable 10/25/17 07:56 Rouleaux Not Reportable 10/25/17 07:56 Hemoglobin C Crystals Not Reportable 10/25/17 07:56 Schistocytes Not Reportable 10/25/17 07:56 Malaria parasites Not Reportable 10/25/17 07:56 Juan Bodies Not Reportable 10/25/17 07:56 Hem Pathologist Commnt No 10/25/17 07:56 PT 15.4 Sec. (12.2-14.9) H 10/24/17 12:03 INR 1.16 (0.87-1.13) H 10/24/17 12:03 APTT 43.4 Sec. (24.2-36.6) H 10/24/17 12:03 Heparin Anti-Xa Level < 0.10 U.I./ml (0.3-0.7) L 10/24/17 12:03 Sodium 134 mmol/L (137-145) L 10/30/17 06:57 Potassium 4.9 mmol/L (3.6-5.0) 10/30/17 06:57 Chloride 98.2 mmol/L (98-107) 10/30/17 06:57 Carbon Dioxide 22 mmol/L (22-30) 10/30/17 06:57 Anion Gap 19 mmol/L 10/30/17 06:57 BUN 13 mg/dL (9-20) 10/30/17 06:57 Creatinine 0.7 mg/dL (0.8-1.5) L 10/30/17 06:57 Estimated GFR > 60 ml/min 10/30/17 06:57 BUN/Creatinine Ratio 19 % 10/30/17 06:57 Glucose 105 mg/dL (75-100) H 10/30/17 06:57 POC Glucose 157 (70-105) H 10/26/17 08:59 Osmolality 305 Mosm/kg 10/12/17 06:00 Lactic Acid 1.60 mmol/L (0.7-2.0) 10/13/17 10:36 Calcium 10.8 mg/dL (8.4-10.2) H 10/30/17 06:57 Phosphorus 4.10 mg/dL (2.5-4.5) 10/24/17 12:03 Magnesium 1.60 mg/dL (1.7-2.3) L 10/24/17 12:03 Iron 45 ug/dL (49-181) L 10/12/17 06:00 TIBC 131 mcg/dL (250-450) L 10/12/17 06:00 % Saturation 34.35 % 10/12/17 06:00 Transferrin 102 mg/dl (180-329) L 10/12/17 06:00 Total Bilirubin 1.00 mg/dL (0.1-1.2) 10/19/17 07:11 AST 129 units/L (5-40) H 10/19/17 07:11 ALT 73 units/L (7-56) H 10/19/17 07:11 Alkaline Phosphatase 128 units/L (35-129) 10/19/17 07:11 Total Creatine Kinase 385 units/L (55-170) H 10/28/17 07:13 C-Reactive Protein 26.70 mg/dL (0.00-1.30) H 10/15/17 20:53 Total Protein 5.6 g/dL (6.3-8.2) L 10/19/17 07:11 Albumin 1.8 g/dL (3.9-5) L 10/19/17 07:11 Albumin/Globulin Ratio 0.5 % 10/19/17 07:11 Urine Color Yellow (Yellow) 10/11/17 Unknown Urine Turbidity Clear (Clear) 10/11/17 Unknown Urine pH 5.0 (5.0-7.0) 10/11/17 Unknown Ur Specific [place] 1.012 (1.003-1.030) 10/11/17 Unknown Urine Protein <15 mg/dl mg/dL (Negative) 10/11/17 Unknown Urine Glucose (UA) Neg mg/dL (Negative) 10/11/17 Unknown Urine Ketones Neg mg/dL (Negative) 10/11/17 Unknown Urine Blood Mod (Negative) 10/11/17 Unknown Urine Nitrite Neg (Negative) 10/11/17 Unknown Urine Bilirubin Neg (Negative) 10/11/17 Unknown Urine Urobilinogen < 2.0 mg/dL (<2.0) 10/11/17 Unknown Ur Leukocyte Esterase Neg (Negative) 10/11/17 Unknown Urine WBC (Auto) 10.0 /HPF (0.0-6.0) H 10/11/17 Unknown Urine RBC (Auto) 15.0 /HPF (0.0-6.0) 10/11/17 Unknown U Epithel Cells (Auto) 1.0 /HPF (0-13.0) 10/11/17 Unknown Urine Mucus Few /HPF 10/11/17 Unknown Urine Osmolality 425 Mosm/kg 10/12/17 13:00 Urine Creatinine 80.2 mg/dL (0.1-20.0) H 10/12/17 13:00 Urine Sodium 10 mmol/L 10/12/17 13:00 Fluid Type Synovial 10/25/17 09:45 Fluid Color [place] 10/25/17 09:45 Fluid Appearance Turbid 10/25/17 09:45 Fluid WBC 20752 /mm3 10/25/17 09:45 Fluid RBC 3300 /mm3 10/25/17 09:45 Fluid Seg Neutrophils 90.0 % 10/25/17 09:45 Fluid Lymphocytes 4.0 % 10/25/17 09:45 Fluid Reactive Lymphs Not Reportable 10/25/17 09:45 Fluid Monocytes 5.0 % 10/25/17 09:45 Fluid Eosinophils 1.0 % 10/25/17 09:45 Fluid Basophils Not Reportable 10/25/17 09:45 Fluid Comment N 10/25/17 09:45 Vancomycin Trough 25.3 ug/mL (5.0-20.0) H 10/16/17 12:01 Hepatitis A IgM Ab Non-reactive (NonReactive) 10/12/17 06:00 Hep Bs Antigen Non-reactive (Negative) 10/12/17 06:00 Hep B Core IgM Ab Non-reactive (NonReactive) 10/12/17 06:00 Hepatitis C Antibody Reactive (NonReactive) A 10/12/17 06:00 HIV 1&2 Antibody Rapid Non react (Non React) 10/16/17 19:27 HIV P24 Antigen Non react (Non React) 10/16/17 19:27 Blood Type O POSITIVE 10/28/17 19:03 Antibody Screen Negative 10/28/17 19:03 Crossmatch See Detail 10/28/17 19:03
[2017-10-30] MEDS: MORPHINE IV PRN (21:54)
[2017-10-31] MEDS: PERCOCET 5/325 PO PRN ×3 (03:58→16:07)
[2017-10-31 05:52] LABS: Hematocrit 26.6 % (35.5-45.6); Hemoglobin 8.9 gm/dl (11.8-15.2)
--- NOTE | 2017-10-31 11:36 | Progress Note ---
Assessment and Plan - Patient Problems (1) Endocarditis Current Visit: Yes Status: Acute Plan to address problem: Continue intravenous antibiotic therapy for right heart endocarditis. Subjective Date of service: 10/31/17 Principal diagnosis: MRSA bacteremia Interval history: Patient is comfortable, no new cardiac complaints. Objective Vital Signs Temp Pulse Resp BP Pulse Ox 10/31/17 06:02 97.7 F 101 H 16 106/69 96 10/30/17 23:35 97.5 F L 113 H 16 96/64 95 10/30/17 17:24 99.1 F 110 H 20 115/75 97 10/30/17 11:49 98.1 F 106 H 20 99/64 97 - Physical Examination General: No Apparent Distress HEENT: Positive: PERRL Neck: Positive: neck supple Cardiac: Positive: Reg Rate and Rhythm Lungs: Positive: Decreased Breath Sounds Neuro: Positive: Grossly Intact Abdomen: Positive: Soft, Active Bowel Sounds Skin: Positive: Clear Extremities: Absent: edema - Labs and Meds CBC 10/31/17 Range/Units 05:28 Hgb 8.9 L (11.8-15.2) gm/dl Hct 26.6 L (35.5-45.6) % Plt Count 332 (140-440) K/mm3 - Imaging and Cardiology EKG: report reviewed
--- NOTE | 2017-10-31 11:52 | Progress Note ---
Assessment and Plan Assessment and plan: CT C/A/P 1. No acute intra-abdominal pathology. 2. Small bilateral pleural effusions with associated atelectasis. 3. Fluid collections involving the right gluteus musculature and the left iliopsoas and obturator muscles. Findings may represent abscesses or seromas. Clinical correlation is recommended. VL venous duplex; no evidence of DVT INDRA' INDRA pertinent for normal LVEF; there is a mobile echogenic density in the main pulmonary artery suspicious for either a clot in transit or vegetation. 10/21, CT-guided aspiration of fluid collection that extends from right hip and gluteal musculature with a total of 40 mL of fluid aspirated and sent to the lab NM WBC scan 10/23; Abnormal radiotracer accumulation in both gluteal regions and left knee. 10/25 CT guided 5 Fr drain placement in the left obturator, pectineus, and rectus femoris with removal of 40 mL of purulent material US guided left knee drainage with removal of 80 mL of purulent material 10/25; ; Pelvic xr; Severe bilateral hip osteoarthritis. 10/27; CTA chest; no PE Severe anemia and thrombocytopenia likely due to prolonged sepsis; transfused 4 units prbc, no evidence of GIB improving / Acute kidney injury on IVF improving, likely ATN /acute metabolic encephalopathy with delirium likely due to sepsis, improving / Sepsis with persistent bacteremia, MSSA, gram pos, R heart endocarditis, with septic emboli causing infection of lung, R gluteus, Left iliopsoas, Left Knee with abscess of R gluteus, left iliopsoas, septic emboli in lungs, Left knee abscess on abx, ID input appreciated error with micro lab, not MRSA but MSSA -Sp IR drainage of abscesses, 10/29 Incision and drainage left knee was done -evidence of Endocarditis; unable to anticoagulate due to severe anemia(may be large vegetation vs mobile thrombus) -will need iv abx for 6-8 weeks -Per ID; continue daptomycin in view of penicillin allergy cannot do ancef -upon discharge will do daptomycin 500 mg IV q day total 8 weeks until 12/19/17. Order sent to case manager specialist / Hypokalemia Supplemented /Hyponatremia improving with iv fluid / Transaminitis Acute hepatitis profile positive for hepatitis C Patient has no history of alcohol intake He is in the assisted since april 2017 cont to monitor Ataxia; debility; continue PT /DVT prophylaxis Lovenox 30 mg subcutaneous daily GI prophylaxis ordered Brief History: The patient is a 61 YO male with no significant medical problem who is current incarcerated was sent from the assisted for one day h/o abd pain and Outside labs showing elevated creatinine. History Interval history: no more episodes of confusion fever has now resolved No cough, no sputum production continues to have left knee pain, bilat hip pain and buttock pain No vomiting Hospitalist Physical - Physical exam Narrative exam: General.: Appears well, no distress, nontoxic HEENT: Moist mucous membranes, extraocular muscles intact, no lymphadenopathy Neck: supple Cardiac: S1-S2 heard Lungs: clear to auscultation bilaterally Abdomen: soft , nontender, nondistended, bowel sounds positive Extremities: no edema clubbing or cyanosis Skin: old nodular scar rash on arms/legs Neurologic: no gross focal deficits Psych: appropriate behavior, appropriate mood, corporative, judgment intact - Constitutional Vitals: Temp Pulse Resp BP Pulse Ox 97.7 F 101 H 16 106/69 96 10/31/17 06:02 10/31/17 06:02 10/31/17 06:02 10/31/17 06:02 10/31/17 06:02 General appearance: Present: no acute distress Results - Labs CBC & Chem 7: 10/31/17 05:28 10/30/17 06:57 Labs: Laboratory Last Values WBC 14.0 K/mm3 (4.5-11.0) H 10/30/17 06:57 RBC 3.06 M/mm3 (3.65-5.03) L 10/30/17 06:57 Hgb 8.9 gm/dl (11.8-15.2) L 10/31/17 05:28 Hct 26.6 % (35.5-45.6) L 10/31/17 05:28 MCV 91 fl (84-94) 10/30/17 06:57 MCH 30 pg (28-32) 10/30/17 06:57 MCHC 33 % (32-34) 10/30/17 06:57 RDW 15.3 % (13.2-15.2) H 10/30/17 06:57 Plt Count 332 K/mm3 (140-440) 10/31/17 05:28 Lymph % (Auto) 7.4 % (13.4-35.0) L 10/30/17 06:57 [place] % (Auto) 12.7 % (0.0-7.3) H 10/30/17 06:57 Eos % (Auto) 0.3 % (0.0-4.3) 10/30/17 06:57 Baso % (Auto) 1.0 % (0.0-1.8) 10/30/17 06:57 Lymph # 1.0 K/mm3 (1.2-5.4) L 10/30/17 06:57 [place] # 1.8 K/mm3 (0.0-0.8) H 10/30/17 06:57 Eos # 0.0 K/mm3 (0.0-0.4) 10/30/17 06:57 Baso # 0.0 K/mm3 (0.0-0.1) 10/30/17 06:57 Add Manual Diff Complete 10/25/17 07:56 Total Counted 100 10/25/17 07:56 Seg Neutrophils % 78.6 % (40.0-70.0) H 10/30/17 06:57 Seg Neuts % (Manual) 72.0 % (40.0-70.0) H 10/25/17 07:56 Band Neutrophils % 0 % 10/25/17 07:56 Lymphocytes % (Manual) 10.0 % (13.4-35.0) L 10/25/17 07:56 Reactive Lymphs % (Man) 0 % 10/25/17 07:56 Monocytes % (Manual) 16.0 % (0.0-7.3) H 10/25/17 07:56 Eosinophils % (Manual) 1.0 % (0.0-4.3) 10/25/17 07:56 Basophils % (Manual) 1.0 % (0.0-1.8) 10/25/17 07:56 Metamyelocytes % 0 % 10/25/17 07:56 Myelocytes % 0 % 10/25/17 07:56 Promyelocytes % 0 % 10/25/17 07:56 Blast Cells % 0 % 10/25/17 07:56 Nucleated RBC % Not Reportable 10/25/17 07:56 Seg Neutrophils # 11.0 K/mm3 (1.8-7.7) H 10/30/17 06:57 Seg Neutrophils # Man 7.3 K/mm3 (1.8-7.7) 10/25/17 07:56 Band Neutrophils # 0.0 K/mm3 10/25/17 07:56 Lymphocytes # (Manual) 1.0 K/mm3 (1.2-5.4) L 10/25/17 07:56 Abs React Lymphs (Man) 0.0 K/mm3 10/25/17 07:56 Monocytes # (Manual) 1.6 K/mm3 (0.0-0.8) H 10/25/17 07:56 Eosinophils # (Manual) 0.1 K/mm3 (0.0-0.4) 10/25/17 07:56 Basophils # (Manual) 0.1 K/mm3 (0.0-0.1) 10/25/17 07:56 Metamyelocytes # 0.0 K/mm3 10/25/17 07:56 Myelocytes # 0.0 K/mm3 10/25/17 07:56 Promyelocytes # 0.0 K/mm3 10/25/17 07:56 Blast Cells # 0.0 K/mm3 10/25/17 07:56 WBC Morphology Not Reportable 10/25/17 07:56 Hypersegmented Neuts Not Reportable 10/25/17 07:56 Hyposegmented Neuts Not Reportable 10/25/17 07:56 Hypogranular Neuts Not Reportable 10/25/17 07:56 Smudge Cells Not Reportable 10/25/17 07:56 Toxic Granulation Not Reportable 10/25/17 07:56 Toxic Vacuolation Not Reportable 10/25/17 07:56 Dohle Bodies Not Reportable 10/25/17 07:56 Pelger-Huet Anomaly Not Reportable 10/25/17 07:56 Cem Rods Not Reportable 10/25/17 07:56 Platelet Estimate Consistent w auto 10/25/17 07:56 Clumped Platelets Not Reportable 10/25/17 07:56 Plt Clumps, EDTA Not Reportable 10/25/17 07:56 Large Platelets Not Reportable 10/25/17 07:56 Giant Platelets Not Reportable 10/25/17 07:56 Platelet Satelliting Not Reportable 10/25/17 07:56 Plt Morphology Comment Not Reportable 10/25/17 07:56 RBC Morphology Normal 10/25/17 07:56 Dimorphic RBCs Not Reportable 10/25/17 07:56 Polychromasia Not Reportable 10/25/17 07:56 Hypochromasia Not Reportable 10/25/17 07:56 Poikilocytosis Not Reportable 10/25/17 07:56 Anisocytosis Not Reportable 10/25/17 07:56 Microcytosis Not Reportable 10/25/17 07:56 Macrocytosis Not Reportable 10/25/17 07:56 Spherocytes Not Reportable 10/25/17 07:56 Pappenheimer Bodies Not Reportable 10/25/17 07:56 Sickle Cells Not Reportable 10/25/17 07:56 Target Cells Not Reportable 10/25/17 07:56 Tear Drop Cells Not Reportable 10/25/17 07:56 Ovalocytes Not Reportable 10/25/17 07:56 Helmet Cells Not Reportable 10/25/17 07:56 [place] Bodies Not Reportable 10/25/17 07:56 [place] Rings Not Reportable 10/25/17 07:56 Shaw Cells Not Reportable 10/25/17 07:56 Bite Cells Not Reportable 10/25/17 07:56 Crenated Cell Not Reportable 10/25/17 07:56 Elliptocytes Not Reportable 10/25/17 07:56 Acanthocytes (Spur) Not Reportable 10/25/17 07:56 Rouleaux Not Reportable 10/25/17 07:56 Hemoglobin C Crystals Not Reportable 10/25/17 07:56 Schistocytes Not Reportable 10/25/17 07:56 Malaria parasites Not Reportable 10/25/17 07:56 Juan Bodies Not Reportable 10/25/17 07:56 Hem Pathologist Commnt No 10/25/17 07:56 PT 15.4 Sec. (12.2-14.9) H 10/24/17 12:03 INR 1.16 (0.87-1.13) H 10/24/17 12:03 APTT 43.4 Sec. (24.2-36.6) H 10/24/17 12:03 Heparin Anti-Xa Level < 0.10 U.I./ml (0.3-0.7) L 10/24/17 12:03 Sodium 134 mmol/L (137-145) L 10/30/17 06:57 Potassium 4.9 mmol/L (3.6-5.0) 10/30/17 06:57 Chloride 98.2 mmol/L (98-107) 10/30/17 06:57 Carbon Dioxide 22 mmol/L (22-30) 10/30/17 06:57 Anion Gap 19 mmol/L 10/30/17 06:57 BUN 13 mg/dL (9-20) 10/30/17 06:57 Creatinine 0.7 mg/dL (0.8-1.5) L 10/30/17 06:57 Estimated GFR > 60 ml/min 10/30/17 06:57 BUN/Creatinine Ratio 19 % 10/30/17 06:57 Glucose 105 mg/dL (75-100) H 10/30/17 06:57 POC Glucose 157 (70-105) H 10/26/17 08:59 Osmolality 305 Mosm/kg 10/12/17 06:00 Lactic Acid 1.60 mmol/L (0.7-2.0) 10/13/17 10:36 Calcium 10.8 mg/dL (8.4-10.2) H 10/30/17 06:57 Phosphorus 4.10 mg/dL (2.5-4.5) 10/24/17 12:03 Magnesium 1.60 mg/dL (1.7-2.3) L 10/24/17 12:03 Iron 45 ug/dL (49-181) L 10/12/17 06:00 TIBC 131 mcg/dL (250-450) L 10/12/17 06:00 % Saturation 34.35 % 10/12/17 06:00 Transferrin 102 mg/dl (180-329) L 10/12/17 06:00 Total Bilirubin 1.00 mg/dL (0.1-1.2) 10/19/17 07:11 AST 129 units/L (5-40) H 10/19/17 07:11 ALT 73 units/L (7-56) H 10/19/17 07:11 Alkaline Phosphatase 128 units/L (35-129) 10/19/17 07:11 Total Creatine Kinase 385 units/L (55-170) H 10/28/17 07:13 C-Reactive Protein 26.70 mg/dL (0.00-1.30) H 10/15/17 20:53 Total Protein 5.6 g/dL (6.3-8.2) L 10/19/17 07:11 Albumin 1.8 g/dL (3.9-5) L 10/19/17 07:11 Albumin/Globulin Ratio 0.5 % 10/19/17 07:11 Urine Color Yellow (Yellow) 10/11/17 Unknown Urine Turbidity Clear (Clear) 10/11/17 Unknown Urine pH 5.0 (5.0-7.0) 10/11/17 Unknown Ur Specific [place] 1.012 (1.003-1.030) 10/11/17 Unknown Urine Protein <15 mg/dl mg/dL (Negative) 10/11/17 Unknown Urine Glucose (UA) Neg mg/dL (Negative) 10/11/17 Unknown Urine Ketones Neg mg/dL (Negative) 10/11/17 Unknown Urine Blood Mod (Negative) 10/11/17 Unknown Urine Nitrite Neg (Negative) 10/11/17 Unknown Urine Bilirubin Neg (Negative) 10/11/17 Unknown Urine Urobilinogen < 2.0 mg/dL (<2.0) 10/11/17 Unknown Ur Leukocyte Esterase Neg (Negative) 10/11/17 Unknown Urine WBC (Auto) 10.0 /HPF (0.0-6.0) H 10/11/17 Unknown Urine RBC (Auto) 15.0 /HPF (0.0-6.0) 10/11/17 Unknown U Epithel Cells (Auto) 1.0 /HPF (0-13.0) 10/11/17 Unknown Urine Mucus Few /HPF 10/11/17 Unknown Urine Osmolality 425 Mosm/kg 10/12/17 13:00 Urine Creatinine 80.2 mg/dL (0.1-20.0) H 10/12/17 13:00 Urine Sodium 10 mmol/L 10/12/17 13:00 Fluid Type Synovial 10/25/17 09:45 Fluid Color Yamila 10/25/17 09:45 Fluid Appearance Turbid 10/25/17 09:45 Fluid WBC 18209 /mm3 10/25/17 09:45 Fluid RBC 3300 /mm3 10/25/17 09:45 Fluid Seg Neutrophils 90.0 % 10/25/17 09:45 Fluid Lymphocytes 4.0 % 10/25/17 09:45 Fluid Reactive Lymphs Not Reportable 10/25/17 09:45 Fluid Monocytes 5.0 % 10/25/17 09:45 Fluid Eosinophils 1.0 % 10/25/17 09:45 Fluid Basophils Not Reportable 10/25/17 09:45 Fluid Comment N 10/25/17 09:45 Vancomycin Trough 25.3 ug/mL (5.0-20.0) H 10/16/17 12:01 Hepatitis A IgM Ab Non-reactive (NonReactive) 10/12/17 06:00 Hep Bs Antigen Non-reactive (Negative) 10/12/17 06:00 Hep B Core IgM Ab Non-reactive (NonReactive) 10/12/17 06:00 Hepatitis C Antibody Reactive (NonReactive) A 10/12/17 06:00 HIV 1&2 Antibody Rapid Non react (Non React) 10/16/17 19:27 HIV P24 Antigen Non react (Non React) 10/16/17 19:27 Blood Type O POSITIVE 10/28/17 19:03 Antibody Screen Negative 10/28/17 19:03 Crossmatch See Detail 10/28/17 19:03
[2017-10-31] MEDS: CUBICIN 500 MG in NACL 0.9% 100 ML IV SCH (12:25)
[2017-10-31] MEDS: SODIUM CHLORIDE FLUSH SYRINGE 10 ML IV SCH ×2 (12:25→21:47)
[2017-10-31] MEDS: MORPHINE IV PRN (21:45)
[2017-11-01] MEDS: CUBICIN 500 MG in NACL 0.9% 100 ML IV SCH (10:58)
[2017-11-01] MEDS: FLOMAX PO SCH (10:59)
[2017-11-01] MEDS: SODIUM CHLORIDE FLUSH SYRINGE 10 ML IV SCH (10:59)
[2017-11-01] MEDS: PERCOCET 5/325 PO PRN ×2 (11:20→20:40)
--- NOTE | 2017-11-01 12:02 | Progress Note ---
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 skin boils -blood cx 10/13 MSSA 4 of 4 bottles -blood cx 10/14 MSSA 4 of 4 bottles -blood cx 10/19 MSSA 2 of 4 -blood cx 10/21 MSSA 1 of 4 -blood cx 10/25 negative -INDRA mobile echogenic density in the main pulmonary artery suspicious for either a clot in transit or vegetation. -CT showed right gluteal collection vs myositis 7.5x2.5.cm, left ilepsoas abscess 6x3.5 cm, loculated bilateral small pleural effusions with ill defined solid opacities ? nodules vs. ? emboli with reactive axillary, hilar and mediastinal LNs. -S/P right hip aspiration yieling 40cc fluid on 10/21 cx +MSSA -WBC scan showed left large knee effusion and multiple soft tissue abscesses pelvic areas -S/P left obturator pectineous and rectus femoris drainage 40 cc purulence -S/P left knee aspiration 80cc purulence 3) DARRICK - resolved 4) Thrombocytopenia: from sepsis/HCV- resolved 5) HCV serology positive 6) Elevated LFTs: from sepsis and HCV 7) Rhabdomyolysis: from sepsis 8) Lower back pain and leg weakness 9) Pen allergy - hives 10) Severe anemia after Heparin gtt 11) Left knee septic arthritis s/p OR wash out 10/29 Plan: Continue antibiotic therapy per ID recommendation No further cardiac recommendations Subjective Date of service: 11/01/17 Principal diagnosis: MRSA bacteremia Interval history: Patient is doing well He denies chest pain or shortness of breath Objective Vital Signs Temp Pulse Resp BP BP Pulse Ox 11/01/17 06:06 97.8 F 115 H 18 109/76 96 10/31/17 23:31 98.7 F 113 H 18 100/68 95 10/31/17 23:30 98.7 F 114 H 20 100/68 96 10/31/17 17:10 97.9 F 114 H 20 117/79 97 10/31/17 17:07 99.4 F 110 H 20 117/79 95 - Physical Examination General: No Apparent Distress HEENT: Positive: PERRL Neck: Positive: neck supple Cardiac: Positive: Reg Rate and Rhythm Lungs: Positive: Normal Exam Neuro: Positive: Grossly Intact Abdomen: Positive: Soft, Active Bowel Sounds Skin: Positive: Clear Extremities: Absent: edema - Imaging and Cardiology EKG: report reviewed
--- NOTE | 2017-11-01 17:53 | Progress Note ---
Assessment and Plan Assessment and plan: CT C/A/P 1. No acute intra-abdominal pathology. 2. Small bilateral pleural effusions with associated atelectasis. 3. Fluid collections involving the right gluteus musculature and the left iliopsoas and obturator muscles. Findings may represent abscesses or seromas. Clinical correlation is recommended. VL venous duplex; no evidence of DVT INDRA' INDRA pertinent for normal LVEF; there is a mobile echogenic density in the main pulmonary artery suspicious for either a clot in transit or vegetation. 10/21, CT-guided aspiration of fluid collection that extends from right hip and gluteal musculature with a total of 40 mL of fluid aspirated and sent to the lab NM WBC scan 10/23; Abnormal radiotracer accumulation in both gluteal regions and left knee. 10/25 CT guided 5 Fr drain placement in the left obturator, pectineus, and rectus femoris with removal of 40 mL of purulent material US guided left knee drainage with removal of 80 mL of purulent material 10/25; ; Pelvic xr; Severe bilateral hip osteoarthritis. 10/27; CTA chest; no PE Severe anemia and thrombocytopenia likely due to prolonged sepsis; transfused 4 units prbc, no evidence of GIB improving / Acute kidney injury on IVF improving, likely ATN /acute metabolic encephalopathy with delirium likely due to sepsis, improving / Sepsis with persistent bacteremia, MSSA, gram pos, R heart endocarditis, with septic emboli causing infection of lung, R gluteus, Left iliopsoas, Left Knee with abscess of R gluteus, left iliopsoas, septic emboli in lungs, Left knee abscess on abx, ID input appreciated error with micro lab, not MRSA but MSSA -Sp IR drainage of abscesses, 10/29 Incision and drainage left knee was done -evidence of Endocarditis; unable to anticoagulate due to severe anemia(may be large vegetation vs mobile thrombus) -will need iv abx for 6-8 weeks -Per ID; continue daptomycin in view of penicillin allergy cannot do ancef -upon discharge will do daptomycin 500 mg IV q day total 8 weeks until 12/19/17. Order sent to caser in / Hypokalemia Supplemented /Hyponatremia improving with iv fluid / Transaminitis Acute hepatitis profile positive for hepatitis C Patient has no history of alcohol intake He is in the long term since april 2017 cont to monitor Ataxia; debility; continue PT /DVT prophylaxis Lovenox 30 mg subcutaneous daily GI prophylaxis ordered Brief History: The patient is a 61 YO male with no significant medical problem who is current incarcerated was sent from the long term for one day h/o abd pain and Outside labs showing elevated creatinine. History Interval history: no more episodes of confusion fever has now resolved No cough, no sputum production No vomiting Hospitalist Physical - Physical exam Narrative exam: General.: Appears well, no distress, nontoxic HEENT: Moist mucous membranes, extraocular muscles intact, no lymphadenopathy Neck: supple Cardiac: S1-S2 heard Lungs: clear to auscultation bilaterally Abdomen: soft , nontender, nondistended, bowel sounds positive Extremities: no edema clubbing or cyanosis Skin: old nodular scar rash on arms/legs Neurologic: no gross focal deficits Psych: appropriate behavior, appropriate mood, corporative, judgment intact - Constitutional Vitals: Temp Pulse Resp BP Pulse Ox 98.0 F 111 H 18 98/69 96 11/01/17 16:28 11/01/17 16:28 11/01/17 16:28 11/01/17 16:28 11/01/17 16:28 General appearance: Present: no acute distress Results - Labs CBC & Chem 7: 10/31/17 05:28 10/30/17 06:57 Labs: Laboratory Last Values WBC 14.0 K/mm3 (4.5-11.0) H 10/30/17 06:57 RBC 3.06 M/mm3 (3.65-5.03) L 10/30/17 06:57 Hgb 8.9 gm/dl (11.8-15.2) L 10/31/17 05:28 Hct 26.6 % (35.5-45.6) L 10/31/17 05:28 MCV 91 fl (84-94) 10/30/17 06:57 MCH 30 pg (28-32) 10/30/17 06:57 MCHC 33 % (32-34) 10/30/17 06:57 RDW 15.3 % (13.2-15.2) H 10/30/17 06:57 Plt Count 332 K/mm3 (140-440) 10/31/17 05:28 Lymph % (Auto) 7.4 % (13.4-35.0) L 10/30/17 06:57 Hardin % (Auto) 12.7 % (0.0-7.3) H 10/30/17 06:57 Eos % (Auto) 0.3 % (0.0-4.3) 10/30/17 06:57 Baso % (Auto) 1.0 % (0.0-1.8) 10/30/17 06:57 Lymph # 1.0 K/mm3 (1.2-5.4) L 10/30/17 06:57 Hardin # 1.8 K/mm3 (0.0-0.8) H 10/30/17 06:57 Eos # 0.0 K/mm3 (0.0-0.4) 10/30/17 06:57 Baso # 0.0 K/mm3 (0.0-0.1) 10/30/17 06:57 Add Manual Diff Complete 10/25/17 07:56 Total Counted 100 10/25/17 07:56 Seg Neutrophils % 78.6 % (40.0-70.0) H 10/30/17 06:57 Seg Neuts % (Manual) 72.0 % (40.0-70.0) H 10/25/17 07:56 Band Neutrophils % 0 % 10/25/17 07:56 Lymphocytes % (Manual) 10.0 % (13.4-35.0) L 10/25/17 07:56 Reactive Lymphs % (Man) 0 % 10/25/17 07:56 Monocytes % (Manual) 16.0 % (0.0-7.3) H 10/25/17 07:56 Eosinophils % (Manual) 1.0 % (0.0-4.3) 10/25/17 07:56 Basophils % (Manual) 1.0 % (0.0-1.8) 10/25/17 07:56 Metamyelocytes % 0 % 10/25/17 07:56 Myelocytes % 0 % 10/25/17 07:56 Promyelocytes % 0 % 10/25/17 07:56 Blast Cells % 0 % 10/25/17 07:56 Nucleated RBC % Not Reportable 10/25/17 07:56 Seg Neutrophils # 11.0 K/mm3 (1.8-7.7) H 10/30/17 06:57 Seg Neutrophils # Man 7.3 K/mm3 (1.8-7.7) 10/25/17 07:56 Band Neutrophils # 0.0 K/mm3 10/25/17 07:56 Lymphocytes # (Manual) 1.0 K/mm3 (1.2-5.4) L 10/25/17 07:56 Abs React Lymphs (Man) 0.0 K/mm3 10/25/17 07:56 Monocytes # (Manual) 1.6 K/mm3 (0.0-0.8) H 10/25/17 07:56 Eosinophils # (Manual) 0.1 K/mm3 (0.0-0.4) 10/25/17 07:56 Basophils # (Manual) 0.1 K/mm3 (0.0-0.1) 10/25/17 07:56 Metamyelocytes # 0.0 K/mm3 10/25/17 07:56 Myelocytes # 0.0 K/mm3 10/25/17 07:56 Promyelocytes # 0.0 K/mm3 10/25/17 07:56 Blast Cells # 0.0 K/mm3 10/25/17 07:56 WBC Morphology Not Reportable 10/25/17 07:56 Hypersegmented Neuts Not Reportable 10/25/17 07:56 Hyposegmented Neuts Not Reportable 10/25/17 07:56 Hypogranular Neuts Not Reportable 10/25/17 07:56 Smudge Cells Not Reportable 10/25/17 07:56 Toxic Granulation Not Reportable 10/25/17 07:56 Toxic Vacuolation Not Reportable 10/25/17 07:56 Dohle Bodies Not Reportable 10/25/17 07:56 Pelger-Huet Anomaly Not Reportable 10/25/17 07:56 Cem Rods Not Reportable 10/25/17 07:56 Platelet Estimate Consistent w auto 10/25/17 07:56 Clumped Platelets Not Reportable 10/25/17 07:56 Plt Clumps, EDTA Not Reportable 10/25/17 07:56 Large Platelets Not Reportable 10/25/17 07:56 Giant Platelets Not Reportable 10/25/17 07:56 Platelet Satelliting Not Reportable 10/25/17 07:56 Plt Morphology Comment Not Reportable 10/25/17 07:56 RBC Morphology Normal 10/25/17 07:56 Dimorphic RBCs Not Reportable 10/25/17 07:56 Polychromasia Not Reportable 10/25/17 07:56 Hypochromasia Not Reportable 10/25/17 07:56 Poikilocytosis Not Reportable 10/25/17 07:56 Anisocytosis Not Reportable 10/25/17 07:56 Microcytosis Not Reportable 10/25/17 07:56 Macrocytosis Not Reportable 10/25/17 07:56 Spherocytes Not Reportable 10/25/17 07:56 Pappenheimer Bodies Not Reportable 10/25/17 07:56 Sickle Cells Not Reportable 10/25/17 07:56 Target Cells Not Reportable 10/25/17 07:56 Tear Drop Cells Not Reportable 10/25/17 07:56 Ovalocytes Not Reportable 10/25/17 07:56 Helmet Cells Not Reportable 10/25/17 07:56 [place] Bodies Not Reportable 10/25/17 07:56 [place] Rings Not Reportable 10/25/17 07:56 [place] Cells Not Reportable 10/25/17 07:56 Bite Cells Not Reportable 10/25/17 07:56 Crenated Cell Not Reportable 10/25/17 07:56 Elliptocytes Not Reportable 10/25/17 07:56 Acanthocytes (Spur) Not Reportable 10/25/17 07:56 Rouleaux Not Reportable 10/25/17 07:56 Hemoglobin C Crystals Not Reportable 10/25/17 07:56 Schistocytes Not Reportable 10/25/17 07:56 Malaria parasites Not Reportable 10/25/17 07:56 Juan Bodies Not Reportable 10/25/17 07:56 Hem Pathologist Commnt No 10/25/17 07:56 PT 15.4 Sec. (12.2-14.9) H 10/24/17 12:03 INR 1.16 (0.87-1.13) H 10/24/17 12:03 APTT 43.4 Sec. (24.2-36.6) H 10/24/17 12:03 Heparin Anti-Xa Level < 0.10 U.I./ml (0.3-0.7) L 10/24/17 12:03 Sodium 134 mmol/L (137-145) L 10/30/17 06:57 Potassium 4.9 mmol/L (3.6-5.0) 10/30/17 06:57 Chloride 98.2 mmol/L (98-107) 10/30/17 06:57 Carbon Dioxide 22 mmol/L (22-30) 10/30/17 06:57 Anion Gap 19 mmol/L 10/30/17 06:57 BUN 13 mg/dL (9-20) 10/30/17 06:57 Creatinine 0.7 mg/dL (0.8-1.5) L 10/30/17 06:57 Estimated GFR > 60 ml/min 10/30/17 06:57 BUN/Creatinine Ratio 19 % 10/30/17 06:57 Glucose 105 mg/dL (75-100) H 10/30/17 06:57 POC Glucose 157 (70-105) H 10/26/17 08:59 Osmolality 305 Mosm/kg 10/12/17 06:00 Lactic Acid 1.60 mmol/L (0.7-2.0) 10/13/17 10:36 Calcium 10.8 mg/dL (8.4-10.2) H 10/30/17 06:57 Phosphorus 4.10 mg/dL (2.5-4.5) 10/24/17 12:03 Magnesium 1.60 mg/dL (1.7-2.3) L 10/24/17 12:03 Iron 45 ug/dL (49-181) L 10/12/17 06:00 TIBC 131 mcg/dL (250-450) L 10/12/17 06:00 % Saturation 34.35 % 10/12/17 06:00 Transferrin 102 mg/dl (180-329) L 10/12/17 06:00 Total Bilirubin 1.00 mg/dL (0.1-1.2) 10/19/17 07:11 AST 129 units/L (5-40) H 10/19/17 07:11 ALT 73 units/L (7-56) H 10/19/17 07:11 Alkaline Phosphatase 128 units/L (35-129) 10/19/17 07:11 Total Creatine Kinase 385 units/L (55-170) H 10/28/17 07:13 C-Reactive Protein 26.70 mg/dL (0.00-1.30) H 10/15/17 20:53 Total Protein 5.6 g/dL (6.3-8.2) L 10/19/17 07:11 Albumin 1.8 g/dL (3.9-5) L 10/19/17 07:11 Albumin/Globulin Ratio 0.5 % 10/19/17 07:11 Urine Color Yellow (Yellow) 10/11/17 Unknown Urine Turbidity Clear (Clear) 10/11/17 Unknown Urine pH 5.0 (5.0-7.0) 10/11/17 Unknown Ur Specific [place] 1.012 (1.003-1.030) 10/11/17 Unknown Urine Protein <15 mg/dl mg/dL (Negative) 10/11/17 Unknown Urine Glucose (UA) Neg mg/dL (Negative) 10/11/17 Unknown Urine Ketones Neg mg/dL (Negative) 10/11/17 Unknown Urine Blood Mod (Negative) 10/11/17 Unknown Urine Nitrite Neg (Negative) 10/11/17 Unknown Urine Bilirubin Neg (Negative) 10/11/17 Unknown Urine Urobilinogen < 2.0 mg/dL (<2.0) 10/11/17 Unknown Ur Leukocyte Esterase Neg (Negative) 10/11/17 Unknown Urine WBC (Auto) 10.0 /HPF (0.0-6.0) H 10/11/17 Unknown Urine RBC (Auto) 15.0 /HPF (0.0-6.0) 10/11/17 Unknown U Epithel Cells (Auto) 1.0 /HPF (0-13.0) 10/11/17 Unknown Urine Mucus Few /HPF 10/11/17 Unknown Urine Osmolality 425 Mosm/kg 10/12/17 13:00 Urine Creatinine 80.2 mg/dL (0.1-20.0) H 10/12/17 13:00 Urine Sodium 10 mmol/L 10/12/17 13:00 Fluid Type Synovial 10/25/17 09:45 Fluid Color [place] 10/25/17 09:45 Fluid Appearance Turbid 10/25/17 09:45 Fluid WBC 73450 /mm3 10/25/17 09:45 Fluid RBC 3300 /mm3 10/25/17 09:45 Fluid Seg Neutrophils 90.0 % 10/25/17 09:45 Fluid Lymphocytes 4.0 % 10/25/17 09:45 Fluid Reactive Lymphs Not Reportable 10/25/17 09:45 Fluid Monocytes 5.0 % 10/25/17 09:45 Fluid Eosinophils 1.0 % 10/25/17 09:45 Fluid Basophils Not Reportable 10/25/17 09:45 Fluid Comment N 10/25/17 09:45 Vancomycin Trough 25.3 ug/mL (5.0-20.0) H 10/16/17 12:01 Hepatitis A IgM Ab Non-reactive (NonReactive) 10/12/17 06:00 Hep Bs Antigen Non-reactive (Negative) 10/12/17 06:00 Hep B Core IgM Ab Non-reactive (NonReactive) 10/12/17 06:00 Hepatitis C Antibody Reactive (NonReactive) A 10/12/17 06:00 HIV 1&2 Antibody Rapid Non react (Non React) 10/16/17 19:27 HIV P24 Antigen Non react (Non React) 10/16/17 19:27 Blood Type O POSITIVE 10/28/17 19:03 Antibody Screen Negative 10/28/17 19:03 Crossmatch See Detail 10/28/17 19:03
[2017-11-02] MEDS: MORPHINE IV PRN ×2 (00:30→16:04)
[2017-11-02] MEDS: SODIUM CHLORIDE FLUSH SYRINGE 10 ML IV SCH ×3 (01:11→23:54)
--- NOTE | 2017-11-02 08:09 | Progress Note ---
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 skin boils -blood cx 10/13 MSSA 4 of 4 bottles -blood cx 10/14 MSSA 4 of 4 bottles -blood cx 10/19 MSSA 2 of 4 -blood cx 10/21 MSSA 1 of 4 -blood cx 10/25 negative -INDRA mobile echogenic density in the main pulmonary artery suspicious for either a clot in transit or vegetation. -CT showed right gluteal collection vs myositis 7.5x2.5.cm, left ilepsoas abscess 6x3.5 cm, loculated bilateral small pleural effusions with ill defined solid opacities ? nodules vs. ? emboli with reactive axillary, hilar and mediastinal LNs. -S/P right hip aspiration yieling 40cc fluid on 10/21 cx +MSSA -WBC scan showed left large knee effusion and multiple soft tissue abscesses pelvic areas -S/P left obturator pectineous and rectus femoris drainage 40 cc purulence -S/P left knee aspiration 80cc purulence 3) DARRICK - resolved 4) Thrombocytopenia: from sepsis/HCV- resolved 5) HCV serology positive 6) Elevated LFTs: from sepsis and HCV 7) Rhabdomyolysis: from sepsis 8) Lower back pain and leg weakness 9) Pen allergy - hives 10) Severe anemia after Heparin gtt 11) Left knee septic arthritis s/p OR wash out 10/29 Plan: Continue antibiotic therapy per ID recommendation No further cardiac recommendations Subjective Date of service: 11/02/17 Principal diagnosis: MRSA bacteremia Interval history: No acute events. resting comfortably. No chest pain or SOB. Objective Vital Signs Temp Pulse Resp BP Pulse Ox 11/02/17 05:30 99.3 F 113 H 20 98/74 95 11/01/17 23:52 97.9 F 103 H 20 93/64 98 11/01/17 16:28 98.0 F 111 H 18 98/69 96 - Physical Examination General: No Apparent Distress HEENT: Positive: PERRL Neck: Positive: neck supple Neuro: Positive: Grossly Intact Abdomen: Positive: Soft, Active Bowel Sounds Skin: Positive: Clear Extremities: Absent: edema - Imaging and Cardiology EKG: report reviewed
[2017-11-02] MEDS: D5W 1,000 ML IV SCH ×2 (08:50→16:04)
[2017-11-02] MEDS: FLOMAX PO SCH (10:42)
[2017-11-02] MEDS: CUBICIN 500 MG in NACL 0.9% 100 ML IV SCH (10:46)
[2017-11-02] MEDS: PERCOCET 5/325 PO PRN (11:44)
--- NOTE | 2017-11-02 19:49 | Progress Note ---
Assessment and Plan Assessment and plan: CT C/A/P 1. No acute intra-abdominal pathology. 2. Small bilateral pleural effusions with associated atelectasis. 3. Fluid collections involving the right gluteus musculature and the left iliopsoas and obturator muscles. Findings may represent abscesses or seromas. Clinical correlation is recommended. VL venous duplex; no evidence of DVT INDRA' INDRA pertinent for normal LVEF; there is a mobile echogenic density in the main pulmonary artery suspicious for either a clot in transit or vegetation. 10/21, CT-guided aspiration of fluid collection that extends from right hip and gluteal musculature with a total of 40 mL of fluid aspirated and sent to the lab NM WBC scan 10/23; Abnormal radiotracer accumulation in both gluteal regions and left knee. 10/25 CT guided 5 Fr drain placement in the left obturator, pectineus, and rectus femoris with removal of 40 mL of purulent material US guided left knee drainage with removal of 80 mL of purulent material 10/25; ; Pelvic xr; Severe bilateral hip osteoarthritis. 10/27; CTA chest; no PE Severe anemia and thrombocytopenia likely due to prolonged sepsis; transfused 4 units prbc, no evidence of GIB improving / Acute kidney injury on IVF improving, likely ATN /acute metabolic encephalopathy with delirium likely due to sepsis, improving / Sepsis with persistent bacteremia, MSSA, gram pos, R heart endocarditis, with septic emboli causing infection of lung, R gluteus, Left iliopsoas, Left Knee with abscess of R gluteus, left iliopsoas, septic emboli in lungs, Left knee abscess on abx, ID input appreciated error with micro lab, not MRSA but MSSA -Sp IR drainage of abscesses, 10/29 Incision and drainage left knee was done -evidence of Endocarditis; unable to anticoagulate due to severe anemia(may be large vegetation vs mobile thrombus) -will need iv abx for 6-8 weeks -Per ID; continue daptomycin in view of penicillin allergy cannot do ancef -upon discharge will do daptomycin 500 mg IV q day total 8 weeks until 12/19/17. Order sent to [facility]case [facility] / Hypokalemia Supplemented /Hyponatremia improving with iv fluid / Transaminitis Acute hepatitis profile positive for hepatitis C Patient has no history of alcohol intake He is in the group home since april 2017 cont to monitor Ataxia; debility; continue PT /DVT prophylaxis Lovenox 30 mg subcutaneous daily GI prophylaxis ordered Brief History: The patient is a 61 YO male with no significant medical problem who is current incarcerated was sent from the group home for one day h/o abd pain and Outside labs showing elevated creatinine. Awaiting [facility] placement where he can complete his abx and continue PT History Interval history: no more episodes of confusion fever has now resolved No cough, no sputum production No vomiting Hospitalist Physical - Physical exam Narrative exam: General.: Appears well, no distress, nontoxic HEENT: Moist mucous membranes, extraocular muscles intact, no lymphadenopathy Neck: supple Cardiac: S1-S2 heard Lungs: clear to auscultation bilaterally Abdomen: soft , nontender, nondistended, bowel sounds positive Extremities: no edema clubbing or cyanosis Skin: old nodular scar rash on arms/legs Neurologic: no gross focal deficits Psych: appropriate behavior, appropriate mood, corporative, judgment intact - Constitutional Vitals: Temp Pulse Resp BP Pulse Ox 98.9 F 66 20 101/68 90 11/02/17 12:59 11/02/17 12:59 11/02/17 12:59 11/02/17 12:59 11/02/17 12:59 General appearance: Present: no acute distress Results - Labs CBC & Chem 7: 10/31/17 05:28 10/30/17 06:57 Labs: Laboratory Last Values WBC 14.0 K/mm3 (4.5-11.0) H 10/30/17 06:57 RBC 3.06 M/mm3 (3.65-5.03) L 10/30/17 06:57 Hgb 8.9 gm/dl (11.8-15.2) L 10/31/17 05:28 Hct 26.6 % (35.5-45.6) L 10/31/17 05:28 MCV 91 fl (84-94) 10/30/17 06:57 MCH 30 pg (28-32) 10/30/17 06:57 MCHC 33 % (32-34) 10/30/17 06:57 RDW 15.3 % (13.2-15.2) H 10/30/17 06:57 Plt Count 332 K/mm3 (140-440) 10/31/17 05:28 Lymph % (Auto) 7.4 % (13.4-35.0) L 10/30/17 06:57 [place] % (Auto) 12.7 % (0.0-7.3) H 10/30/17 06:57 Eos % (Auto) 0.3 % (0.0-4.3) 10/30/17 06:57 Baso % (Auto) 1.0 % (0.0-1.8) 10/30/17 06:57 Lymph # 1.0 K/mm3 (1.2-5.4) L 10/30/17 06:57 [place] # 1.8 K/mm3 (0.0-0.8) H 10/30/17 06:57 Eos # 0.0 K/mm3 (0.0-0.4) 10/30/17 06:57 Baso # 0.0 K/mm3 (0.0-0.1) 10/30/17 06:57 Add Manual Diff Complete 10/25/17 07:56 Total Counted 100 10/25/17 07:56 Seg Neutrophils % 78.6 % (40.0-70.0) H 10/30/17 06:57 Seg Neuts % (Manual) 72.0 % (40.0-70.0) H 10/25/17 07:56 Band Neutrophils % 0 % 10/25/17 07:56 Lymphocytes % (Manual) 10.0 % (13.4-35.0) L 10/25/17 07:56 Reactive Lymphs % (Man) 0 % 10/25/17 07:56 Monocytes % (Manual) 16.0 % (0.0-7.3) H 10/25/17 07:56 Eosinophils % (Manual) 1.0 % (0.0-4.3) 10/25/17 07:56 Basophils % (Manual) 1.0 % (0.0-1.8) 10/25/17 07:56 Metamyelocytes % 0 % 10/25/17 07:56 Myelocytes % 0 % 10/25/17 07:56 Promyelocytes % 0 % 10/25/17 07:56 Blast Cells % 0 % 10/25/17 07:56 Nucleated RBC % Not Reportable 10/25/17 07:56 Seg Neutrophils # 11.0 K/mm3 (1.8-7.7) H 10/30/17 06:57 Seg Neutrophils # Man 7.3 K/mm3 (1.8-7.7) 10/25/17 07:56 Band Neutrophils # 0.0 K/mm3 10/25/17 07:56 Lymphocytes # (Manual) 1.0 K/mm3 (1.2-5.4) L 10/25/17 07:56 Abs React Lymphs (Man) 0.0 K/mm3 10/25/17 07:56 Monocytes # (Manual) 1.6 K/mm3 (0.0-0.8) H 10/25/17 07:56 Eosinophils # (Manual) 0.1 K/mm3 (0.0-0.4) 10/25/17 07:56 Basophils # (Manual) 0.1 K/mm3 (0.0-0.1) 10/25/17 07:56 Metamyelocytes # 0.0 K/mm3 10/25/17 07:56 Myelocytes # 0.0 K/mm3 10/25/17 07:56 Promyelocytes # 0.0 K/mm3 10/25/17 07:56 Blast Cells # 0.0 K/mm3 10/25/17 07:56 WBC Morphology Not Reportable 10/25/17 07:56 Hypersegmented Neuts Not Reportable 10/25/17 07:56 Hyposegmented Neuts Not Reportable 10/25/17 07:56 Hypogranular Neuts Not Reportable 10/25/17 07:56 Smudge Cells Not Reportable 10/25/17 07:56 Toxic Granulation Not Reportable 10/25/17 07:56 Toxic Vacuolation Not Reportable 10/25/17 07:56 Dohle Bodies Not Reportable 10/25/17 07:56 Pelger-Huet Anomaly Not Reportable 10/25/17 07:56 Cem Rods Not Reportable 10/25/17 07:56 Platelet Estimate Consistent w auto 10/25/17 07:56 Clumped Platelets Not Reportable 10/25/17 07:56 Plt Clumps, EDTA Not Reportable 10/25/17 07:56 Large Platelets Not Reportable 10/25/17 07:56 Giant Platelets Not Reportable 10/25/17 07:56 Platelet Satelliting Not Reportable 10/25/17 07:56 Plt Morphology Comment Not Reportable 10/25/17 07:56 RBC Morphology Normal 10/25/17 07:56 Dimorphic RBCs Not Reportable 10/25/17 07:56 Polychromasia Not Reportable 10/25/17 07:56 Hypochromasia Not Reportable 10/25/17 07:56 Poikilocytosis Not Reportable 10/25/17 07:56 Anisocytosis Not Reportable 10/25/17 07:56 Microcytosis Not Reportable 10/25/17 07:56 Macrocytosis Not Reportable 10/25/17 07:56 Spherocytes Not Reportable 10/25/17 07:56 Pappenheimer Bodies Not Reportable 10/25/17 07:56 Sickle Cells Not Reportable 10/25/17 07:56 Target Cells Not Reportable 10/25/17 07:56 Tear Drop Cells Not Reportable 10/25/17 07:56 Ovalocytes Not Reportable 10/25/17 07:56 Helmet Cells Not Reportable 10/25/17 07:56 Gil-[place] Bodies Not Reportable 10/25/17 07:56 [place] Rings Not Reportable 10/25/17 07:56 Shaw Cells Not Reportable 10/25/17 07:56 Bite Cells Not Reportable 10/25/17 07:56 Crenated Cell Not Reportable 10/25/17 07:56 Elliptocytes Not Reportable 10/25/17 07:56 Acanthocytes (Spur) Not Reportable 10/25/17 07:56 Rouleaux Not Reportable 10/25/17 07:56 Hemoglobin C Crystals Not Reportable 10/25/17 07:56 Schistocytes Not Reportable 10/25/17 07:56 Malaria parasites Not Reportable 10/25/17 07:56 Juan Bodies Not Reportable 10/25/17 07:56 Hem Pathologist Commnt No 10/25/17 07:56 PT 15.4 Sec. (12.2-14.9) H 10/24/17 12:03 INR 1.16 (0.87-1.13) H 10/24/17 12:03 APTT 43.4 Sec. (24.2-36.6) H 10/24/17 12:03 Heparin Anti-Xa Level < 0.10 U.I./ml (0.3-0.7) L 10/24/17 12:03 Sodium 134 mmol/L (137-145) L 10/30/17 06:57 Potassium 4.9 mmol/L (3.6-5.0) 10/30/17 06:57 Chloride 98.2 mmol/L (98-107) 10/30/17 06:57 Carbon Dioxide 22 mmol/L (22-30) 10/30/17 06:57 Anion Gap 19 mmol/L 10/30/17 06:57 BUN 13 mg/dL (9-20) 10/30/17 06:57 Creatinine 0.7 mg/dL (0.8-1.5) L 10/30/17 06:57 Estimated GFR > 60 ml/min 10/30/17 06:57 BUN/Creatinine Ratio 19 % 10/30/17 06:57 Glucose 105 mg/dL (75-100) H 10/30/17 06:57 POC Glucose 157 (70-105) H 10/26/17 08:59 Osmolality 305 Mosm/kg 10/12/17 06:00 Lactic Acid 1.60 mmol/L (0.7-2.0) 10/13/17 10:36 Calcium 10.8 mg/dL (8.4-10.2) H 10/30/17 06:57 Phosphorus 4.10 mg/dL (2.5-4.5) 10/24/17 12:03 Magnesium 1.60 mg/dL (1.7-2.3) L 10/24/17 12:03 Iron 45 ug/dL (49-181) L 10/12/17 06:00 TIBC 131 mcg/dL (250-450) L 10/12/17 06:00 % Saturation 34.35 % 10/12/17 06:00 Transferrin 102 mg/dl (180-329) L 10/12/17 06:00 Total Bilirubin 1.00 mg/dL (0.1-1.2) 10/19/17 07:11 AST 129 units/L (5-40) H 10/19/17 07:11 ALT 73 units/L (7-56) H 10/19/17 07:11 Alkaline Phosphatase 128 units/L (35-129) 10/19/17 07:11 Total Creatine Kinase 385 units/L (55-170) H 10/28/17 07:13 C-Reactive Protein 26.70 mg/dL (0.00-1.30) H 10/15/17 20:53 Total Protein 5.6 g/dL (6.3-8.2) L 10/19/17 07:11 Albumin 1.8 g/dL (3.9-5) L 10/19/17 07:11 Albumin/Globulin Ratio 0.5 % 10/19/17 07:11 Urine Color Yellow (Yellow) 10/11/17 Unknown Urine Turbidity Clear (Clear) 10/11/17 Unknown Urine pH 5.0 (5.0-7.0) 10/11/17 Unknown Ur Specific [place] 1.012 (1.003-1.030) 10/11/17 Unknown Urine Protein <15 mg/dl mg/dL (Negative) 10/11/17 Unknown Urine Glucose (UA) Neg mg/dL (Negative) 10/11/17 Unknown Urine Ketones Neg mg/dL (Negative) 10/11/17 Unknown Urine Blood Mod (Negative) 10/11/17 Unknown Urine Nitrite Neg (Negative) 10/11/17 Unknown Urine Bilirubin Neg (Negative) 10/11/17 Unknown Urine Urobilinogen < 2.0 mg/dL (<2.0) 10/11/17 Unknown Ur Leukocyte Esterase Neg (Negative) 10/11/17 Unknown Urine WBC (Auto) 10.0 /HPF (0.0-6.0) H 10/11/17 Unknown Urine RBC (Auto) 15.0 /HPF (0.0-6.0) 10/11/17 Unknown U Epithel Cells (Auto) 1.0 /HPF (0-13.0) 10/11/17 Unknown Urine Mucus Few /HPF 10/11/17 Unknown Urine Osmolality 425 Mosm/kg 10/12/17 13:00 Urine Creatinine 80.2 mg/dL (0.1-20.0) H 10/12/17 13:00 Urine Sodium 10 mmol/L 10/12/17 13:00 Fluid Type Synovial 10/25/17 09:45 Fluid Color [place] 10/25/17 09:45 Fluid Appearance Turbid 10/25/17 09:45 Fluid WBC 96245 /mm3 10/25/17 09:45 Fluid RBC 3300 /mm3 10/25/17 09:45 Fluid Seg Neutrophils 90.0 % 10/25/17 09:45 Fluid Lymphocytes 4.0 % 06/29/18 09:45 Fluid Reactive Lymphs Not Reportable 10/25/17 09:45 Fluid Monocytes 5.0 % 10/25/17 09:45 Fluid Eosinophils 1.0 % 10/25/17 09:45 Fluid Basophils Not Reportable 10/25/17 09:45 Fluid Comment N 10/25/17 09:45 Vancomycin Trough 25.3 ug/mL (5.0-20.0) H 10/16/17 12:01 Hepatitis A IgM Ab Non-reactive (NonReactive) 10/12/17 06:00 Hep Bs Antigen Non-reactive (Negative) 10/12/17 06:00 Hep B Core IgM Ab Non-reactive (NonReactive) 10/12/17 06:00 Hepatitis C Antibody Reactive (NonReactive) A 10/12/17 06:00 HIV 1&2 Antibody Rapid Non react (Non React) 10/16/17 19:27 HIV P24 Antigen Non react (Non React) 10/16/17 19:27 Blood Type O POSITIVE 10/28/17 19:03 Antibody Screen Negative 10/28/17 19:03 Crossmatch See Detail 10/28/17 19:03
[2017-11-03] MEDS: PERCOCET 5/325 PO PRN ×3 (03:01→16:55)
--- NOTE | 2017-11-03 08:29 | Progress Note ---
Assessment and Plan Assessment and plan: CT C/A/P 1. No acute intra-abdominal pathology. 2. Small bilateral pleural effusions with associated atelectasis. 3. Fluid collections involving the right gluteus musculature and the left iliopsoas and obturator muscles. Findings may represent abscesses or seromas. Clinical correlation is recommended. VL venous duplex; no evidence of DVT INDRA' INDRA pertinent for normal LVEF; there is a mobile echogenic density in the main pulmonary artery suspicious for either a clot in transit or vegetation. 10/21, CT-guided aspiration of fluid collection that extends from right hip and gluteal musculature with a total of 40 mL of fluid aspirated and sent to the lab NM WBC scan 10/23; Abnormal radiotracer accumulation in both gluteal regions and left knee. 10/25 CT guided 5 Fr drain placement in the left obturator, pectineus, and rectus femoris with removal of 40 mL of purulent material US guided left knee drainage with removal of 80 mL of purulent material 10/25; ; Pelvic xr; Severe bilateral hip osteoarthritis. 10/27; CTA chest; no PE Severe anemia and thrombocytopenia likely due to prolonged sepsis; transfused 4 units prbc, no evidence of GIB improving / Acute kidney injury on IVF improving, likely ATN /acute metabolic encephalopathy with delirium likely due to sepsis, improving / Sepsis with persistent bacteremia, MSSA, gram pos, R heart endocarditis, with septic emboli causing infection of lung, R gluteus, Left iliopsoas, Left Knee with abscess of R gluteus, left iliopsoas, septic emboli in lungs, Left knee abscess on abx, ID input appreciated error with micro lab, not MRSA but MSSA -Sp IR drainage of abscesses, 10/29 Incision and drainage left knee was done -evidence of Endocarditis; unable to anticoagulate due to severe anemia(may be large vegetation vs mobile thrombus) -will need iv abx for 6-8 weeks -Per ID; continue daptomycin in view of penicillin allergy cannot do ancef -upon discharge will do daptomycin 500 mg IV q day total 8 weeks until 12/19/17. Order sent to [facility] / Hypokalemia Supplemented /Hyponatremia improving with iv fluid / Transaminitis Acute hepatitis profile positive for hepatitis C Patient has no history of alcohol intake He is in the [facility] since april 2017 cont to monitor Ataxia; debility; continue PT /DVT prophylaxis Lovenox 30 mg subcutaneous daily GI prophylaxis ordered Brief History: The patient is a 61 YO male with no significant medical problem who is current incarcerated was [facility] from the [facility] for one day h/o abd pain and Outside labs showing elevated creatinine. Awaiting [facility] placement where he can complete his abx and continue PT History Interval history: no more episodes of confusion fever has now resolved No cough, no sputum production No vomiting Hospitalist Physical - Physical exam Narrative exam: General.: Appears well, no distress, nontoxic HEENT: Moist mucous membranes, extraocular muscles intact, no lymphadenopathy Neck: supple Cardiac: S1-S2 heard Lungs: clear to auscultation bilaterally Abdomen: soft , nontender, nondistended, bowel sounds positive Extremities: no edema clubbing or cyanosis Skin: old nodular scar rash on arms/legs Neurologic: no gross focal deficits Psych: appropriate behavior, appropriate mood, corporative, judgment intact - Constitutional Vitals: Temp Pulse Resp BP Pulse Ox 98.9 F 104 H 18 109/74 95 11/03/17 05:13 11/03/17 05:13 11/03/17 05:13 11/03/17 05:13 11/03/17 05:13 General appearance: Present: no acute distress Results - Labs CBC & Chem 7: 11/04/17 06:48 11/04/17 06:48 Labs: Laboratory Last Values WBC 14.0 K/mm3 (4.5-11.0) H 10/30/17 06:57 RBC 3.06 M/mm3 (3.65-5.03) L 10/30/17 06:57 Hgb 8.9 gm/dl (11.8-15.2) L 10/31/17 05:28 Hct 26.6 % (35.5-45.6) L 10/31/17 05:28 MCV 91 fl (84-94) 10/30/17 06:57 MCH 30 pg (28-32) 10/30/17 06:57 MCHC 33 % (32-34) 10/30/17 06:57 RDW 15.3 % (13.2-15.2) H 10/30/17 06:57 Plt Count 332 K/mm3 (140-440) 10/31/17 05:28 Lymph % (Auto) 7.4 % (13.4-35.0) L 10/30/17 06:57 [place] % (Auto) 12.7 % (0.0-7.3) H 10/30/17 06:57 Eos % (Auto) 0.3 % (0.0-4.3) 10/30/17 06:57 Baso % (Auto) 1.0 % (0.0-1.8) 10/30/17 06:57 Lymph # 1.0 K/mm3 (1.2-5.4) L 10/30/17 06:57 [place] # 1.8 K/mm3 (0.0-0.8) H 10/30/17 06:57 Eos # 0.0 K/mm3 (0.0-0.4) 10/30/17 06:57 Baso # 0.0 K/mm3 (0.0-0.1) 10/30/17 06:57 Add Manual Diff Complete 10/25/17 07:56 Total Counted 100 10/25/17 07:56 Seg Neutrophils % 78.6 % (40.0-70.0) H 10/30/17 06:57 Seg Neuts % (Manual) 72.0 % (40.0-70.0) H 10/25/17 07:56 Band Neutrophils % 0 % 10/25/17 07:56 Lymphocytes % (Manual) 10.0 % (13.4-35.0) L 10/25/17 07:56 Reactive Lymphs % (Man) 0 % 10/25/17 07:56 Monocytes % (Manual) 16.0 % (0.0-7.3) H 10/25/17 07:56 Eosinophils % (Manual) 1.0 % (0.0-4.3) 10/25/17 07:56 Basophils % (Manual) 1.0 % (0.0-1.8) 10/25/17 07:56 Metamyelocytes % 0 % 10/25/17 07:56 Myelocytes % 0 % 10/25/17 07:56 Promyelocytes % 0 % 10/25/17 07:56 Blast Cells % 0 % 10/25/17 07:56 Nucleated RBC % Not Reportable 10/25/17 07:56 Seg Neutrophils # 11.0 K/mm3 (1.8-7.7) H 10/30/17 06:57 Seg Neutrophils # Man 7.3 K/mm3 (1.8-7.7) 10/25/17 07:56 Band Neutrophils # 0.0 K/mm3 10/25/17 07:56 Lymphocytes # (Manual) 1.0 K/mm3 (1.2-5.4) L 10/25/17 07:56 Abs React Lymphs (Man) 0.0 K/mm3 10/25/17 07:56 Monocytes # (Manual) 1.6 K/mm3 (0.0-0.8) H 10/25/17 07:56 Eosinophils # (Manual) 0.1 K/mm3 (0.0-0.4) 10/25/17 07:56 Basophils # (Manual) 0.1 K/mm3 (0.0-0.1) 10/25/17 07:56 Metamyelocytes # 0.0 K/mm3 10/25/17 07:56 Myelocytes # 0.0 K/mm3 10/25/17 07:56 Promyelocytes # 0.0 K/mm3 10/25/17 07:56 Blast Cells # 0.0 K/mm3 10/25/17 07:56 WBC Morphology Not Reportable 10/25/17 07:56 Hypersegmented Neuts Not Reportable 10/25/17 07:56 Hyposegmented Neuts Not Reportable 10/25/17 07:56 Hypogranular Neuts Not Reportable 10/25/17 07:56 Smudge Cells Not Reportable 10/25/17 07:56 Toxic Granulation Not Reportable 10/25/17 07:56 Toxic Vacuolation Not Reportable 10/25/17 07:56 Dohle Bodies Not Reportable 10/25/17 07:56 Pelger-Huet Anomaly Not Reportable 10/25/17 07:56 Cem Rods Not Reportable 10/25/17 07:56 Platelet Estimate Consistent w auto 10/25/17 07:56 Clumped Platelets Not Reportable 10/25/17 07:56 Plt Clumps, EDTA Not Reportable 10/25/17 07:56 Large Platelets Not Reportable 10/25/17 07:56 Giant Platelets Not Reportable 10/25/17 07:56 Platelet Satelliting Not Reportable 10/25/17 07:56 Plt Morphology Comment Not Reportable 10/25/17 07:56 RBC Morphology Normal 10/25/17 07:56 Dimorphic RBCs Not Reportable 10/25/17 07:56 Polychromasia Not Reportable 10/25/17 07:56 Hypochromasia Not Reportable 10/25/17 07:56 Poikilocytosis Not Reportable 10/25/17 07:56 Anisocytosis Not Reportable 10/25/17 07:56 Microcytosis Not Reportable 10/25/17 07:56 Macrocytosis Not Reportable 10/25/17 07:56 Spherocytes Not Reportable 10/25/17 07:56 Pappenheimer Bodies Not Reportable 10/25/17 07:56 Sickle Cells Not Reportable 10/25/17 07:56 Target Cells Not Reportable 10/25/17 07:56 Tear Drop Cells Not Reportable 10/25/17 07:56 Ovalocytes Not Reportable 10/25/17 07:56 Helmet Cells Not Reportable 10/25/17 07:56 Gil-[place] Bodies Not Reportable 10/25/17 07:56 [place] Rings Not Reportable 10/25/17 07:56 Shaw Cells Not Reportable 10/25/17 07:56 Bite Cells Not Reportable 10/25/17 07:56 Crenated Cell Not Reportable 10/25/17 07:56 Elliptocytes Not Reportable 10/25/17 07:56 Acanthocytes (Spur) Not Reportable 10/25/17 07:56 Rouleaux Not Reportable 10/25/17 07:56 Hemoglobin C Crystals Not Reportable 10/25/17 07:56 Schistocytes Not Reportable 10/25/17 07:56 Malaria parasites Not Reportable 10/25/17 07:56 Juan Bodies Not Reportable 10/25/17 07:56 Hem Pathologist Commnt No 10/25/17 07:56 PT 15.4 Sec. (12.2-14.9) H 10/24/17 12:03 INR 1.16 (0.87-1.13) H 10/24/17 12:03 APTT 43.4 Sec. (24.2-36.6) H 10/24/17 12:03 Heparin Anti-Xa Level < 0.10 U.I./ml (0.3-0.7) L 10/24/17 12:03 Sodium 134 mmol/L (137-145) L 07/04/18 06:57 Potassium 4.9 mmol/L (3.6-5.0) 10/30/17 06:57 Chloride 98.2 mmol/L (98-107) 10/30/17 06:57 Carbon Dioxide 22 mmol/L (22-30) 10/30/17 06:57 Anion Gap 19 mmol/L 10/30/17 06:57 BUN 13 mg/dL (9-20) 10/30/17 06:57 Creatinine 0.7 mg/dL (0.8-1.5) L 10/30/17 06:57 Estimated GFR > 60 ml/min 10/30/17 06:57 BUN/Creatinine Ratio 19 % 10/30/17 06:57 Glucose 105 mg/dL (75-100) H 10/30/17 06:57 POC Glucose 157 (70-105) H 10/26/17 08:59 Osmolality 305 Mosm/kg 10/12/17 06:00 Lactic Acid 1.60 mmol/L (0.7-2.0) 10/13/17 10:36 Calcium 10.8 mg/dL (8.4-10.2) H 10/30/17 06:57 Phosphorus 4.10 mg/dL (2.5-4.5) 10/24/17 12:03 Magnesium 1.60 mg/dL (1.7-2.3) L 10/24/17 12:03 Iron 45 ug/dL (49-181) L 10/12/17 06:00 TIBC 131 mcg/dL (250-450) L 10/12/17 06:00 % Saturation 34.35 % 10/12/17 06:00 Transferrin 102 mg/dl (180-329) L 10/12/17 06:00 Total Bilirubin 1.00 mg/dL (0.1-1.2) 10/19/17 07:11 AST 129 units/L (5-40) H 10/19/17 07:11 ALT 73 units/L (7-56) H 10/19/17 07:11 Alkaline Phosphatase 128 units/L (35-129) 10/19/17 07:11 Total Creatine Kinase 385 units/L (55-170) H 10/28/17 07:13 C-Reactive Protein 26.70 mg/dL (0.00-1.30) H 10/15/17 20:53 Total Protein 5.6 g/dL (6.3-8.2) L 10/19/17 07:11 Albumin 1.8 g/dL (3.9-5) L 10/19/17 07:11 Albumin/Globulin Ratio 0.5 % 10/19/17 07:11 Urine Color Yellow (Yellow) 10/11/17 Unknown Urine Turbidity Clear (Clear) 10/11/17 Unknown Urine pH 5.0 (5.0-7.0) 10/11/17 Unknown Ur Specific [place] 1.012 (1.003-1.030) 10/11/17 Unknown Urine Protein <15 mg/dl mg/dL (Negative) 10/11/17 Unknown Urine Glucose (UA) Neg mg/dL (Negative) 10/11/17 Unknown Urine Ketones Neg mg/dL (Negative) 10/11/17 Unknown Urine Blood Mod (Negative) 10/11/17 Unknown Urine Nitrite Neg (Negative) 10/11/17 Unknown Urine Bilirubin Neg (Negative) 10/11/17 Unknown Urine Urobilinogen < 2.0 mg/dL (<2.0) 10/11/17 Unknown Ur Leukocyte Esterase Neg (Negative) 10/11/17 Unknown Urine WBC (Auto) 10.0 /HPF (0.0-6.0) H 10/11/17 Unknown Urine RBC (Auto) 15.0 /HPF (0.0-6.0) 10/11/17 Unknown U Epithel Cells (Auto) 1.0 /HPF (0-13.0) 10/11/17 Unknown Urine Mucus Few /HPF 10/11/17 Unknown Urine Osmolality 425 Mosm/kg 10/12/17 13:00 Urine Creatinine 80.2 mg/dL (0.1-20.0) H 10/12/17 13:00 Urine Sodium 10 mmol/L 10/12/17 13:00 Fluid Type Synovial 10/25/17 09:45 Fluid Color [place] 10/25/17 09:45 Fluid Appearance Turbid 10/25/17 09:45 Fluid WBC 54513 /mm3 10/25/17 09:45 Fluid RBC 3300 /mm3 10/25/17 09:45 Fluid Seg Neutrophils 90.0 % 10/25/17 09:45 Fluid Lymphocytes 4.0 % 10/25/17 09:45 Fluid Reactive Lymphs Not Reportable 10/25/17 09:45 Fluid Monocytes 5.0 % 10/25/17 09:45 Fluid Eosinophils 1.0 % 10/25/17 09:45 Fluid Basophils Not Reportable 10/25/17 09:45 Fluid Comment N 10/25/17 09:45 Vancomycin Trough 25.3 ug/mL (5.0-20.0) H 10/16/17 12:01 Hepatitis A IgM Ab Non-reactive (NonReactive) 10/12/17 06:00 Hep Bs Antigen Non-reactive (Negative) 10/12/17 06:00 Hep B Core IgM Ab Non-reactive (NonReactive) 10/12/17 06:00 Hepatitis C Antibody Reactive (NonReactive) A 10/12/17 06:00 HIV 1&2 Antibody Rapid Non react (Non React) 10/16/17 19:27 HIV P24 Antigen Non react (Non React) 10/16/17 19:27 Blood Type O POSITIVE 10/28/17 19:03 Antibody Screen Negative 10/28/17 19:03 Crossmatch See Detail 10/28/17 19:03
--- NOTE | 2017-11-03 09:38 | Progress Note ---
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 skin boils -blood cx 10/13 MSSA 4 of 4 bottles -blood cx 10/14 MSSA 4 of 4 bottles -blood cx 10/19 MSSA 2 of 4 -blood cx 10/21 MSSA 1 of 4 -blood cx 10/25 negative -INDRA mobile echogenic density in the main pulmonary artery suspicious for either a clot in transit or vegetation. -CT showed right gluteal collection vs myositis 7.5x2.5.cm, left ilepsoas abscess 6x3.5 cm, loculated bilateral small pleural effusions with ill defined solid opacities ? nodules vs. ? emboli with reactive axillary, hilar and mediastinal LNs. -S/P right hip aspiration yieling 40cc fluid on 10/21 cx +MSSA -WBC scan showed left large knee effusion and multiple soft tissue abscesses pelvic areas -S/P left obturator pectineous and rectus femoris drainage 40 cc purulence -S/P left knee aspiration 80cc purulence 3) DARRICK - resolved 4) Thrombocytopenia: from sepsis/HCV- resolved 5) HCV serology positive 6) Elevated LFTs: from sepsis and HCV 7) Rhabdomyolysis: from sepsis 8) Lower back pain and leg weakness 9) Pen allergy - hives 10) Severe anemia after Heparin gtt 11) Left knee septic arthritis s/p OR wash out 10/29 Plan: Continue antibiotic therapy per ID recommendation No further cardiac recommendations Subjective Principal diagnosis: MRSA bacteremia Interval history: No acute events. resting comfortably. No chest pain or SOB. Objective Vital Signs Temp Pulse Pulse Resp BP Pulse Ox 11/03/17 05:13 98.9 F 104 H 18 109/74 95 11/02/17 23:37 99.1 F 110 H 18 106/73 96 11/02/17 22:00 110 H 18 96 11/02/17 17:38 97.9 F 110 H 20 95/67 95 11/02/17 12:59 98.9 F 66 20 101/68 90 - Physical Examination General: No Apparent Distress HEENT: Positive: PERRL Neck: Positive: neck supple Neuro: Positive: Grossly Intact Abdomen: Positive: Soft, Active Bowel Sounds Skin: Positive: Clear Extremities: Absent: edema - Imaging and Cardiology EKG: report reviewed
[2017-11-03] MEDS: FLOMAX PO SCH (10:05)
[2017-11-03] MEDS: CUBICIN 500 MG in NACL 0.9% 100 ML IV SCH (10:09)
[2017-11-03] MEDS: SODIUM CHLORIDE FLUSH SYRINGE 10 ML IV SCH ×2 (10:09→22:47)
[2017-11-03] MEDS: TYLENOL PO PRN (15:30)
[2017-11-04 07:16] LABS: Basophils # (Auto) 0.1 K/mm3 (0.0-0.1); Basophils % (Auto) 0.8 % (0.0-1.8); Eosinophils % (Auto) 0.1 % (0.0-4.3); Hemoglobin 9.7 gm/dl (11.8-15.2); Lymphocytes # (Auto) 1.2 K/mm3 (1.2-5.4); Lymphocytes % (Auto) 6.6 % (13.4-35.0); Mean Corpuscular HGB Conc 34 % (32-34); Mean Corpuscular Hemoglobin 30 pg (28-32); Mean Corpuscular Volume 91 fl (84-94); Monocytes # (Auto) 1.6 K/mm3 (0.0-0.8); Monocytes % (Auto) 8.9 % (0.0-7.3); Platelet Count 375 K/mm3 (140-440); Red Cell Distribution Width 14.5 % (13.2-15.2)
[2017-11-04 07:35] LABS: BUN/Creatinine Ratio 23; Blood Urea Nitrogen 16 mg/dL (9-20); Calcium 11.2 mg/dL (8.4-10.2); Hemolysis Index 0
--- NOTE | 2017-11-04 07:51 | Progress Note ---
Assessment and Plan Assessment and plan: CT C/A/P 1. No acute intra-abdominal pathology. 2. Small bilateral pleural effusions with associated atelectasis. 3. Fluid collections involving the right gluteus musculature and the left iliopsoas and obturator muscles. Findings may represent abscesses or seromas. Clinical correlation is recommended. VL venous duplex; no evidence of DVT INDRA' INDRA pertinent for normal LVEF; there is a mobile echogenic density in the main pulmonary artery suspicious for either a clot in transit or vegetation. 10/21, CT-guided aspiration of fluid collection that extends from right hip and gluteal musculature with a total of 40 mL of fluid aspirated and sent to the lab NM WBC scan 10/23; Abnormal radiotracer accumulation in both gluteal regions and left knee. 10/25 CT guided 5 Fr drain placement in the left obturator, pectineus, and rectus femoris with removal of 40 mL of purulent material US guided left knee drainage with removal of 80 mL of purulent material 10/25; ; Pelvic xr; Severe bilateral hip osteoarthritis. 10/27; CTA chest; no PE Severe anemia and thrombocytopenia likely due to prolonged sepsis; transfused 4 units prbc, no evidence of GIB improving / Acute kidney injury on IVF improving, likely ATN /acute metabolic encephalopathy with delirium likely due to sepsis, improving / Sepsis with persistent bacteremia, MSSA, gram pos, R heart endocarditis, with septic emboli causing infection of lung, R gluteus, Left iliopsoas, Left Knee with abscess of R gluteus, left iliopsoas, septic emboli in lungs, Left knee abscess on abx, ID input appreciated error with micro lab, not MRSA but MSSA -Sp IR drainage of abscesses, 10/29 Incision and drainage left knee was done -evidence of Endocarditis; unable to anticoagulate due to severe anemia(may be large vegetation vs mobile thrombus) -will need iv abx for 6-8 weeks -Per ID; continue daptomycin in view of penicillin allergy cannot do ancef -upon discharge will do daptomycin 500 mg IV q day total 8 weeks until 12/19/17. Order sent to immigration case worker / Hypokalemia Supplemented /Hyponatremia improving with iv fluid / Transaminitis Acute hepatitis profile positive for hepatitis C Patient has no history of alcohol intake [facility] 2017 cont to monitor Ataxia; debility; continue PT /DVT prophylaxis Lovenox 30 mg subcutaneous daily GI prophylaxis ordered Brief History: The patient is a 61 YO male with no significant medical problem who is current incarcerated was [facility] for one day h/o abd pain and Outside labs showing elevated creatinine. Awaiting [facility] placement where he can complete his abx and continue PT History Interval history: no more episodes of confusion fever has now resolved No cough, no sputum production No vomiting Hospitalist Physical - Physical exam Narrative exam: General.: Appears well, no distress, nontoxic HEENT: Moist mucous membranes, extraocular muscles intact, no lymphadenopathy Neck: supple Cardiac: S1-S2 heard Lungs: clear to auscultation bilaterally Abdomen: soft , nontender, nondistended, bowel sounds positive Extremities: no edema clubbing or cyanosis Skin: old nodular scar rash on arms/legs Neurologic: no gross focal deficits Psych: appropriate behavior, appropriate mood, corporative, judgment intact - Constitutional Vitals: Temp Pulse Resp BP Pulse Ox 98.1 F 117 H 28 H 117/78 96 11/03/17 23:31 11/03/17 23:31 11/03/17 23:31 11/03/17 23:31 11/03/17 23:31 General appearance: Present: no acute distress Results - Labs CBC & Chem 7: 11/04/17 06:48 11/04/17 06:48 Labs: Laboratory Last Values WBC 17.7 K/mm3 (4.5-11.0) H 11/04/17 06:48 RBC 3.20 M/mm3 (3.65-5.03) L 11/04/17 06:48 Hgb 9.7 gm/dl (11.8-15.2) L 11/04/17 06:48 Hct 29.0 % (35.5-45.6) L 11/04/17 06:48 MCV 91 fl (84-94) 11/04/17 06:48 MCH 30 pg (28-32) 11/04/17 06:48 MCHC 34 % (32-34) 11/04/17 06:48 RDW 14.5 % (13.2-15.2) 11/04/17 06:48 Plt Count 375 K/mm3 (140-440) 11/04/17 06:48 Lymph % (Auto) 6.6 % (13.4-35.0) L 11/04/17 06:48 [place] % (Auto) 8.9 % (0.0-7.3) H 11/04/17 06:48 Eos % (Auto) 0.1 % (0.0-4.3) 11/04/17 06:48 Baso % (Auto) 0.8 % (0.0-1.8) 11/04/17 06:48 Lymph # 1.2 K/mm3 (1.2-5.4) 11/04/17 06:48 [place] # 1.6 K/mm3 (0.0-0.8) H 11/04/17 06:48 Eos # 0.0 K/mm3 (0.0-0.4) 11/04/17 06:48 Baso # 0.1 K/mm3 (0.0-0.1) 11/04/17 06:48 Add Manual Diff Complete 10/25/17 07:56 Total Counted 100 10/25/17 07:56 Seg Neutrophils % 83.6 % (40.0-70.0) H 11/04/17 06:48 Seg Neuts % (Manual) 72.0 % (40.0-70.0) H 10/25/17 07:56 Band Neutrophils % 0 % 10/25/17 07:56 Lymphocytes % (Manual) 10.0 % (13.4-35.0) L 10/25/17 07:56 Reactive Lymphs % (Man) 0 % 10/25/17 07:56 Monocytes % (Manual) 16.0 % (0.0-7.3) H 10/25/17 07:56 Eosinophils % (Manual) 1.0 % (0.0-4.3) 10/25/17 07:56 Basophils % (Manual) 1.0 % (0.0-1.8) 10/25/17 07:56 Metamyelocytes % 0 % 10/25/17 07:56 Myelocytes % 0 % 10/25/17 07:56 Promyelocytes % 0 % 10/25/17 07:56 Blast Cells % 0 % 10/25/17 07:56 Nucleated RBC % Not Reportable 10/25/17 07:56 Seg Neutrophils # 14.8 K/mm3 (1.8-7.7) H 11/04/17 06:48 Seg Neutrophils # Man 7.3 K/mm3 (1.8-7.7) 10/25/17 07:56 Band Neutrophils # 0.0 K/mm3 10/25/17 07:56 Lymphocytes # (Manual) 1.0 K/mm3 (1.2-5.4) L 10/25/17 07:56 Abs React Lymphs (Man) 0.0 K/mm3 10/25/17 07:56 Monocytes # (Manual) 1.6 K/mm3 (0.0-0.8) H 10/25/17 07:56 Eosinophils # (Manual) 0.1 K/mm3 (0.0-0.4) 10/25/17 07:56 Basophils # (Manual) 0.1 K/mm3 (0.0-0.1) 10/25/17 07:56 Metamyelocytes # 0.0 K/mm3 10/25/17 07:56 Myelocytes # 0.0 K/mm3 10/25/17 07:56 Promyelocytes # 0.0 K/mm3 10/25/17 07:56 Blast Cells # 0.0 K/mm3 10/25/17 07:56 WBC Morphology Not Reportable 10/25/17 07:56 Hypersegmented Neuts Not Reportable 10/25/17 07:56 Hyposegmented Neuts Not Reportable 10/25/17 07:56 Hypogranular Neuts Not Reportable 10/25/17 07:56 Smudge Cells Not Reportable 10/25/17 07:56 Toxic Granulation Not Reportable 10/25/17 07:56 Toxic Vacuolation Not Reportable 10/25/17 07:56 Dohle Bodies Not Reportable 10/25/17 07:56 Pelger-Huet Anomaly Not Reportable 10/25/17 07:56 Cem Rods Not Reportable 10/25/17 07:56 Platelet Estimate Consistent w auto 10/25/17 07:56 Clumped Platelets Not Reportable 10/25/17 07:56 Plt Clumps, EDTA Not Reportable 10/25/17 07:56 Large Platelets Not Reportable 10/25/17 07:56 Giant Platelets Not Reportable 10/25/17 07:56 Platelet Satelliting Not Reportable 10/25/17 07:56 Plt Morphology Comment Not Reportable 10/25/17 07:56 RBC Morphology Normal 10/25/17 07:56 Dimorphic RBCs Not Reportable 10/25/17 07:56 Polychromasia Not Reportable 10/25/17 07:56 Hypochromasia Not Reportable 10/25/17 07:56 Poikilocytosis Not Reportable 10/25/17 07:56 Anisocytosis Not Reportable 10/25/17 07:56 Microcytosis Not Reportable 10/25/17 07:56 Macrocytosis Not Reportable 10/25/17 07:56 Spherocytes Not Reportable 10/25/17 07:56 Pappenheimer Bodies Not Reportable 10/25/17 07:56 Sickle Cells Not Reportable 10/25/17 07:56 Target Cells Not Reportable 10/25/17 07:56 Tear Drop Cells Not Reportable 10/25/17 07:56 Ovalocytes Not Reportable 10/25/17 07:56 Helmet Cells Not Reportable 10/25/17 07:56 [place] Bodies Not Reportable 10/25/17 07:56 Reed Rings Not Reportable 10/25/17 07:56 Shaw Cells Not Reportable 10/25/17 07:56 Bite Cells Not Reportable 10/25/17 07:56 Crenated Cell Not Reportable 10/25/17 07:56 Elliptocytes Not Reportable 10/25/17 07:56 Acanthocytes (Spur) Not Reportable 10/25/17 07:56 Rouleaux Not Reportable 10/25/17 07:56 Hemoglobin C Crystals Not Reportable 10/25/17 07:56 Schistocytes Not Reportable 10/25/17 07:56 Malaria parasites Not Reportable 10/25/17 07:56 Juan Bodies Not Reportable 10/25/17 07:56 Hem Pathologist Commnt No 10/25/17 07:56 PT 15.4 Sec. (12.2-14.9) H 10/24/17 12:03 INR 1.16 (0.87-1.13) H 10/24/17 12:03 APTT 43.4 Sec. (24.2-36.6) H 10/24/17 12:03 Heparin Anti-Xa Level < 0.10 U.I./ml (0.3-0.7) L 10/24/17 12:03 Sodium 131 mmol/L (137-145) L 11/04/17 06:48 Potassium 4.0 mmol/L (3.6-5.0) 11/04/17 06:48 Chloride 94.2 mmol/L (98-107) L 11/04/17 06:48 Carbon Dioxide 23 mmol/L (22-30) 11/04/17 06:48 Anion Gap 18 mmol/L 11/04/17 06:48 BUN 16 mg/dL (9-20) 11/04/17 06:48 Creatinine 0.7 mg/dL (0.8-1.5) L 11/04/17 06:48 Estimated GFR > 60 ml/min 11/04/17 06:48 BUN/Creatinine Ratio 23 % 11/04/17 06:48 Glucose 111 mg/dL (75-100) H 11/04/17 06:48 POC Glucose 157 (70-105) H 10/26/17 08:59 Osmolality 305 Mosm/kg 10/12/17 06:00 Lactic Acid 1.60 mmol/L (0.7-2.0) 10/13/17 10:36 Calcium 11.2 mg/dL (8.4-10.2) H 11/04/17 06:48 Phosphorus 3.90 mg/dL (2.5-4.5) 11/04/17 06:48 Magnesium 1.70 mg/dL (1.7-2.3) 11/04/17 06:48 Iron 45 ug/dL (49-181) L 10/12/17 06:00 TIBC 131 mcg/dL (250-450) L 10/12/17 06:00 % Saturation 34.35 % 10/12/17 06:00 Transferrin 102 mg/dl (180-329) L 10/12/17 06:00 Total Bilirubin 1.00 mg/dL (0.1-1.2) 10/19/17 07:11 AST 129 units/L (5-40) H 10/19/17 07:11 ALT 73 units/L (7-56) H 10/19/17 07:11 Alkaline Phosphatase 128 units/L (35-129) 10/19/17 07:11 Total Creatine Kinase 3079 units/L (55-170) H 11/03/17 09:08 C-Reactive Protein 26.70 mg/dL (0.00-1.30) H 10/15/17 20:53 Total Protein 5.6 g/dL (6.3-8.2) L 10/19/17 07:11 Albumin 1.8 g/dL (3.9-5) L 10/19/17 07:11 Albumin/Globulin Ratio 0.5 % 10/19/17 07:11 Urine Color Yellow (Yellow) 10/11/17 Unknown Urine Turbidity Clear (Clear) 10/11/17 Unknown Urine pH 5.0 (5.0-7.0) 10/11/17 Unknown Ur Specific [place] 1.012 (1.003-1.030) 10/11/17 Unknown Urine Protein <15 mg/dl mg/dL (Negative) 10/11/17 Unknown Urine Glucose (UA) Neg mg/dL (Negative) 10/11/17 Unknown Urine Ketones Neg mg/dL (Negative) 10/11/17 Unknown Urine Blood Mod (Negative) 10/11/17 Unknown Urine Nitrite Neg (Negative) 10/11/17 Unknown Urine Bilirubin Neg (Negative) 10/11/17 Unknown Urine Urobilinogen < 2.0 mg/dL (<2.0) 10/11/17 Unknown Ur Leukocyte Esterase Neg (Negative) 10/11/17 Unknown Urine WBC (Auto) 10.0 /HPF (0.0-6.0) H 10/11/17 Unknown Urine RBC (Auto) 15.0 /HPF (0.0-6.0) 10/11/17 Unknown U Epithel Cells (Auto) 1.0 /HPF (0-13.0) 10/11/17 Unknown Urine Mucus Few /HPF 10/11/17 Unknown Urine Osmolality 425 Mosm/kg 10/12/17 13:00 Urine Creatinine 80.2 mg/dL (0.1-20.0) H 10/12/17 13:00 Urine Sodium 10 mmol/L 10/12/17 13:00 Fluid Type Synovial 10/25/17 09:45 Fluid Color [place] 10/25/17 09:45 Fluid Appearance Turbid 10/25/17 09:45 Fluid WBC 95218 /mm3 10/25/17 09:45 Fluid RBC 3300 /mm3 10/25/17 09:45 Fluid Seg Neutrophils 90.0 % 10/25/17 09:45 Fluid Lymphocytes 4.0 % 10/25/17 09:45 Fluid Reactive Lymphs Not Reportable 10/25/17 09:45 Fluid Monocytes 5.0 % 10/25/17 09:45 Fluid Eosinophils 1.0 % 10/25/17 09:45 Fluid Basophils Not Reportable 10/25/17 09:45 Fluid Comment N 10/25/17 09:45 Vancomycin Trough 25.3 ug/mL (5.0-20.0) H 10/16/17 12:01 Hepatitis A IgM Ab Non-reactive (NonReactive) 10/12/17 06:00 Hep Bs Antigen Non-reactive (Negative) 10/12/17 06:00 Hep B Core IgM Ab Non-reactive (NonReactive) 10/12/17 06:00 Hepatitis C Antibody Reactive (NonReactive) A 10/12/17 06:00 HIV 1&2 Antibody Rapid Non react (Non React) 10/16/17 19:27 HIV P24 Antigen Non react (Non React) 10/16/17 19:27 Blood Type O POSITIVE 10/28/17 19:03 Antibody Screen Negative 10/28/17 19:03 Crossmatch See Detail 10/28/17 19:03
[2017-11-04] MEDS: PERCOCET 5/325 PO PRN ×4 (10:08→23:20)
[2017-11-04] MEDS: FLOMAX PO SCH (10:13)
[2017-11-04] MEDS: SODIUM CHLORIDE FLUSH SYRINGE 10 ML IV SCH ×2 (10:13→23:20)
[2017-11-04] MEDS: CUBICIN 500 MG in NACL 0.9% 100 ML IV SCH (10:37)
--- NOTE | 2017-11-04 11:09 | Progress Note ---
Assessment and Plan Assessment: 1) Severe sepsis: resolved noted leukocytosis. Etiology most likely MSSA septicemia. 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 skin boils -blood cx 10/13 MSSA 4 of 4 bottles -blood cx 10/14 MSSA 4 of 4 bottles -blood cx 10/19 MSSA 2 of 4 -blood cx 10/21 MSSA 1 of 4 -blood cx 10/25 negative -TTE no obvious vegetations -INDRA mobile echogenic density in the main pulmonary artery suspicious for either a clot in transit or vegetation. -CT showed right gluteal collection vs myositis 7.5x2.5.cm, left ilepsoas abscess 6x3.5 cm, loculated bilateral small pleural effusions with ill defined solid opacities ? nodules vs. ?emboli with reactive axillary, hilar and mediastinal LNs. -S/P right hip aspiration yieling 40cc fluid on 10/21 cx +MSSA -WBC scan showed left large knee effusion and multiple soft tissue abscesses pelvic areas -S/P left obturator pectineous and rectus femoris drainage 40 cc purulence -S/P left knee aspiration 80cc purulence 3) DARRICK - resolved 4) Thrombocytopenia: from sepsis/HCV- resolved 5) HCV serology positive 6) Elevated LFTs: from sepsis and HCV 7) Rhabdomyolysis: from sepsis 8) Lower back pain and leg weakness 9) Pen allergy - hives 10) Severe anemia after Heparin gtt 11) Left knee septic arthritis s/p OR wash out 10/29 Plan: -piano case maker informed me that residential dropped charges and pt's mecaid is not able to cover daptomycin. Will try cefazolin IV and pharmacy/nursing staff alerted for allergic reactions. If patient is able to tolerate will do cefazolin 2 g IV q8h total 8 week until 12/19/17. -monitor leukocytosis which is increasing Thank you for your consultation, will follow up with you. Jordana Viramontes MD Infectious Diseases Specialist [facility] ([facility] M [phone] O [phone] Subjective Date of service: 11/04/17 Principal diagnosis: MRSA bacteremia Interval history: feels ok, no fever, still c/o left knee pain. Microbiology: Blood cultures: 10/13 MSSA 4 of 4 bottles (initially reported as MRSA by error) 10/14 MSSA 4 of 4 bottles 10/19 MSSA 2 of 4 10/21 MSSA 1 of 4 10/25 negative Right hip cx: 10/21 MSSA Left knee cx : 10/25 MSSA, OR left knee MSSA Urine cultures: Respiratory cultures: Current Antimicrobials: Dapto 10/17 Previous Antimicrobials: Zosyn Vancomycin 10/14 Objective - Exam Narrative Exam: General appearance: Alert in NAD, Eyes: anicteric sclerae, moist conjunctivae; no lid-lag; PERRLA HENT: Atraumatic; oropharynx clear Neck: Trachea midline; supple, no thyromegaly or lymphadenopathy Lungs: CTA, with normal respiratory effort and no intercostal retractions CV: RRR Abdomen: Soft, non-tender; no masses or hepatosplenomegaly Extremities: right hip/gluteal tenderness and edema, left thigh tenderness, left knee w surgical dressings Skin: old nodular scar rash on arms/legs Psych: Appropriate affect, alert and oriented to person, place and time. Neuro: alert and oriented x 3. Moving all extermities Lines: No CVL / PICC - Constitutional Vitals: Vital Signs Temp Pulse Resp BP Pulse Ox 98.1 F 117 H 28 H 117/78 96 11/03/17 23:31 11/03/17 23:31 11/03/17 23:31 11/03/17 23:31 11/03/17 23:31 Temperature -Last 24 Hours Temperature 98.1 F Temperature 97.8 F Temperature 98.9 F - Labs CBC & Chem 7: 11/04/17 06:48 11/04/17 06:48 Labs: Abnormal lab results 11/04/17 11/04/17 Range/Units 06:48 06:48 WBC 17.7 H (4.5-11.0) K/mm3 RBC 3.20 L (3.65-5.03) M/mm3 Hgb 9.7 L (11.8-15.2) gm/dl Hct 29.0 L (35.5-45.6) % Lymph % (Auto) 6.6 L (13.4-35.0) % [place] % (Auto) 8.9 H (0.0-7.3) % [place] # 1.6 H (0.0-0.8) K/mm3 Seg Neutrophils % 83.6 H (40.0-70.0) % Seg Neutrophils # 14.8 H (1.8-7.7) K/mm3 Sodium 131 L (137-145) mmol/L Chloride 94.2 L (98-107) mmol/L Creatinine 0.7 L (0.8-1.5) mg/dL Glucose 111 H (75-100) mg/dL Calcium 11.2 H (8.4-10.2) mg/dL
[2017-11-04] MEDS ORDERED: ADRENALIN IV ONE (11:15)
[2017-11-04] MEDS ORDERED: ANCEF/NS 1 GM/50 ML 1 GM/50 ML BAG IV SCH (12:00)
[2017-11-04] MEDS: ANCEF/NS 1 GM/50 ML 1 GM/50 ML BAG IV SCH ×2 (15:29→23:20)
--- NOTE | 2017-11-04 18:31 | Progress Note ---
Assessment and Plan - Patient Problems (1) Endocarditis Current Visit: Yes Status: Acute Subjective Date of service: 11/04/17 Principal diagnosis: MRSA bacteremia Interval history: NO CV C\O Objective Vital Signs Temp Pulse Pulse Resp BP Pulse Ox 11/04/17 11:49 98.6 F 111 H 20 110/74 95 11/04/17 08:30 108 H 16 96 11/04/17 04:56 98.8 F 117 H 24 101/66 100 11/03/17 23:31 98.1 F 117 H 28 H 117/78 96 11/03/17 20:41 111 H 20 93 - Physical Examination General: No Apparent Distress HEENT: Positive: PERRL Neck: Positive: neck supple Cardiac: Positive: Reg Rate and Rhythm, Tachycardia Lungs: Positive: clear to auscultation Neuro: Positive: Grossly Intact Abdomen: Positive: Soft, Active Bowel Sounds Skin: Positive: Clear Extremities: Present: normal. Absent: edema - Labs and Meds CBC 11/04/17 Range/Units 06:48 WBC 17.7 H (4.5-11.0) K/mm3 RBC 3.20 L (3.65-5.03) M/mm3 Hgb 9.7 L (11.8-15.2) gm/dl Hct 29.0 L (35.5-45.6) % Plt Count 375 (140-440) K/mm3 Lymph # 1.2 (1.2-5.4) K/mm3 [place] # 1.6 H (0.0-0.8) K/mm3 Eos # 0.0 (0.0-0.4) K/mm3 Baso # 0.1 (0.0-0.1) K/mm3 Comprehensive Metabolic Panel 11/04/17 Range/Units 06:48 Sodium 131 L (137-145) mmol/L Potassium 4.0 (3.6-5.0) mmol/L Chloride 94.2 L (98-107) mmol/L Carbon Dioxide 23 (22-30) mmol/L BUN 16 (9-20) mg/dL Creatinine 0.7 L (0.8-1.5) mg/dL Glucose 111 H (75-100) mg/dL Calcium 11.2 H (8.4-10.2) mg/dL - Imaging and Cardiology EKG: report reviewed
[2017-11-04] MEDS: LOPRESSOR PO SCH (23:28)
[2017-11-05] MEDS: PERCOCET 5/325 PO PRN ×2 (05:35→17:57)
[2017-11-05] MEDS: ANCEF/NS 1 GM/50 ML 1 GM/50 ML BAG IV SCH (05:46)
[2017-11-05] MEDS: LOPRESSOR PO SCH (09:35)
[2017-11-05] MEDS: SODIUM CHLORIDE FLUSH SYRINGE 10 ML IV SCH ×2 (09:36→22:26)
[2017-11-05] MEDS: FLOMAX PO SCH (09:36)
--- NOTE | 2017-11-05 11:44 | Progress Note ---
Assessment and Plan Assessment: 1) Severe sepsis: resolved noted leukocytosis. Etiology most likely MSSA septicemia. 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 skin boils -blood cx 10/13 MSSA 4 of 4 bottles -blood cx 10/14 MSSA 4 of 4 bottles -blood cx 10/19 MSSA 2 of 4 -blood cx 10/21 MSSA 1 of 4 -blood cx 10/25 negative -TTE no obvious vegetations -INDRA mobile echogenic density in the main pulmonary artery suspicious for either a clot in transit or vegetation. -CT showed right gluteal collection vs myositis 7.5x2.5.cm, left ilepsoas abscess 6x3.5 cm, loculated bilateral small pleural effusions with ill defined solid opacities ? nodules vs. ?emboli with reactive axillary, hilar and mediastinal LNs. -S/P right hip aspiration yieling 40cc fluid on 10/21 cx +MSSA -WBC scan showed left large knee effusion and multiple soft tissue abscesses pelvic areas -S/P left obturator pectineous and rectus femoris drainage 40 cc purulence -S/P left knee aspiration 80cc purulence 3) DARRICK - resolved 4) Thrombocytopenia: from sepsis/HCV- resolved 5) HCV serology positive 6) Elevated LFTs: from sepsis and HCV 7) Rhabdomyolysis: from sepsis 8) Lower back pain and leg weakness 9) Pen allergy - hives 10) Severe anemia after Heparin gtt 11) Left knee septic arthritis s/p OR wash out 10/29 Plan: -continue cefazolin IV - tolerating it well, no reactions -upon discharge will do cefazolin 2 g IV q8h total 8 week until 12/19/17. Orders sent to piano case maker. -monitor leukocytosis which is high Thank you for your consultation, will follow up with you. Jordana Viramontes MD Infectious Diseases Specialist [facility] ([facility] M [phone] O [phone] Subjective Date of service: 11/05/17 Principal diagnosis: MRSA bacteremia Interval history: feels ok, no fever, no reaction to cefazolin overnight Microbiology: Blood cultures: 10/13 MSSA 4 of 4 bottles (initially reported as MRSA by error) 10/14 MSSA 4 of 4 bottles 10/19 MSSA 2 of 4 10/21 MSSA 1 of 4 10/25 negative Right hip cx: 10/21 MSSA Left knee cx : 10/25 MSSA, OR left knee MSSA Urine cultures: Respiratory cultures: Current Antimicrobials: cefazolin 11/04 Previous Antimicrobials: Zosyn Vancomycin 10/14 Dapto 10/17-11/04 Objective - Exam Narrative Exam: General appearance: Alert in NAD, Eyes: anicteric sclerae, moist conjunctivae; no lid-lag; PERRLA HENT: Atraumatic; oropharynx clear Neck: Trachea midline; supple, no thyromegaly or lymphadenopathy Lungs: CTA, with normal respiratory effort and no intercostal retractions CV: RRR Abdomen: Soft, non-tender; no masses or hepatosplenomegaly Extremities: right hip/gluteal tenderness and edema, left thigh tenderness, left knee w surgical dressings Skin: old nodular scar rash on arms/legs Psych: Appropriate affect, alert and oriented to person, place and time. Neuro: alert Lines: No CVL / PICC - Constitutional Vitals: Vital Signs Temp Pulse Resp BP Pulse Ox 98.4 F 106 H 20 102/67 98 11/04/17 17:52 11/05/17 09:35 11/04/17 17:52 11/05/17 05:47 11/05/17 05:47 Temperature -Last 24 Hours Temperature 98.4 F Temperature 98.6 F - Labs CBC & Chem 7: 11/04/17 06:48 11/04/17 06:48
--- NOTE | 2017-11-05 12:51 | Progress Note ---
Assessment and Plan Persistent MSSA septicemia INDRA pertinent for normal LVEF; there is a mobile echogenic density in the main pulmonary artery suspicious for either a clot in transit or vegetation. Septic left knee Thrombocytopenia Severe Anemia s/p transfusion of PRBCs IV heparin discontinued. Patient is considered not a candidate for anticoagulation therapy at this time. Elevated LFTs Rhabdomyolysis Conservative cardiac management. Subjective Date of service: 11/05/17 Principal diagnosis: MRSA bacteremia Interval history: Patient is resting in bed comfortably. He denies chest pain and shortness of breath. Objective Vital Signs Temp Pulse Resp BP Pulse Ox 11/05/17 09:35 106 H 11/05/17 05:47 106 H 102/67 98 11/04/17 23:28 107 H 96/60 11/04/17 17:52 98.4 F 115 H 20 104/76 97 - Physical Examination General: No Apparent Distress HEENT: Positive: PERRL Cardiac: Positive: Reg Rate and Rhythm Neuro: Positive: Grossly Intact Extremities: Absent: edema
[2017-11-05] MEDS: ceFAZolin 2 GM in NACL 0.9% 100 ML IV SCH ×2 (14:59→22:26)
--- NOTE | 2017-11-05 15:58 | Progress Note ---
Assessment and Plan Assessment and plan: CT C/A/P 1. No acute intra-abdominal pathology. 2. Small bilateral pleural effusions with associated atelectasis. 3. Fluid collections involving the right gluteus musculature and the left iliopsoas and obturator muscles. Findings may represent abscesses or seromas. Clinical correlation is recommended. VL venous duplex; no evidence of DVT INDRA' INDRA pertinent for normal LVEF; there is a mobile echogenic density in the main pulmonary artery suspicious for either a clot in transit or vegetation. 10/21, CT-guided aspiration of fluid collection that extends from right hip and gluteal musculature with a total of 40 mL of fluid aspirated and sent to the lab NM WBC scan 10/23; Abnormal radiotracer accumulation in both gluteal regions and left knee. 10/25 CT guided 5 Fr drain placement in the left obturator, pectineus, and rectus femoris with removal of 40 mL of purulent material US guided left knee drainage with removal of 80 mL of purulent material 10/25; ; Pelvic xr; Severe bilateral hip osteoarthritis. Severe anemia and thrombocytopenia likely due to prolonged sepsis; transfused 4 units prbc, no evidence of GIB / Acute kidney injury on IVF improving, likely ATN /acute encephalopathy with delirium likely due to sepsis, resolved / Sepsis with persistent bacteremia, MSSA, gram pos with abscess of R gluteus, left iliopsoas, septic emboli in lungs, Left knee abscess on abx, ID input appreciated error with micro lab, not MRSA but MSSA -Sp IR drainage of abscesses, Ortho eval for joint wash out -evidence of Endocarditis; unable to anticoagulate due to severe anemia(may be large vegetation vs mobile thrombus) -will need iv abx for 6-8 weeks per ID "continue cefazolin IV - tolerating it well, no reactions, upon discharge will do cefazolin 2 g IV q8h total 8 week until 12/19/17" / Hypokalemia Supplemented /Hyponatremia improving with iv fluid / Transaminitis Acute hepatitis profile positive for hepatitis C Patient has no history of alcohol intake He is in the snf since april 2017 cont to monitor /DVT prophylaxis Lovenox 30 mg subcutaneous daily GI prophylaxis ordered Brief History: The patient is a 61 YO male with no significant medical problem who is current incarcerated was sent from the snf for one day h/o abd pain and Outside labs showing elevated creatinine. History Interval history: The patient has been confused at times, delirious, waxing and waning mental status Continues to have fever No cough, no sputum production Per nursing staff he complains of pain when he moves him and turning on his side and put him on bedpan No vomiting Hospitalist Physical - Physical exam Narrative exam: General.: Appears well, no distress, nontoxic HEENT: Moist mucous membranes, extraocular muscles intact, no lymphadenopathy Neck: supple Cardiac: S1-S2 heard Lungs: clear to auscultation bilaterally Abdomen: soft , nontender, nondistended, bowel sounds positive Extremities: no edema clubbing or cyanosis Skin: old nodular scar rash on arms/legs Neurologic: no gross focal deficits Psych: appropriate behavior, appropriate mood, corporative, judgment intact History Interval history: no more episodes of confusion fever has now resolved No cough, no sputum production No vomiting Hospitalist Physical - Physical exam Narrative exam: General.: Appears well, no distress, nontoxic HEENT: Moist mucous membranes, extraocular muscles intact, no lymphadenopathy Neck: supple Cardiac: S1-S2 heard Lungs: clear to auscultation bilaterally Abdomen: soft , nontender, nondistended, bowel sounds positive Extremities: no edema clubbing or cyanosis Skin: old nodular scar rash on arms/legs Neurologic: no gross focal deficits Psych: appropriate behavior, appropriate mood, corporative, judgment intact - Constitutional Vitals: Temp Pulse Resp BP Pulse Ox 97.8 F 81 18 102/69 97 11/05/17 11:39 11/05/17 11:39 11/05/17 11:39 11/05/17 11:39 11/05/17 11:39 General appearance: Present: no acute distress Results - Labs CBC & Chem 7: 11/04/17 06:48 11/04/17 06:48 Labs: Laboratory Last Values WBC 17.7 K/mm3 (4.5-11.0) H 11/04/17 06:48 RBC 3.20 M/mm3 (3.65-5.03) L 11/04/17 06:48 Hgb 9.7 gm/dl (11.8-15.2) L 11/04/17 06:48 Hct 29.0 % (35.5-45.6) L 11/04/17 06:48 MCV 91 fl (84-94) 11/04/17 06:48 MCH 30 pg (28-32) 11/04/17 06:48 MCHC 34 % (32-34) 11/04/17 06:48 RDW 14.5 % (13.2-15.2) 11/04/17 06:48 Plt Count 375 K/mm3 (140-440) 11/04/17 06:48 Lymph % (Auto) 6.6 % (13.4-35.0) L 11/04/17 06:48 [place] % (Auto) 8.9 % (0.0-7.3) H 11/04/17 06:48 Eos % (Auto) 0.1 % (0.0-4.3) 11/04/17 06:48 Baso % (Auto) 0.8 % (0.0-1.8) 11/04/17 06:48 Lymph # 1.2 K/mm3 (1.2-5.4) 11/04/17 06:48 [place] # 1.6 K/mm3 (0.0-0.8) H 11/04/17 06:48 Eos # 0.0 K/mm3 (0.0-0.4) 11/04/17 06:48 Baso # 0.1 K/mm3 (0.0-0.1) 11/04/17 06:48 Add Manual Diff Complete 10/25/17 07:56 Total Counted 100 10/25/17 07:56 Seg Neutrophils % 83.6 % (40.0-70.0) H 11/04/17 06:48 Seg Neuts % (Manual) 72.0 % (40.0-70.0) H 10/25/17 07:56 Band Neutrophils % 0 % 10/25/17 07:56 Lymphocytes % (Manual) 10.0 % (13.4-35.0) L 10/25/17 07:56 Reactive Lymphs % (Man) 0 % 10/25/17 07:56 Monocytes % (Manual) 16.0 % (0.0-7.3) H 10/25/17 07:56 Eosinophils % (Manual) 1.0 % (0.0-4.3) 10/25/17 07:56 Basophils % (Manual) 1.0 % (0.0-1.8) 10/25/17 07:56 Metamyelocytes % 0 % 10/25/17 07:56 Myelocytes % 0 % 10/25/17 07:56 Promyelocytes % 0 % 10/25/17 07:56 Blast Cells % 0 % 10/25/17 07:56 Nucleated RBC % Not Reportable 10/25/17 07:56 Seg Neutrophils # 14.8 K/mm3 (1.8-7.7) H 11/04/17 06:48 Seg Neutrophils # Man 7.3 K/mm3 (1.8-7.7) 10/25/17 07:56 Band Neutrophils # 0.0 K/mm3 10/25/17 07:56 Lymphocytes # (Manual) 1.0 K/mm3 (1.2-5.4) L 10/25/17 07:56 Abs React Lymphs (Man) 0.0 K/mm3 10/25/17 07:56 Monocytes # (Manual) 1.6 K/mm3 (0.0-0.8) H 10/25/17 07:56 Eosinophils # (Manual) 0.1 K/mm3 (0.0-0.4) 10/25/17 07:56 Basophils # (Manual) 0.1 K/mm3 (0.0-0.1) 10/25/17 07:56 Metamyelocytes # 0.0 K/mm3 10/25/17 07:56 Myelocytes # 0.0 K/mm3 10/25/17 07:56 Promyelocytes # 0.0 K/mm3 10/25/17 07:56 Blast Cells # 0.0 K/mm3 10/25/17 07:56 WBC Morphology Not Reportable 10/25/17 07:56 Hypersegmented Neuts Not Reportable 10/25/17 07:56 Hyposegmented Neuts Not Reportable 10/25/17 07:56 Hypogranular Neuts Not Reportable 10/25/17 07:56 Smudge Cells Not Reportable 10/25/17 07:56 Toxic Granulation Not Reportable 10/25/17 07:56 Toxic Vacuolation Not Reportable 10/25/17 07:56 Dohle Bodies Not Reportable 10/25/17 07:56 Pelger-Huet Anomaly Not Reportable 10/25/17 07:56 Cem Rods Not Reportable 10/25/17 07:56 Platelet Estimate Consistent w auto 10/25/17 07:56 Clumped Platelets Not Reportable 10/25/17 07:56 Plt Clumps, EDTA Not Reportable 10/25/17 07:56 Large Platelets Not Reportable 10/25/17 07:56 Giant Platelets Not Reportable 10/25/17 07:56 Platelet Satelliting Not Reportable 10/25/17 07:56 Plt Morphology Comment Not Reportable 10/25/17 07:56 RBC Morphology Normal 10/25/17 07:56 Dimorphic RBCs Not Reportable 10/25/17 07:56 Polychromasia Not Reportable 10/25/17 07:56 Hypochromasia Not Reportable 10/25/17 07:56 Poikilocytosis Not Reportable 10/25/17 07:56 Anisocytosis Not Reportable 10/25/17 07:56 Microcytosis Not Reportable 10/25/17 07:56 Macrocytosis Not Reportable 10/25/17 07:56 Spherocytes Not Reportable 10/25/17 07:56 Pappenheimer Bodies Not Reportable 10/25/17 07:56 Sickle Cells Not Reportable 10/25/17 07:56 Target Cells Not Reportable 10/25/17 07:56 Tear Drop Cells Not Reportable 10/25/17 07:56 Ovalocytes Not Reportable 10/25/17 07:56 Helmet Cells Not Reportable 10/25/17 07:56 [place] Bodies Not Reportable 10/25/17 07:56 [place] Rings Not Reportable 10/25/17 07:56 [place] Cells Not Reportable 10/25/17 07:56 Bite Cells Not Reportable 10/25/17 07:56 Crenated Cell Not Reportable 10/25/17 07:56 Elliptocytes Not Reportable 10/25/17 07:56 Acanthocytes (Spur) Not Reportable 10/25/17 07:56 Rouleaux Not Reportable 10/25/17 07:56 Hemoglobin C Crystals Not Reportable 10/25/17 07:56 Schistocytes Not Reportable 10/25/17 07:56 Malaria parasites Not Reportable 10/25/17 07:56 Juan Bodies Not Reportable 10/25/17 07:56 Hem Pathologist Commnt No 10/25/17 07:56 PT 15.4 Sec. (12.2-14.9) H 10/24/17 12:03 INR 1.16 (0.87-1.13) H 10/24/17 12:03 APTT 43.4 Sec. (24.2-36.6) H 10/24/17 12:03 Heparin Anti-Xa Level < 0.10 U.I./ml (0.3-0.7) L 10/24/17 12:03 Sodium 131 mmol/L (137-145) L 11/04/17 06:48 Potassium 4.0 mmol/L (3.6-5.0) 11/04/17 06:48 Chloride 94.2 mmol/L (98-107) L 11/04/17 06:48 Carbon Dioxide 23 mmol/L (22-30) 11/04/17 06:48 Anion Gap 18 mmol/L 11/04/17 06:48 BUN 16 mg/dL (9-20) 11/04/17 06:48 Creatinine 0.7 mg/dL (0.8-1.5) L 11/04/17 06:48 Estimated GFR > 60 ml/min 11/04/17 06:48 BUN/Creatinine Ratio 23 % 11/04/17 06:48 Glucose 111 mg/dL (75-100) H 11/04/17 06:48 POC Glucose 157 (70-105) H 10/26/17 08:59 Osmolality 305 Mosm/kg 10/12/17 06:00 Lactic Acid 1.60 mmol/L (0.7-2.0) 10/13/17 10:36 Calcium 11.2 mg/dL (8.4-10.2) H 11/04/17 06:48 Phosphorus 3.90 mg/dL (2.5-4.5) 11/04/17 06:48 Magnesium 1.70 mg/dL (1.7-2.3) 11/04/17 06:48 Iron 45 ug/dL (49-181) L 10/12/17 06:00 TIBC 131 mcg/dL (250-450) L 10/12/17 06:00 % Saturation 34.35 % 10/12/17 06:00 Transferrin 102 mg/dl (180-329) L 10/12/17 06:00 Total Bilirubin 1.00 mg/dL (0.1-1.2) 10/19/17 07:11 AST 129 units/L (5-40) H 10/19/17 07:11 ALT 73 units/L (7-56) H 10/19/17 07:11 Alkaline Phosphatase 128 units/L (35-129) 10/19/17 07:11 Total Creatine Kinase 3079 units/L (55-170) H 11/03/17 09:08 C-Reactive Protein 26.70 mg/dL (0.00-1.30) H 10/15/17 20:53 Total Protein 5.6 g/dL (6.3-8.2) L 10/19/17 07:11 Albumin 1.8 g/dL (3.9-5) L 10/19/17 07:11 Albumin/Globulin Ratio 0.5 % 10/19/17 07:11 Urine Color Yellow (Yellow) 10/11/17 Unknown Urine Turbidity Clear (Clear) 10/11/17 Unknown Urine pH 5.0 (5.0-7.0) 10/11/17 Unknown Ur Specific [place] 1.012 (1.003-1.030) 10/11/17 Unknown Urine Protein <15 mg/dl mg/dL (Negative) 10/11/17 Unknown Urine Glucose (UA) Neg mg/dL (Negative) 10/11/17 Unknown Urine Ketones Neg mg/dL (Negative) 10/11/17 Unknown Urine Blood Mod (Negative) 10/11/17 Unknown Urine Nitrite Neg (Negative) 10/11/17 Unknown Urine Bilirubin Neg (Negative) 10/11/17 Unknown Urine Urobilinogen < 2.0 mg/dL (<2.0) 10/11/17 Unknown Ur Leukocyte Esterase Neg (Negative) 10/11/17 Unknown Urine WBC (Auto) 10.0 /HPF (0.0-6.0) H 10/11/17 Unknown Urine RBC (Auto) 15.0 /HPF (0.0-6.0) 10/11/17 Unknown U Epithel Cells (Auto) 1.0 /HPF (0-13.0) 10/11/17 Unknown Urine Mucus Few /HPF 10/11/17 Unknown Urine Osmolality 425 Mosm/kg 10/12/17 13:00 Urine Creatinine 80.2 mg/dL (0.1-20.0) H 10/12/17 13:00 Urine Sodium 10 mmol/L 10/12/17 13:00 Fluid Type Synovial 10/25/17 09:45 Fluid Color [place] 10/25/17 09:45 Fluid Appearance Turbid 10/25/17 09:45 Fluid WBC 16522 /mm3 10/25/17 09:45 Fluid RBC 3300 /mm3 10/25/17 09:45 Fluid Seg Neutrophils 90.0 % 10/25/17 09:45 Fluid Lymphocytes 4.0 % 10/25/17 09:45 Fluid Reactive Lymphs Not Reportable 10/25/17 09:45 Fluid Monocytes 5.0 % 10/25/17 09:45 Fluid Eosinophils 1.0 % 10/25/17 09:45 Fluid Basophils Not Reportable 10/25/17 09:45 Fluid Comment N 10/25/17 09:45 Vancomycin Trough 25.3 ug/mL (5.0-20.0) H 10/16/17 12:01 Hepatitis A IgM Ab Non-reactive (NonReactive) 10/12/17 06:00 Hep Bs Antigen Non-reactive (Negative) 10/12/17 06:00 Hep B Core IgM Ab Non-reactive (NonReactive) 10/12/17 06:00 Hepatitis C Antibody Reactive (NonReactive) A 10/12/17 06:00 HIV 1&2 Antibody Rapid Non react (Non React) 10/16/17 19:27 HIV P24 Antigen Non react (Non React) 10/16/17 19:27 Blood Type O POSITIVE 10/28/17 19:03 Antibody Screen Negative 10/28/17 19:03 Crossmatch See Detail 10/28/17 19:03
[2017-11-06] MEDS: LOPRESSOR PO SCH ×3 (01:01→21:42)
[2017-11-06] MEDS: PERCOCET 5/325 PO PRN (01:05)
[2017-11-06] MEDS: ceFAZolin 2 GM in NACL 0.9% 100 ML IV SCH ×3 (07:33→21:44)
--- NOTE | 2017-11-06 08:58 | Progress Note ---
Assessment and Plan Assessment: 1) Severe sepsis: resolved noted leukocytosis. Etiology most likely MSSA septicemia. 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 skin boils -blood cx 10/13 MSSA 4 of 4 bottles -blood cx 10/14 MSSA 4 of 4 bottles -blood cx 10/19 MSSA 2 of 4 -blood cx 10/21 MSSA 1 of 4 -blood cx 10/25 negative -TTE no obvious vegetations -INDRA mobile echogenic density in the main pulmonary artery suspicious for either a clot in transit or vegetation. -CT showed right gluteal collection vs myositis 7.5x2.5.cm, left ilepsoas abscess 6x3.5 cm, loculated bilateral small pleural effusions with ill defined solid opacities ? nodules vs. ?emboli with reactive axillary, hilar and mediastinal LNs. -S/P right hip aspiration yieling 40cc fluid on 10/21 cx +MSSA -WBC scan showed left large knee effusion and multiple soft tissue abscesses pelvic areas -S/P left obturator pectineous and rectus femoris drainage 40 cc purulence -S/P left knee aspiration 80cc purulence 3) DARRICK - resolved 4) Thrombocytopenia: from sepsis/HCV- resolved 5) HCV serology positive 6) Elevated LFTs: from sepsis and HCV 7) Rhabdomyolysis: from sepsis 8) Lower back pain and leg weakness 9) Pen allergy - hives 10) Severe anemia after Heparin gtt 11) Left knee septic arthritis s/p OR wash out 10/29 Plan: -continue cefazolin IV - tolerating it well, no allergic reactions -upon discharge will do cefazolin 2 g IV q8h total 8 week until 12/19/17. Orders sent to comp field case manager. -monitor leukocytosis which is high -ID clinic f/u on 11/28/17, please be sure apt is made I am signing off Jordana Viramontes MD Infectious Diseases Specialist [facility] ([facility] M [phone] O [phone] Subjective Date of service: 11/06/17 Principal diagnosis: MRSA bacteremia Interval history: feels ok, no fever Microbiology: Blood cultures: 10/13 MSSA 4 of 4 bottles (initially reported as MRSA by error) 10/14 MSSA 4 of 4 bottles 10/19 MSSA 2 of 4 10/21 MSSA 1 of 4 10/25 negative Right hip cx: 10/21 MSSA Left knee cx : 10/25 MSSA, OR left knee MSSA Urine cultures: Respiratory cultures: Current Antimicrobials: cefazolin 11/04 Previous Antimicrobials: Zosyn Vancomycin 10/14 Dapto 10/17-11/04 Objective - Exam Narrative Exam: General appearance: Alert in NAD, Eyes: anicteric sclerae, moist conjunctivae; no lid-lag; PERRLA HENT: Atraumatic; oropharynx clear Neck: Trachea midline; supple, no thyromegaly or lymphadenopathy Lungs: CTA, with normal respiratory effort and no intercostal retractions CV: RRR Abdomen: Soft, non-tender; no masses or hepatosplenomegaly Extremities: right hip/gluteal tenderness and edema, left thigh tenderness, left knee w surgical dressings Skin: old nodular scar rash on arms/legs Psych: Appropriate affect, alert and oriented to person, place and time. Neuro: alert Lines: No CVL / PICC - Constitutional Vitals: Vital Signs Temp Pulse Resp BP Pulse Ox 98.5 F 108 H 18 95/66 94 11/06/17 05:30 11/06/17 05:30 11/06/17 05:30 11/06/17 05:30 11/06/17 05:30 Temperature -Last 24 Hours Temperature 98.5 F Temperature 98.9 F Temperature 98.0 F Temperature 97.8 F - Labs CBC & Chem 7: 11/04/17 06:48 11/04/17 06:48
[2017-11-06 10:08] LABS: Basophils # (Auto) 0.2 K/mm3 (0.0-0.1); Basophils % (Auto) 0.8 % (0.0-1.8); Eosinophils % (Auto) 0.1 % (0.0-4.3); Hemoglobin 9.3 gm/dl (11.8-15.2); Lymphocytes # (Auto) 1.8 K/mm3 (1.2-5.4); Lymphocytes % (Auto) 8.9 % (13.4-35.0); Mean Corpuscular HGB Conc 33 % (32-34); Mean Corpuscular Hemoglobin 31 pg (28-32); Mean Corpuscular Volume 92 fl (84-94); Monocytes # (Auto) 1.7 K/mm3 (0.0-0.8); Monocytes % (Auto) 8.5 % (0.0-7.3); Platelet Count 403 K/mm3 (140-440); Red Blood Count 3.04 M/mm3 (3.65-5.03); Red Cell Distribution Width 15.1 % (13.2-15.2)
[2017-11-06] MEDS: FLOMAX PO SCH (10:32)
[2017-11-06] MEDS: SODIUM CHLORIDE FLUSH SYRINGE 10 ML IV SCH ×2 (10:34→21:42)
--- NOTE | 2017-11-06 11:56 | Progress Note ---
Assessment and Plan - Sepsis with persistent bacteremia, MSSA, gram pos with abscess of R gluteus, left iliopsoas, septic emboli in lungs, Left knee abscess on abx, ID input appreciated error with micro lab, not MRSA but MSSA - Severe anemia and thrombocytopenia likely due to prolonged sepsis; transfused 4 units prbc, no evidence of GIB - Acute kidney injury on IVF improving, likely ATN - Acute encephalopathy with delirium likely due to sepsis, resolved -Sp IR drainage of abscesses, Ortho eval for joint wash out -evidence of Endocarditis; unable to anticoagulate due to severe anemia(may be large vegetation vs mobile thrombus) -will need iv abx for 6-8 weeks per ID "continue cefazolin IV - tolerating it well, no reactions, upon discharge will do cefazolin 2 g IV q8h total 8 week until 12/19/17" / Hypokalemia Supplemented /Hyponatremia improving with iv fluid / Transaminitis Acute hepatitis profile positive for hepatitis C Patient has no history of alcohol intake He is in the senior living since april 2017 cont to monitor /DVT prophylaxis Lovenox 30 mg subcutaneous daily GI prophylaxis ordered Subjective Date of service: 11/06/17 Principal diagnosis: MRSA bacteremia, endocarditis, acute kidney injury, sepsis, Interval history: Patient seen and examined. Still confused. Objective - Exam Narrative Exam: Constitutional: Well-nourished well-developed. In no distress Head: Normocephalic atraumatic Eyes: Pupils are equal round and reactive to light Nose: No enlarged turbinates, no septal deviation. Mouth: Moist mucous membranes. Neck: Supple no thyromegaly. No bruit. No JVD Heart: Regular rate and rhythm, S1-S2 abnormal. No rubs murmurs or gallop Lungs: Clear to auscultation bilaterally no rales or rhonchi Abdomen: Soft, nontender. Bowel sound are present. Extremities: No edema no cyanosis and no clubbing. Neuro: Alert oriented Oriented x3. No focal sensory or motor deficit. Skin: No rashes no hyperemic spots Psychiatry: Euthymic. Calm. - Constitutional Vitals: Vital Signs - 12hr 11/06/17 11/06/17 11/06/17 05:30 10:32 10:39 Temperature 98.5 F 98.6 F Pulse Rate 108 H 94 H 112 H Respiratory 18 19 Rate Blood Pressure 95/66 91/61 O2 Sat by Pulse 94 97 Oximetry - Labs CBC & Chem 7: 11/06/17 09:47 11/04/17 06:48 Labs: Abnormal lab results 11/06/17 Range/Units 09:47 WBC 19.9 H (4.5-11.0) K/mm3 RBC 3.04 L (3.65-5.03) M/mm3 Hgb 9.3 L (11.8-15.2) gm/dl Hct 28.0 L (35.5-45.6) % Lymph % (Auto) 8.9 L (13.4-35.0) % [place] % (Auto) 8.5 H (0.0-7.3) % [place] # 1.7 H (0.0-0.8) K/mm3 Baso # 0.2 H (0.0-0.1) K/mm3 Seg Neutrophils % 81.7 H (40.0-70.0) % Seg Neutrophils # 16.3 H (1.8-7.7) K/mm3
[2017-11-07] MEDS: ceFAZolin 2 GM in NACL 0.9% 100 ML IV SCH ×3 (07:38→22:14)
[2017-11-07] MEDS: LOPRESSOR PO SCH ×2 (09:18→09:19)
[2017-11-07] MEDS: FLOMAX PO SCH (09:18)
[2017-11-07] MEDS: SODIUM CHLORIDE FLUSH SYRINGE 10 ML IV SCH (09:20)
[2017-11-07] MEDS ORDERED: DULCOLAX PO PRN (14:40)
[2017-11-07] MEDS: MIRALAX 3350 PO SCH (15:01)
--- NOTE | 2017-11-07 15:16 | Discharge Summary ---
Providers - Providers Date of Admission: 10/12/17 00:06 Date of discharge: 11/07/17 Attending physician: LAKEISHA COLON 10/12/17 00:06 Consult to Physician [CONS] Routine Comment: Consulting Provider: LOYDA SANDOVAL Physician Instructions: Reason For Exam: ARF 10/12/17 05:31 Physical Therapy Evaluation and Treat [CONS] Routine Comment: Reason For Exam: debility 10/14/17 15:01 Consult to Physician [CONS] Routine Comment: Consulting Provider: JORDANA TERAN Physician Instructions: Reason For Exam: bacteremia 10/20/17 07:49 Consult to Physician [CONS] Routine Comment: abscess of R gluteus musculature & L iliopsoas & Consulting Provider: JOANNA BURNETT Physician Instructions: Reason For Exam: fluid collections/abscess need drained 10/25/17 16:28 Consult to Physician [CONS] Routine Comment: Consulting Provider: KANDICE MCGOWAN Physician Instructions: Reason For Exam: septic joints 10/26/17 08:19 Consult to Wound/ET Nurse [CONS] Routine Reason For Exam: wound eval 10/28/17 15:42 Consult to Case Management [CONS] Stat Services Needed at Discharge: Other Notified:: propagation manager Additional Physician Instructions: [facility] Diagnosis: complicated MSSA septicemia with pulmonary valve endocarditis, left setic knee, bilateral pelvic abscesses Abx: cefazolin 2 g IV q8h total 8 week until 12/19/17. ID clinic f/u on November 21 in the morning, please call ID office for appt at [phone] Labs: CBC, BMP, CRP every week on Saturday , send labs results to ID office at [phone] Jordana Figueroa MD on 11/04/17 11/05/17 10:13 Consult to Case Management [CONS] Stat Services Needed at Discharge: Other Notified:: Kendal Comment:: Plan of care change: cefazolin 2 g IV q8h total 8 week until Additional Physician Instructions: [facility] Diagnosis: complicated MSSA septicemia with pulmonary valve endocarditis, left setic knee, bilateral pelvic abscesses Abx: cefazolin 2 g IV q8h total 8 week until 12/19/17. ID clinic f/u on November 21 in the morning, please call ID office for appt at [phone] Labs: CBC, BMP, CRP every week on Saturday , send labs results to ID office at [phone] Jordana Figueroa MD on 11/04/17 Primary care physician: [employer]PER Hospitalization Reason for admission: sepsis with MRSA bacteremia, acute metabolic encephalopathy, DARRICK Condition: Fair Pertinent studies: CT abdomen and pelvis that showed a renal cyst. Small inguinal hernia. CT of the chest was unremarkable. Abdominal ultrasound showed renal cyst. CT of the head that was unremarkable. Procedures: none Hospital course: 61 y/o inmate from [facility] without medical history; admitted n due to abdominal pain of one-day duration. Abdominal pain is generalized about 4 on a scale of 1-10. Crampy sensation He is also c/o bilateral leg weakness. The patient was also found to have abnormal labs indicating decreased kidney function with increased creatinine. Patient did not have any nausea , vomiting or diarrhea. No fever or chills. No shortness of breath. No recent travel. Denies previous Staph infection. Reports subjective fever. CT scan of abdomen and pelvis were unremarkable. However collection in the right he hasn' t due to area identified. Blood culture and culture of aspirate from the right hip and gluteus muscle yielded MSSA. ID consult was obtained. Patient commenced on IV daptomycin as patient is sensitive to penicillin. Transthoracic echocardiogram showed normal ejection fraction of 60%. However transesophageal echocardiogram showed evidence of vegetation in the pulmonary artery suggestive of thrombosis. Patient was presumptively treated for endocarditis. CT scan of the pelvis had also shown a right gluteal collection suggestive of mild myositis. CT scan of the brain that was taken followed by dentist is unremarkable. PICC line ordered for 6 weeks of IV antibiotics now and on 12/19/2017 per infection disease specialist. He is therefore being transferred to [facility] facility having been [facility] by [facility]. Also show that patient has acute kidney injury as well as rhabdomyolysis that was from sepsis. Has progressed to weakness of the balloon estimates he is from his chronic low back pain. Physical therapy was involved in the care of the patient. Laboratory studies also showed patient was positive for hepatitis C. Abnormality elevated liver enzymes with a contracted hepatitis C. This gradually improved with continuous management. Leukocytosis persistent therefore patient is been discharged to half-way facility to continue with IV cefazolin 2 grams every 8 hours for total of 8 weeks which will be till 12/19/2017. Disposition: DC-01 TO HOME OR SELFCARE Time spent for discharge: 40 mins - Discharge Diagnoses (1) MSSA (methicillin susceptible Staphylococcus aureus) septicemia Status: Acute (2) Pyomyositis Status: Acute (3) Septic arthritis of hip Status: Acute (4) Acute kidney injury Status: Acute (5) Acute renal failure Status: Acute (6) Endocarditis Status: Acute (7) Hypokalemia Status: Acute (8) Transaminitis Status: Acute Core Measure Documentation - Palliative Care Palliative Care/ Comfort Measures: Not Applicable - Core Measures Any of the following diagnoses?: none Exam - Physical Exam Narrative exam: Constitutional: Well-nourished well-developed. In no distress Head: Normocephalic atraumatic Eyes: Pupils are equal round and reactive to light Nose: No enlarged turbinates, no septal deviation. Mouth: Moist mucous membranes. Neck: Supple no thyromegaly. No bruit. No JVD Heart: Regular rate and rhythm, S1-S2 abnormal. No rubs murmurs or gallop Lungs: Clear to auscultation bilaterally no rales or rhonchi Abdomen: Soft, nontender. Bowel sound are present. Extremities: No edema no cyanosis and no clubbing. Neuro: Alert oriented Oriented x3. No focal sensory or motor deficit. Skin: No rashes no hyperemic spots Psychiatry: Euthymic. Calm. - Constitutional Vitals: Temp Pulse Resp BP Pulse Ox 98.3 F 105 H 20 99/65 94 11/07/17 12:36 11/07/17 12:36 11/07/17 12:36 11/07/17 12:36 11/07/17 12:36 Plan Activity: up only with assistance, fall precautions Weight Bearing Status: Non-Weight Bearing Diet: regular Follow up with: PRIMARY CARE, [Primary Care Provider] - 3-5 Days Prescriptions: oxyCODONE /ACETAMINOPHEN [Percocet 5/325 mg] 1 tab PO Q6H PRN #18 tablet PRN Reason: Pain, Moderate (4-6) Tamsulosin [Flomax] 0.4 mg PO QDAY #30 capsule
[2017-11-07] MEDS: PERCOCET 5/325 PO PRN (17:46)
[2017-11-07] MEDS: DULCOLAX PO SCH (22:15)
[2017-11-07] MEDS: MORPHINE IV PRN (22:19)
[2017-11-08] MEDS: SODIUM CHLORIDE FLUSH SYRINGE 10 ML IV SCH ×2 (00:57→10:21)
[2017-11-08] MEDS: LOPRESSOR PO SCH ×3 (00:58→10:24)
[2017-11-08] MEDS: ceFAZolin 2 GM in NACL 0.9% 100 ML IV SCH ×2 (06:20→15:16)
[2017-11-08] MEDS: PERCOCET 5/325 PO PRN (06:20)
[2017-11-08] MEDS: FLOMAX PO SCH (10:20)
[2017-11-08] MEDS: DULCOLAX PO SCH (10:20)
[2017-11-08] MEDS: MIRALAX 3350 PO SCH (10:21)
--- NOTE | 2017-11-08 11:58 | XRay Report ---
Portable chest: Line placement. A left PICC line has been introduced. The tip is in the region of the superior cavoatrial junction. The lungs are clear and fully inflated. Mediastinal contour is grossly normal but quite limited due to rotation. Impression: Adequate PICC line position.
[2017-11-08] MEDS ORDERED: NON-FORMULARY (Lipitor 20 MG) PO SCH (12:45)
[2017-11-08] MEDS ORDERED: CARDURA PO SCH (13:00)
[2017-11-08] MEDS ORDERED: RisperDAL PO SCH ×2 (13:00→22:00)
[2017-11-08] MEDS ORDERED: LITHOBID ER PO SCH (13:00)
[2017-11-08 18:04] VITALS: BP 110/73
[2017-11-08] MEDS ORDERED: BENADRYL PO SCH (22:00)
[2017-11-08] MEDS ORDERED: BENADRYL 50 MG PO SCH (22:00)
== END 2017-11-08 20:58 | DRG 853 ==
LOC: ED 17:52 → 3A 10-12 00:06 → EDBD 10-12 00:06 → EEVIPCON 10-12 00:06
PROVIDERS: ADMIT Internal Medicine; ATTEND Family Medicine
PROC: 0S993ZZ Drainage of Right Hip Joint, Percutaneous Approach (ICD-10-PCS; 2017-10-21)
PROC: B24BZZ4 Ultrasonography of Heart with Aorta, Transesophageal (ICD-10-PCS; 2017-10-23)
PROC: 30233N1 Transfusion of Nonautologous Red Blood Cells into Peripheral Vein, Percutaneous Approach (ICD-10-PCS; 2017-10-24)
PROC: 0K9N0ZZ Drainage of Right Hip Muscle, Open Approach (ICD-10-PCS; 2017-10-25)
PROC: 0S9D0ZZ Drainage of Left Knee Joint, Open Approach (ICD-10-PCS; principal; 2017-10-29)
PROC: 02HV33Z Insertion of Infusion Device into Superior Vena Cava, Percutaneous Approach (ICD-10-PCS; 2017-11-08)
DX: A41.02 Sepsis due to Methicillin resistant Staphylococcus aureus (principal); G93.41 Metabolic encephalopathy; E87.1 Hypo-osmolality and hyponatremia; M62.82 Rhabdomyolysis; I38 Endocarditis, valve unspecified; M00.862 Arthritis due to other bacteria, left knee; M00.851 Arthritis due to other bacteria, right hip; N17.9 Acute kidney failure, unspecified; L02.31 Cutaneous abscess of buttock; E87.6 Hypokalemia; K40.90 Unilateral inguinal hernia, without obstruction or gangrene, not specified as recurrent; N28.1 Cyst of kidney, acquired; D64.9 Anemia, unspecified; D69.6 Thrombocytopenia, unspecified; M21.262 Flexion deformity, left knee; B19.20 Unspecified viral hepatitis C without hepatic coma; Z87.891 Personal history of nicotine dependence; Z82.49 Family history of ischemic heart disease and other diseases of the circulatory system; Z88.0 Allergy status to penicillin; Z88.2 Allergy status to sulfonamides
CPT/HCPCS: 10160; 36415; 70450; 71045; 71260; 71275; 72170; 74176; 74177; 76700; 76942; 77012; 78806; 80048; 80053; 80074; 80202; 81001; 82140; 82550; 82570; 82962; 83550; 83735; 83930; 83935; 84100; 84300; 85007; 85014; 85018; 85025; 85027; 85049; 85520; 85610; 85730; 86140; 86403; 86850; 86900; 86901; 86920; 87040; 87075; 87076; 87116; 87186; 87517; 87806; 89051; 93306; 93312; 93320; 93325; 93970; 94640; 94760; 96360; 96361; 99291; A9521; A9547; C1769; J0171; J0690; J0878; J1170; J1630; J1644; J1650; J1940; J2060; J2250; J2270; J2405; J2543; J2704; J3010; J3370; J3475; J7030; J7040; J7050; J7070; P9016; Q9967